=== PATIENT | male | born 1975 | race Caucasian/White ===

== ENCOUNTER 2019-04-08 10:47 | Inpatient (IN) ==
[2019-04-08] MEDS ORDERED: ICU PROTOCOL FOR HYPERGLYCEMIA PRN ×2 (12:37→16:20)
[2019-04-08] MEDS ORDERED: PROPOFOL IV EMULSION 10 MG/ML 100 ML VIAL IV ONE (12:42)
[2019-04-08] MEDS ORDERED: NiCARDipine HCL INJ 2.5 MG/ML 10 ML AMP ONE (13:05)
[2019-04-08] MEDS ORDERED: HEPARIN (PORCINE) 1000 UNIT/ML 10 ML (CATH LAB USE ONLY) ONE (13:05)
[2019-04-08] MEDS ORDERED: MIDAZOLAM HCL 1 MG/ML 2ML VIAL ONE ×2 (13:06→15:58)
[2019-04-08] MEDS ORDERED: fentaNYL citrate 100 MCG/2 ML VIAL ONE (13:06)
[2019-04-08] MEDS ORDERED: NITROGLYCERIN/D5W 100MCG/ML 20ML SYR ONE (13:10)
--- NOTE | 2019-04-08 13:14 | History & Physical Report ---
Date of Service April 08, 2019 Assessment & Plan (1) Sudden cardiac arrest: 43-year-old male with history of hypertension presenting from outside hospital status post out of hospital arrest with ROSC, patient transferred to [facility] for post cardiac arrest care therapeutic cooling. Neurointubated, sedated. Per ICU attending, patient was moving spontaneously when sedation was decreased. Continue fentanyl drip for pain Continue propofol for sedation Therapeutic hypothermia per protocol. Demerol and BuSpar as needed for shivering Cardiovascularpatient with out of hospital PEA arrest status post CPR, epi x3 with ROSC. Presently undergoing therapeutic hypothermia. Bedside echo with depressed EF, cardiomyopathy. Cardiac cath with nonobstructive CAD. Elevated troponin as expected. -Continue therapeutic hypothermia status post cardiac arrest Hold lisinopril -Continue pressor support with Levophed and vasopressin as needed to maintain map greater than or equal to 65 Pulmonarypatient intubated and sedated. Adequate oxygenation and ventilation on current settings. ABG 7.26/40 5/160 on. Chest x-ray on arrival with ET tube 4 cm above the jl and nasogastric tube in place -Continue mechanical ventilation Gastrointestinal-patient with mild elevation in AST = 185 and ALT = 120. Most likely secondary to poor perfusion during cardiac arrest Repeat LFTs, continue to trend OG tube in place, dietary consultation placed Patient n.p.o. for now Prevacid 30 mg every morning for GI prophylaxis while intubated/mechanically ventilated Genitourinaryelevated BUN and creatinine = 27 and 1.81. Baseline unsure. [place] in place Continue to monitor BUN/creatinine/urine output and electrolytes -IV fluids as below Infectious diseasepatient with elevated procalcitonin = 1.96, leukocytosis with WBC = 23.33 with neutrophil predominance and bands. No overt evidence of infection at that time Continue to monitor cultures Unasyn per MICU attending Hematologyno active issues Continue monitor CBC Endocrineno active issues Continue to monitor blood sugar, treatment of hyperglycemia per ICU protocol F/E/N-normal saline at 80 mL/h. Monitor electrolytes and replete as needed. N.p.o. for now ProphylaxisSCDs to bilateral lower extremities, heparin 5000 units subcu every 8. Prevacid for GI prophylaxis full intubated Codefull per discussion with patient's mother and family DispositionMICU (2) Hypertension: (3) CAD (coronary artery disease): (4) Cardiomyopathy: History of Present Illness Chief Complaint: s/p cardiac arrest Primary Care Provider: NO PCP Patient is a 43yo C male with history of HTN presenting from [facility] s/p out of hospital PEA arrest with ROSC. History obtained from family and co-workers as patient intubated/sedated. Girlfriend and boss report patient has been complaining of some chest pressure for the last two weeks, stating that his "Prilosec isn't working", also with episodes of dizziness and presyncope. His boss reports that patient was not himself this AM, agitated. 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 Found to be pulseless, PEA arrest, CPR initiated in the field. EMT responded quickly and administered epinephrine x 2 with ROSC. Estimated down time = 5 minutes. He was transferred to [facility] with pulse intact. He became pulseless again while at [facility], CPR was initiated and he was administered epi x 1 with ROSC. Patient not following commands. He was intubated at [facility], OGT placed. Left IJ placed and removed. Started on Levophed and Vasopressin. Propofol for sedation. Labs from [facility] significant for WBC=18.1. Cr=1.6 HCO3=19 XRS=163, IYK=975, AG=18.6. Per flight crew, VBG of 7. CXR at OSH confirmed placement of ETT and OGT EKG with accelerated junctional rhythm, LAD, poor R-wave progression Patient transferred to [facility] by air. MORGAN - Shanna Conway (mother) [phone] Allergies Allergy/AdvReac Type Severity Reaction Status Date / Time No Known Allergies Allergy Unverified 05/23/15 17:40 Home Medications Home Medications Medication Instructions Recorded Confirmed Type lisinopril [Prinivil] 20 mg PO DAILY 04/08/19 04/08/19 History Past Med/Surg History Medical History (Updated 04/08/19 @ 18:48 by Norbert Rm MD) Hypertension Sudden cardiac arrest Surgical History (Updated 04/08/19 @ 13:11 by Rosa Garcia DO) History of appendectomy Family History (Updated 04/08/19 @ 13:12 by Rosa Garcia DO) Other Cancer Coronary heart disease Diabetes Social History (Updated 04/08/19 @ 13:12 by Rosa Garcia DO) Preferred Language: Lithuanian 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: No Beliefs That Will Affect Care: None Current Living Situation: Family current occupational status: employed Smoking Status: Current every day smoker Tobacco Type: cigarettes ; Hx Alcohol Use: No Hx Substance Use: No Review of Systems Review of Systems: Unobtainable due to endotracheal tube Physical Exam Physical Exam: General: Patient intubated, sedated, not following commands at present Skin: warm, dry, intact, no rashes or lesions HEENT: NC/AT, PERRL, anicteric sclera, conjunctiva without injection, external ear normal to inspection and nontender, nares patent, moist mucus membranes, dentition intact, no oropharyngeal lesions, neck supple, trachea midline, no LAD, no thyromegaly, no JVD, ET tube in place Heart: +S1/S2, regular, no m/r/g Lungs: equal air entry bilaterally, no rales/rhonchi/wheezes Abd: +BS, soft, NT/ND, no masses/organomegaly/ascites Ext: warm, 2+ pulses in UE/LE bilaterally, no clubbing/cyanosis or edema Neuro: Intubated, sedated, not following commands at present Results & Data Vital Signs (Past 12 Hours) Vital Signs Blood Pressure Pulse Rate Respiratory Rate Pulse Oximetry 92/51 L 78 16 100 04/08/19 13:06 04/08/19 13:06 04/08/19 13:06 04/08/19 13:06 Laboratory Results Lab Results 04/08/19 04/08/19 04/08/19 Range/Units 12:50 13:14 13:14 WBC (4.8-10.8) K/uL RBC (4.7-6.1) M/uL Hgb (14.0-18.0) g/dL POC Hgb (14.0-18.0) g/dl Hct (42-52) % POC Hct (42-52) % MCV (80-100) fL MCH (25-34) pg MCHC (32-36) g/dL RDW Std Deviation (36.4-46.3) fL RDW Coeff of Paddy (11.5-14.5) % Plt Count (130-400) K/uL MPV (7.4-10.4) fL Immature Gran % (Auto) % Neut % (Auto) % Lymph % (Auto) % [place] % (Auto) % Eos % (Auto) % Baso % (Auto) % Immature Gran # (Auto) (0.00-0.02) K/uL Neut # (Auto) (1.4-6.5) K/uL Lymph # (Auto) (1.2-3.4) K/uL [place] # (Auto) (0.11-0.59) K/uL Eos # (Auto) (0-0.5) K/uL Baso # (Auto) (0-0.2) K/uL Toxic Vacuolation PT (9.0-12.0) Seconds INR (0.9-1.1) Sample Site POC pH (7.35-7.45) POC pCO2 (35-46) mmHg POC pO2 (80-95) mmHg POC HCO3 (19-24) karen/L POC Total CO2 (24-31) mmol/L POC Base Excess (-9-1.8) karen/L ABG pH Cancelled ABG pH (Temp Correct) (7.35-7.45) ABG pCO2 Cancelled ABG pCO2 (Temp Corrct (35-46) mmHg ABG pO2 Cancelled POC ABG pO2 at Pt Temp ABG HCO3 Cancelled ABG O2 Saturation Cancelled ABG Base Excess Cancelled Lars Test Cancelled VBG pH 7.11 L (7.36-7.41) VBG pCO2 66 H (38-50) mmHg VBG pO2 47 mmHg VBG HCO3 20 mmol/L VBG O2 Saturation 68.6 % VBG Base Excess -10.6 mEq/L Barometric Pressure Cancelled 741.3 Oxygen Given Cancelled O2 Delivery Device POC O2 Rate Minute Ventilation POC FiO2 % Tidal Volume PEEP POC Sodium (135-144) mmol/L Sodium (136-145) mmol/L POC Potassium (3.3-5.0) mmol/L Potassium (3.5-5.1) mmol/L Chloride (98-107) mmol/L Carbon Dioxide (21-32) mmol/L Anion Gap (3-11) BUN (7-18) mg/dl Creatinine (0.6-1.4) mg/dl Est Cr Clr Drug Dosing Est GFR ( Amer) Est GFR (Non-Af Amer) BUN/Creatinine Ratio (10-20) Glucose (70-99) mg/dl Lactate (0.4-2.0) mmol/L Calcium (8.5-10.1) mg/dl Phosphorus (2.5-4.9) mg/dl Magnesium (1.8-2.4) mg/dl Total Bilirubin (0.2-1) mg/dl Direct Bilirubin (0-0.2) mg/dl AST (15-37) U/L ALT (12-78) U/L Alkaline Phosphatase (45-117) U/L Troponin I (0-0.045) ng/ml Total Protein (6.4-8.2) gm/dl Albumin (3.4-5.0) gm/dl Procalcitonin (0-0.5) ng/ml Nasal Screen MRSA (PCR) Negative (Negative) 04/08/19 04/08/19 04/08/19 Range/Units 13:16 13:16 13:16 WBC 18.51 H (4.8-10.8) K/uL RBC 5.13 (4.7-6.1) M/uL Hgb 16.6 (14.0-18.0) g/dL POC Hgb (14.0-18.0) g/dl Hct 47.9 (42-52) % POC Hct (42-52) % MCV 93.4 (80-100) fL MCH 32.4 (25-34) pg MCHC 34.7 (32-36) g/dL RDW Std Deviation 43.3 (36.4-46.3) fL RDW Coeff of Paddy 12.6 (11.5-14.5) % Plt Count 220 (130-400) K/uL MPV 9.7 (7.4-10.4) fL Immature Gran % (Auto) 1.5 % Neut % (Auto) 85.3 % Lymph % (Auto) 9.6 % [place] % (Auto) 3.2 % Eos % (Auto) 0.3 % Baso % (Auto) 0.1 % Immature Gran # (Auto) 0.27 H (0.00-0.02) K/uL Neut # (Auto) 15.79 H (1.4-6.5) K/uL Lymph # (Auto) 1.78 (1.2-3.4) K/uL [place] # (Auto) 0.60 H (0.11-0.59) K/uL Eos # (Auto) 0.05 (0-0.5) K/uL Baso # (Auto) 0.02 (0-0.2) K/uL Toxic Vacuolation PT 10.4 (9.0-12.0) Seconds INR 1.0 (0.9-1.1) Sample Site POC pH (7.35-7.45) POC pCO2 (35-46) mmHg POC pO2 (80-95) mmHg POC HCO3 (19-24) karen/L POC Total CO2 (24-31) mmol/L POC Base Excess (-9-1.8) karen/L ABG pH ABG pH (Temp Correct) (7.35-7.45) ABG pCO2 ABG pCO2 (Temp Corrct (35-46) mmHg ABG pO2 POC ABG pO2 at Pt Temp ABG HCO3 ABG O2 Saturation ABG Base Excess Lars Test VBG pH (7.36-7.41) VBG pCO2 (38-50) mmHg VBG pO2 mmHg VBG HCO3 mmol/L VBG O2 Saturation % VBG Base Excess mEq/L Barometric Pressure Oxygen Given O2 Delivery Device POC O2 Rate Minute Ventilation POC FiO2 % Tidal Volume PEEP POC Sodium (135-144) mmol/L Sodium 136 (136-145) mmol/L POC Potassium (3.3-5.0) mmol/L Potassium 4.2 (3.5-5.1) mmol/L Chloride 105 (98-107) mmol/L Carbon Dioxide 19 L (21-32) mmol/L Anion Gap 11.0 (3-11) BUN 19 H (7-18) mg/dl Creatinine 1.79 H (0.6-1.4) mg/dl Est Cr Clr Drug Dosing Not Reportable Est GFR ( Amer) 52.2 Est GFR (Non-Af Amer) 45.1 BUN/Creatinine Ratio 10.8 (10-20) Glucose 189 H (70-99) mg/dl Lactate (0.4-2.0) mmol/L Calcium 8.3 L (8.5-10.1) mg/dl Phosphorus 4.4 (2.5-4.9) mg/dl Magnesium 2.1 (1.8-2.4) mg/dl Total Bilirubin 0.3 (0.2-1) mg/dl Direct Bilirubin < 0.1 (0-0.2) mg/dl AST 185 H (15-37) U/L ALT 120 H (12-78) U/L Alkaline Phosphatase 91 (45-117) U/L Troponin I 8.720 H* (0-0.045) ng/ml Total Protein 7.3 (6.4-8.2) gm/dl Albumin 3.3 L (3.4-5.0) gm/dl Procalcitonin (0-0.5) ng/ml Nasal Screen MRSA (PCR) (Negative) 04/08/19 04/08/19 04/08/19 Range/Units 15:45 15:49 21:29 WBC 23.33 H (4.8-10.8) K/uL RBC 4.90 (4.7-6.1) M/uL Hgb 15.8 (14.0-18.0) g/dL POC Hgb 16.3 (14.0-18.0) g/dl Hct 44.7 (42-52) % POC Hct 48 (42-52) % MCV 91.2 (80-100) fL MCH 32.2 (25-34) pg MCHC 35.3 (32-36) g/dL RDW Std Deviation 42.8 (36.4-46.3) fL RDW Coeff of Paddy 12.8 (11.5-14.5) % Plt Count 200 (130-400) K/uL MPV 9.8 (7.4-10.4) fL Immature Gran % (Auto) 0.6 % Neut % (Auto) 88.2 % Lymph % (Auto) 4.7 % [place] % (Auto) 6.5 % Eos % (Auto) 0.0 % Baso % (Auto) 0.0 % Immature Gran # (Auto) 0.14 H (0.00-0.02) K/uL Neut # (Auto) 20.56 H (1.4-6.5) K/uL Lymph # (Auto) 1.10 L (1.2-3.4) K/uL [place] # (Auto) 1.52 H (0.11-0.59) K/uL Eos # (Auto) 0.00 (0-0.5) K/uL Baso # (Auto) 0.01 (0-0.2) K/uL Toxic Vacuolation 1+ PT (9.0-12.0) Seconds INR (0.9-1.1) Sample Site Art Line POC pH 7.26 L (7.35-7.45) POC pCO2 45 (35-46) mmHg POC pO2 160 H (80-95) mmHg POC HCO3 20 (19-24) karen/L POC Total CO2 22 L (24-31) mmol/L POC Base Excess -7.0 (-9-1.8) karen/L ABG pH ABG pH (Temp Correct) 7.278 L (7.35-7.45) ABG pCO2 ABG pCO2 (Temp Corrct 43 (35-46) mmHg ABG pO2 POC ABG pO2 at Pt Temp 152 ABG HCO3 ABG O2 Saturation ABG Base Excess Lars Test NA VBG pH (7.36-7.41) VBG pCO2 (38-50) mmHg VBG pO2 mmHg VBG HCO3 mmol/L VBG O2 Saturation % VBG Base Excess mEq/L Barometric Pressure Oxygen Given O2 Delivery Device Ventilator POC O2 Rate 16 Minute Ventilation 23.8 POC FiO2 100 % Tidal Volume 500 PEEP 10 POC Sodium 137 (135-144) mmol/L Sodium (136-145) mmol/L POC Potassium 4.8 (3.3-5.0) mmol/L Potassium (3.5-5.1) mmol/L Chloride (98-107) mmol/L Carbon Dioxide (21-32) mmol/L Anion Gap (3-11) BUN (7-18) mg/dl Creatinine (0.6-1.4) mg/dl Est Cr Clr Drug Dosing Est GFR ( Amer) Est GFR (Non-Af Amer) BUN/Creatinine Ratio (10-20) Glucose (70-99) mg/dl Lactate 3.9 H* (0.4-2.0) mmol/L Calcium (8.5-10.1) mg/dl Phosphorus (2.5-4.9) mg/dl Magnesium (1.8-2.4) mg/dl Total Bilirubin (0.2-1) mg/dl Direct Bilirubin (0-0.2) mg/dl AST (15-37) U/L ALT (12-78) U/L Alkaline Phosphatase (45-117) U/L Troponin I (0-0.045) ng/ml Total Protein (6.4-8.2) gm/dl Albumin (3.4-5.0) gm/dl Procalcitonin (0-0.5) ng/ml Nasal Screen MRSA (PCR) (Negative) 04/08/19 04/08/19 04/08/19 Range/Units 21:29 21:29 21:29 WBC (4.8-10.8) K/uL RBC (4.7-6.1) M/uL Hgb (14.0-18.0) g/dL POC Hgb (14.0-18.0) g/dl Hct (42-52) % POC Hct (42-52) % MCV (80-100) fL MCH (25-34) pg MCHC (32-36) g/dL RDW Std Deviation (36.4-46.3) fL RDW Coeff of Paddy (11.5-14.5) % Plt Count (130-400) K/uL MPV (7.4-10.4) fL Immature Gran % (Auto) % Neut % (Auto) % Lymph % (Auto) % [place] % (Auto) % Eos % (Auto) % Baso % (Auto) % Immature Gran # (Auto) (0.00-0.02) K/uL Neut # (Auto) (1.4-6.5) K/uL Lymph # (Auto) (1.2-3.4) K/uL [place] # (Auto) (0.11-0.59) K/uL Eos # (Auto) (0-0.5) K/uL Baso # (Auto) (0-0.2) K/uL Toxic Vacuolation PT (9.0-12.0) Seconds INR (0.9-1.1) Sample Site POC pH (7.35-7.45) POC pCO2 (35-46) mmHg POC pO2 (80-95) mmHg POC HCO3 (19-24) karen/L POC Total CO2 (24-31) mmol/L POC Base Excess (-9-1.8) karen/L ABG pH 7.34 L ABG pH (Temp Correct) (7.35-7.45) ABG pCO2 43 ABG pCO2 (Temp Corrct (35-46) mmHg ABG pO2 109 H POC ABG pO2 at Pt Temp ABG HCO3 23 ABG O2 Saturation 97.8 H ABG Base Excess -2.9 Lars Test Pos VBG pH (7.36-7.41) VBG pCO2 (38-50) mmHg VBG pO2 mmHg VBG HCO3 mmol/L VBG O2 Saturation % VBG Base Excess mEq/L Barometric Pressure 743.1 Oxygen Given 40% FIO2 O2 Delivery Device POC O2 Rate Minute Ventilation POC FiO2 % Tidal Volume PEEP POC Sodium (135-144) mmol/L Sodium 136 (136-145) mmol/L POC Potassium (3.3-5.0) mmol/L Potassium 5.2 H D (3.5-5.1) mmol/L Chloride 107 (98-107) mmol/L Carbon Dioxide 24 (21-32) mmol/L Anion Gap 5.0 (3-11) BUN 27 H (7-18) mg/dl Creatinine 1.81 H (0.6-1.4) mg/dl Est Cr Clr Drug Dosing 67.1 Est GFR ( Amer) 51.5 Est GFR (Non-Af Amer) 44.5 BUN/Creatinine Ratio 14.9 (10-20) Glucose 111 H (70-99) mg/dl Lactate (0.4-2.0) mmol/L Calcium 8.3 L (8.5-10.1) mg/dl Phosphorus 3.4 D (2.5-4.9) mg/dl Magnesium 2.0 (1.8-2.4) mg/dl Total Bilirubin (0.2-1) mg/dl Direct Bilirubin (0-0.2) mg/dl AST (15-37) U/L ALT (12-78) U/L Alkaline Phosphatase (45-117) U/L Troponin I (0-0.045) ng/ml Total Protein (6.4-8.2) gm/dl Albumin (3.4-5.0) gm/dl Procalcitonin 1.96 H (0-0.5) ng/ml Nasal Screen MRSA (PCR) (Negative) Diagnostic Findings ULTRASOUND BILATERAL LOWER EXTREMITY VENOUS CLINICAL HISTORY: Lower extremity edema. COMPARISON STUDY: No priors. TECHNIQUE: Real-time, grayscale, and color Doppler sonography of the deep veins of the right and left lower extremity was performed from the inguinal crease to the calf. Compression and augmentation were utilized. FINDINGS: There is no sonographic evidence of deep venous thrombosis identified in the right or left lower extremity. The common femoral, superficial femoral, and popliteal veins are patent and normally compressible bilaterally. The greater saphenous vein and the profunda femoris vein at the junction with the common femoral vein are clear in both legs. The visualized calf veins are patent bilaterally. IMPRESSION: There is no sonographic evidence of deep venous thrombosis identified in the right or left lower extremity. ACT 112: Negative or not required by law. Electronically signed by: Alexander Ewing M.D. 04/08/2019 6:11 PM Dictated: 04/08/191809 Transcribed: 04/08/191809 XR chest 1V portable CLINICAL HISTORY: confirm ETT tube position COMPARISON STUDY: 04/08/2019 1:06 PM FINDINGS: Nasogastric tube within the distal stomach. Endotracheal tube 4 cm above the jl. Lungs are grossly clear. IMPRESSION: 1. Endotracheal tube 4 cm above the jl. 2. Nasogastric tube distal stomach. ACT 112: Negative or not required by law. The above report was generated using voice recognition software. It may contain grammatical, syntax or spelling errors. Electronically signed by: Joe Tillman M.D. 04/08/2019 1:19 PM Dictated: 04/08/19 1318 Code Status & VTE Plan Code Status Full code Critical Care Time Critical Care Time: Yes Total Critical Care Time: 45 PG Care Time/CCT Total # of Minutes Spent Total Time Spent with Patient: Total time spent is greater than 50% in coordination of care (as documented) at patient's floor/unit and/or counseling patient: Critical Care Time: Yes Total Critical Care Time: 45 Coding Level of Care Code None Diagnoses Sudden cardiac arrest I46.9 Hypertension I10 Hypertension type: essential hypertension CAD (coronary artery disease) I25.10 Cardiomyopathy I42.9 Additional Codes Critical Care Time - Critical Care Time: Yes ([id number]) (1) Hypertension Hypertension type: essential hypertension Qualified Code(s): I10 - Essential (primary) hypertension
--- NOTE | 2019-04-08 13:16 | Critical Care Consultation ---
Date of Consultation April 08, 2019 Assessment & Plan (1) Admitted to intensive care unit: Reason Critically Ill: 43 yo male with cardiac arrest flow to [facility] from [facility] for further management. Neuro: * Sedation with propofol and fentanyl drip while on vent * Hypothermic protocol for cerebral cooling in the setting of recent cardiac arrest Cardiac: * Cardiac Arrest - total estimated time down is 5 minutes; patient with ROSC after amp of epi x 2 CHROME TANNER. currently in sinus rhythm on cardiac monitoring. despite elevated trop and EKG changes (new left fasicular block with T wave inversion), etiology unlikely to be ischemia as cath showed only moderately obstructive coronary disease, not significant enough to be responsible for arrest or warrant PCI. consider arrhythmia vs. non-ischemic cardiomyopathy. ECHO ordered, read pending. cardiology consult placed. will order A1c and lipid profile with AM labs. * Elevated Troponin - 0.3 at [facility], increased to 8.7. continue to trend. Patient taken directly to laborer tin can, which revealed moderately obstructive coronary disease. No stents were deployed. Cooling catheter placed in laborer tin can. etiology likely demand > supply * HTN - patient recently initiated on Lisinopril for anti-hypertensive regimen. BP required pressor support while in life-flight. will place A-line for continuous BP monitoring. Respiratory: * Currently mechanically ventilated in light of recent cardiac arrest. Will order VBG GI: * NPO while on vent * Elevated LFTs: AST at 185, ALT 120. Likely banking representative of shock liver vs. primary hepatic etiology. continue to trend * GERD: continue home lansoprazole RENAL/LYTES: * Metabolic acidosis; lactate pending * Cr 1.6 at [facility], up to 1.79 on admission. Likely in the setting of reduced perfusion * electrolytes normal on admission; ICU Electrolyte replacement protocol held in while on hypothermia protocol : * Mayorga catheter placed - strict Is/Os ENDO: - no known history of underlying diabetes; A1c ordered - ICU protocol for hyperglycemia HEME: * Hgb 16.6. No issues identified. ID: * WBC normal at [facility]; elevated to 18 on admission - most likely banking representative of a stress response vs. infectious process. lactate ordered. continue to trend * nasal MRSA swab negative LINES/IV ACCESS: * L EJ * PIV x3 (2 AC, 1 hand) * left radial A-line * R femoral CVC CODE STATUS: Full DVT PROPHYLAXIS: bilateral SCDs Thank you for allowing us to participate in the care of this patient. Please refer to my attending physician's documentation for any further recommendations. Supervising Physician Co-Signing Physician Notes Patient seen and examined. Outside medical records reviewed. 43-year-old male with out of hospital witnessed cardiac arrest. Records are not entirely clear however it appears the patient had a acute event. Bystander CPR and AED shocks were administered. Total duration of downtime is unclear but may be anywhere between 5 and 35 minutes. He presented to [facility] where he was intubated. He was transferred here for cardiac evaluation consideration of hypothermia. I assessed the patient immediately upon arrival. We discontinued his propofol. He did become somewhat agitated with purposeful movements of reaching towards the endotracheal tube. We were able to wean off pressors. He was taken urgently to the [facility] to exclude a potential coronary event by Dr. Ni. He had small luminal irregularities but relatively preserved flow. An echocardiogram did demonstrate decreased ejection fraction. I am assuming the patient had either VT or VF given the report of AED shocks del ivered. Unclear if he has a stress-induced cardiomyopathy or other nonischemic cardiomyopathy. Apparently family members do have a history of alcohol induced cardiomyopathy. For now I think it is reasonable to complete a hypothermia protocol to try and minimize any risk of anoxic encephalopathy. Cardiology consultation will be obtained to assist with management and determine whether secondary prevention for an arrhythmia is in order down the road. Patient does have a mild infiltrate in the right upper lobe. Aspiration would be a possibility. Will place on Unasyn. Will check sputum culture as well as procalcitonin. Mother was updated at bedside. A total of 89 minutes critical care time exclusive of procedures managing this patient with critical illness and significant possibility of clinical deterioration History of Present Illness Attending Physician: Rosa Garcia DO History of Present Illness Mr. Conway is a 43 yo male who was transported to [facility] [address] via air from [facility] for management of a cardiac arrest due to a suspected myocardial infarction. Patient has no known cardiac history, however he was initiated on Lisinopril for high blood pressure two weeks ago by his family doctor. Other cardiac risk factors include obesity and tobacco use. He suffered an [id number] cardiac arrest while he was hanging dry wall at home. Within 5 minutes EMS arrived and began CPR. AED revealed pulseless atrial activity. He was administered 1 amp of epi and pulse returned. On arrival to [facility] he again was administered 1 amp of epi for pulselessness. Initial troponin was 0.3. Cr 1.6. AST 133. ALT 102. HCO3 19. AST 133. ALT 102. AG 18.6. Initial EKG showed left axis deviation with a junctional escape rhythm. Repeat EKG showed a left anterior fascicular block. Patient was intubated and a L central venous catheter was placed. Propofol was given as he was attempting to breath over the ventilator. OG tube was placed and cold packs were placed along the groin to initiate a hypothermic state. On the helicopter ride to [facility], air team administered vasopressin at 0.4 units/hr and NE 0.25mcg/kg/min for hypotension. On arrival to [facility] [address] patient was directly admitted to ICU for monitoring. EKG showed normal sinus rhythm with left axis deviation and non- specific T wave inversion but no ST segment changes. CXR confirmed proper positioning of endotracheal and OG tubes. Bedside echo was performed. Troponin was 8.7. Chemistry reveal metabolic acidosis. On-call bit bender was paged and patient was taken to laborer tin can. Allergies Allergy/AdvReac Type Severity Reaction Status Date / Time No Known Allergies Allergy Unverified 05/23/15 17:40 Home Medications Home Medications Medication Instructions Recorded Confirmed Type lisinopril [Prinivil] 20 mg PO DAILY 04/08/19 04/08/19 History Patient History Medical History (Updated 04/08/19 @ 14:39 by Patricia Wiggins MD) Hypertension Sudden cardiac arrest Surgical History (Updated 04/08/19 @ 13:11 by Rosa Garcia DO) History of appendectomy Family History (Updated 04/08/19 @ 13:12 by Rosa Garcia DO) Other Cancer Coronary heart disease Diabetes Social History (Updated 04/08/19 @ 13:12 by Rosa Garcia DO) Beliefs That Will Affect Care: None current occupational status: employed Smoking Status: Current every day smoker Hx Alcohol Use: No Hx Substance Use: No Review of Systems Review of Systems: Unobtainable due to endotracheal tube Physical Exam Constitutional: WD/WN, vitals as above + obese and + mechanically ventilated ENMT: external ear and nose normal, oropharynx normal Neck: normal visual inspection and trachea midline Respiratory: normal respiratory effort, lungs clear to auscultation Cardiovascular: RRR, no murmur, no edema Heart Sounds: normal S1 and normal S2 Extremities: no edema Gastrointestinal (Abdomen): Inspection/Auscultation: abdomen normal to inspection Skin: no rashes, warm and dry Genitourinary: Mayorga catheter in place draining pale yellow colored urine Results & Data Vital Signs (Past 12 Hours) Vital Signs Pulse Resp BP Pulse Ox 04/08/19 13:06 78 16 92/51 L 100 04/08/19 13:00 75 100 04/08/19 12:58 75 92/57 L 100 04/08/19 12:50 77 93/48 L Resident Activity Tracking Resident Involvement: Resident Care Provided Care Provided: Adult Hospital Medicine
--- NOTE | 2019-04-08 13:21 | XRay Report ---
XR chest 1V portable CLINICAL HISTORY: confirm ETT tube position COMPARISON STUDY: 04/08/2019 1:06 PM FINDINGS: Nasogastric tube within the distal stomach. Endotracheal tube 4 cm above the jl. Lungs are grossly clear. IMPRESSION: 1. Endotracheal tube 4 cm above the jl. 2. Nasogastric tube distal stomach. ACT 112: Negative or not required by law. The above report was generated using voice recognition software. It may contain grammatical, syntax or spelling errors. Electronically signed by: Joe Tillman M.D. 04/08/2019 1:19 PM
[2019-04-08 13:23] LABS: Basophils # (auto) 0.02 K/uL (0-0.2); Basophils % (auto) 0.1 %; Eosinophils # (auto) 0.05 K/uL (0-0.5); Eosinophils % (auto) 0.3 %; Hematocrit (blood only) 47.9 % (42-52); Hemoglobin 16.6 g/dL (14.0-18.0); Immature Granulocytes # (auto) 0.27 K/uL (0.00-0.02); Immature Granulocytes % (auto) 1.5 %; Lymphocytes # (auto) 1.78 K/uL (1.2-3.4); Lymphocytes % (auto) 9.6 %; Mean Corpuscular Hemoglobin 32.4 pg (25-34); Mean Corpuscular Volume 93.4 fL (80-100); Mean Platelet Volume 9.7 fL (7.4-10.4); Monocytes % (auto) 3.2 %; Neutrophils # (auto) 15.79 K/uL (1.4-6.5); Neutrophils % (auto) 85.3 %; Platelet Count 220 K/uL (130-400); RDW Coefficient of Variation 12.6 % (11.5-14.5); RDW Standard Deviation 43.3 fL (36.4-46.3); Red Blood Count 5.13 M/uL (4.7-6.1); White Blood Count 18.51 K/uL (4.8-10.8)
[2019-04-08 13:28] LABS: Base Excess VBG -10.6 mEq/L; Oxygen Saturation VBG 68.6 %; pH VBG 7.11 (7.36-7.41)
[2019-04-08 13:30] LABS: Mean Corpuscular Hgb Conc 34.7 g/dL (32-36)
[2019-04-08 13:33] LABS: Prothrombin Time 10.4 Seconds (9.0-12.0)
[2019-04-08 13:43] LABS: Alanine Aminotransferase 120 U/L (12-78); Albumin Level 3.3 gm/dl (3.4-5.0); Aspartate Aminotransferase 185 U/L (15-37); BUN Creatinine Ratio 10.8 (10-20); Bilirubin Direct < 0.1 mg/dl (0-0.2); Blood Urea Nitrogen 19 mg/dl (7-18); Calcium 8.3 mg/dl (8.5-10.1); Carbon Dioxide 19 mmol/L (21-32); Chloride 105 mmol/L (98-107); Est GFR (African American) 52.2; Est GFR (Non-African American) 45.1; Glucose 189 mg/dl (70-99); Magnesium 2.1 mg/dl (1.8-2.4); Potassium 4.2 mmol/L (3.5-5.1); Sodium 136 mmol/L (136-145)
[2019-04-08] MEDS ORDERED: PROPOFOL IV EMULSION 10 MG/ML 20 ML VIAL (CATH LAB USE ONLY) ONE (13:48)
[2019-04-08 14:02] LABS: Alkaline Phosphatase 91 U/L (45-117); Bilirubin,Total 0.3 mg/dl (0.2-1); Phosphorus 4.4 mg/dl (2.5-4.9); Total Protein 7.3 gm/dl (6.4-8.2)
--- NOTE | 2019-04-08 14:50 | Cardiac Catheterization ---
[facility] Data: Food Service Coordinator Cardiac Status Clinical evaluation leading to the procedure CAD Presenation: Non STEMI Anginal Classification: No Symptoms Heart Failure: No Cardiogenic Shock within 24 Hours: No Cardiac Arrest within 24 Hours: Yes Imaging Studies Past 6 Months: Yes Stress Studies Past 6 Months: No Diagnostic Physicians Name: Niko Ni MD Status: Urgent Closure Device Percutaneous Entry Location: Radial Closure Device: Radial Band Recommendations: Medical Therapy and/or Counseling Intraprocedure Events Significant Disection: No Perforation: No Cardiac Cath Procedure Full Procedure Date April 08, 2019 Pre-Procedure Diagnosis Pre-Procedure Diagnosis: Acute Coronary Syndrome and Cardiothoracic Symptom (Cardiac arrest) AUC Score AUC Score: 8 Post-Procedure Diagnosis Post-Procedure Diagnosis: Moderate CAD and Elevated Intracardiac Pressures Procedure(s) Performed Procedure(s) Performed: Coronary Angiography, Left Heart Cath, Ultrasound Guided Vascular Access and Procedure (Cooling catheter insertion) Independent Freight Agent Niko Ni MD Bottom Turning Lathe Turner(s) Max Estimated Blood Loss Estimated Blood Loss: 10 Medication(s) Medication(s): Heparin, Lidocaine 1%, Nicardipine and Nitroglycerin Medication(s): Propofol Summary of Findings Indication: 43-year-old man with out of hospital cardiac arrest. Downtime thought to be around 25 minutes. Reported questionable lateral ST elevations in route to [facility]. Additional PEA arrest in outside hospital ED. Hemodynamically stable since. Neurologically impaired postarrest and prepped for cooling. Access: 6 Fr slender right radial artery under ultrasound guidance Catheters: [place], diagnostic JR4 Findings: LM -medium caliber, luminal irregularities LAD -medium caliber, 20% proximal to mid diffuse disease, distal luminal irregularities, tapers to apex. Medium caliber second diagonal with 30 to 40% proximal stenosis Circumflex -small caliber vessel, 50-60% ostial stenosis, 50% mid segment stenosis after takeoff of first OM. OM1 with 40% proximal disease. Small OM 2 with 50% ostial stenosis RCA -large caliber vessel, dominant, 20% ostial stenosis, 60% proximal stenosis. Mid and distal luminal irregularities. LVEDP -27 Arterial Closure: TR band Cooling catheter placed to right common femoral vein under ultrasound guidance Summary: 1. Moderate nonobstructive coronary artery disease. LORY-3 flow throughout left and right coronary systems. -60% proximal RCA 50 to 60% ostial and mid circumflex. 40% proximal OM1 30 to 40% proximal second diagonal 2. Elevated intracardiac filling pressure Recommendations: No evidence of flow-limiting obstructive disease to explain cardiac arrest Targeted temperature management Continued hemodynamic support Guideline directed medical therapy for nonischemic cardiomyopathy ASCVD risk factor modification Hemodynamics Rest Ao:: 102/61/81 Final Ao: 111/71/80 LV: 106/27 Recommendations Recommendations: Medical Therapy and/or Counseling Specimens Specimens: None Radiation Exposure (mGy) 1751 Contrast (mls) 45 Fluids (cc crystalloids) Fluids (cc crystalloids): 100 Drains Drains: none Anesthesia moderate Procedural Complication(s) None Disposition ICU I attest to the content of the Intraoperative Record and any orders documented therein. Any exceptions are noted below. [facility] Card Cath Procedure Codes Cardiac Catheterization Procedure 1: Cardiovascular Cath Procedures: 76431 Coronaries and LHC (+/-LV) Therapeutic Services & Ancillary Proc Procedure 1: Cardiovascular Tx and Anc Procedures: 77998 Ultrasonic Guidance Vascular Access Procedure 2: Cardiovascular Tx and Anc Procedures: 66484 Insertion Central Venous Catheter PG Care Time/CCT Total # of Minutes Spent Total Time Spent with Patient: Total time spent is greater than 50% in coordination of care (as documented) at patient's floor/unit and/or counseling patient:
[2019-04-08] MEDS ORDERED: STAT IV Infusion **Titration per Protocol STA (14:58)
[2019-04-08] MEDS ORDERED: BusPIRone 15 MG TAB NG PRN (14:58)
[2019-04-08] MEDS ORDERED: ICU ELECTROLYTE REPLACEMENT PROTOCOL PRN (14:58)
[2019-04-08] MEDS ORDERED: ARTIFICIAL TEARS OP OINT 3.5 GM TUBE OP PRN (14:58)
[2019-04-08] MEDS ORDERED: HYDROmorphone INJ 1 MG/ML SYRINGE IV PRN (14:58)
[2019-04-08] MEDS ORDERED: TRAMADOL HCL 50 MG TABLET NG PRN (14:58)
[2019-04-08] MEDS ORDERED: ACETAMINOPHEN 650 MG SUPP PR PRN (14:58)
[2019-04-08] MEDS ORDERED: MIDAZOLAM HCL 125 MG/250 ML BAG IV SCH (15:00)
[2019-04-08] MEDS ORDERED: SODIUM CHLORIDE 0.9% 1000ML 1,000 ML IV ONE (15:00)
[2019-04-08] MEDS: NOREPINEPHRINE BIT INJ 8 MG in DEXTROSE 5% 500 ML IV SCH (15:25)
[2019-04-08] MEDS: fentaNYL DRIP 1,250 MCG/250 ML BAG IV SCH ×2 (15:25→20:37)
--- NOTE | 2019-04-08 15:40 | Procedure Note ---
Procedure Note Date of Service April 08, 2019 Note ARTERIAL LINE PROCEDURE NOTE: Procedure: Arterial Line Placement Attending: Dr. Rich Mitchell Provider: Patricia Wigigns MD PGY-1 Indication: Monitoring on Pressors Anesthesia: Lidocaine 1% Line placed emergently post cardiac arrest, patient unable to cognitively give consent. A time-out was performed. Patient's name, procedure, indication, site, and equipment were verified. Patient's left wrist was prepped and draped in the usual sterile fashion. Providers were sterile throughout procedure. Ultrasound guidance was used to aid needle placement. A 20g Arrow arterial line was introduced into the left radial artery. After a flash was observed, the catheter was threaded and the needle was removed with appropriate blood return. Good waveform was observed on monitor. The patient tolerated the procedure well. Blood Loss: Minimal Complications: None Procedural Ultrasound Guidance Procedure Date: 04/08/2019 Indication: Arterial line insertion Attending: Dr. Rich Mitchell Provider: Patricia Wiggins MD PGY-1 Artery Identified: Yes Line confirmed in Artery with ultrasound: Yes Complications: none Patient tolerated procedure: well Attending note I was present for, and scrubbed for the entire this procedure and assisted with auguste elements. Coding Resident Activity Tracking Resident Involvement: Resident Care Provided Care Provided: Adult [facility] Medicine
[2019-04-08] MEDS: MEPERIDINE HCL 25 MG/ML CARP IV PRN ×4 (15:45→22:12)
[2019-04-08] MEDS: propofoL 1,000 MG/100 ML VIAL IV SCH ×4 (15:46→23:05)
[2019-04-08] MEDS ORDERED: SODIUM BICARBONATE 8.4% INJ 50 MEQ/50 ML VIAL IV ONE (15:53)
--- NOTE | 2019-04-08 16:06 | XCELERA ---
[id number] [id number]
[2019-04-08 16:10] LABS: iSTAT Art Bld Gas pCO2 Correct 43 mmHg (35-46); iSTAT Art Bld Gas pH Corrected 7.278 (7.35-7.45); iSTAT Arterial Blood Gas HCO3 20 meg/L (19-24); iSTAT Arterial Blood Gas pCO2 45 mmHg (35-46); iSTAT Arterial Blood Gas pH 7.26 (7.35-7.45); iSTAT Arterial Blood Gas pO2 160 mmHg (80-95); iSTAT Arterial Blood Gas pO2 C 152; iSTAT Carbon Dioxide 22 mmol/L (24-31); iSTAT FiO2 100 %; iSTAT Hematocrit 48 % (42-52); iSTAT Hemoglobin 16.3 g/dl (14.0-18.0); iSTAT Potassium 4.8 mmol/L (3.3-5.0); iSTAT Site Art Line; iSTAT Sodium 137 mmol/L (135-144)
[2019-04-08] MEDS ORDERED: SODIUM BICARB 8.4% INJ 50 MEQ/50 ML SYR IV ONE (16:15)
--- NOTE | 2019-04-08 16:17 | Billing Data ---
Date of Service April 08, 2019 See FP resident note and my addendum. Coding Level of Care Code Critical Care ea addt'l 30 min Time Spent (min) 78
[2019-04-08] MEDS: NORMOSOL-R 1,000 ML IV SCH (16:27)
[2019-04-08] MEDS: AMPICILLIN/SULBACTAM SOD 3,000 MG in 0.9 % SODIUM CHLORIDE 100 ML IV SCH ×2 (16:27→22:01)
[2019-04-08] MEDS ORDERED: TICAGRELOR 90 MG TAB PO ONE (16:49)
--- NOTE | 2019-04-08 18:12 | Ultrasound Report ---
ULTRASOUND BILATERAL LOWER EXTREMITY VENOUS CLINICAL HISTORY: Lower extremity edema. COMPARISON STUDY: No priors. TECHNIQUE: Real-time, grayscale, and color Doppler sonography of the deep veins of the right and left lower extremity was performed from the inguinal crease to the calf. Compression and augmentation wer e utilized. FINDINGS: There is no sonographic evidence of deep venous thrombosis identified in the right or left lower extremity. The common femoral, superficial femoral, and popliteal veins are patent and normally compressible bilaterally. The greater saphenous vein and the profunda femoris vein at the junction w ith the common femoral vein are clear in both legs. The visualized calf veins are patent bilaterally. IMPRESSION: There is no sonographic evidence of deep venous thrombosis identified in the right or lef t lower extremity. ACT 112: Negative or not required by law. Electronically signed by: Alexander Ewing M.D. 04/08/2019 6:11 PM
--- NOTE | 2019-04-08 18:15 | Cardiology Consultation ---
Date of Consultation April 08, 2019 Assessment & Plan (1) Sudden cardiac arrest: (2) CAD (coronary artery disease): (3) Hypertension: (4) Cardiomyopathy: (5) Elevated troponin: ASSESSMENT/PLAN: 1. Cardiac arrest: Most accounts report PEA and total CPR difficult to quantitate. Chest compressions reportedly started immediately by coworkers. He is undergoing hypothermia protocol. Continue supportive care. Currently hemodynamically stable. Etiology uncertain. There is no severe CAD to suggest acute coronary syndrome as the cause. Cannot rule out a arrhythmia completely. Discussed other possibilities with critical care staff such as PE, neurologic event, other vascular catastrophe. No obvious cause based on exam and the fact that he has remained stable since. Dr. Mitchell will coordinate further evaluation as appropriate. If he is neurologically intact when he is Re warmed, we will discuss with electrophysiology possibility of ICD at some point if appropriate at that time. 2. Cardiomyopathy: Etiology uncertain. Could be due to acute illness in the setting of cardiac arrest. Cannot exclude cardiomyopathy being present on a more chronic basis but he is not dilated which may support more acute process. Will repeat echo in the future. When able, consider carvedilol or metoprolol succinate and ASTRID-inhibitor if no contraindications. He has required pressor support today so therefore these medications cannot be initiated today. 3. Elevated troponin: Likely secondary to today's event as he likely became ischemic from the event itself while requiring CPR. 4. Hypertension: Has a history of hypertension for which he takes lisinopril. 5. Disposition: Discussed plan with Gina and Octavio, letting them know that we cannot predict at this time his neurologic function. He is critically ill. Plan of care discussed with Dr. Mitchell of the critical care service. Cardiology will continue to follow. Thank you for allowing me to participate in the care of your patient. Please call for any other questions or concerns. Sincerely, Duglas Rm M.D. History of Present Illness Reason for Consultation: Cardiac arrest, elevated troponin. Requesting Physician: Dr. Wiggins Attending Physician: Rosa Garcia DO History of Present Illness Mr. Conway is a 43-year-old gentleman with a history significant for hypertension who presented to [facility] today via [facility] following [id number] cardiac arrest. History was obtained via his girlfriend, Gina, his son, Octavio, records, and critical care staff as the patient himself was sedated and intubated on mechanical ventilator. He has not followed with a primary care physician for many years until just recently. He establish care with Dr. David Venegas in the [place] area ([phone]). He was diagnosed with hypertension and placed on lisinopril 10 mg which was recently increased to 20 mg. Gina states that he also has been complaining of chest discomfort described as a pressure sensation substernally over the past 2 or 3 weeks. Symptoms would occur at rest without obvious trigger. She states that he did not complain of any significant discomfort with exertion. He took medications aimed to treat acid reflux and was recently started on omeprazole. The chest discomfort typically occurred at rest and with spontaneously resolve. Today while at work, he had a witnessed cardiac arrest. Details of the arrest are not exactly clear at this time. According to available records in the chart from [facility], CPR was initiated at his work place and pulse was regained only to once again become pulseless requiring CPR at the emergency department. Most reports have been that there was no shockable rhythm however there have been some reports that he may have received a ED shock. There was some concern for dynamic ST changes and he was transferred to this facility to undergo hypothermia protocol an urgent cardiac catheterization. He underwent cardiac catheterization with Dr. Ni earlier this afternoon with nonobstructive CAD. He is currently being cooled in the ICU. Review of systems: As above and otherwise unobtainable as patient is sedated and on mechanical ventilator. Family history: Father with atrial fibrillation and cardiomyopathy thought to be tachycardia versus alcohol induced. Social history: smokes cigarettes, 1.5 packs per day. Occasional alcohol. No drugs. Lives at home with his girlfriend, Gina and his son, Octavio. He has 1 brother, Caleb. 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 Gina and Octavio were present at the bedside. Allergies Allergy/AdvReac Type Severity Reaction Status Date / Time No Known Allergies Allergy Unverified 05/23/15 17:40 Home Medications Home Medications Medication Instructions Recorded Confirmed Type lisinopril [Prinivil] 20 mg PO DAILY 04/08/19 04/08/19 History Patient History Medical History (Updated 04/08/19 @ 18:48 by Norbert Rm MD) Hypertension Sudden cardiac arrest Surgical History (Updated 04/08/19 @ 13:11 by Rosa Garcia DO) History of appendectomy Family History (Updated 04/08/19 @ 13:12 by Rosa Garcia DO) Other Cancer Coronary heart disease Diabetes Social History (Updated 04/08/19 @ 13:12 by Rosa Garcia DO) 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 She bring. HEENT: Anicteric sclera. Pupils were equal and round. Neck: Thick neck. No bruits. Normal carotid upstrokes bilaterally. Cardiac: PMI was nonpalpable . No ventricular heave. Regular. Normal S1-S2. No murmurs, rubs, or gallops. Pulmonary: Clear to auscultation bilaterally without wheezes, rales, or rhonchi. Abdomen: Soft, nondistended, with hypoactive bowel sounds. No bruits noted. Extremities: 2+ radial pulses bilaterally. Could not palpate distal lower extremity pulses due to shivering. No edema or cyanosis. Results & Data ([facility]) Vital Signs (Past 12 Hours) Vital Signs Temp Pulse Resp BP BP Pulse Ox 04/08/19 18:00 34.6 C L 68 16 99/50 L 100 04/08/19 17:00 34.8 C L 66 16 107/67 100 04/08/19 16:30 35.7 C L 77 16 110/80 100 04/08/19 16:00 35.5 C L 69 16 104/54 L 100 04/08/19 14:36 82 20 100 04/08/19 13:06 78 16 92/51 L 100 04/08/19 13:00 75 100 04/08/19 12:58 75 92/57 L 100 04/08/19 12:50 77 93/48 L 04/08/19 12:30 78 16 100 Laboratory Results Laboratory Results - last 24 hr 04/08/19 04/08/19 04/08/19 12:50 13:14 13:14 WBC RBC Hgb POC Hgb Hct POC Hct MCV MCH MCHC RDW Std Deviation RDW Coeff of Paddy Plt Count MPV Immature Gran % (Auto) Neut % (Auto) Lymph % (Auto) [place] % (Auto) Eos % (Auto) Baso % (Auto) Immature Gran # (Auto) Neut # (Auto) Lymph # (Auto) [place]ockley # (Auto) Eos # (Auto) Baso # (Auto) PT INR Sample Site POC pH POC pCO2 POC pO2 POC HCO3 POC Total CO2 POC Base Excess ABG pH Cancelled ABG pH (Temp Correct) ABG pCO2 Cancelled ABG pCO2 (Temp Corrct ABG pO2 Cancelled POC ABG pO2 at Pt Temp ABG HCO3 Cancelled ABG O2 Saturation Cancelled ABG Base Excess Cancelled Lars Test Cancelled VBG pH 7.11 L VBG pCO2 66 H VBG pO2 47 VBG HCO3 20 VBG O2 Saturation 68.6 VBG Base Excess -10.6 Barometric Pressure Cancelled 741.3 Oxygen Given Cancelled O2 Delivery Device POC O2 Rate Minute Ventilation POC FiO2 Tidal Volume PEEP POC Sodium Sodium POC Potassium Potassium Chloride Carbon Dioxide Anion Gap BUN Creatinine Est Cr Clr Drug Dosing Est GFR ( Amer) Est GFR (Non-Af Amer) BUN/Creatinine Ratio Glucose Lactate Calcium Phosphorus Magnesium Total Bilirubin Direct Bilirubin AST ALT Alkaline Phosphatase Troponin I Total Protein Albumin Nasal Screen MRSA (PCR) Negative 04/08/19 04/08/19 04/08/19 13:16 13:16 13:16 WBC 18.51 H RBC 5.13 Hgb 16.6 POC Hgb Hct 47.9 POC Hct MCV 93.4 MCH 32.4 MCHC 34.7 RDW Std Deviation 43.3 RDW Coeff of Paddy 12.6 Plt Count 220 MPV 9.7 Immature Gran % (Auto) 1.5 Neut % (Auto) 85.3 Lymph % (Auto) 9.6 Hockley % (Auto) 3.2 Eos % (Auto) 0.3 Baso % (Auto) 0.1 Immature Gran # (Auto) 0.27 H Neut # (Auto) 15.79 H Lymph # (Auto) 1.78 Hockley # (Auto) 0.60 H Eos # (Auto) 0.05 Baso # (Auto) 0.02 PT 10.4 INR 1.0 Sample Site POC pH POC pCO2 POC pO2 POC HCO3 POC Total CO2 POC Base Excess ABG pH ABG pH (Temp Correct) ABG pCO2 ABG pCO2 (Temp Corrct ABG pO2 POC ABG pO2 at Pt Temp ABG HCO3 ABG O2 Saturation ABG Base Excess Lars Test VBG pH VBG pCO2 VBG pO2 VBG HCO3 VBG O2 Saturation VBG Base Excess Barometric Pressure Oxygen Given O2 Delivery Device POC O2 Rate Minute Ventilation POC FiO2 Tidal Volume PEEP POC Sodium Sodium 136 POC Potassium Potassium 4.2 Chloride 105 Carbon Dioxide 19 L Anion Gap 11.0 BUN 19 H Creatinine 1.79 H Est Cr Clr Drug Dosing Not Reportable Est GFR ( Amer) 52.2 Est GFR (Non-Af Amer) 45.1 BUN/Creatinine Ratio 10.8 Glucose 189 H Lactate Calcium 8.3 L Phosphorus 4.4 Magnesium 2.1 Total Bilirubin 0.3 Direct Bilirubin < 0.1 AST 185 H ALT 120 H Alkaline Phosphatase 91 Troponin I 8.720 H* Total Protein 7.3 Albumin 3.3 L Nasal Screen MRSA (PCR) 04/08/19 04/08/19 15:45 15:49 WBC RBC Hgb POC Hgb 16.3 Hct POC Hct 48 MCV MCH MCHC RDW Std Deviation RDW Coeff of Paddy Plt Count MPV Immature Gran % (Auto) Neut % (Auto) Lymph % (Auto) Hockley % (Auto) Eos % (Auto) Baso % (Auto) Immature Gran # (Auto) Neut # (Auto) Lymph # (Auto) [place]ockley # (Auto) Eos # (Auto) Baso # (Auto) PT INR Sample Site Art Line POC pH 7.26 L POC pCO2 45 POC pO2 160 H POC HCO3 20 POC Total CO2 22 L POC Base Excess -7.0 ABG pH ABG pH (Temp Correct) 7.278 L ABG pCO2 ABG pCO2 (Temp Corrct 43 ABG pO2 POC ABG pO2 at Pt Temp 152 ABG HCO3 ABG O2 Saturation ABG Base Excess Lars Test NA VBG pH VBG pCO2 VBG pO2 VBG HCO3 VBG O2 Saturation VBG Base Excess Barometric Pressure Oxygen Given O2 Delivery Device Ventilator POC O2 Rate 16 Minute Ventilation 23.8 POC FiO2 100 Tidal Volume 500 PEEP 10 POC Sodium 137 Sodium POC Potassium 4.8 Potassium Chloride Carbon Dioxide Anion Gap BUN Creatinine Est Cr Clr Drug Dosing Est GFR ( Amer) Est GFR (Non-Af Amer) BUN/Creatinine Ratio Glucose Lactate 3.9 H* Calcium Phosphorus Magnesium Total Bilirubin Direct Bilirubin AST ALT Alkaline Phosphatase Troponin I Total Protein Albumin Nasal Screen MRSA (PCR) Diagnostic Findings Telemetry personally reviewed: No arrhythmia. Echo 04/08/2019: Images personally reviewed. ECG 04/08/2019 personally reviewed:NSR 77 bpm. Nonspecific T-wave abnormality. Normal LV size with moderately to severely reduced systolic function. EF 30- 35%. Global hypo to akinesis of the mid to distal segments with sparing of the basal segments. Moderate LVH. RV systolic function appears mildly reduced but RV not well visualized. No significant valvular abnormalities. Normal RVSP. Cardiac catheterization images personally reviewed from 04/08/2019: Nonobstructive CAD. Per report, proximal to mid LAD 20%. D2 proximal 30-40%. Ostial circumflex 50-60%. Mid circumflex 50%. Proximal OM1 40%. Small OM2 ostial 50%. Dominant RCA with ostial 20% and proximal 60% stenosis. LORY 3 flow throughout. Bilateral lower extremity Doppler 04/08/2019: No DVT bilaterally. Chest x-ray 04/08/2019: Lungs clear per Radiology. Image not available for review. Medications Administered Current Inpatient Medications Buspirone HCl (Buspar) 60 mg NG ONCE PRN PRN Reason: For Shivering x 1 dose Stop: 05/08/19 14:57 Last Admin: 04/08/19 15:45 Dose: 60 mg Documented by: Heparin Sodium (Porcine) (Heparin Sodium (Porcine)) 5,000 units SQ Q8 ROB Stop: 05/08/19 21:59 Hydromorphone HCl (Dilaudid) 1 mg IV Q20M PRN PRN Reason: Shivering with rewarming Stop: 04/22/19 14:57 Fentanyl Citrate (Fentanyl Drip) 1,250 mcg in 250 mls @ 5 mls/hr IV .Q24H ROB; Protocol Stop: 04/22/19 14:59 Last Admin: 04/08/19 15:25 Dose: Not Given Documented by: Norepinephrine Bitartrate 8 mg (/ Dextrose) 508 mls @ 23.813 mls/hr IV .[id number] [facility]; Protocol Stop: 05/08/19 14:59 Last Admin: 04/08/19 15:25 Dose: Not Given Documented by: Ampicillin Sodium/Sulbactam Sodium 3,000 mg/ Sodium Chloride 108 mls @ 216 mls/hr IV Q6H ROB Stop: 04/10/19 15:59 Last Infusion: 04/08/19 17:13 Dose: Infused Documented by: Propofol (Diprivan) 1,000 mg in 100 mls @ 30 mls/hr IV .Q3H20M ROB; Protocol Stop: 04/11/19 15:44 Last Titration: 04/08/19 18:52 Dose: 40 mcg/kg/min, 30 mls/hr Documented by: Parenteral Electrolytes (Normosol-R) 1,000 mls @ 80 mls/hr IV .[id number] ROB Stop: 05/08/19 16:29 Last Infusion: 04/08/19 17:13 Dose: 80 mls/hr Documented by: Lansoprazole (Prevacid) 30 mg NG QAM ROB Stop: 05/09/19 08:59 Meperidine HCl (Demerol) 25 mg IV Q2H PRN PRN Reason: Shivering Stop: 04/22/19 14:57 Last Admin: 04/08/19 17:38 Dose: 25 mg Documented by: Miscellaneous (Icu Protocol For Hyperglycemia) 1 ea N/A PRN PRN; Protocol PRN Reason: Hyperglycemia Protocol Stop: 04/10/19 12:36 Miscellaneous (Icu Electrolyte Replacement Protocol) 1 ea N/A UD PRN PRN Reason: for e-lyte repletion Stop: 04/15/19 14:57 Miscellaneous (Icu Protocol For Hyperglycemia) 1 ea N/A PRN PRN; Protocol PRN Reason: Hyperglycemia Protocol Stop: 04/10/19 16:19 Multi-Ingredient Cream (Lacri-Lube) 1 appln OP Q2H PRN PRN Reason: eye protection Stop: 05/08/19 14:57 Tramadol HCl (Ultram) 50 mg NG Q6H PRN PRN Reason: Shivering Stop: 05/08/19 14:57 PG Care Time/CCT Total # of Minutes Spent Total Time Spent with Patient: Total time spent is greater than 50% in coordination of care (as documented) at patient's floor/unit and/or counseling patient: Critical Care Time: Yes Total Critical Care Time: 40 Coding Level of Care Code None Diagnoses Sudden cardiac arrest I46.9 CAD (coronary artery disease) I25.10 Hypertension I10 Hypertension type: essential hypertension Cardiomyopathy I42.9 Elevated troponin R79.89 Additional Codes Critical Care Time - Critical Care Time: Yes ([id number]) (1) Hypertension Hypertension type: essential hypertension Qualified Code(s): I10 - Essential (primary) hypertension
[2019-04-08] MEDS ORDERED: Nursing to Pharmacy Communication STA (18:22)
[2019-04-08] MEDS ORDERED: fentaNYL citrate 100 MCG/2 ML VIAL IV ONE (21:08)
[2019-04-08] MEDS: ACETAMINOPHEN 1,000 MG/100 ML VIAL IV PRN (21:35)
[2019-04-08] MEDS: HEPARIN SOD 5,000 UNIT/0.5 ML VIAL SQ SCH (21:36)
[2019-04-08] MEDS: FENTANYL BOLUS FROM BAG IV PRN ×2 (21:40→23:30)
[2019-04-08 21:42] LABS: Hematocrit (blood only) 44.7 % (42-52); Hemoglobin 15.8 g/dL (14.0-18.0); Mean Corpuscular Hemoglobin 32.2 pg (25-34); Mean Corpuscular Hgb Conc 35.3 g/dL (32-36); Mean Corpuscular Volume 91.2 fL (80-100); Mean Platelet Volume 9.8 fL (7.4-10.4); Platelet Count 200 K/uL (130-400); RDW Coefficient of Variation 12.8 % (11.5-14.5); RDW Standard Deviation 42.8 fL (36.4-46.3); White Blood Count 23.33 K/uL (4.8-10.8)
[2019-04-08 21:46] LABS: Allen Test Pos (Pos); Base Excess ABG -2.9 mEq/L (-9-1.8); HCO3 ABG 23 mmol/L (19-24); Oxygen Saturation ABG 97.8 % (90-95); PCO2 ABG 43 mmHg (35-46); PO2 ABG 109 mmHg (80-95); pH ABG 7.34 (7.35-7.45)
[2019-04-08 22:04] LABS: BUN Creatinine Ratio 14.9 (10-20); Calcium 8.3 mg/dl (8.5-10.1); Creatinine Clr Calc Pharmacy 67.1 ml/min; Est GFR (African American) 51.5; Est GFR (Non-African American) 44.5; Phosphorus 3.4 mg/dl (2.5-4.9); Potassium 5.2 mmol/L (3.5-5.1)
[2019-04-08 22:10] LABS: Basophils # (auto) 0.01 K/uL (0-0.2); Immature Granulocytes # (auto) 0.14 K/uL (0.00-0.02); Immature Granulocytes % (auto) 0.6 %; Lymphocytes % (auto) 4.7 %; Monocytes # (auto) 1.52 K/uL (0.11-0.59); Monocytes % (auto) 6.5 %; Neutrophils # (auto) 20.56 K/uL (1.4-6.5); Neutrophils % (auto) 88.2 %; Toxic Vacuolation 1+
[2019-04-09] MEDS: propofoL 1,000 MG/100 ML VIAL IV SCH ×8 (02:24→21:57)
[2019-04-09 03:17] LABS: Eosinophils # (auto) 0.02 K/uL (0-0.5); Eosinophils % (auto) 0.1 %; Hematocrit (blood only) 42.8 % (42-52); Hemoglobin 15.1 g/dL (14.0-18.0); Immature Granulocytes # (auto) 0.08 K/uL (0.00-0.02); Immature Granulocytes % (auto) 0.5 %; Lymphocytes # (auto) 2.02 K/uL (1.2-3.4); Lymphocytes % (auto) 11.6 %; Mean Corpuscular Hemoglobin 32.2 pg (25-34); Mean Corpuscular Hgb Conc 35.3 g/dL (32-36); Mean Corpuscular Volume 91.3 fL (80-100); Mean Platelet Volume 9.7 fL (7.4-10.4); Monocytes # (auto) 1.11 K/uL (0.11-0.59); Monocytes % (auto) 6.4 %; Neutrophils # (auto) 14.22 K/uL (1.4-6.5); Neutrophils % (auto) 81.4 %; Platelet Count 203 K/uL (130-400); RDW Standard Deviation 43.1 fL (36.4-46.3); Red Blood Count 4.69 M/uL (4.7-6.1); White Blood Count 17.45 K/uL (4.8-10.8)
[2019-04-09 03:18] LABS: Base Excess ABG -2.4 mEq/L (-9-1.8); HCO3 ABG 24 mmol/L (19-24); Oxygen Saturation ABG 93.4 % (90-95); PCO2 ABG 46 mmHg (35-46); PO2 ABG 67 mmHg (80-95); pH ABG 7.33 (7.35-7.45)
[2019-04-09 03:20] LABS: Allen Test Pos (Pos)
[2019-04-09 03:41] LABS: BUN Creatinine Ratio 15.7 (10-20); Bilirubin,Total 0.5 mg/dl (0.2-1); Calcium 8.1 mg/dl (8.5-10.1); Creatinine Clr Calc Pharmacy 64.2 ml/min; Est GFR (African American) 48.9; Est GFR (Non-African American) 42.2; Magnesium 2.1 mg/dl (1.8-2.4); Potassium 4.3 mmol/L (3.5-5.1); Total Protein 6.7 gm/dl (6.4-8.2)
[2019-04-09 03:42] LABS: Bilirubin Direct 0.2 mg/dl (0-0.2)
[2019-04-09] MEDS: AMPICILLIN/SULBACTAM SOD 3,000 MG in 0.9 % SODIUM CHLORIDE 100 ML IV SCH ×4 (03:59→21:09)
[2019-04-09] MEDS: NORMOSOL-R 1,000 ML IV SCH ×2 (04:00→15:24)
[2019-04-09] MEDS: HEPARIN SOD 5,000 UNIT/0.5 ML VIAL SQ SCH ×3 (05:02→21:09)
[2019-04-09] MEDS: MEPERIDINE HCL 25 MG/ML CARP IV PRN (05:19)
--- NOTE | 2019-04-09 06:04 | Electrocardiogram Report ---
Test Reason : Blood Pressure : / mmHG Vent. Rate : 077 BPM Atrial Rate : 077 BPM P-R Int : 174 ms QRS Dur : 106 ms QT Int : 392 ms P-R-T Axes : 060 -33 063 degrees QTc Int : 443 ms Normal sinus rhythm Left axis deviation Nonspecific T wave abnormality Abnormal ECG No previous ECGs available Confirmed by Norbert Rm ([id number]) on 04/09/2019 6:04:00 AM Referred By: REFERRED SELF Confirmed By:Norbert Rm
[2019-04-09 06:34] LABS: Estimated Average Glucose 114 mg/dl; Hemoglobin A1C 5.6 % (4.5-5.6)
--- NOTE | 2019-04-09 07:03 | Critical Care Progress Note ---
Date of Service April 09, 2019 Assessment & Plan (1) Admitted to intensive care unit: Reason Critically Ill: 43 yo male with witnessed cardiac arrest flown to [facility] from [facility] for cardiac cath and hypothermia protocol 24 hr events: Cardiac cath showed moderately obstructive coronary disease, not requiring PCI. He was been weaned off pressors, maintaining MAPs >65. Reached core temperature at 01:00 04/09. Intermittent posturing observed overnight. continues to be in sinus rhythm. Neuro: CAM ICU: Negative * Sedation with propofol and fentanyl drip while on vent * Hypothermic protocol for cerebral cooling in the setting of recent cardiac arrest * Observed posturing overnight - EEG ordered Cardiac: * Cardiac Arrest - total estimated time down is 5-25 minutes; patient with ROSC after amp of epi x 2 [employer]. cause of arrest at this point is unknown. Differential includes ischemia, arrhythmia, non-ischemic cardiomyopathy. -unlikely to be ischemia as cath showed only moderately obstructive coronary disease, not significant enough to be responsible for arrest or warrant PCI. although it is possible patient had an occlusive embolus that spontaneously lysed. arrhythmia is possible, although patient has been in sinus since placed on bag patcher upon admission and review of EKGs captured at [facility] demonstrated no evidence of arrhythmia. non-ischemic cardiomyopathy remains on the differential. ECHO showing EF 30-35%, with LV global hypokinesis in mid to distal segments. RV not well visualized but appears to also be hypokinetic. It is unknown as to whether this diminished EF is chronic vs. acute (myocardial stunning related to arrest and resuscitation). cardiology following. - 10 year ASCVD risk borderline ~ 6.8%. - venous duplex showing no evidence of DVTs * Elevated Troponin - 0.3 at [facility], 8.7 on admission, 16.5 today. etiology likely demand > supply in the setting of cardiac arrest and CPR * HTN - patient recently initiated on Lisinopril for anti-hypertensive regimen. A-line for continuous BP monitoring. pressors were initially required while in flight to [facility], but have since been weaned. Patient maintaining MAPS > 65. Respiratory: * Currently mechanically ventilated in light of recent cardiac arrest. * CXR on admission demonstrated right upper lobe consolidation. risk for potential aspiration appears to be minimal. WBC count normal. Lactate elevated to 3.9, procal at 1.96. continue Unasyn for prophylaxis. GI: * NPO while on vent * Elevated LFTs: beginning to trend down. Likely financial sales representative of shock liver vs. primary hepatic etiology. continue to trend * GERD: continue home lansoprazole RENAL/LYTES: * Metabolic acidosis; lactate elevated. appropriate respiratory compensation. * Cr 1.6 at [facility], 1.79 on admission, up to 1.89 today. Likely in the setting of reduced perfusion. continue to trend. * calcium corrects to 8.9; ionized Ca low at 1.02; ICU Electrolyte replacement protocol held in while on hypothermia protocol : * Mayorga catheter placed - strict Is/Os ENDO: - no known history of underlying diabetes; A1c borderline at 5.6 - ICU protocol for hyperglycemia HEME: * Hgb stable. No issues identified. ID: * WBC normal at [facility]; elevated to 18 on admission, beginning to trend down - most likely financial sales representative of a stress response vs. infectious process. R upper lobe infiltrate visualized on CXR. lactate elevated, procal 1.96. although aspiration PNA seems unlikely we will continue Unasyn for ppx as patient unable to give sputum culture while sedated. * nasal MRSA swab negative LINES/IV ACCESS: * L EJ * PIV x3 (2 AC, 1 hand) * left radial A-line * R femoral CVC CODE STATUS: Full DVT PROPHYLAXIS: heparin 5,000 units SQ, q8hr; bilateral SCDs Thank you for allowing us to participate in the care of this patient. Please refer to my attending physician's documentation for any further recommendations. Admission and Anticipated Discharge Date Admission Date: April 08, 2019 Supervising Physician Co-Signing Physician Notes Patient seen and examined. Discussed with bedside nurse and family as well as on multidisciplinary rounds. EMR extensively reviewed and images were independently reviewed. Patient has been relatively hemodynamically stable overnight. He reached goal target temperature around 0 100 this a.m. Anticipate cooling for 24 hours then gradual rewarming. We will then lighten sedation and reassess neurological status. Continue deep sedation until warm. Pressors as needed. Continue to monitor urine output and electrolytes. We will continue Unasyn for potential pneumonia. Sputum culture was ordered but not yet sent. It has been sent this morning. His procalcitonin was elevated. May need to keep the: Catheter in place for 24hours post warming to ensure no temperature overshoot. Long-term management will depend on neurological recovery. He may require consideration for a LifeVest, EP study, or potential AICD depending on his clinical course. Mother was updated at bedside. Questions were answered to the best my ability. 39 minutes critical care time evaluating managing critically ill patient with multiorgan system dysfunction and significant clinical possibility of decline Subjective In ICU - girlfriend present at bedside. Mechanically ventilated and sedated Review of Systems Review of Systems: Unobtainable due to endotracheal tube Physical Exam Constitutional: WD/WN, vitals as above + obese and + mechanically ventilated Eyes: closed while sedated ENMT: external ear and nose normal, oropharynx normal Neck: normal visual inspection and trachea midline Respiratory: normal respiratory effort, lungs clear to auscultation Cardiovascular: RRR, no murmur, no edema Heart Sounds: normal S1 and normal S2 Extremities: no edema wearing bilateral SCDs Gastrointestinal (Abdomen): Inspection/Auscultation: abdomen normal to inspection Skin: no rashes, warm and dry Genitourinary: Mayorga catheter in place draining pale yellow colored urine Results & Data ([facility]) Vital Signs (Past 12 Hours) Vital Signs Temp Temp Temp Pulse Resp BP BP 04/09/19 06:00 33.7 C L 33.7 C L 44 L 24 95/50 L 04/09/19 05:00 34.3 C L 34.1 C L 50 L 18 04/09/19 04:52 54 L 16 04/09/19 04:00 34.3 C L 34.1 C L 50 L 16 101/60 04/09/19 03:20 34.3 C L 34.1 C L 54 L 16 04/09/19 02:00 34.4 C L 34.1 C L 53 L 16 118/67 04/09/19 01:36 55 L 17 04/09/19 01:00 34.3 C L 34.1 C L 55 L 16 04/09/19 00:00 34.1 C L 34.2 C L 62 16 104/59 L 104/59 L 04/08/19 23:00 34.7 C L 34.3 C L 58 L 16 104/59 L 04/08/19 22:00 35.1 C L 35.1 C L 66 16 93/59 L 93/59 L 04/08/19 21:00 35.5 C L 83 19 141/83 H 141/83 H 04/08/19 20:00 35.2 C L 77 20 BP Pulse Ox 04/09/19 06:00 94/54 L 100 04/09/19 05:00 134/62 99 04/09/19 04:52 97 04/09/19 04:00 119/57 L 96 04/09/19 03:20 110/54 L 99 04/09/19 02:00 105/59 L 100 04/09/19 01:36 92 04/09/19 01:00 96/55 L 94 04/09/19 00:00 97/59 L 94 04/08/19 23:00 97/59 L 100 04/08/19 22:00 94/53 L 100 04/08/19 21:00 128/70 99 04/08/19 20:00 129/68 100 Critical Care Time Critical Care Time: Yes Total Critical Care Time: 39 Resident Activity Tracking Resident Involvement: Resident Care Provided Care Provided: Adult Hospital Medicine
--- NOTE | 2019-04-09 07:18 | XRay Report ---
XR chest 1V portable CLINICAL HISTORY: f/u RESPIRATORY FAILURE COMPARISON STUDY: 04/08/2019 FINDINGS: The endotracheal tube 38 mm above the jl. There is a nasogastric tube which passes into the stomach. The heart remains mildly enlarged. There are low lung volumes. There is diffuse vascula r/interstitial prominence which may part be secondary to the hypoventilatory nature the study[ IMPRESSION: Mild diffuse vascular/interstitial prominence, a finding which may in part be secondary t o the hypoventilatory nature of the study. No evidence of lobar consolidation. Satisfactory tube posi tion. ACT 112: Negative or not required by law. Electronically signed by: Brian Coon M.D. 04/09/2019 7:17 AM
[2019-04-09] MEDS: NOREPINEPHRINE BIT INJ 8 MG in DEXTROSE 5% 500 ML IV SCH ×2 (07:40→19:58)
[2019-04-09] MEDS ORDERED: STAT IV Infusion **Titration per Protocol STA (08:18)
[2019-04-09] MEDS ORDERED: MIDAZOLAM HCL 1 MG/ML 2ML VIAL IV PRN (08:18)
[2019-04-09] MEDS: fentaNYL DRIP 1,250 MCG/250 ML BAG IV SCH ×2 (08:29→17:51)
[2019-04-09] MEDS ORDERED: MIDAZOLAM HCL 125 MG/250 ML BAG IV SCH (08:30)
[2019-04-09] MEDS: LANSOPRAZOLE 30 MG SOLTAB NG SCH (08:44)
[2019-04-09] MEDS: MIDAZOLAM HCL 125 MG/250 ML BAG IV SCH (08:44)
[2019-04-09] MEDS: MIDAZOLAM HCL 1 MG/ML 2ML VIAL IV PRN ×2 (08:44→15:28)
[2019-04-09] MEDS ORDERED: PANTOprazole 40 MG TAB PO SCH (09:00)
[2019-04-09 09:07] LABS: Basophils # (auto) 0.01 K/uL (0-0.2); Basophils % (auto) 0.1 %; Eosinophils # (auto) 0.09 K/uL (0-0.5); Eosinophils % (auto) 0.5 %; Hematocrit (blood only) 42.7 % (42-52); Hemoglobin 15.1 g/dL (14.0-18.0); Immature Granulocytes # (auto) 0.06 K/uL (0.00-0.02); Immature Granulocytes % (auto) 0.3 %; Lymphocytes # (auto) 1.75 K/uL (1.2-3.4); Lymphocytes % (auto) 9.4 %; Mean Corpuscular Hemoglobin 32.6 pg (25-34); Mean Corpuscular Hgb Conc 35.4 g/dL (32-36); Mean Corpuscular Volume 92.2 fL (80-100); Mean Platelet Volume 9.8 fL (7.4-10.4); Monocytes % (auto) 7.5 %; Neutrophils # (auto) 15.36 K/uL (1.4-6.5); Neutrophils % (auto) 82.2 %; Platelet Count 211 K/uL (130-400); RDW Coefficient of Variation 13.1 % (11.5-14.5); Red Blood Count 4.63 M/uL (4.7-6.1); White Blood Count 18.67 K/uL (4.8-10.8)
[2019-04-09 09:09] LABS: Base Excess ABG -2.9 mEq/L (-9-1.8); HCO3 ABG 24 mmol/L (19-24); Oxygen Saturation ABG 92.6 % (90-95); PCO2 ABG 47 mmHg (35-46); PO2 ABG 67 mmHg (80-95); pH ABG 7.32 (7.35-7.45)
[2019-04-09 09:10] LABS: Allen Test Pos (Pos)
[2019-04-09 09:40] LABS: Calcium 8.3 mg/dl (8.5-10.1); Creatinine Clr Calc Pharmacy 55.9 ml/min; Est GFR (African American) 42.8; Magnesium 2.2 mg/dl (1.8-2.4)
[2019-04-09 09:41] LABS: Phosphorus 4.8 mg/dl (2.5-4.9)
--- NOTE | 2019-04-09 11:42 | Billing Data ---
Date of Service April 09, 2019 Coding Level of Care Code Critical Care 1st 30-74 mins Time Spent (min) 39
--- NOTE | 2019-04-09 14:45 | Electroencephalogram ---
EEG Procedure Note Date of Service April 09, 2019 Start / End Times Start Time: 6:46am End Time: 7:06am Referring Physician Rich Mitchell History 43 yo man with witnessed cardiac arrest, ROSC, noted to have posturing overnight Home Medication List Home Medications Medication Instructions Recorded Confirmed Type lisinopril [Prinivil] 20 mg PO DAILY 04/08/19 04/08/19 History Inpatient Medication List Fentanyl Citrate (Fentanyl Bolus From Bag) 25 mcg IV Q1H PRN PRN Reason: pain,shivering,goal BIS 40-60 Stop: 04/22/19 21:15 Last Admin: 04/08/19 23:30 Dose: 25 mcg Documented by: [id number] Admin: 04/08/19 21:40 Dose: 25 mcg Documented by: [id number] Heparin Sodium (Porcine) (Heparin Sodium (Porcine)) 5,000 units SQ Q8 [facility] Stop: 05/08/19 21:59 Last Admin: 04/09/19 14:00 Dose: 5,000 units Documented by: [id number] Cosigned by: [id number] Admin: 04/09/19 05:02 Dose: 5,000 units Documented by: [id number] Cosigned by: [id number] Admin: 04/08/19 21:36 Dose: 5,000 units Documented by: [id number] Cosigned by: [id number] Fentanyl Citrate (Fentanyl Drip) 1,250 mcg in 250 mls @ 30 mls/hr IV .Q8H20M ROB; Protocol Stop: 04/22/19 14:59 Last Admin: 04/09/19 08:29 Dose: 150 mcg/hr, 30 mls/hr Documented by: [id number] Cosigned by: [id number] Titration: 04/09/19 08:29 Dose: 125 mcg/hr, 25 mls/hr Documented by: [id number] Cosigned by: [id number] Titration: 04/09/19 06:57 Dose: 125 mcg/hr, 25 mls/hr Documented by: [id number] Cosigned by: [id number] Titration: 04/09/19 05:30 Dose: 125 mcg/hr, 25 mls/hr Documented by: [id number] Titration: 04/09/19 04:27 Dose: 100 mcg/hr, 20 mls/hr Documented by: [id number] Titration: 04/09/19 02:33 Dose: 125 mcg/hr, 25 mls/hr Documented by: [id number] Titration: 04/08/19 22:40 Dose: 100 mcg/hr, 20 mls/hr Documented by: [id number] Titration: 04/08/19 21:40 Dose: 75 mcg/hr, 15 mls/hr Documented by: [id number] Admin: 04/08/19 20:37 Dose: 50 mcg/hr, 10 mls/hr Documented by: [id number] Cosigned by: [id number] Admin: 04/08/19 15:25 Dose: Not Given Documented by: [id number] Norepinephrine Bitartrate 8 mg (/ Dextrose) 508 mls @ 33.338 mls/hr IV .[id number] ROB; Protocol Stop: 05/08/19 14:59 Last Titration: 04/09/19 12:21 Dose: 0.07 mcg/kg/min, 33.3 mls/hr Documented by: [id number] Admin: 04/09/19 07:40 Dose: 0.05 mcg/kg/min, 23.8 mls/hr Documented by: [id number] Cosigned by: [id number] Admin: 04/08/19 15:25 Dose: Not Given Documented by: [id number] Ampicillin Sodium/Sulbactam Sodium 3,000 mg/ Sodium Chloride 108 mls @ 216 mls/hr IV Q6H ROB Stop: 04/10/19 15:59 Last Infusion: 04/09/19 11:52 Dose: 0 mls/hr Documented by: [id number] Admin: 04/09/19 11:22 Dose: 216 mls/hr Documented by: [id number] Infusion: 04/09/19 04:42 Dose: 0 mls/hr Documented by: [id number] Admin: 04/09/19 03:59 Dose: 216 mls/hr Documented by: [id number] Infusion: 04/08/19 23:00 Dose: 0 mls/hr Documented by: [id number] Admin: 04/08/19 22:01 Dose: 216 mls/hr Documented by: [id number] Infusion: 04/08/19 17:13 Dose: 0 mls/hr Documented by: [id number] Admin: 04/08/19 16:27 Dose: 216 mls/hr Documented by: [id number] Propofol (Diprivan) 1,000 mg in 100 mls @ 37.5 mls/hr IV .Q2H40M ROB; Protocol Stop: 04/11/19 15:44 Last Admin: 04/09/19 14:00 Dose: 50 mcg/kg/min, 37.5 mls/hr Documented by: [id number] Cosigned by: [id number] Titration: 04/09/19 14:00 Dose: 50 mcg/kg/min, 37.5 mls/hr Documented by: [id number] Cosigned by: [id number] Admin: 04/09/19 11:22 Dose: 50 mcg/kg/min, 37.5 mls/hr Documented by: [id number] Cosigned by: [id number] Titration: 04/09/19 11:10 Dose: 50 mcg/kg/min, 37.5 mls/hr Documented by: [id number] Cosigned by: [id number] Admin: 04/09/19 08:29 Dose: 50 mcg/kg/min, 37.5 mls/hr Documented by: [id number] Cosigned by: [id number] Titration: 04/09/19 08:23 Dose: 50 mcg/kg/min, 37.5 mls/hr Documented by: [id number] Cosigned by: [id number] Titration: 04/09/19 08:06 Dose: 50 mcg/kg/min, 37.5 mls/hr Documented by: [id number] Titration: 04/09/19 07:35 Dose: 45 mcg/kg/min, 33.8 mls/hr Documented by: [id number] Titration: 04/09/19 07:30 Dose: 40 mcg/kg/min, 30 mls/hr Documented by: [id number] Titration: 04/09/19 06:57 Dose: 35 mcg/kg/min, 26.3 mls/hr Documented by: [id number] Cosigned by: [id number] Titration: 04/09/19 06:23 Dose: 35 mcg/kg/min, 26.3 mls/hr Documented by: [id number] Titration: 04/09/19 05:02 Dose: 40 mcg/kg/min, 30 mls/hr Documented by: [id number] Cosigned by: [id number] Admin: 04/09/19 05:02 Dose: 40 mcg/kg/min, 30 mls/hr Documented by: [id number] Cosigned by: [id number] Titration: 04/09/19 04:26 Dose: 40 mcg/kg/min, 30 mls/hr Documented by: [id number] Admin: 04/09/19 02:24 Dose: 45 mcg/kg/min, 33.8 mls/hr Documented by: [id number] Cosigned by: [id number] Titration: 04/09/19 02:24 Dose: 40 mcg/kg/min, 30 mls/hr Documented by: [id number] Cosigned by: [id number] Admin: 04/08/19 23:05 Dose: 40 mcg/kg/min, 30 mls/hr Documented by: [id number] Cosigned by: [id number] Titration: 04/08/19 22:59 Dose: 40 mcg/kg/min, 30 mls/hr Documented by: [id number] Cosigned by: [id number] Admin: 04/08/19 19:39 Dose: 40 mcg/kg/min, 30 mls/hr Documented by: [id number] Cosigned by: [id number] Titration: 04/08/19 19:39 Dose: 40 mcg/kg/min, 30 mls/hr Documented by: [id number] Cosigned by: [id number] Titration: 04/08/19 18:52 Dose: 40 mcg/kg/min, 30 mls/hr Documented by: [id number] Cosigned by: [id number] Titration: 04/08/19 18:00 Dose: 40 mcg/kg/min, 30 mls/hr Documented by: [id number] Titration: 04/08/19 17:13 Dose: 30 mcg/kg/min, 22.5 mls/hr Documented by: [id number] Admin: 04/08/19 17:01 Dose: 30 mcg/kg/min, 22.5 mls/hr Documented by: [id number] Cosigned by: [id number] Titration: 04/08/19 17:01 Dose: 30 mcg/kg/min, 22.5 mls/hr Documented by: [id number] Cosigned by: [id number] Admin: 04/08/19 15:46 Dose: 30 mcg/kg/min, 22.5 mls/hr Documented by: [id number] Cosigned by: [id number] Parenteral Electrolytes (Normosol-R) 1,000 mls @ 80 mls/hr IV .[id number] ROB Stop: 05/08/19 16:29 Last Admin: 04/09/19 04:00 Dose: 80 mls/hr Documented by: [id number] Infusion: 04/09/19 04:00 Dose: 80 mls/hr Documented by: [id number] Infusion: 04/08/19 17:13 Dose: 80 mls/hr Documented by: [id number] Admin: 04/08/19 16:27 Dose: 80 mls/hr Documented by: [id number] Acetaminophen ([facility]) 1,000 mg in 100 mls @ 400 mls/hr IV Q8H PRN PRN Reason: Fever Stop: 04/11/19 19:18 Last Infusion: 04/08/19 22:01 Dose: 0 mls/hr Documented by: [id number] Admin: 04/08/19 21:35 Dose: 400 mls/hr Documented by: [id number] Midazolam HCl (Versed) 125 mg in 250 mls @ 7 mls/hr IV .Q24H ROB; Protocol Stop: 05/09/19 08:29 Last Titration: 04/09/19 13:50 Dose: 3.5 mg/hr, 7 mls/hr Documented by: [id number] Titration: 04/09/19 12:52 Dose: 3 mg/hr, 6 mls/hr Documented by: [id number] Titration: 04/09/19 11:51 Dose: 2.5 mg/hr, 5 mls/hr Documented by: [id number] Titration: 04/09/19 10:45 Dose: 2 mg/hr, 4 mls/hr Documented by: [id number] Titration: 04/09/19 09:45 Dose: 1.5 mg/hr, 3 mls/hr Documented by: [id number] Admin: 04/09/19 08:44 Dose: 1 mg/hr, 2 mls/hr Documented by: [id number] Cosigned by: [id number] Lansoprazole (Prevacid) 30 mg NG QAM ROB Stop: 05/09/19 08:59 Last Admin: 04/09/19 08:44 Dose: 30 mg Documented by: [id number] Midazolam HCl (Versed) 2 mg IV Q2H PRN PRN Reason: shivering + goal BIS 40-60 Stop: 05/09/19 08:25 Last Admin: 04/09/19 08:44 Dose: 2 mg Documented by: [id number] Discontinued Medications Buspirone HCl (Buspar) 60 mg NG ONCE PRN PRN Reason: For Shivering x 1 dose Stop: 05/08/19 14:57 Last Admin: 04/08/19 15:45 Dose: 60 mg Documented by: [id number] Fentanyl Citrate (Fentanyl Citrate) Confirm Administered Dose 100 mcg .ROUTE .STK-MED ONE Stop: 04/08/19 13:07 Last Admin: 04/08/19 14:26 Dose: Not Given Documented by: [id number] Fentanyl Citrate (Fentanyl Citrate) 25 mcg IV NOW ONE Stop: 04/08/19 21:09 Last Admin: 04/09/19 09:50 Dose: Not Given Documented by: [id number] Heparin Sodium (Porcine) (Heparin Iv Bolus (Manager [employer] Use Only)) Confirm Administered Dose 10,000 units .ROUTE .STK-MED ONE Stop: 04/08/19 13:06 Last Admin: 04/08/19 14:26 Dose: 5,000 units Documented by: [id number] Heparin Sodium/Sodium Chloride (Heparin/Nss 1000 Unit/500ml Flush Bag) Confirm Administered Dose 3,000 units IV .STK-MED ONE Stop: 04/08/19 13:07 Last Admin: 04/08/19 14:06 Dose: 3,000 units Documented by: [id number] Sodium Chloride (Nss 1000ml) 1,000 mls @ 999 mls/hr IV .Q1H1M ONE Stop: 04/08/19 16:00 Last Admin: 04/08/19 15:26 Dose: Not Given Documented by: [id number] Midazolam HCl (Versed) 125 mg in 250 mls @ 2 mls/hr IV .Q24H ROB; Protocol Stop: 05/08/19 14:59 Last Admin: 04/08/19 15:26 Dose: Not Given Documented by: [id number] Meperidine HCl (Demerol) 25 mg IV Q2H PRN PRN Reason: Shivering Stop: 04/22/19 14:57 Last Admin: 04/09/19 05:19 Dose: 25 mg Documented by: [id number] Admin: 04/08/19 22:12 Dose: 25 mg Documented by: [id number] Admin: 04/08/19 19:38 Dose: 25 mg Documented by: [id number] Admin: 04/08/19 17:38 Dose: 25 mg Documented by: [id number] Admin: 04/08/19 15:45 Dose: 25 mg Documented by: [id number] Midazolam HCl (Versed) Confirm Administered Dose 2 mg .ROUTE .STK-MED ONE Stop: 04/08/19 13:07 Last Admin: 04/08/19 14:27 Dose: Not Given Documented by: [id number] Midazolam HCl (Versed) Confirm Administered Dose 2 mg .ROUTE .STK-MED ONE Stop: 04/08/19 15:59 Last Admin: 04/08/19 16:27 Dose: Not Given Documented by: [id number] Nicardipine HCl (Cardene) Confirm Administered Dose 25 mg .ROUTE .STK-MED ONE Stop: 04/08/19 13:06 Last Admin: 04/08/19 14:05 Dose: 25 mg Documented by: [id number] Nitroglycerin/Dextrose (Nitroglycerin/D5w 100 Mcg/Ml 20ml Syringe) Confirm Administered Dose 2,000 mcg .ROUTE .STK-MED ONE Stop: 04/08/19 13:11 Last Admin: 04/08/19 14:06 Dose: 2,000 mcg Documented by: [id number] Propofol (Diprivan) Confirm Administered Dose 1,000 mg IV .STK-MED ONE Stop: 04/08/19 12:43 Last Admin: 04/08/19 15:25 Dose: Not Given Documented by: [id number] Propofol (Diprivan (Manager [employer] Use Only)) Confirm Administered Dose 200 mg .ROUTE .STK-MED ONE Stop: 04/08/19 13:49 Last Admin: 04/08/19 14:27 Dose: Not Given Documented by: [id number] Sodium Bicarbonate (Sodium Bicarbonate 8.4%) 50 meq IV ONCE ONE Stop: 04/08/19 15:54 Last Admin: 04/08/19 18:06 Dose: Not Given Documented by: [id number] Sodium Bicarbonate (Sodium Bicarbonate 8.4%) 50 meq IV ONCE ONE Stop: 04/08/19 16:16 Last Admin: 04/08/19 16:27 Dose: 50 meq Documented by: [id number] Ticagrelor (Brilinta) Confirm Administered Dose 180 mg PO .STK-MED ONE Stop: 04/08/19 16:50 Last Admin: 04/08/19 18:17 Dose: Not Given Documented by: [id number] Description This is a 21 electrode EEG with a single channel dedicated to limited EKG. The electrodes were placed in accordance with the International 10-20 system. History: 43 yo man with witnessed cardiac arrest, ROSC, noted to have posturing overnight Rx: versed, propofol, fentanyl Start/Stop: 6:46am/7:06am Attending reading: Rochelle Davis EEG Description: EEG background: Background was predominantly muscle artifact from shivering with no clear brain wave activity. No well formed posterior dominant rhythm was observed. Cannot comment on continuous, variability or reactivity given extent of muscle artifact. Activation and reactivity: Photic stimulation performed without any abnormalities noted. No photic driving observed. Hyperventilation was not performed. Sleep: No discernible sleep was noted. Epileptiform discharges: No epileptiform discharges were observed. Rhythmic and periodic patterns: None Seizures: None Impression: This was an abnormal EEG due to no clear brain wave activity. No seizures or epileptiform discharges were seen. Recommend obtaining CT head without contrast and/or MRI brain without contrast to help with neurological prognostication. Would also recommend repeating EEG with paralytic to remove muscle artifact in case there are low voltage waveforms underneath the muscle artifact and while patient has sedation held to better determine underlying EEG pattern.
[2019-04-09 15:08] LABS: Basophils # (auto) 0.01 K/uL (0-0.2); Basophils % (auto) 0.1 %; Eosinophils # (auto) 0.17 K/uL (0-0.5); Hematocrit (blood only) 41.1 % (42-52); Hemoglobin 14.3 g/dL (14.0-18.0); Immature Granulocytes # (auto) 0.07 K/uL (0.00-0.02); Immature Granulocytes % (auto) 0.4 %; Lymphocytes # (auto) 1.59 K/uL (1.2-3.4); Lymphocytes % (auto) 9.6 %; Mean Corpuscular Hgb Conc 34.8 g/dL (32-36); Mean Corpuscular Volume 91.9 fL (80-100); Monocytes % (auto) 7.9 %; Neutrophils # (auto) 13.39 K/uL (1.4-6.5); Platelet Count 196 K/uL (130-400); RDW Coefficient of Variation 13.2 % (11.5-14.5); RDW Standard Deviation 44.4 fL (36.4-46.3); Red Blood Count 4.47 M/uL (4.7-6.1); White Blood Count 16.53 K/uL (4.8-10.8)
[2019-04-09 15:24] LABS: Base Excess ABG -2.6 mEq/L (-9-1.8); HCO3 ABG 24 mmol/L (19-24); Oxygen Saturation ABG 92.9 % (90-95); PCO2 ABG 46 mmHg (35-46); PO2 ABG 66 mmHg (80-95); pH ABG 7.33 (7.35-7.45)
[2019-04-09 15:25] LABS: Allen Test ALINE (Pos)
[2019-04-09 15:28] LABS: Potassium 3.8 mmol/L (3.5-5.1)
[2019-04-09 15:29] LABS: BUN Creatinine Ratio 14.8 (10-20); Calcium 8.2 mg/dl (8.5-10.1); Creatinine Clr Calc Pharmacy 59.3 ml/min; Est GFR (Non-African American) 39.7; Magnesium 2.4 mg/dl (1.8-2.4)
[2019-04-09 15:30] LABS: Phosphorus 3.4 mg/dl (2.5-4.9)
--- NOTE | 2019-04-09 16:05 | Hospitalist Progress Note ---
Date of Service April 09, 2019 Assessment & Plan (1) Sudden cardiac arrest: 43-year-old male with history of hypertension presenting from outside hospital status post out of hospital arrest with ROSC, patient transferred to [facility] for post cardiac arrest care therapeutic cooling. unclear etiology as there was no significant coronary disease, continue to monitor for arrhythmia remains on hypothermic protocol until 1am on 04/10 (2) Hypertension: (3) CAD (coronary artery disease): moderate, non-occlusive on cath no evidence of acute MO (4) Cardiomyopathy: unclear if this is just stunned myocardium after the code or if this was prior (5) Shock liver: in setting of cardiac arrest LFT trending back down no RUQ pain (6) TIAN (acute kidney injury): due to cardiac arrest Cr up very slightly at 1.89 but making adequate urine (7) Cardiogenic shock: due to cardiac arrest with evidence of TIAN, shock liver, elevated troponin continue vasopressor support, wean as tolerated Admission and Anticipated Discharge Date Admission Date: April 08, 2019 Subjective discussed with ICU team, remains on hypothermic protocol until 1am updated his family at the bedside reviewed chart echo shows EF is 35% cath showed non-obstructive CAD, no evidence of acute MO no arrhythmia on the monitor reviewed labs, CR trending up slightly while LFT coming down slightly Review of Systems Review of Systems: Unobtainable due to endotracheal tube Physical Exam Constitutional: well developed, well nourished, + ill appearing and + mechanically ventilated Eyes: PERRL, conjunctivae normal, anicteric sclerae ENMT: external ear and nose normal, oropharynx normal Neck: trachea midline, no thyromegaly Respiratory: normal respiratory effort, lungs clear to auscultation Cardiovascular: RRR, no murmur, no edema Gastrointestinal (Abdomen): normal bowel sounds, soft, nontender, no hepatosplenomegaly Musculoskeletal: no cyanosis or clubbing, extremities motor strength 5/5 Skin: normal turgor (cool skin); no purpura Neurologic: no focal motor deficits and + not awake (sedated) Psychiatric: Orientation: + not alert (sedated) Lymphatic: no cervical or axillary lymphadenopathy Results & Data ([facility]) Vital Signs (Past 12 Hours) Vital Signs Temp Temp Pulse Resp BP BP Pulse Ox 04/09/19 15:01 33.4 C L 33.1 C L 45 L 16 99/50 L 105/50 L 94 04/09/19 14:00 33.2 C L 33.1 C L 45 L 16 100/48 L 106/51 L 94 04/09/19 13:56 45 L 16 94 04/09/19 13:00 33.3 C L 33.1 C L 46 L 16 90/46 L 97/48 L 94 04/09/19 12:59 46 L 04/09/19 12:01 49 L 04/09/19 12:00 33.3 C L 33.2 C L 49 L 16 93/49 L 93/47 L 96 04/09/19 11:26 49 L 17 93 04/09/19 11:00 33.3 C L 33.2 C L 49 L 16 93/49 L 93/47 L 96 04/09/19 10:55 51 L 04/09/19 10:00 33.3 C L 33.1 C L 49 L 16 94/53 L 103/53 L 92 04/09/19 09:04 49 L 04/09/19 09:00 33.1 C L 33.2 C L 48 L 16 95/57 L 102/51 L 95 04/09/19 08:51 51 L 16 95 04/09/19 08:12 51 L 04/09/19 08:00 32.7 C L 32.7 C L 48 L 16 94/62 L 114/60 96 04/09/19 07:00 32.9 C L 32.9 C L 43 L 16 87/56 L 95/53 L 100 04/09/19 06:42 44 L 04/09/19 06:00 33.7 C L 33.7 C L 44 L 24 95/50 L 94/54 L 100 04/09/19 05:00 34.3 C L 34.1 C L 50 L 18 134/62 99 04/09/19 04:52 54 L 16 97 Laboratory Results Laboratory Results - last 24 hr 04/08/19 04/08/19 04/08/19 15:45 15:49 21:29 WBC 23.33 H RBC 4.90 Hgb 15.8 POC Hgb 16.3 Hct 44.7 POC Hct 48 MCV 91.2 MCH 32.2 MCHC 35.3 RDW Std Deviation 42.8 RDW Coeff of Paddy 12.8 Plt Count 200 MPV 9.8 Immature Gran % (Auto) 0.6 Neut % (Auto) 88.2 Lymph % (Auto) 4.7 [place] % (Auto) 6.5 Eos % (Auto) 0.0 Baso % (Auto) 0.0 Immature Gran # (Auto) 0.14 H Neut # (Auto) 20.56 H Lymph # (Auto) 1.10 L [place] # (Auto) 1.52 H Eos # (Auto) 0.00 Baso # (Auto) 0.01 Toxic Vacuolation 1+ Sample Site Art Line POC pH 7.26 L POC pCO2 45 POC pO2 160 H POC HCO3 20 POC Total CO2 22 L POC Base Excess -7.0 ABG pH ABG pH (Temp Correct) 7.278 L ABG pCO2 ABG pCO2 (Temp Corrct 43 ABG pO2 POC ABG pO2 at Pt Temp 152 ABG HCO3 ABG O2 Saturation ABG Base Excess Lars Test NA Barometric Pressure Oxygen Given O2 Delivery Device Ventilator POC O2 Rate 16 Minute Ventilation 23.8 POC FiO2 100 Tidal Volume 500 PEEP 10 POC Sodium 137 Sodium POC Potassium 4.8 Potassium Chloride Carbon Dioxide Anion Gap BUN Creatinine Est Cr Clr Drug Dosing Est GFR ( Amer) Est GFR (Non-Af Amer) BUN/Creatinine Ratio Glucose POC Glucose POC Glucose (other) Estimat Average Glucose Hemoglobin A1c Lactate 3.9 H* Calcium Ionized Calcium Phosphorus Magnesium Total Bilirubin Direct Bilirubin AST ALT Alkaline Phosphatase Troponin I Total Protein Albumin Triglycerides Cholesterol LDL Cholesterol, Calc VLDL Cholesterol, Calc HDL Cholesterol Cholesterol/HDL Ratio Procalcitonin Specimen Hemolysis 04/08/19 04/08/19 04/08/19 21:29 21:29 21:29 WBC RBC Hgb POC Hgb Hct POC Hct MCV MCH MCHC RDW Std Deviation RDW Coeff of Paddy Plt Count MPV Immature Gran % (Auto) Neut % (Auto) Lymph % (Auto) [place] % (Auto) Eos % (Auto) Baso % (Auto) Immature Gran # (Auto) Neut # (Auto) Lymph # (Auto) [place] # (Auto) Eos # (Auto) Baso # (Auto) Toxic Vacuolation Sample Site POC pH POC pCO2 POC pO2 POC HCO3 POC Total CO2 POC Base Excess ABG pH 7.34 L ABG pH (Temp Correct) ABG pCO2 43 ABG pCO2 (Temp Corrct ABG pO2 109 H POC ABG pO2 at Pt Temp ABG HCO3 23 ABG O2 Saturation 97.8 H ABG Base Excess -2.9 Lars Test Pos Barometric Pressure 743.1 Oxygen Given 40% FIO2 O2 Delivery Device POC O2 Rate Minute Ventilation POC FiO2 Tidal Volume PEEP POC Sodium Sodium 136 POC Potassium Potassium 5.2 H D Chloride 107 Carbon Dioxide 24 Anion Gap 5.0 BUN 27 H Creatinine 1.81 H Est Cr Clr Drug Dosing 67.1 Est GFR ( Amer) 51.5 Est GFR (Non-Af Amer) 44.5 BUN/Creatinine Ratio 14.9 Glucose 111 H POC Glucose POC Glucose (other) Estimat Average Glucose Hemoglobin A1c Lactate Calcium 8.3 L Ionized Calcium Phosphorus 3.4 D Magnesium 2.0 Total Bilirubin Direct Bilirubin AST ALT Alkaline Phosphatase Troponin I Total Protein Albumin Triglycerides Cholesterol LDL Cholesterol, Calc VLDL Cholesterol, Calc HDL Cholesterol Cholesterol/HDL Ratio Procalcitonin 1.96 H Specimen Hemolysis 04/09/19 04/09/19 04/09/19 01:06 03:04 03:04 WBC 17.45 H RBC 4.69 L Hgb 15.1 POC Hgb Hct 42.8 POC Hct MCV 91.3 MCH 32.2 MCHC 35.3 RDW Std Deviation 43.1 RDW Coeff of Paddy 13.0 Plt Count 203 MPV 9.7 Immature Gran % (Auto) 0.5 Neut % (Auto) 81.4 Lymph % (Auto) 11.6 [place] % (Auto) 6.4 Eos % (Auto) 0.1 Baso % (Auto) 0.0 Immature Gran # (Auto) 0.08 H Neut # (Auto) 14.22 H Lymph # (Auto) 2.02 [place] # (Auto) 1.11 H Eos # (Auto) 0.02 Baso # (Auto) 0.00 Toxic Vacuolation Sample Site POC pH POC pCO2 POC pO2 POC HCO3 POC Total CO2 POC Base Excess ABG pH ABG pH (Temp Correct) ABG pCO2 ABG pCO2 (Temp Corrct ABG pO2 POC ABG pO2 at Pt Temp ABG HCO3 ABG O2 Saturation ABG Base Excess Lars Test Barometric Pressure Oxygen Given O2 Delivery Device POC O2 Rate Minute Ventilation POC FiO2 Tidal Volume PEEP POC Sodium Sodium POC Potassium Potassium Chloride Carbon Dioxide Anion Gap BUN Creatinine Est Cr Clr Drug Dosing Est GFR ( Amer) Est GFR (Non-Af Amer) BUN/Creatinine Ratio Glucose POC Glucose 108 H POC Glucose (other) Estimat Average Glucose 114 Hemoglobin A1c 5.6 Lactate Calcium Ionized Calcium Phosphorus Magnesium Total Bilirubin Direct Bilirubin AST ALT Alkaline Phosphatase Troponin I Total Protein Albumin Triglycerides Cholesterol LDL Cholesterol, Calc VLDL Cholesterol, Calc HDL Cholesterol Cholesterol/HDL Ratio Procalcitonin Specimen Hemolysis 04/09/19 04/09/19 04/09/19 03:04 03:04 03:04 WBC RBC Hgb POC Hgb Hct POC Hct MCV MCH MCHC RDW Std Deviation RDW Coeff of Paddy Plt Count MPV Immature Gran % (Auto) Neut % (Auto) Lymph % (Auto) [place] % (Auto) Eos % (Auto) Baso % (Auto) Immature Gran # (Auto) Neut # (Auto) Lymph # (Auto) [place] # (Auto) Eos # (Auto) Baso # (Auto) Toxic Vacuolation Sample Site POC pH POC pCO2 POC pO2 POC HCO3 POC Total CO2 POC Base Excess ABG pH 7.33 L ABG pH (Temp Correct) ABG pCO2 46 ABG pCO2 (Temp Corrct ABG pO2 67 L POC ABG pO2 at Pt Temp ABG HCO3 24 ABG O2 Saturation 93.4 ABG Base Excess -2.4 Lars Test Pos Barometric Pressure Oxygen Given 50% O2 Delivery Device POC O2 Rate Minute Ventilation POC FiO2 Tidal Volume PEEP POC Sodium Sodium 137 POC Potassium Potassium 4.3 D Chloride 106 Carbon Dioxide 25 Anion Gap 6.0 BUN 30 H Creatinine 1.89 H Est Cr Clr Drug Dosing 64.2 Est GFR ( Amer) 48.9 Est GFR (Non-Af Amer) 42.2 BUN/Creatinine Ratio 15.7 Glucose 106 H POC Glucose POC Glucose (other) Estimat Average Glucose Hemoglobin A1c Lactate Calcium 8.1 L Ionized Calcium 1.02 L Phosphorus 5.0 H D Magnesium 2.1 Total Bilirubin 0.5 Direct Bilirubin 0.2 D AST 160 H ALT 93 H Alkaline Phosphatase 66 Troponin I Total Protein 6.7 Albumin 3.0 L Triglycerides 213 H Cholesterol 154 LDL Cholesterol, Calc 78 VLDL Cholesterol, Calc 43 HDL Cholesterol 33 Cholesterol/HDL Ratio 5 Procalcitonin Specimen Hemolysis 04/09/19 04/09/19 04/09/19 03:04 06:09 08:59 WBC 18.67 H RBC 4.63 L Hgb 15.1 POC Hgb Hct 42.7 POC Hct MCV 92.2 MCH 32.6 MCHC 35.4 RDW Std Deviation 44.0 RDW Coeff of Paddy 13.1 Plt Count 211 MPV 9.8 Immature Gran % (Auto) 0.3 Neut % (Auto) 82.2 Lymph % (Auto) 9.4 [place] % (Auto) 7.5 Eos % (Auto) 0.5 Baso % (Auto) 0.1 Immature Gran # (Auto) 0.06 H Neut # (Auto) 15.36 H Lymph # (Auto) 1.75 [place] # (Auto) 1.40 H Eos # (Auto) 0.09 Baso # (Auto) 0.01 Toxic Vacuolation Sample Site POC pH POC pCO2 POC pO2 POC HCO3 POC Total CO2 POC Base Excess ABG pH ABG pH (Temp Correct) ABG pCO2 ABG pCO2 (Temp Corrct ABG pO2 POC ABG pO2 at Pt Temp ABG HCO3 ABG O2 Saturation ABG Base Excess Lars Test Barometric Pressure Oxygen Given O2 Delivery Device POC O2 Rate Minute Ventilation POC FiO2 Tidal Volume PEEP POC Sodium Sodium POC Potassium Potassium Chloride Carbon Dioxide Anion Gap BUN Creatinine Est Cr Clr Drug Dosing Est GFR ( Amer) Est GFR (Non-Af Amer) BUN/Creatinine Ratio Glucose POC Glucose POC Glucose (other) 105 H Estimat Average Glucose Hemoglobin A1c Lactate Calcium Ionized Calcium Phosphorus Magnesium Total Bilirubin Direct Bilirubin AST ALT Alkaline Phosphatase Troponin I 16.500 H* Total Protein Albumin Triglycerides Cholesterol LDL Cholesterol, Calc VLDL Cholesterol, Calc HDL Cholesterol Cholesterol/HDL Ratio Procalcitonin Specimen Hemolysis 04/09/19 04/09/19 04/09/19 08:59 08:59 14:54 WBC 16.53 H RBC 4.47 L Hgb 14.3 POC Hgb Hct 41.1 L POC Hct MCV 91.9 MCH 32.0 MCHC 34.8 RDW Std Deviation 44.4 RDW Coeff of Paddy 13.2 Plt Count 196 MPV 10.0 Immature Gran % (Auto) 0.4 Neut % (Auto) 81.0 Lymph % (Auto) 9.6 [place] % (Auto) 7.9 Eos % (Auto) 1.0 Baso % (Auto) 0.1 Immature Gran # (Auto) 0.07 H Neut # (Auto) 13.39 H Lymph # (Auto) 1.59 [place] # (Auto) 1.30 H Eos # (Auto) 0.17 Baso # (Auto) 0.01 Toxic Vacuolation Sample Site POC pH POC pCO2 POC pO2 POC HCO3 POC Total CO2 POC Base Excess ABG pH 7.32 L ABG pH (Temp Correct) ABG pCO2 47 H ABG pCO2 (Temp Corrct ABG pO2 67 L POC ABG pO2 at Pt Temp ABG HCO3 24 ABG O2 Saturation 92.6 ABG Base Excess -2.9 Lars Test Pos Barometric Pressure 744.6 Oxygen Given 28% FiO2 O2 Delivery Device POC O2 Rate Minute Ventilation POC FiO2 Tidal Volume PEEP POC Sodium Sodium 137 POC Potassium Potassium 4.0 Chloride 105 Carbon Dioxide 23 Anion Gap 9.0 BUN 32 H Creatinine 2.11 H Est Cr Clr Drug Dosing 55.9 Est GFR ( Amer) 42.8 Est GFR (Non-Af Amer) 37.0 BUN/Creatinine Ratio 15.0 Glucose 120 H POC Glucose POC Glucose (other) Estimat Average Glucose Hemoglobin A1c Lactate Calcium 8.3 L Ionized Calcium Phosphorus 4.8 Magnesium 2.2 Total Bilirubin Direct Bilirubin AST ALT Alkaline Phosphatase Troponin I Total Protein Albumin Triglycerides Cholesterol LDL Cholesterol, Calc VLDL Cholesterol, Calc HDL Cholesterol Cholesterol/HDL Ratio Procalcitonin Specimen Hemolysis 04/09/19 04/09/19 14:54 14:54 WBC RBC Hgb POC Hgb Hct POC Hct MCV MCH MCHC RDW Std Deviation RDW Coeff of Paddy Plt Count MPV Immature Gran % (Auto) Neut % (Auto) Lymph % (Auto) [place] % (Auto) Eos % (Auto) Baso % (Auto) Immature Gran # (Auto) Neut # (Auto) Lymph # (Auto) [place] # (Auto) Eos # (Auto) Baso # (Auto) Toxic Vacuolation Sample Site POC pH POC pCO2 POC pO2 POC HCO3 POC Total CO2 POC Base Excess ABG pH 7.33 L ABG pH (Temp Correct) ABG pCO2 46 ABG pCO2 (Temp Corrct ABG pO2 66 L POC ABG pO2 at Pt Temp ABG HCO3 24 ABG O2 Saturation 92.9 ABG Base Excess -2.6 Lars Test GABRIEL Barometric Pressure 741.7 Oxygen Given 30% O2 Delivery Device POC O2 Rate Minute Ventilation POC FiO2 Tidal Volume PEEP POC Sodium Sodium 137 POC Potassium Potassium 3.8 Chloride 107 Carbon Dioxide 25 Anion Gap 5.0 BUN 29 H Creatinine 1.99 H Est Cr Clr Drug Dosing 59.3 Est GFR ( Amer) 46.0 Est GFR (Non-Af Amer) 39.7 BUN/Creatinine Ratio 14.8 Glucose 136 H POC Glucose POC Glucose (other) Estimat Average Glucose Hemoglobin A1c Lactate Calcium 8.2 L Ionized Calcium Phosphorus 3.4 D Magnesium 2.4 Total Bilirubin Direct Bilirubin AST ALT Alkaline Phosphatase Troponin I Total Protein Albumin Triglycerides Cholesterol LDL Cholesterol, Calc VLDL Cholesterol, Calc HDL Cholesterol Cholesterol/HDL Ratio Procalcitonin Specimen Hemolysis Medications Administered Current Inpatient Medications Fentanyl Citrate (Fentanyl Bolus From Bag) 25 mcg IV Q1H PRN PRN Reason: pain,shivering,goal BIS 40-60 Stop: 04/22/19 21:15 Last Admin: 04/08/19 23:30 Dose: 25 mcg Documented by: Heparin Sodium (Beef Lung) (Heparin Sod 10 Unit/Ml Flush) 5 ml FLUSH PRN PRN PRN Reason: Flush Stop: 05/08/19 23:27 Heparin Sodium (Porcine) (Heparin Sodium (Porcine)) 5,000 units SQ Q8 ROB Stop: 05/08/19 21:59 Last Admin: 04/09/19 14:00 Dose: 5,000 units Documented by: Hydromorphone HCl (Dilaudid) 1 mg IV Q20M PRN PRN Reason: Shivering with rewarming Stop: 04/22/19 14:57 Fentanyl Citrate (Fentanyl Drip) 1,250 mcg in 250 mls @ 30 mls/hr IV .Q8H20M [facility]; Protocol Stop: 04/22/19 14:59 Last Admin: 04/09/19 08:29 Dose: 150 mcg/hr, 30 mls/hr Documented by: Norepinephrine Bitartrate 8 mg (/ Dextrose) 508 mls @ 52.388 mls/hr IV .Q9H42M [facility]; Protocol Stop: 05/08/19 14:59 Last Titration: 04/09/19 15:41 Dose: 0.11 mcg/kg/min, 52.4 mls/hr Documented by: Ampicillin Sodium/Sulbactam Sodium 3,000 mg/ Sodium Chloride 108 mls @ 216 mls/hr IV Q6H [facility] Stop: 04/10/19 15:59 Last Admin: 04/09/19 15:25 Dose: 216 mls/hr Documented by: Propofol (Diprivan) 1,000 mg in 100 mls @ 37.5 mls/hr IV .Q2H40M [facility]; Protocol Stop: 04/11/19 15:44 Last Admin: 04/09/19 14:00 Dose: 50 mcg/kg/min, 37.5 mls/hr Documented by: Parenteral Electrolytes (Normosol-R) 1,000 mls @ 80 mls/hr IV .M08H05K ROB Stop: 05/08/19 16:29 Last Admin: 04/09/19 15:24 Dose: 80 mls/hr Documented by: Acetaminophen (Ofirmev) 1,000 mg in 100 mls @ 400 mls/hr IV Q8H PRN PRN Reason: Fever Stop: 04/11/19 19:18 Last Infusion: 04/08/19 22:01 Dose: Infused Documented by: Midazolam HCl (Versed) 125 mg in 250 mls @ 7 mls/hr IV .Q24H [facility]; Protocol Stop: 05/09/19 08:29 Last Titration: 04/09/19 13:50 Dose: 3.5 mg/hr, 7 mls/hr Documented by: Lansoprazole (Prevacid) 30 mg NG QAM [facility] Stop: 05/09/19 08:59 Last Admin: 04/09/19 08:44 Dose: 30 mg Documented by: Midazolam HCl (Versed) 2 mg IV Q2H PRN PRN Reason: shivering + goal BIS 40-60 Stop: 05/09/19 08:25 Last Admin: 04/09/19 15:28 Dose: 2 mg Documented by: Miscellaneous ([facility] Electrolyte Replacement Protocol) 1 ea N/A UD PRN PRN Reason: for e-lyte repletion Stop: 04/15/19 14:57 Miscellaneous ([facility] Protocol For Hyperglycemia) 1 ea N/A PRN PRN; Protocol PRN Reason: Hyperglycemia Protocol Stop: 04/10/19 16:19 Multi-Ingredient Cream (Lacri-Lube) 1 appln OP Q2H PRN PRN Reason: eye protection Stop: 05/08/19 14:57 Tramadol HCl (Ultram) 50 mg NG Q6H PRN PRN Reason: Shivering Stop: 05/08/19 14:57 PG Care Time/CCT Total # of Minutes Spent Total Time Spent with Patient: Total time spent is greater than 50% in coordination of care (as documented) at patient's floor/unit and/or counseling patient: Coding Level of Care Code 79054 Subseq Hosp Care Lvl 3 Diagnoses Sudden cardiac arrest I46.9 Hypertension I10 Hypertension type: essential hypertension CAD (coronary artery disease) I25.10 Cardiomyopathy I42.9 Shock liver K72.00 TIAN (acute kidney injury) N17.9 Cardiogenic shock R57.0 (1) Hypertension Hypertension type: essential hypertension Qualified Code(s): I10 - Essential (primary) hypertension
--- NOTE | 2019-04-09 21:15 | Electrocardiogram Report ---
Test Reason : Blood Pressure : / mmHG Vent. Rate : 078 BPM Atrial Rate : 078 BPM P-R Int : 180 ms QRS Dur : 100 ms QT Int : 428 ms P-R-T Axes : 015 -42 122 degrees QTc Int : 488 ms Normal sinus rhythm Left axis deviation T wave abnormality, consider lateral ischemia Prolonged QT Abnormal ECG When compared with ECG of 08-APR-2019 12:53, Inverted T waves have replaced nonspecific T wave abnormality in Lateral leads Confirmed by Norbert Rm ([id number]) on 04/09/2019 9:15:16 PM Referred By: REFERRED SELF Confirmed By:Norbert Rm
[2019-04-09 21:18] LABS: Basophils # (auto) 0.01 K/uL (0-0.2); Basophils % (auto) 0.1 %; Eosinophils % (auto) 1.3 %; Hematocrit (blood only) 41.8 % (42-52); Hemoglobin 14.6 g/dL (14.0-18.0); Immature Granulocytes # (auto) 0.06 K/uL (0.00-0.02); Immature Granulocytes % (auto) 0.4 %; Lymphocytes # (auto) 1.53 K/uL (1.2-3.4); Lymphocytes % (auto) 10.2 %; Mean Corpuscular Hemoglobin 32.3 pg (25-34); Mean Corpuscular Hgb Conc 34.9 g/dL (32-36); Mean Corpuscular Volume 92.5 fL (80-100); Mean Platelet Volume 9.6 fL (7.4-10.4); Monocytes # (auto) 1.21 K/uL (0.11-0.59); Monocytes % (auto) 8.1 %; Neutrophils % (auto) 79.9 %; Platelet Count 193 K/uL (130-400); RDW Coefficient of Variation 13.3 % (11.5-14.5); RDW Standard Deviation 44.7 fL (36.4-46.3); Red Blood Count 4.52 M/uL (4.7-6.1); White Blood Count 15.01 K/uL (4.8-10.8)
[2019-04-09 21:20] LABS: Base Excess ABG -1.7 mEq/L (-9-1.8); HCO3 ABG 25 mmol/L (19-24); Oxygen Saturation ABG 93.9 % (90-95); PCO2 ABG 49 mmHg (35-46); PO2 ABG 70 mmHg (80-95); pH ABG 7.33 (7.35-7.45)
[2019-04-09 21:21] LABS: Allen Test POS (Pos)
--- NOTE | 2019-04-09 21:22 | Electrocardiogram Report ---
Test Reason : Blood Pressure : / mmHG Vent. Rate : 057 BPM Atrial Rate : 057 BPM P-R Int : 202 ms QRS Dur : 102 ms QT Int : 532 ms P-R-T Axes : 010 -26 154 degrees QTc Int : 517 ms Sinus bradycardia T wave abnormality, consider anterior ischemia T wave abnormality, consider lateral ischemia Prolonged QT Abnormal ECG When compared with ECG of 08-APR-2019 19:56, T wave inversion now evident in Anterior leads Confirmed by Norbert Rm ([id number]) on 04/09/2019 9:22:19 PM Referred By: REFERRED SELF Confirmed By:Norbert Rm
--- NOTE | 2019-04-09 21:24 | Electrocardiogram Report ---
Test Reason : Blood Pressure : / mmHG Vent. Rate : 054 BPM Atrial Rate : 054 BPM P-R Int : 186 ms QRS Dur : 100 ms QT Int : 552 ms P-R-T Axes : 010 -23 176 degrees QTc Int : 523 ms Poor data quality, interpretation may be adversely affected Sinus bradycardia T wave abnormality, consider anterior ischemia T wave abnormality, consider lateral ischemia Prolonged QT Abnormal ECG When compared with ECG of 09-APR-2019 00:07, No significant change was found Confirmed by Norbert Rm ([id number]) on 04/09/2019 9:24:15 PM Referred By: REFERRED SELF Confirmed By:Norbert Rm
--- NOTE | 2019-04-09 21:35 | Cardiology Progress Note ---
Date of Service April 09, 2019 Assessment & Plan (1) Sudden cardiac arrest: (2) CAD (coronary artery disease): (3) Hypertension: (4) Cardiomyopathy: (5) Elevated troponin: ASSESSMENT/PLAN: 1. Cardiac arrest: Most accounts report PEA and total CPR difficult to quantitate. Chest compressions reportedly started immediately by coworkers. He is undergoing hypothermia protocol. Continue supportive care. He remains hemodynamically stable without arrhythmia while hospitalized. Etiology of his cardiac arrest not yet identified. There is no severe CAD to suggest acute coronary syndrome as the cause. Cannot rule out arrhythmia completely. If he is neurologically intact when he is rewarmed, will consider the possibility of ICD/life vest if appropriate at that time. 2. Cardiomyopathy: Etiology uncertain. Could be due to acute illness in the setting of cardiac arrest. Cannot exclude cardiomyopathy being present on a more chronic basis but he is not dilated which may support more acute process. Will repeat echo in the future while hospitalized if neurologically intact. When able, consider carvedilol or metoprolol succinate and ASTRID-inhibitor if no contraindications. 3. Elevated troponin: Likely secondary to cardiac arrest as he likely became ischemic from the event itself while requiring CPR. repeat troponin until peaked. Troponin ordered to be done in the morning. 4. Hypertension: Has a history of hypertension for which he takes lisinopril. Resume lisinopril when able, off of pressor support. 5. CAD: Nonobstructive. Recommend aspirin 81 mg daily when able. Recommend beta-eugenio when able. High-intensity statin therapy when able. Transaminase levels are trending downward and were likely elevated due to shock /hypoperfusion. 6. Disposition: He remains critically ill, under hypothermia protocol and on pressor support with mechanical ventilation. Plan of care discussed with Dr. Mitchell of the critical care service. I will be away from the hospital for the next 2 days. Patient care discussed with on-call crester, Dr. Jaime. Please call Dr. Jaime for any questions or concerns. Admission and Anticipated Discharge Date Admission Date: April 08, 2019 Subjective Patient was seen earlier this morning. His mother and girlfriend, Gina, were present at the bedside. He remains sedated on mechanical ventilation. Levophed was being used at a low-dose at that time. No reported arrhythmias and none seen on telemetry. Gina and his mother did have some questions, specifically regarding the rewarming phase. Review of systems: As above. Physical Exam Physical Exam: Gen.: Sedated on mechanical ventilator. . HEENT: Anicteric sclera. Pupils were equal and round. Neck: Thick neck. Cardiac: No ventricular heave. Regular. Normal S1-S2. No murmurs, rubs, or gallops. Pulmonary: Clear to auscultation bilaterally without wheezes, rales, or rhonchi. Abdomen: Soft, nondistended, with hypoactive bowel sounds. No bruits noted. Extremities: 2+ radial pulses bilaterally. No edema or cyanosis. Results & Data ([facility]) Vital Signs (Past 12 Hours) Vital Signs Temp Temp Pulse Resp BP BP Pulse Ox 04/09/19 21:00 32.3 C L 32.8 C L 46 L 16 110/54 L 125/56 L 95 04/09/19 20:00 33.4 C L 33.1 C L 47 L 16 110/55 L 115/53 L 95 04/09/19 19:34 47 L 16 95 04/09/19 19:00 33.4 C L 33.0 C L 47 L 16 113/57 L 119/53 L 94 04/09/19 18:00 33.3 C L 33 C L 47 L 16 123/60 124/57 L 95 04/09/19 17:23 46 L 16 95 04/09/19 17:01 46 L 04/09/19 17:00 33.3 C L 33 C L 46 L 16 104/53 L 108/50 L 94 04/09/19 16:00 33.4 C L 33.1 C L 46 L 16 109/54 L 110/51 L 94 04/09/19 15:01 33.4 C L 33.1 C L 45 L 16 99/50 L 105/50 L 94 04/09/19 14:00 33.2 C L 33.1 C L 45 L 16 100/48 L 106/51 L 94 04/09/19 13:56 45 L 16 94 04/09/19 13:00 33.3 C L 33.1 C L 46 L 16 90/46 L 97/48 L 94 04/09/19 12:59 46 L 04/09/19 12:01 49 L 04/09/19 12:00 33.3 C L 33.2 C L 49 L 16 93/49 L 93/47 L 96 04/09/19 11:26 49 L 17 93 04/09/19 11:00 33.3 C L 33.2 C L 49 L 16 93/49 L 93/47 L 96 04/09/19 10:55 51 L 04/09/19 10:00 33.3 C L 33.1 C L 49 L 16 94/53 L 103/53 L 92 Laboratory Results Laboratory Results - last 24 hr 04/09/19 04/09/19 04/09/19 01:06 03:04 03:04 WBC 17.45 H RBC 4.69 L Hgb 15.1 Hct 42.8 MCV 91.3 MCH 32.2 MCHC 35.3 RDW Std Deviation 43.1 RDW Coeff of Apddy 13.0 Plt Count 203 MPV 9.7 Immature Gran % (Auto) 0.5 Neut % (Auto) 81.4 Lymph % (Auto) 11.6 Taney % (Auto) 6.4 Eos % (Auto) 0.1 Baso % (Auto) 0.0 Immature Gran # (Auto) 0.08 H Neut # (Auto) 14.22 H Lymph # (Auto) 2.02 Taney # (Auto) 1.11 H Eos # (Auto) 0.02 Baso # (Auto) 0.00 ABG pH ABG pCO2 ABG pO2 ABG HCO3 ABG O2 Saturation ABG Base Excess Lars Test Barometric Pressure Oxygen Given Sodium Potassium Chloride Carbon Dioxide Anion Gap BUN Creatinine Est Cr Clr Drug Dosing Est GFR ( Amer) Est GFR (Non-Af Amer) BUN/Creatinine Ratio Glucose POC Glucose 108 H POC Glucose (other) Estimat Average Glucose 114 Hemoglobin A1c 5.6 Calcium Ionized Calcium Phosphorus Magnesium Total Bilirubin Direct Bilirubin AST ALT Alkaline Phosphatase Troponin I Total Protein Albumin Triglycerides Cholesterol LDL Cholesterol, Calc VLDL Cholesterol, Calc HDL Cholesterol Cholesterol/HDL Ratio Specimen Hemolysis 04/09/19 04/09/19 04/09/19 03:04 03:04 03:04 WBC RBC Hgb Hct MCV MCH MCHC RDW Std Deviation RDW Coeff of Paddy Plt Count MPV Immature Gran % (Auto) Neut % (Auto) Lymph % (Auto) Taney % (Auto) Eos % (Auto) Baso % (Auto) Immature Gran # (Auto) Neut # (Auto) Lymph # (Auto) Taney # (Auto) Eos # (Auto) Baso # (Auto) ABG pH 7.33 L ABG pCO2 46 ABG pO2 67 L ABG HCO3 24 ABG O2 Saturation 93.4 ABG Base Excess -2.4 Lars Test Pos Barometric Pressure Oxygen Given 50% Sodium 137 Potassium 4.3 D Chloride 106 Carbon Dioxide 25 Anion Gap 6.0 BUN 30 H Creatinine 1.89 H Est Cr Clr Drug Dosing 64.2 Est GFR ( Amer) 48.9 Est GFR (Non-Af Amer) 42.2 BUN/Creatinine Ratio 15.7 Glucose 106 H POC Glucose POC Glucose (other) Estimat Average Glucose Hemoglobin A1c Calcium 8.1 L Ionized Calcium 1.02 L Phosphorus 5.0 H D Magnesium 2.1 Total Bilirubin 0.5 Direct Bilirubin 0.2 D AST 160 H ALT 93 H Alkaline Phosphatase 66 Troponin I Total Protein 6.7 Albumin 3.0 L Triglycerides 213 H Cholesterol 154 LDL Cholesterol, Calc 78 VLDL Cholesterol, Calc 43 HDL Cholesterol 33 Cholesterol/HDL Ratio 5 Specimen Hemolysis 04/09/19 04/09/19 04/09/19 03:04 06:09 08:59 WBC 18.67 H RBC 4.63 L Hgb 15.1 Hct 42.7 MCV 92.2 MCH 32.6 MCHC 35.4 RDW Std Deviation 44.0 RDW Coeff of Paddy 13.1 Plt Count 211 MPV 9.8 Immature Gran % (Auto) 0.3 Neut % (Auto) 82.2 Lymph % (Auto) 9.4 Taney % (Auto) 7.5 Eos % (Auto) 0.5 Baso % (Auto) 0.1 Immature Gran # (Auto) 0.06 H Neut # (Auto) 15.36 H Lymph # (Auto) 1.75 Taney # (Auto) 1.40 H Eos # (Auto) 0.09 Baso # (Auto) 0.01 ABG pH ABG pCO2 ABG pO2 ABG HCO3 ABG O2 Saturation ABG Base Excess Lars Test Barometric Pressure Oxygen Given Sodium Potassium Chloride Carbon Dioxide Anion Gap BUN Creatinine Est Cr Clr Drug Dosing Est GFR ( Amer) Est GFR (Non-Af Amer) BUN/Creatinine Ratio Glucose POC Glucose POC Glucose (other) 105 H Estimat Average Glucose Hemoglobin A1c Calcium Ionized Calcium Phosphorus Magnesium Total Bilirubin Direct Bilirubin AST ALT Alkaline Phosphatase Troponin I 16.500 H* Total Protein Albumin Triglycerides Cholesterol LDL Cholesterol, Calc VLDL Cholesterol, Calc HDL Cholesterol Cholesterol/HDL Ratio Specimen Hemolysis 04/09/19 04/09/19 04/09/19 08:59 08:59 14:54 WBC 16.53 H RBC 4.47 L Hgb 14.3 Hct 41.1 L MCV 91.9 MCH 32.0 MCHC 34.8 RDW Std Deviation 44.4 RDW Coeff of Paddy 13.2 Plt Count 196 MPV 10.0 Immature Gran % (Auto) 0.4 Neut % (Auto) 81.0 Lymph % (Auto) 9.6 Taney % (Auto) 7.9 Eos % (Auto) 1.0 Baso % (Auto) 0.1 Immature Gran # (Auto) 0.07 H Neut # (Auto) 13.39 H Lymph # (Auto) 1.59 Taney # (Auto) 1.30 H Eos # (Auto) 0.17 Baso # (Auto) 0.01 ABG pH 7.32 L ABG pCO2 47 H ABG pO2 67 L ABG HCO3 24 ABG O2 Saturation 92.6 ABG Base Excess -2.9 Lars Test Pos Barometric Pressure 744.6 Oxygen Given 28% FiO2 Sodium 137 Potassium 4.0 Chloride 105 Carbon Dioxide 23 Anion Gap 9.0 BUN 32 H Creatinine 2.11 H Est Cr Clr Drug Dosing 55.9 Est GFR ( Amer) 42.8 Est GFR (Non-Af Amer) 37.0 BUN/Creatinine Ratio 15.0 Glucose 120 H POC Glucose POC Glucose (other) Estimat Average Glucose Hemoglobin A1c Calcium 8.3 L Ionized Calcium Phosphorus 4.8 Magnesium 2.2 Total Bilirubin Direct Bilirubin AST ALT Alkaline Phosphatase Troponin I Total Protein Albumin Triglycerides Cholesterol LDL Cholesterol, Calc VLDL Cholesterol, Calc HDL Cholesterol Cholesterol/HDL Ratio Specimen Hemolysis 04/09/19 04/09/19 04/09/19 14:54 14:54 21:06 WBC 15.01 H RBC 4.52 L Hgb 14.6 Hct 41.8 L MCV 92.5 MCH 32.3 MCHC 34.9 RDW Std Deviation 44.7 RDW Coeff of Paddy 13.3 Plt Count 193 MPV 9.6 Immature Gran % (Auto) 0.4 Neut % (Auto) 79.9 Lymph % (Auto) 10.2 Taney % (Auto) 8.1 Eos % (Auto) 1.3 Baso % (Auto) 0.1 Immature Gran # (Auto) 0.06 H Neut # (Auto) 12.00 H Lymph # (Auto) 1.53 Taney # (Auto) 1.21 H Eos # (Auto) 0.20 Baso # (Auto) 0.01 ABG pH 7.33 L ABG pCO2 46 ABG pO2 66 L ABG HCO3 24 ABG O2 Saturation 92.9 ABG Base Excess -2.6 Lars Test GABRIEL Barometric Pressure 741.7 Oxygen Given 30% Sodium 137 Potassium 3.8 Chloride 107 Carbon Dioxide 25 Anion Gap 5.0 BUN 29 H Creatinine 1.99 H Est Cr Clr Drug Dosing 59.3 Est GFR ( Amer) 46.0 Est GFR (Non-Af Amer) 39.7 BUN/Creatinine Ratio 14.8 Glucose 136 H POC Glucose POC Glucose (other) Estimat Average Glucose Hemoglobin A1c Calcium 8.2 L Ionized Calcium Phosphorus 3.4 D Magnesium 2.4 Total Bilirubin Direct Bilirubin AST ALT Alkaline Phosphatase Troponin I Total Protein Albumin Triglycerides Cholesterol LDL Cholesterol, Calc VLDL Cholesterol, Calc HDL Cholesterol Cholesterol/HDL Ratio Specimen Hemolysis 04/09/19 04/09/19 21:06 21:06 WBC RBC Hgb Hct MCV MCH MCHC RDW Std Deviation RDW Coeff of Paddy Plt Count MPV Immature Gran % (Auto) Neut % (Auto) Lymph % (Auto) Taney % (Auto) Eos % (Auto) Baso % (Auto) Immature Gran # (Auto) Neut # (Auto) Lymph # (Auto) Taney # (Auto) Eos # (Auto) Baso # (Auto) ABG pH 7.33 L ABG pCO2 49 H ABG pO2 70 L ABG HCO3 25 H ABG O2 Saturation 93.9 ABG Base Excess -1.7 Lars Test POS Barometric Pressure 740.8 Oxygen Given 30% O2 Sodium 138 Potassium 3.6 Chloride 108 H Carbon Dioxide 24 Anion Gap 7.0 BUN 28 H Creatinine 1.78 H Est Cr Clr Drug Dosing 66.3 Est GFR ( Amer) 52.6 Est GFR (Non-Af Amer) 45.4 BUN/Creatinine Ratio 16.0 Glucose 147 H POC Glucose POC Glucose (other) Estimat Average Glucose Hemoglobin A1c Calcium 8.2 L Ionized Calcium Phosphorus 2.8 Magnesium 2.4 Total Bilirubin Direct Bilirubin AST ALT Alkaline Phosphatase Troponin I Total Protein Albumin Triglycerides Cholesterol LDL Cholesterol, Calc VLDL Cholesterol, Calc HDL Cholesterol Cholesterol/HDL Ratio Specimen Hemolysis Diagnostic Findings Telemetry personally reviewed: No arrhythmia. Multiple ECGs personally reviewed: ECG 04/09/2019 at 4:12 a.m.: Sinus bradycardia. Anterior and lateral T-wave inversion. Prolonged QT. ECG 04/09/2019 7:59 a.m.: Sinus bradycardia 50 bpm. Anterior and lateral T- wave inversion. Prolonged QT. ECG 04/09/2019 at 11:41 a.m.: Sinus bradycardia 50 bpm. Anterior and lateral T-wave inversion. Prolonged QT. ECG : Sinus bradycardia 46 bpm. Lateral and anterior T-wave inversion. Prolonged QT. EEG 04/09/2019: No clear brain wave activity. This was performed while on Versed, propofol, and fentanyl. Chest x-ray 04/09/2019: Mild diffuse vascular/interstitial prominence, possibly due to hypoventilatory nature of the study per Radiology. Medications Administered Current Inpatient Medications Fentanyl Citrate (Fentanyl Bolus From Bag) 25 mcg IV Q1H PRN PRN Reason: pain,shivering,goal BIS 40-60 Stop: 04/22/19 21:15 Last Admin: 04/08/19 23:30 Dose: 25 mcg Documented by: Heparin Sodium (Beef Lung) (Heparin Sod 10 Unit/Ml Flush) 5 ml FLUSH PRN PRN PRN Reason: Flush Stop: 05/08/19 23:27 Heparin Sodium (Porcine) (Heparin Sodium (Porcine)) 5,000 units SQ Q8 ROB Stop: 05/08/19 21:59 Last Admin: 04/09/19 21:09 Dose: 5,000 units Documented by: Hydromorphone HCl (Dilaudid) 1 mg IV Q20M PRN PRN Reason: Shivering with rewarming Stop: 04/22/19 14:57 Fentanyl Citrate (Fentanyl Drip) 1,250 mcg in 250 mls @ 30 mls/hr IV .Q8H20M ROB; Protocol Stop: 04/22/19 14:59 Last Titration: 04/09/19 19:12 Dose: 150 mcg/hr, 30 mls/hr Documented by: Norepinephrine Bitartrate 8 mg (/ Dextrose) 508 mls @ 52.388 mls/hr IV .Q9H42M ROB; Protocol Stop: 05/08/19 14:59 Last Admin: 04/09/19 19:58 Dose: 0.11 mcg/kg/min, 52.4 mls/hr Documented by: Ampicillin Sodium/Sulbactam Sodium 3,000 mg/ Sodium Chloride 108 mls @ 216 mls/hr IV Q6H [facility] Stop: 04/10/19 15:59 Last Infusion: 04/09/19 21:57 Dose: Infused Documented by: Propofol (Diprivan) 1,000 mg in 100 mls @ 37.5 mls/hr IV .Q2H40M [facility]; Protocol Stop: 04/11/19 15:44 Last Admin: 04/09/19 21:57 Dose: 50 mcg/kg/min, 37.5 mls/hr Documented by: Parenteral Electrolytes (Normosol-R) 1,000 mls @ 80 mls/hr IV .[id number] [facility] Stop: 05/08/19 16:29 Last Admin: 04/09/19 15:24 Dose: 80 mls/hr Documented by: Acetaminophen (Ofirmev) 1,000 mg in 100 mls @ 400 mls/hr IV Q8H PRN PRN Reason: Fever Stop: 04/11/19 19:18 Last Infusion: 04/08/19 22:01 Dose: Infused Documented by: Midazolam HCl (Versed) 125 mg in 250 mls @ 7 mls/hr IV .Q24H [facility]; Protocol Stop: 05/09/19 08:29 Last Titration: 04/09/19 19:12 Dose: 3.5 mg/hr, 7 mls/hr Documented by: Lansoprazole (Prevacid) 30 mg NG QAM [facility] Stop: 05/09/19 08:59 Last Admin: 04/09/19 08:44 Dose: 30 mg Documented by: Midazolam HCl (Versed) 2 mg IV Q2H PRN PRN Reason: shivering + goal BIS 40-60 Stop: 05/09/19 08:25 Last Admin: 04/09/19 15:28 Dose: 2 mg Documented by: Miscellaneous (Icu Electrolyte Replacement Protocol) 1 ea N/A UD PRN PRN Reason: for e-lyte repletion Stop: 04/15/19 14:57 Miscellaneous (I[facility] Protocol For Hyperglycemia) 1 ea N/A PRN PRN; Protocol PRN Reason: Hyperglycemia Protocol Stop: 04/10/19 16:19 Multi-Ingredient Cream (Lacri-Lube) 1 appln OP Q2H PRN PRN Reason: eye protection Stop: 05/08/19 14:57 Tramadol HCl (Ultram) 50 mg NG Q6H PRN PRN Reason: Shivering Stop: 05/08/19 14:57 PG Care Time/CCT Total # of Minutes Spent Total Time Spent with Patient: Total time spent is greater than 50% in coordination of care (as documented) at patient's floor/unit and/or counseling patient: Critical Care Time: Yes Total Critical Care Time: 30 Coding Level of Care Code None Diagnoses Sudden cardiac arrest I46.9 CAD (coronary artery disease) I25.10 Hypertension I10 Hypertension type: essential hypertension Cardiomyopathy I42.9 Elevated troponin R79.89 Additional Codes Critical Care Time - Critical Care Time: Yes ([id number]) (1) Hypertension Hypertension type: essential hypertension Qualified Code(s): I10 - Essential (primary) hypertension
[2019-04-09 21:37] LABS: Calcium 8.2 mg/dl (8.5-10.1); Creatinine Clr Calc Pharmacy 66.3 ml/min; Est GFR (African American) 52.6; Est GFR (Non-African American) 45.4; Magnesium 2.4 mg/dl (1.8-2.4); Potassium 3.6 mmol/L (3.5-5.1)
[2019-04-09 21:38] LABS: Phosphorus 2.8 mg/dl (2.5-4.9)
--- NOTE | 2019-04-09 21:57 | Electrocardiogram Report ---
Test Reason : Blood Pressure : / mmHG Vent. Rate : 050 BPM Atrial Rate : 050 BPM P-R Int : 184 ms QRS Dur : 098 ms QT Int : 574 ms P-R-T Axes : 014 -19 123 degrees QTc Int : 523 ms Sinus bradycardia T wave abnormality, consider anterior ischemia T wave abnormality, consider lateral ischemia Prolonged QT Abnormal ECG When compared with ECG of 09-APR-2019 04:12, No significant change Confirmed by Norbert Rm ([id number]) on 04/09/2019 9:57:32 PM Referred By: REFERRED SELF Confirmed By:Norbert Rm
--- NOTE | 2019-04-09 22:11 | Electrocardiogram Report ---
Test Reason : Blood Pressure : / mmHG Vent. Rate : 050 BPM Atrial Rate : 050 BPM P-R Int : 206 ms QRS Dur : 100 ms QT Int : 606 ms P-R-T Axes : 008 -18 146 degrees QTc Int : 552 ms Sinus bradycardia Incomplete right bundle branch block T wave abnormality, consider anterior ischemia T wave abnormality, consider lateral ischemia Prolonged QT Abnormal ECG When compared with ECG of 09-APR-2019 07:59, No significant change Confirmed by Norbert Rm ([id number]) on 04/09/2019 10:10:50 PM Referred By: REFERRED SELF Confirmed By:Norbert Rm
--- NOTE | 2019-04-09 22:32 | Electrocardiogram Report ---
Test Reason : Blood Pressure : / mmHG Vent. Rate : 046 BPM Atrial Rate : 046 BPM P-R Int : 214 ms QRS Dur : 106 ms QT Int : 624 ms P-R-T Axes : 016 -22 140 degrees QTc Int : 546 ms Sinus bradycardia with 1st degree A-V block T wave abnormality, consider anterior ischemia T wave abnormality, consider lateral ischemia Prolonged QT Abnormal ECG When compared with ECG of 09-APR-2019 11:41, No significant change was found Confirmed by Norbert Rm ([id number]) on 04/09/2019 10:32:27 PM Referred By: REFERRED SELF Confirmed By:Norbert Rm
[2019-04-10] MEDS: propofoL 1,000 MG/100 ML VIAL IV SCH ×6 (00:29→23:20)
[2019-04-10] MEDS: fentaNYL DRIP 1,250 MCG/250 ML BAG IV SCH ×4 (01:14→09:11)
[2019-04-10] MEDS: NORMOSOL-R 1,000 ML IV SCH ×2 (02:56→15:05)
[2019-04-10 03:03] LABS: Basophils # (auto) 0.02 K/uL (0-0.2); Basophils % (auto) 0.1 %; Eosinophils # (auto) 0.18 K/uL (0-0.5); Eosinophils % (auto) 1.3 %; Hematocrit (blood only) 40.6 % (42-52); Hemoglobin 14.2 g/dL (14.0-18.0); Immature Granulocytes # (auto) 0.04 K/uL (0.00-0.02); Immature Granulocytes % (auto) 0.3 %; Lymphocytes # (auto) 1.02 K/uL (1.2-3.4); Lymphocytes % (auto) 7.2 %; Mean Corpuscular Hemoglobin 32.4 pg (25-34); Mean Corpuscular Volume 92.7 fL (80-100); Mean Platelet Volume 9.8 fL (7.4-10.4); Monocytes # (auto) 0.96 K/uL (0.11-0.59); Monocytes % (auto) 6.7 %; Neutrophils # (auto) 12.01 K/uL (1.4-6.5); Neutrophils % (auto) 84.4 %; Platelet Count 180 K/uL (130-400); RDW Coefficient of Variation 13.3 % (11.5-14.5); RDW Standard Deviation 45.3 fL (36.4-46.3); Red Blood Count 4.38 M/uL (4.7-6.1); White Blood Count 14.23 K/uL (4.8-10.8)
[2019-04-10 03:07] LABS: HCO3 ABG 25 mmol/L (19-24); Oxygen Saturation ABG 93.8 % (90-95); PCO2 ABG 44 mmHg (35-46); PO2 ABG 69 mmHg (80-95); pH ABG 7.37 (7.35-7.45)
[2019-04-10 03:11] LABS: Allen Test Pos (Pos)
[2019-04-10 03:27] LABS: Albumin Level 2.6 gm/dl (3.4-5.0); BUN Creatinine Ratio 14.8 (10-20); Bilirubin Direct 0.3 mg/dl (0-0.2); Calcium 8.1 mg/dl (8.5-10.1); Creatinine Clr Calc Pharmacy 68.6 ml/min; Est GFR (African American) 54.8; Est GFR (Non-African American) 47.3; Magnesium 2.4 mg/dl (1.8-2.4); Potassium 3.9 mmol/L (3.5-5.1)
[2019-04-10] MEDS: AMPICILLIN/SULBACTAM SOD 3,000 MG in 0.9 % SODIUM CHLORIDE 100 ML IV SCH ×4 (04:01→21:36)
[2019-04-10 04:06] LABS: Bilirubin,Total 0.5 mg/dl (0.2-1); Phosphorus 2.6 mg/dl (2.5-4.9); Total Protein 6.3 gm/dl (6.4-8.2); Troponin I 2.96 ng/ml (0-0.045)
[2019-04-10] MEDS: HEPARIN SOD 5,000 UNIT/0.5 ML VIAL SQ SCH ×3 (05:42→21:37)
[2019-04-10] MEDS: NOREPINEPHRINE BIT INJ 8 MG in DEXTROSE 5% 500 ML IV SCH (05:42)
--- NOTE | 2019-04-10 07:00 | Critical Care Progress Note ---
Date of Service April 10, 2019 Assessment & Plan (1) Admitted to intensive care unit: Reason Critically Ill: 43 yo male with witnessed cardiac arrest flown to [facility] for cardiac cath and hypothermia protocol 24 hr events: Rewarming initiated at 1:00 am 04/10. Levophed started to maintain MAPs >70 per hypothermia protocol. no arrhythmias observed on monitor Neuro: CAM ICU: Negative * Sedation with propofol 50mcg/kg/min and fentanyl drip 175 mcg/hr while on vent * Hypothermic protocol for cerebral cooling in the setting of recent cardiac arrest; currently being rewarmed * EEG obtained 04/09 showed no epileptiform activity Cardiac: * Cardiac Arrest - 04/08. total estimated time down is 5-25 minutes; patient with ROSC after amp of epi x 2 [employer]. cause of arrest is unknown. Differential includes ischemia, arrhythmia secondary to non-ischemic cardiomyopathy. - unlikely to be ischemia as cath showed only moderately obstructive coronary disease, not significant enough to be responsible for arrest or warrant PCI. although it is possible patient had an occlusive embolus that spontaneously lysed. arrhythmia is under consideration given EHCO findings of diminished EF 30-35%, LV global hypokinesis in mid to distal segments, however it is unknown as to whether this diminished EF is chronic vs. acute (myocardial stunning related to arrest and subsequent resuscitation). cardiology following. - 10 year ASCVD risk borderline ~ 6.8%. - unable to obtained advanced imaging of chest, as patient was initiated on hypothermic protocol immediately after cath; venous duplex showing no evidence of DVTs; PE highly unlikely as etiology * Elevated Troponin - peaked at 16.5, trended down. etiology likely demand > supply in the setting of cardiac arrest and CPR * HTN - patient recently initiated on Lisinopril for anti-hypertensive regimen. A-line for continuous BP monitoring. currently requiring Levophed to maintain MPS >70 Respiratory: * Currently mechanically ventilated in light of recent cardiac arrest. anticipate extubation today after he has rewarmed * CXR on admission demonstrated right upper lobe consolidation. potential risk for aspiration in setting of cardiac arrest. WBC count normal. Lactate initially elevated to 3.9, has since normalized. procal at 1.96. Sputum culture pending, gram stain showing growth of gram + cocci. Currently on Day 3 Unasyn. Today's film showing appropriate positioning of tubes without concern for pneumothorax, stable. GI: * NPO while on vent * Elevated LFTs: trending down Likely construction representative of shock liver vs. primary hepatic etiology. continue to trend * GERD: continue home lansoprazole RENAL/LYTES: * mild respiratory acidosis * TIAN. Creatinine peaked at 2.11, trending down. likely secondary to hypoperfusion * calcium corrects to 9.2 * ICU Electrolyte replacement protocol held in while on hypothermia protocol : * Mayorga catheter placed - strict Is/Os ENDO: - no known history of underlying diabetes; A1c borderline at 5.6 - ICU protocol for hyperglycemia HEME: * Hgb stable. No issues identified. ID: * WBC normal at [facility]; elevated to 18 on admission, trending down - most likely construction representative of a stress response > infectious process. R upper lobe infiltrate visualized on CXR. lactate initially elevated, trended down. procal 1.96. aspiration PNA possible in the setting of cardiac arrest. Sputum culture pending, gram stain showing growth of gram + cocci. Currently on Day 3 Unasyn. * nasal MRSA swab negative LINES/IV ACCESS: * L EJ * PIV x3 (2 AC, 1 hand) * left radial A-line * R femoral CVC CODE STATUS: Full DVT PROPHYLAXIS: heparin 5,000 units SQ, q8hr; bilateral SCDs Thank you for allowing us to participate in the care of this patient. Please refer to my attending physician's documentation for any further recommendations. Admission and Anticipated Discharge Date Admission Date: April 08, 2019 Supervising Physician Co-Signing Physician Notes Patient seen and examined. EMR reviewed. Images independently reviewed. Discussed with FP resident on rounds and with ICU nurse at bedside overnight the patient has been rewarmed and is almost at target temperature. He remains deeply intubated and sedated. He has been started on low-dose pressors to maintain an adequate perfusion pressure. This is likely the result of sedation. Urine output remains adequate. White blood cell count continues to trend down. Creatinine continues to decrease as well. Blood gas is appropriate. Troponins have peaked and are decreasing. We will plan on weaning sedation once the patient reached target temp. Will provide Precedex and as needed Geodon to facilitate sedation break. SBT once the patient meets criteria. He is at risk for sleep disordered breathing and may require CPAP or BiPAP postextubation. His sputum culture shows GPC's. Would continue Unasyn for now. We will keep cooling catheter in place to avoid temperature overshoot. Significant other updated at bedside. Subjective Patient in ICU, sedated while on mechanical ventilator. Girlfriend present at bedside. Review of Systems Review of Systems: Unobtainable due to endotracheal tube Physical Exam Constitutional: WD/WN, vitals as above + obese and + mechanically ventilated ENMT: external ear and nose normal, oropharynx normal Neck: normal visual inspection and trachea midline Respiratory: normal respiratory effort Auscultation: + rhonchi; no crackles, no rales and no pleural rub Cardiovascular: RRR, no murmur, no edema Heart Sounds: normal S1 and normal S2 Extremities: no edema Gastrointestinal (Abdomen): Inspection/Auscultation: abdomen normal to inspection Skin: no rashes, warm and dry Genitourinary: Mayorga catheter in place draining yellow colored urine Results & Data ([facility]) Vital Signs (Past 12 Hours) Vital Signs Temp Temp Pulse Resp BP BP Pulse Ox 04/10/19 06:00 35.8 C L 35.5 C L 62 16 104/56 L 124/55 L 94 04/10/19 05:00 35.3 C L 35 C L 62 16 123/61 130/57 L 94 04/10/19 04:50 61 17 94 04/10/19 04:00 34.7 C L 34.5 C L 54 L 16 102/51 L 106/62 95 04/10/19 03:00 34.3 C L 34.0 C L 50 L 16 108/52 L 120/53 L 95 04/10/19 02:02 53 L 16 95 04/10/19 02:00 34 C L 33.6 C L 51 L 16 103/52 L 123/56 L 94 04/10/19 01:00 33.4 C L 33.1 C L 51 L 16 106/53 L 114/53 L 94 04/10/19 00:17 33.5 C L 33.1 C L 52 L 18 122/62 137/60 93 04/09/19 23:20 33.4 C L 33.1 C L 48 L 16 110/54 L 118/52 L 94 04/09/19 23:00 49 L 16 94 04/09/19 22:19 33.1 C L 32.6 C L 50 L 16 113/56 L 137/59 L 95 04/09/19 21:00 32.3 C L 32.8 C L 46 L 16 110/54 L 125/56 L 95 04/09/19 20:00 33.4 C L 33.1 C L 47 L 16 110/55 L 115/53 L 95 04/09/19 19:34 47 L 16 95 04/09/19 19:00 33.4 C L 33.0 C L 47 L 16 113/57 L 119/53 L 94 Resident Activity Tracking Resident Involvement: Resident Care Provided Care Provided: Adult Hospital Medicine
[2019-04-10] MEDS ORDERED: STAT IV Infusion **Titration per Protocol STA (07:54)
[2019-04-10] MEDS ORDERED: ZIPRASIDONE 20 MG/ML SDV IM PRN (07:54)
--- NOTE | 2019-04-10 08:08 | XRay Report ---
XR chest 1V portable HISTORY: Shortness of breath. COMPARISON: Chest 04/09/2019. FINDINGS: Endotracheal tube terminates 4.8 cm from the jl. Nasogastric tube terminates below the diaphragm. There are low lung volumes. No pneumothorax. Bibasilar densities persist. The heart remain s mildly enlarged. There is mild central pulmonary vascular congestion without overt edema. Suspect t race bilateral pleural effusions. IMPRESSION: 1. The endotracheal tube terminates 4.8 cm from the jl. This could be advanced by approximately 1 to 2 cm. 2. Low lung volumes with bibasilar densities suggesting atelectasis. 3. Cardiomegaly and mild congestive change. ACT 112: Negative or not required by law. Electronically signed by: Alonso Sarkar M.D. 04/10/2019 8:06 AM
[2019-04-10] MEDS: DEXMEDETOMIDINE HCL 200 MCG in SODIUM CHLORIDE 0.9% 48 ML IV SCH ×7 (08:32→21:36)
[2019-04-10] MEDS: LANSOPRAZOLE 30 MG SOLTAB NG SCH (08:32)
--- NOTE | 2019-04-10 08:40 | Billing Data ---
Date of Service April 10, 2019 Coding Level of Care Code 90531 Subseq Hosp Care Lvl 3
[2019-04-10 09:00] LABS: Basophils # (auto) 0.01 K/uL (0-0.2); Basophils % (auto) 0.1 %; Eosinophils # (auto) 0.24 K/uL (0-0.5); Eosinophils % (auto) 2.4 %; Hematocrit (blood only) 41.1 % (42-52); Hemoglobin 14.3 g/dL (14.0-18.0); Immature Granulocytes # (auto) 0.02 K/uL (0.00-0.02); Immature Granulocytes % (auto) 0.2 %; Lymphocytes # (auto) 0.95 K/uL (1.2-3.4); Lymphocytes % (auto) 9.5 %; Mean Corpuscular Hemoglobin 32.5 pg (25-34); Mean Corpuscular Hgb Conc 34.8 g/dL (32-36); Mean Corpuscular Volume 93.4 fL (80-100); Mean Platelet Volume 9.8 fL (7.4-10.4); Monocytes # (auto) 0.54 K/uL (0.11-0.59); Monocytes % (auto) 5.4 %; Neutrophils # (auto) 8.28 K/uL (1.4-6.5); Neutrophils % (auto) 82.4 %; Platelet Count 146 K/uL (130-400); RDW Coefficient of Variation 13.4 % (11.5-14.5); White Blood Count 10.04 K/uL (4.8-10.8)
[2019-04-10 09:02] LABS: Base Excess ABG -0.7 mEq/L (-9-1.8); HCO3 ABG 26 mmol/L (19-24); Oxygen Saturation ABG 89.7 % (90-95); PCO2 ABG 48 mmHg (35-46); PO2 ABG 59 mmHg (80-95); pH ABG 7.34 (7.35-7.45)
[2019-04-10 09:04] LABS: Allen Test Pos (Pos)
[2019-04-10 09:23] LABS: BUN Creatinine Ratio 13.1 (10-20); Calcium 8.5 mg/dl (8.5-10.1); Est GFR (African American) 54.1; Est GFR (Non-African American) 46.7; Magnesium 2.4 mg/dl (1.8-2.4); Phosphorus 2.7 mg/dl (2.5-4.9)
[2019-04-10] MEDS: ACETAMINOPHEN 1,000 MG/100 ML VIAL IV PRN (10:08)
[2019-04-10] MEDS: MIDAZOLAM HCL 125 MG/250 ML BAG IV SCH (10:30)
--- NOTE | 2019-04-10 13:21 | Hospitalist Progress Note ---
Date of Service April 10, 2019 Assessment & Plan (1) Sudden cardiac arrest: 43-year-old male with history of hypertension presenting from outside hospital status post out of hospital arrest with ROSC, patient transferred to [facility] for post cardiac arrest care therapeutic cooling. unclear etiology as there was no significant coronary disease, continue to monitor for arrhythmia (none yet) treated with hypothermic protocol until 1am on 04/10, rewarmed this morning appreciate cardiology consult, certainly could consider life vest / ICD on discharge if neurologically intact (2) Hypertension: (3) CAD (coronary artery disease): moderate, non-occlusive on cath no evidence of acute MT (4) Cardiomyopathy: unclear if this is just stunned myocardium after the code or if this was prior may consider repeat echo prior to discharge (5) Shock liver: in setting of cardiac arrest AST minimally elevated, ALT normal (6) TIAN (acute kidney injury): due to cardiac arrest Cr trending down to 1.7, making adequate urine (7) Cardiogenic shock: due to cardiac arrest with evidence of TIAN, shock liver, elevated troponin continue vasopressor support as needed Admission and Anticipated Discharge Date Admission Date: April 08, 2019 Subjective patient being titrated off of Propofol and started on Precedex this morning tolerating CPAP trial currently reviewed labs, Cr is 1.7, AST minimally elevated troponin trending down at 2.96 rewarmed this morning updated his girlfriend at the bedside Review of Systems Review of Systems: Unobtainable due to endotracheal tube Physical Exam Constitutional: well developed, well nourished, + ill appearing and + mechanically ventilated Eyes: PERRL, conjunctivae normal, anicteric sclerae ENMT: external ear and nose normal, oropharynx normal Neck: trachea midline, no thyromegaly Respiratory: normal respiratory effort, lungs clear to auscultation Cardiovascular: RRR, no murmur, no edema Gastrointestinal (Abdomen): normal bowel sounds, soft, nontender, no hepatosp lenomegaly Musculoskeletal: no cyanosis or clubbing, extremities motor strength 5/5 Skin: normal turgor (cool skin); no purpura Neurologic: no focal motor deficits and + not awake (sedated) Psychiatric: Orientation: + not alert (sedated) Lymphatic: no cervical or axillary lymphadenopathy Results & Data ([facility]) Vital Signs (Past 12 Hours) Vital Signs Temp Temp Pulse Resp BP BP BP 04/10/19 11:00 84 04/10/19 10:53 89 121/62 04/10/19 10:49 87 10 L 04/10/19 10:04 90 04/10/19 10:03 88 140/72 04/10/19 10:00 92 H 04/10/19 09:52 87 131/66 04/10/19 09:30 85 04/10/19 09:00 37.1 C 37.0 C 84 16 119/62 157/60 H 04/10/19 08:00 36.7 C 36.6 C 70 16 116/56 L 154/55 H 04/10/19 07:42 74 16 04/10/19 07:00 36.3 C L 36.1 C L 66 16 110/56 L 120/60 04/10/19 06:00 35.8 C L 35.5 C L 62 16 104/56 L 124/55 L 04/10/19 05:00 35.3 C L 35 C L 62 16 123/61 130/57 L 04/10/19 04:50 61 17 04/10/19 04:00 34.7 C L 34.5 C L 54 L 16 102/51 L 106/62 04/10/19 03:00 34.3 C L 34.0 C L 50 L 16 108/52 L 120/53 L 04/10/19 02:02 53 L 16 04/10/19 02:00 34 C L 33.6 C L 51 L 16 103/52 L 123/56 L Pulse Ox 04/10/19 11:00 94 04/10/19 10:53 94 04/10/19 10:49 94 04/10/19 10:04 96 04/10/19 10:03 97 04/10/19 10:00 90 04/10/19 09:52 91 04/10/19 09:30 90 04/10/19 09:00 90 04/10/19 08:00 91 04/10/19 07:42 90 04/10/19 07:00 93 04/10/19 06:00 94 04/10/19 05:00 94 04/10/19 04:50 94 04/10/19 04:00 95 04/10/19 03:00 95 04/10/19 02:02 95 04/10/19 02:00 94 Laboratory Results Laboratory Results - last 24 hr 04/09/19 04/09/19 04/09/19 14:54 14:54 14:54 WBC 16.53 H RBC 4.47 L Hgb 14.3 Hct 41.1 L MCV 91.9 MCH 32.0 MCHC 34.8 RDW Std Deviation 44.4 RDW Coeff of Paddy 13.2 Plt Count 196 MPV 10.0 Immature Gran % (Auto) 0.4 Neut % (Auto) 81.0 Lymph % (Auto) 9.6 Mitchell % (Auto) 7.9 Eos % (Auto) 1.0 Baso % (Auto) 0.1 Immature Gran # (Auto) 0.07 H Neut # (Auto) 13.39 H Lymph # (Auto) 1.59 Mitchell # (Auto) 1.30 H Eos # (Auto) 0.17 Baso # (Auto) 0.01 ABG pH 7.33 L ABG pCO2 46 ABG pO2 66 L ABG HCO3 24 ABG O2 Saturation 92.9 ABG Base Excess -2.6 Lars Test GABRIEL Barometric Pressure 741.7 Oxygen Given 30% Sodium 137 Potassium 3.8 Chloride 107 Carbon Dioxide 25 Anion Gap 5.0 BUN 29 H Creatinine 1.99 H Est Cr Clr Drug Dosing 59.3 Est GFR ( Amer) 46.0 Est GFR (Non-Af Amer) 39.7 BUN/Creatinine Ratio 14.8 Glucose 136 H Calcium 8.2 L Phosphorus 3.4 D Magnesium 2.4 Total Bilirubin Direct Bilirubin AST ALT Alkaline Phosphatase Troponin I Total Protein Albumin Specimen Hemolysis 04/09/19 04/09/19 04/09/19 21:06 21:06 21:06 WBC 15.01 H RBC 4.52 L Hgb 14.6 Hct 41.8 L MCV 92.5 MCH 32.3 MCHC 34.9 RDW Std Deviation 44.7 RDW Coeff of Paddy 13.3 Plt Count 193 MPV 9.6 Immature Gran % (Auto) 0.4 Neut % (Auto) 79.9 Lymph % (Auto) 10.2 Mitchell % (Auto) 8.1 Eos % (Auto) 1.3 Baso % (Auto) 0.1 Immature Gran # (Auto) 0.06 H Neut # (Auto) 12.00 H Lymph # (Auto) 1.53 Mitchell # (Auto) 1.21 H Eos # (Auto) 0.20 Baso # (Auto) 0.01 ABG pH 7.33 L ABG pCO2 49 H ABG pO2 70 L ABG HCO3 25 H ABG O2 Saturation 93.9 ABG Base Excess -1.7 Lars Test POS Barometric Pressure 740.8 Oxygen Given 30% O2 Sodium 138 Potassium 3.6 Chloride 108 H Carbon Dioxide 24 Anion Gap 7.0 BUN 28 H Creatinine 1.78 H Est Cr Clr Drug Dosing 66.3 Est GFR ( Amer) 52.6 Est GFR (Non-Af Amer) 45.4 BUN/Creatinine Ratio 16.0 Glucose 147 H Calcium 8.2 L Phosphorus 2.8 Magnesium 2.4 Total Bilirubin Direct Bilirubin AST ALT Alkaline Phosphatase Troponin I Total Protein Albumin Specimen Hemolysis 04/10/19 04/10/19 04/10/19 02:55 02:55 02:55 WBC 14.23 H RBC 4.38 L Hgb 14.2 Hct 40.6 L MCV 92.7 MCH 32.4 MCHC 35.0 RDW Std Deviation 45.3 RDW Coeff of Paddy 13.3 Plt Count 180 MPV 9.8 Immature Gran % (Auto) 0.3 Neut % (Auto) 84.4 Lymph % (Auto) 7.2 Mitchell % (Auto) 6.7 Eos % (Auto) 1.3 Baso % (Auto) 0.1 Immature Gran # (Auto) 0.04 H Neut # (Auto) 12.01 H Lymph # (Auto) 1.02 L Mitchell # (Auto) 0.96 H Eos # (Auto) 0.18 Baso # (Auto) 0.02 ABG pH 7.37 ABG pCO2 44 ABG pO2 69 L ABG HCO3 25 H ABG O2 Saturation 93.8 ABG Base Excess -1.0 Lars Test Pos Barometric Pressure 738.9 Oxygen Given 30% Sodium 139 Potassium 3.9 Chloride 109 H Carbon Dioxide 25 Anion Gap 5.0 BUN 26 H Creatinine 1.72 H Est Cr Clr Drug Dosing 68.6 Est GFR ( Amer) 54.8 Est GFR (Non-Af Amer) 47.3 BUN/Creatinine Ratio 14.8 Glucose 138 H Calcium 8.1 L Phosphorus 2.6 Magnesium 2.4 Total Bilirubin 0.5 Direct Bilirubin 0.3 H AST 112 H ALT 69 Alkaline Phosphatase 58 Troponin I 2.960 H* Total Protein 6.3 L Albumin 2.6 L Specimen Hemolysis 04/10/19 04/10/19 04/10/19 08:50 08:50 08:50 WBC 10.04 RBC 4.40 L Hgb 14.3 Hct 41.1 L MCV 93.4 MCH 32.5 MCHC 34.8 RDW Std Deviation 46.0 RDW Coeff of Paddy 13.4 Plt Count 146 MPV 9.8 Immature Gran % (Auto) 0.2 Neut % (Auto) 82.4 Lymph % (Auto) 9.5 Mitchell % (Auto) 5.4 Eos % (Auto) 2.4 Baso % (Auto) 0.1 Immature Gran # (Auto) 0.02 Neut # (Auto) 8.28 H Lymph # (Auto) 0.95 L Mitchell # (Auto) 0.54 Eos # (Auto) 0.24 Baso # (Auto) 0.01 ABG pH 7.34 L ABG pCO2 48 H ABG pO2 59 L ABG HCO3 26 H ABG O2 Saturation 89.7 L ABG Base Excess -0.7 Lars Test Pos Barometric Pressure 739.4 Oxygen Given 40% Sodium 139 Potassium 4.0 Chloride 110 H Carbon Dioxide 26 Anion Gap 4.0 BUN 23 H Creatinine 1.74 H Est Cr Clr Drug Dosing 68.0 Est GFR ( Amer) 54.1 Est GFR (Non-Af Amer) 46.7 BUN/Creatinine Ratio 13.1 Glucose 90 Calcium 8.5 Phosphorus 2.7 Magnesium 2.4 Total Bilirubin Direct Bilirubin AST ALT Alkaline Phosphatase Troponin I Total Protein Albumin Specimen Hemolysis Medications Administered Current Inpatient Medications Fentanyl Citrate (Fentanyl Bolus From Bag) 25 mcg IV Q1H PRN PRN Reason: pain,shivering,goal BIS 40-60 Stop: 04/22/19 21:15 Last Admin: 04/08/19 23:30 Dose: 25 mcg Documented by: Heparin Sodium (Beef Lung) (Heparin Sod 10 Unit/Ml Flush) 5 ml FLUSH PRN PRN PRN Reason: Flush Stop: 05/08/19 23:27 Heparin Sodium (Porcine) (Heparin Sodium (Porcine)) 5,000 units SQ Q8 ROB Stop: 05/08/19 21:59 Last Admin: 04/10/19 05:42 Dose: 5,000 units Documented by: Hydromorphone HCl (Dilaudid) 1 mg IV Q20M PRN PRN Reason: Shivering with rewarming Stop: 04/22/19 14:57 Fentanyl Citrate (Fentanyl Drip) 1,250 mcg in 250 mls @ 10 mls/hr IV .Q24H [facility]; Protocol Stop: 04/22/19 14:59 Last Titration: 04/10/19 10:14 Dose: Infused Documented by: Norepinephrine Bitartrate 8 mg (/ Dextrose) 508 mls @ 0 mls/hr IV .Q0M [facility]; Protocol Stop: 05/08/19 14:59 Last Titration: 04/10/19 08:33 Dose: 0 mcg/kg/min, 0 mls/hr Documented by: Ampicillin Sodium/Sulbactam Sodium 3,000 mg/ Sodium Chloride 108 mls @ 216 mls/hr IV Q6H ROB Stop: 04/10/19 15:59 Last Infusion: 04/10/19 09:10 Dose: Infused Documented by: Propofol (Diprivan) 1,000 mg in 100 mls @ 11.25 mls/hr IV .Q8H54M [facility]; Protocol Stop: 04/11/19 15:44 Last Titration: 04/10/19 11:47 Dose: 15 mcg/kg/min, 11.3 mls/hr Documented by: Parenteral Electrolytes (Normosol-R) 1,000 mls @ 80 mls/hr IV .[id number] [facility] Stop: 05/08/19 16:29 Last Infusion: 04/10/19 07:07 Dose: 80 mls/hr Documented by: Acetaminophen (Ofirmev) 1,000 mg in 100 mls @ 400 mls/hr IV Q8H PRN PRN Reason: Fever Stop: 04/11/19 19:18 Last Infusion: 04/10/19 10:30 Dose: Infused Documented by: Midazolam HCl (Versed) 125 mg in 250 mls @ 0 mls/hr IV .Q0M [facility]; Protocol Stop: 05/09/19 08:29 Last Admin: 04/10/19 10:30 Dose: Not Given Documented by: Dexmedetomidine HCl 200 mcg/ (Sodium Chloride) 50 mls @ 14.925 mls/hr IV .Q3H21M [facility]; Protocol Stop: 04/14/19 07:59 Last Admin: 04/10/19 12:33 Dose: 0.5 mcg/kg/hr, 14.9 mls/hr Documented by: Ampicillin Sodium/Sulbactam Sodium 3,000 mg/ Sodium Chloride 108 mls @ 200 mls/hr IV Q6H [facility]; Protocol Stop: 04/17/19 15:59 Lansoprazole (Prevacid) 30 mg NG QAM ROB Stop: 05/09/19 08:59 Last Admin: 04/10/19 08:32 Dose: 30 mg Documented by: Midazolam HCl (Versed) 2 mg IV Q2H PRN PRN Reason: shivering + goal BIS 40-60 Stop: 05/09/19 08:25 Last Admin: 04/09/19 15:28 Dose: 2 mg Documented by: Miscellaneous (Icu Electrolyte Replacement Protocol) 1 ea N/A UD PRN PRN Reason: for e-lyte repletion Stop: 04/15/19 14:57 Miscellaneous (I[facility] Protocol For Hyperglycemia) 1 ea N/A PRN PRN; Protocol PRN Reason: Hyperglycemia Protocol Stop: 04/10/19 16:19 Multi-Ingredient Cream (Lacri-Lube) 1 appln OP Q2H PRN PRN Reason: eye protection Stop: 05/08/19 14:57 Last Admin: 04/10/19 08:33 Dose: 1 appln Documented by: Tramadol HCl (Ultram) 50 mg NG Q6H PRN PRN Reason: Shivering Stop: 05/08/19 14:57 Ziprasidone (Geodon) 10 mg IM BID PRN PRN Reason: Agitation Stop: 05/10/19 07:53 PG Care Time/CCT Total # of Minutes Spent Total Time Spent with Patient: Total time spent is greater than 50% in coordination of care (as documented) at patient's floor/unit and/or counseling patient: Coding Level of Care Code 78613 Subseq Hosp Care Lvl 2 Diagnoses Sudden cardiac arrest I46.9 Hypertension I10 Hypertension type: essential hypertension CAD (coronary artery disease) I25.10 Cardiomyopathy I42.9 Shock liver K72.00 TIAN (acute kidney injury) N17.9 Cardiogenic shock R57.0 (1) Hypertension Hypertension type: essential hypertension Qualified Code(s): I10 - Essential (primary) hypertension
[2019-04-10 15:10] LABS: Basophils # (auto) 0.01 K/uL (0-0.2); Basophils % (auto) 0.1 %; Eosinophils % (auto) 1.5 %; Hematocrit (blood only) 41.1 % (42-52); Hemoglobin 14.4 g/dL (14.0-18.0); Immature Granulocytes # (auto) 0.05 K/uL (0.00-0.02); Immature Granulocytes % (auto) 0.4 %; Lymphocytes # (auto) 0.71 K/uL (1.2-3.4); Lymphocytes % (auto) 5.3 %; Mean Corpuscular Hemoglobin 32.7 pg (25-34); Mean Corpuscular Volume 93.2 fL (80-100); Mean Platelet Volume 10.1 fL (7.4-10.4); Monocytes % (auto) 8.2 %; Neutrophils # (auto) 11.38 K/uL (1.4-6.5); Neutrophils % (auto) 84.5 %; Platelet Count 138 K/uL (130-400); RDW Coefficient of Variation 13.4 % (11.5-14.5); RDW Standard Deviation 45.7 fL (36.4-46.3); Red Blood Count 4.41 M/uL (4.7-6.1); White Blood Count 13.45 K/uL (4.8-10.8)
[2019-04-10 15:15] LABS: Base Excess ABG 0.5 mEq/L (-9-1.8); HCO3 ABG 26 mmol/L (19-24); Oxygen Saturation ABG 94.1 % (90-95); PCO2 ABG 43 mmHg (35-46); pH ABG 7.39 (7.35-7.45)
[2019-04-10 15:26] LABS: Allen Test Pos (Pos)
[2019-04-10 15:27] LABS: PO2 ABG 67 mmHg (80-95)
[2019-04-10 15:58] LABS: Calcium 8.7 mg/dl (8.5-10.1); Creatinine Clr Calc Pharmacy 64.3 ml/min; Est GFR (African American) 50.5; Est GFR (Non-African American) 43.6; Magnesium 2.2 mg/dl (1.8-2.4); Phosphorus 3.1 mg/dl (2.5-4.9); Potassium 4.8 mmol/L (3.5-5.1)
--- NOTE | 2019-04-10 18:11 | Electrocardiogram Report ---
Test Reason : Blood Pressure : / mmHG Vent. Rate : 065 BPM Atrial Rate : 065 BPM P-R Int : 190 ms QRS Dur : 100 ms QT Int : 490 ms P-R-T Axes : 008 -35 029 degrees QTc Int : 509 ms Normal sinus rhythm Left axis deviation Inferior infarct , age undetermined T wave abnormality, consider anterolateral ischemia Prolonged QT Abnormal ECG When compared with ECG of 09-APR-2019 15:35, Inferior infarct is now Present QT interval is shorter Confirmed by Niko Jaime ([id number]) on 04/10/2019 6:11:43 PM Referred By: REFERRED SELF Confirmed By:Ze Jaime
[2019-04-10] MEDS: ALBUT/IPRATROP 3MG/0.5MG NEB 3 ML VIAL NEB PRN ×2 (20:15→23:36)
[2019-04-10 21:08] LABS: Basophils # (auto) 0.01 K/uL (0-0.2); Basophils % (auto) 0.1 %; Eosinophils # (auto) 0.08 K/uL (0-0.5); Eosinophils % (auto) 0.7 %; Hemoglobin 13.2 g/dL (14.0-18.0); Immature Granulocytes # (auto) 0.02 K/uL (0.00-0.02); Immature Granulocytes % (auto) 0.2 %; Lymphocytes # (auto) 0.88 K/uL (1.2-3.4); Lymphocytes % (auto) 7.6 %; Mean Corpuscular Hemoglobin 31.7 pg (25-34); Mean Corpuscular Hgb Conc 33.8 g/dL (32-36); Mean Corpuscular Volume 93.8 fL (80-100); Mean Platelet Volume 9.9 fL (7.4-10.4); Monocytes # (auto) 0.79 K/uL (0.11-0.59); Monocytes % (auto) 6.8 %; Neutrophils # (auto) 9.79 K/uL (1.4-6.5); Neutrophils % (auto) 84.6 %; Platelet Count 130 K/uL (130-400); RDW Coefficient of Variation 13.5 % (11.5-14.5); RDW Standard Deviation 45.5 fL (36.4-46.3); Red Blood Count 4.16 M/uL (4.7-6.1); White Blood Count 11.57 K/uL (4.8-10.8)
[2019-04-10 21:25] LABS: Calcium 8.2 mg/dl (8.5-10.1); Creatinine Clr Calc Pharmacy 65.8 ml/min; Est GFR (African American) 51.9; Est GFR (Non-African American) 44.8; Magnesium 2.1 mg/dl (1.8-2.4); Phosphorus 3.3 mg/dl (2.5-4.9); Potassium 4.3 mmol/L (3.5-5.1)
[2019-04-10] MEDS ORDERED: SODIUM CHLORIDE 0.9% IV SCH (23:00)
[2019-04-10] MEDS ORDERED: DEXMEDETOMIDINE HCL IV SCH (23:00)
[2019-04-10] MEDS: DEXMEDETOMIDINE HCL 400 MCG in 0.9 % SODIUM CHLORIDE 96 ML IV SCH (23:05)
[2019-04-11] MEDS: DEXMEDETOMIDINE HCL 400 MCG in 0.9 % SODIUM CHLORIDE 96 ML IV SCH ×3 (01:26→07:31)
[2019-04-11] MEDS: NORMOSOL-R 1,000 ML IV SCH (02:28)
[2019-04-11] MEDS: AMPICILLIN/SULBACTAM SOD 3,000 MG in 0.9 % SODIUM CHLORIDE 100 ML IV SCH ×4 (03:44→21:34)
[2019-04-11 04:08] LABS: Basophils # (auto) 0.02 K/uL (0-0.2); Basophils % (auto) 0.2 %; Eosinophils # (auto) 0.09 K/uL (0-0.5); Eosinophils % (auto) 0.9 %; Immature Granulocytes # (auto) 0.02 K/uL (0.00-0.02); Immature Granulocytes % (auto) 0.2 %; Lymphocytes # (auto) 0.97 K/uL (1.2-3.4); Lymphocytes % (auto) 9.2 %; Mean Corpuscular Hemoglobin 31.9 pg (25-34); Mean Corpuscular Hgb Conc 34.2 g/dL (32-36); Mean Corpuscular Volume 93.4 fL (80-100); Mean Platelet Volume 10.2 fL (7.4-10.4); Monocytes # (auto) 0.89 K/uL (0.11-0.59); Monocytes % (auto) 8.5 %; Neutrophils # (auto) 8.54 K/uL (1.4-6.5); Platelet Count 136 K/uL (130-400); RDW Coefficient of Variation 13.5 % (11.5-14.5); RDW Standard Deviation 45.9 fL (36.4-46.3); Red Blood Count 4.07 M/uL (4.7-6.1); White Blood Count 10.53 K/uL (4.8-10.8)
[2019-04-11 04:28] LABS: Albumin Level 2.4 gm/dl (3.4-5.0); Bilirubin Direct 0.2 mg/dl (0-0.2); Calcium 8.3 mg/dl (8.5-10.1); Est GFR (African American) 50.2; Est GFR (Non-African American) 43.3; Magnesium 2.3 mg/dl (1.8-2.4); Phosphorus 3.8 mg/dl (2.5-4.9); Potassium 4.4 mmol/L (3.5-5.1)
[2019-04-11 04:30] LABS: Bilirubin,Total 0.5 mg/dl (0.2-1); Total Protein 6.3 gm/dl (6.4-8.2)
[2019-04-11] MEDS ORDERED: RAPID SEQUENCE INDUCTION BAG ONE (05:24)
[2019-04-11] MEDS: ALBUT/IPRATROP 3MG/0.5MG NEB 3 ML VIAL NEB PRN (05:35)
[2019-04-11] MEDS: HEPARIN SOD 5,000 UNIT/0.5 ML VIAL SQ SCH ×3 (06:16→21:34)
[2019-04-11 06:45] LABS: iSTAT Art Bld Gas pCO2 Correct 43 mmHg (35-46); iSTAT Art Bld Gas pH Corrected 7.403 (7.35-7.45); iSTAT Arterial Blood Gas HCO3 27 meg/L (19-24); iSTAT Arterial Blood Gas pCO2 42 mmHg (35-46); iSTAT Arterial Blood Gas pH 7.41 (7.35-7.45); iSTAT Arterial Blood Gas pO2 69 mmHg (80-95); iSTAT Arterial Blood Gas pO2 C 70; iSTAT Carbon Dioxide 28 mmol/L (24-31); iSTAT Hematocrit 37 % (42-52); iSTAT Hemoglobin 12.6 g/dl (14.0-18.0); iSTAT Potassium 4.7 mmol/L (3.3-5.0); iSTAT Site Art Line; iSTAT Sodium 141 mmol/L (135-144)
[2019-04-11] MEDS ORDERED: ALBUT/IPRATROP 3MG/0.5MG NEB 3 ML VIAL NEB STA (06:48)
[2019-04-11] MEDS ORDERED: RACEPINEPHRINE 2.25% NEBU SOLN 0.5 ML VIAL NEB STA (07:04)
[2019-04-11] MEDS: ACETAMINOPHEN 1,000 MG/100 ML VIAL IV PRN ×2 (07:13→15:20)
--- NOTE | 2019-04-11 07:17 | Critical Care Progress Note ---
Date of Service April 11, 2019 Assessment & Plan (1) Admitted to intensive care unit: Reason Critically Ill: 43 yo male with witnessed cardiac arrest flown to [facility] for cardiac cath and hypothermia protocol 24 hr events: Completed rewarming. Weaned off pressors. Sedation lightened and transition to Precedex. Self extubated early this morning. Initially had some respiratory stridor thought to be vocal cord edema. Was placed on BiPAP with improvement in respiratory status. Cooling catheter remains in place and continues to max cool. Neuro: Now extubated and following commands. May have some mild degree of anoxic encephalopathy but exam is nonfocal. Continue to follow closely his medications clear. No indication for imaging currently. Will need PT and OT assessments once physically able Cardiac: * Cardiac Arrest - 04/08. total estimated time down is 5-25 minutes; patient with ROSC after amp of epi x 2 [employer]. cause of arrest is unknown. Differential includes ischemia, arrhythmia secondary to non-ischemic cardiomyopathy. - unlikely to be ischemia as cath showed only moderately obstructive coronary disease, not significant enough to be responsible for arrest or warrant PCI. although it is possible patient had an occlusive embolus that spontaneously lysed. unknown as to whether this diminished EF is chronic vs. acute (myocardial stunning related to arrest and subsequent resuscitation). cardiology following. - 10 year ASCVD risk borderline ~ 6.8%. - unable to obtained advanced imaging of chest, as patient was initiated on h ypothermic protocol immediately after cath; venous duplex showing no evidence of DVTs; PE highly unlikely as etiology * Elevated Troponin - peaked at 16.5, trended down. etiology likely demand > supply in the setting of cardiac arrest and CPR * HTN -as needed IV labetalol and hydralazine blood pressures greater than 150. * Arrhythmia: Will need close cardiology and EP follow-up to determine whether or not secondary prevention with LifeVest or AICD is required. Will likely need follow-up echocardiogram before leaving hospital. Continue telemetry. No antiarrhythmics currently. * Hold IV fluids and initiate diuretics. Respiratory: * Self extubated: Continue BiPAP. Chest x-ray yesterday showed some mild pulmonary venous congestion so will initiate diuretics. Follow-up blood gas and chest x-ray today. Wean oxygen as tolerated. * High probability for sleep disordered breathing. May need empiric CPAP at night. Outpatient sleep study recommended given reduced ejection fraction. * Smoking cessation recommended. As needed duo nebs GI: * Elevated LFTs: trending down Likely call center support representative of shock liver vs. primary hepatic etiology. continue to trend * GERD: continue home lansoprazole * Once the patient is able to be weaned off noninvasive positive pressure ventilation will consider speech therapy evaluation for swallow. RENAL/LYTES: * mild respiratory acidosis * TIAN. Creatinine peaked at 2.11, trending down. likely secondary to hypoperfusion/ATN: Continue to monitor Calcium corrects to 9.2 * ICU Electrolyte replacement protocol held in while on hypothermia protocol, but electrolytes appear stable : * Discontinue Mayorga catheter once mental status allows for trending I's and O's noninvasively ENDO: - no known history of underlying diabetes; A1c borderline at 5.6 - ICU protocol for hyperglycemia HEME: * Hgb stable. No issues identified. ID: * WBC normal at [facility]; elevated to 18 on admission, trending down - most likely call center support representative of a stress response > infectious process. R upper lobe infiltrate visualized on CXR. lactate initially elevated, trended down. proc al 1.96. aspiration PNA possible in the setting of cardiac arrest. Sputum culture pending, gram stain showing growth of gram + cocci, cultures showing normal kelly however these were obtained on antibiotics. Recommending completing course of antibiotics. White blood cell count decreasing. Currentl y on Day 4/7 Unasyn. Patient continues to be febrile. Cooling catheter remains in place and is at max cooling. Given possibility of anoxic injury would favor continued aggressive temperature management so we will leave catheter in place for now LINES/IV ACCESS: * L EJ * PIV x3 (2 AC, 1 hand) * left radial A-line * R femoral CVC cooling catheter CODE STATUS: Full DVT PROPHYLAXIS: heparin 5,000 units SQ, q8hr; bilateral SCDs Family will be updated at bedside once they are available Subjective Patient self extubated this morning. He is currently on BiPAP. He is able to follow commands. He does not appear in any acute respiratory distress Review of Systems Review of Systems: Unobtainable due to reduced consciousness Physical Exam Constitutional: WD/WN, vitals as above + obese Eyes: PERRL Neck: trachea midline, no thyromegaly Coarse rhonchi auscultated over the neck. No significant stridor. Respiratory: normal respiratory effort Currently on full face BiPAP 16/10. Coarse rhonchi bilaterally without wheezing. Cardiovascular: RRR, no murmur, no edema Gastrointestinal (Abdomen): normal bowel sounds, soft, nontender, no hepatosplenomegaly Neurologic: Patient somnolent but able to follow commands such as squeezing hands bilaterally and wiggling toes. He opens his eyes to voice and tracks. Results & Data ([facility]) Vital Signs (Past 12 Hours) Vital Signs Pulse Pulse Resp BP Pulse Ox 04/11/19 07:01 21 04/11/19 06:57 89 89 21 96 04/11/19 06:00 91 H 125/94 99 04/11/19 05:45 22 98 04/11/19 05:30 86 21 95 04/11/19 05:10 86 21 94 04/11/19 02:05 72 20 94 04/11/19 02:00 69 95 04/11/19 01:00 72 92 04/11/19 00:00 80 113/54 L 98 04/10/19 23:15 75 17 96 04/10/19 23:00 77 96/57 L 95 04/10/19 22:00 90 101/60 97 04/10/19 21:00 85 90 04/10/19 20:24 83 15 96 04/10/19 20:00 91 H 121/64 95 Laboratory Results 04/11/19 03:45 04/11/19 03:45 Diagnostic Findings Chest x-ray not yet performed Coding Level of Care Code 82750 Subseq Hosp Care Lvl 3 Diagnoses Admitted to intensive care unit Z78.9 Time Spent (min) 40
[2019-04-11] MEDS ORDERED: CALCIUM GLUCONATE 10% 10 ML VIAL IV STA (07:26)
[2019-04-11] MEDS ORDERED: FUROSEMIDE 40 MG in SYRINGE 0 ML IV ONE (07:30)
[2019-04-11] MEDS: LANSOPRAZOLE 30 MG SOLTAB NG SCH (07:30)
[2019-04-11] MEDS: fentaNYL DRIP 1,250 MCG/250 ML BAG IV SCH (07:31)
[2019-04-11] MEDS: methylPREDNISolone 60 MG in SYRINGE 0 ML IV SCH ×2 (07:32→13:19)
--- NOTE | 2019-04-11 07:35 | XRay Report ---
XR chest 1V portable CLINICAL HISTORY: hypoxemia dyspnea COMPARISON STUDY: 04/10/2019 FINDINGS: Interval extubation. Mild bibasilar atelectasis. Mid and upper lungs are clear. IMPRESSION: 1. Interval extubation. 2. Mild bibasilar atelectasis. 3. Mild persistent prominence of pulmonary vasculature. ACT 112: Negative or not required by law. The above report was generated using voice recognition software. It may contain grammatical, syntax or spelling errors. Electronically signed by: Joe Tillman M.D. 04/11/2019 7:34 AM
[2019-04-11] MEDS: DEXMEDETOMIDINE HCL 200 MCG in SODIUM CHLORIDE 0.9% 48 ML IV SCH ×2 (07:51→07:52)
[2019-04-11] MEDS ORDERED: CALCIUM GLUCONATE 10% 1,000 MG in SODIUM CHLORIDE 0.9% 50 ML IV SCH (08:00)
[2019-04-11] MEDS: HydrALAZINE HCL 20 MG/ML VIAL IV PRN ×2 (09:32→13:19)
--- NOTE | 2019-04-11 09:59 | Cardiology Progress Note ---
Date of Service April 11, 2019 Assessment & Plan (1) Sudden cardiac arrest: (2) CAD (coronary artery disease): (3) Hypertension: (4) Cardiomyopathy: (5) Elevated troponin: ASSESSMENT/PLAN: 1. Cardiac arrest: The etiology of his arrest is unclear. There is some debate as to whether the initial problem was PDA or an arrhythmia. His did speak with a co-worker today who was quite confident that the patient did received therapy from an AED. He is not appear to have obstructive coronary disease or to have suffered an acute coronary syndrome as the etiology of his arrest. I think it is very likely he will require an ICD unless we have more solid evidence that his arrest was related to non arrhythmic causes. This is all predicated upon improvement of his cognitive status. 2. Cardiomyopathy: Unclear if this is acute or chronic. Certainly a reassessment of his LV function would be worthwhile once his mental status improves. Restarting his lisinopril and initiating therapy with beta-blockers would be recommended when he is able to take medications. 3. Elevated troponin: Likely secondary to cardiac arrest as he likely became ischemic from the event itself while requiring CPR. Trending downward. No need for re-evaluation. 4. Hypertension: He seems or agitated and it is likely a cause of higher blood pressures currently. He has been receiving p.r.n. labetalol. He has been receiving p.r.n. hydralazine. When he is able to take oral medications meto prolol and lisinopril would be our 1st choice is given his known cardiomyopathy and arrest. 5. CAD: Nonobstructive. Recommend aspirin 81 mg daily when able. Recommend beta-eugenio when able. High-intensity statin therapy when able. Transaminase levels are trending downward and were likely elevated due to shock /hypoperfusion. Admission and Anticipated Discharge Date Admission Date: April 08, 2019 Subjective Patient had been extubated and did follow commands, but he was not answering questions. Some of the history was supplied by the nursing staff and the patient's . It seems he has been somewhat agitated but does follow verbal commands at times. Review of Systems Review of Systems: Unobtainable due to cognitive status Physical Exam Physical Exam: The patient is alert but agitated. He did follow verbal commands. HEENT: Constricted pupils. Neuro: Unable to assess cranial nerves Lungs: Unable to fully performing exam. Occasional crackle and upper respiratory congestion. Cardiac: Heart demonstrates a regular rate and rhythm. Normal S1 and S2. No murmurs on examination. Pulses: The patient has palpable radial pulses bilaterally that are equal in intensity Extremities: There was no evidence of hypoperfusion. There is no cyanosis or clubbing. There is no edema. Skin: I did not appreciate any rashes on examination today. Results & Data ([facility]) Vital Signs (Past 12 Hours) Vital Signs Pulse Pulse Resp BP Pulse Ox 04/11/19 08:19 89 21 152/101 H 100 04/11/19 08:00 87 21 98 04/11/19 07:19 90 153/74 H 99 04/11/19 07:01 21 04/11/19 07:00 90 98 04/11/19 06:57 89 89 21 96 04/11/19 06:00 91 H 125/94 99 04/11/19 05:45 22 98 04/11/19 05:30 86 21 95 04/11/19 05:10 86 21 94 04/11/19 02:05 72 20 94 04/11/19 02:00 69 95 04/11/19 01:00 72 92 04/11/19 00:00 80 113/54 L 98 04/10/19 23:15 75 17 96 04/10/19 23:00 77 96/57 L 95 04/10/19 22:00 90 101/60 97 Laboratory Results Abnormal Lab Results 04/10/19 04/10/19 04/10/19 15:03 15:03 15:04 WBC 13.45 H RBC 4.41 L Hgb 14.4 POC Hgb Hct 41.1 L POC Hct MCV 93.2 MCH 32.7 MCHC 35.0 RDW Std Deviation 45.7 RDW Coeff of Paddy 13.4 Plt Count 138 MPV 10.1 Immature Gran % (Auto) 0.4 Neut % (Auto) 84.5 Lymph % (Auto) 5.3 Barton % (Auto) 8.2 Eos % (Auto) 1.5 Baso % (Auto) 0.1 Immature Gran # (Auto) 0.05 H Neut # (Auto) 11.38 H Lymph # (Auto) 0.71 L Barton # (Auto) 1.10 H Eos # (Auto) 0.20 Baso # (Auto) 0.01 Sample Site POC pH POC pCO2 POC pO2 POC HCO3 POC Total CO2 POC Base Excess ABG pH 7.39 ABG pH (Temp Correct) ABG pCO2 43 ABG pCO2 (Temp Corrct ABG pO2 67 L POC ABG pO2 at Pt Temp ABG HCO3 26 H ABG O2 Saturation 94.1 ABG Base Excess 0.5 Lars Test Pos Barometric Pressure 736.3 Oxygen Given 38% POC Sodium Sodium 139 POC Potassium Potassium 4.8 D Chloride 110 H Carbon Dioxide 24 Anion Gap 6.0 BUN 22 H Creatinine 1.84 H Est Cr Clr Drug Dosing 64.3 Est GFR ( Amer) 50.5 Est GFR (Non-Af Amer) 43.6 BUN/Creatinine Ratio 12.0 Glucose 89 Calcium 8.7 Phosphorus 3.1 Magnesium 2.2 Total Bilirubin Direct Bilirubin AST ALT Alkaline Phosphatase Total Protein Albumin 04/10/19 04/10/19 04/11/19 21:00 21:00 03:45 WBC 11.57 H RBC 4.16 L Hgb 13.2 L POC Hgb Hct 39.0 L POC Hct MCV 93.8 MCH 31.7 MCHC 33.8 RDW Std Deviation 45.5 RDW Coeff of Paddy 13.5 Plt Count 130 MPV 9.9 Immature Gran % (Auto) 0.2 Neut % (Auto) 84.6 Lymph % (Auto) 7.6 Barton % (Auto) 6.8 Eos % (Auto) 0.7 Baso % (Auto) 0.1 Immature Gran # (Auto) 0.02 Neut # (Auto) 9.79 H Lymph # (Auto) 0.88 L Barton # (Auto) 0.79 H Eos # (Auto) 0.08 Baso # (Auto) 0.01 Sample Site POC pH POC pCO2 POC pO2 POC HCO3 POC Total CO2 POC Base Excess ABG pH ABG pH (Temp Correct) ABG pCO2 ABG pCO2 (Temp Corrct ABG pO2 POC ABG pO2 at Pt Temp ABG HCO3 ABG O2 Saturation ABG Base Excess Lars Test Barometric Pressure Oxygen Given POC Sodium Sodium 141 140 POC Potassium Potassium 4.3 4.4 Chloride 110 H 109 H Carbon Dioxide 25 27 Anion Gap 6.0 4.0 BUN 23 H 24 H Creatinine 1.80 H 1.85 H Est Cr Clr Drug Dosing 65.8 64.0 Est GFR ( Amer) 51.9 50.2 Est GFR (Non-Af Amer) 44.8 43.3 BUN/Creatinine Ratio 13.0 13.0 Glucose 100 H 115 H Calcium 8.2 L 8.3 L Phosphorus 3.3 3.8 Magnesium 2.1 2.3 Total Bilirubin 0.5 Direct Bilirubin 0.2 AST 154 H ALT 54 Alkaline Phosphatase 58 Total Protein 6.3 L Albumin 2.4 L 04/11/19 04/11/19 03:45 06:31 WBC 10.53 RBC 4.07 L Hgb 13.0 L POC Hgb 12.6 L Hct 38.0 L POC Hct 37 L MCV 93.4 MCH 31.9 MCHC 34.2 RDW Std Deviation 45.9 RDW Coeff of Paddy 13.5 Plt Count 136 MPV 10.2 Immature Gran % (Auto) 0.2 Neut % (Auto) 81.0 Lymph % (Auto) 9.2 Barton % (Auto) 8.5 Eos % (Auto) 0.9 Baso % (Auto) 0.2 Immature Gran # (Auto) 0.02 Neut # (Auto) 8.54 H Lymph # (Auto) 0.97 L Barton # (Auto) 0.89 H Eos # (Auto) 0.09 Baso # (Auto) 0.02 Sample Site Art Line POC pH 7.41 POC pCO2 42 POC pO2 69 L POC HCO3 27 H POC Total CO2 28 POC Base Excess 2.0 H ABG pH ABG pH (Temp Correct) 7.403 ABG pCO2 ABG pCO2 (Temp Corrct 43 ABG pO2 POC ABG pO2 at Pt Temp 70 ABG HCO3 ABG O2 Saturation ABG Base Excess Lars Test NA Barometric Pressure Oxygen Given POC Sodium 141 Sodium POC Potassium 4.7 Potassium Chloride Carbon Dioxide Anion Gap BUN Creatinine Est Cr Clr Drug Dosing Est GFR ( Amer) Est GFR (Non-Af Amer) BUN/Creatinine Ratio Glucose Calcium Phosphorus Magnesium Total Bilirubin Direct Bilirubin AST ALT Alkaline Phosphatase Total Protein Albumin ECG Additional Comments: EKG yesterday demonstrated normal sinus rhythm with diffuse T-wave inversions. QT interval improved. Telemetry did not reveal any arrhythmias. PG Care Time/CCT Total # of Minutes Spent Total Time Spent with Patient: Total time spent is greater than 50% in coordination of care (as documented) at patient's floor/unit and/or counseling patient: Coding Level of Care Code 71542 Subseq Hosp Care Lvl 3 Diagnoses Sudden cardiac arrest I46.9 CAD (coronary artery disease) I25.10 Hypertension I10 Hypertension type: essential hypertension Cardiomyopathy I42.9 Elevated troponin R79.89 (1) Hypertension Hypertension type: essential hypertension Qualified Code(s): I10 - Essential (primary) hypertension
[2019-04-11] MEDS ORDERED: KETOROLAC TROMETHAMINE 15 MG/ML VIAL IV ONE (14:13)
[2019-04-11] MEDS ORDERED: KETOROLAC TROMETHAMINE 15 MG/ML VIAL ONE (14:15)
[2019-04-11] MEDS: LABETALOL HCL IV 5 MG/ML 20ML IV PRN (15:20)
--- NOTE | 2019-04-11 16:34 | Hospitalist Progress Note ---
Date of Service April 11, 2019 Assessment & Plan (1) Sudden cardiac arrest: 43-year-old male with history of hypertension presenting from outside hospital status post out of hospital arrest with ROSC, patient transferred to [facility] for post cardiac arrest care therapeutic cooling per witness, the patient collapsed suddenly, he was laying on the ground, making a gurgling sound and he had urinary incontinence EMS was called immediately, they were 5 minutes away no CPR was done for approximately 5 minutes because he was still breathing, was in complete arrest when EMS arrived CPR was initiated by EMS and he received 2 shocks from AED and a dose of epinephrine before ROSC was achieved unclear etiology as there was no significant coronary disease, continue to monitor for arrhythmia (none yet) treated with hypothermic protocol until 1am on 04/10, successfully rewarmed self extubated on 04/11 in the morning, although there were plans to extubated today appreciate cardiology consult, certainly could consider life vest / ICD on discharge if neurologically intact the history of requiring AED cardioversion twice in the field supports that this was an arrhythmia neurologically, the patient is alert, agitated, responding to simple commands, is not speaking at this time discussed with girlfriend and mother that we will give the patient a few days to recover discussed realistic expectations that he could make a full recovery or he could remain in his current state, or something in between (2) CAD (coronary artery disease): moderate, non-occlusive on cath shortly after arrival no evidence of acute SC (3) Cardiomyopathy: unclear if this is just stunned myocardium after the code or if this was prior may consider repeat echo prior to discharge per cardiology, the LV was not dilated which argues against this being a chronic condition (4) Shock liver: in setting of cardiac arrest AST minimally elevated at 154, ALT normal (5) TIAN (acute kidney injury): due to cardiac arrest Cr up at 1.8 but stable, making adequate urine repeat BMP in the morning (6) Cardiogenic shock: due to cardiac arrest with evidence of TIAN, shock liver, elevated troponin now off of vasopressors extubated may repeat echo prior to discharge initial echo with reduced EF (7) Hypertension: prior to admission he was prescribed Lisinopril for hypertension Admission and Anticipated Discharge Date Admission Date: April 08, 2019 Subjective patient self extubated early this morning, doing fine, titrated down to room air, no distress off of all sedation he is following simple commands such as squeeze fingers and wiggle toes, but he will not speak he is staring straight ahead his girlfriend and mother are at the bedside, they feel like he does not recognize them, shows no response discussed with them that it will take days for us to know the extent of damage to his brain, give him time to recover his co-worker who witnessed the event gave more details of what happened today when he visited the patient collapsed suddenly, he was laying on the ground, making a gurgling sound and he had urinary incontinence EMS was called immediately, they were 5 minutes away no CPR was done for approximately 5 minutes because he was still breathing, was in complete arrest when EMS arrived CPR was initiated by EMS and he received 2 shocks from AED and a dose of epinephrine before ROSC was achieved labs reviewed, Cr stable at 1.8, AST 154 and ALT 54 CBC stable, electrolytes stable Review of Systems Review of Systems: Unobtainable due to cognitive status (no verbal responses) Physical Exam Constitutional: well developed and well nourished Eyes: PERRL, conjunctivae normal, anicteric sclerae ENMT: external ear and nose normal, oropharynx normal Neck: trachea midline, no thyromegaly Respiratory: normal respiratory effort, lungs clear to auscultation Cardiovascular: RRR, no murmur, no edema Gastrointestinal (Abdomen): normal bowel sounds, soft, nontender, no hep atosplenomegaly Musculoskeletal: no cyanosis or clubbing, extremities motor strength 5/5 Skin: normal turgor (cool skin); no purpura Neurologic: CN's II-XI intact bilaterally and awake; no focal motor deficits Speech / Cognition: + abnormal speech (no verbal response) Psychiatric: Orientation: alert; + not oriented x 3 Lymphatic: no cervical or axillary lymphadenopathy Results & Data ([facility]) Vital Signs (Past 12 Hours) Vital Signs Pulse Pulse Resp BP Pulse Ox 04/11/19 15:55 119 H 04/11/19 15:30 96 H 21 96 04/11/19 14:31 119 H 24 97 04/11/19 14:29 119 H 18 145/80 H 96 04/11/19 14:19 120 H 24 184/139 H 100 04/11/19 14:01 118 H 18 176/78 H 100 04/11/19 14:00 118 H 23 95 04/11/19 13:19 20 173/79 H 96 04/11/19 12:19 110 H 23 165/79 H 94 04/11/19 12:00 112 H 20 96 04/11/19 11:19 110 H 21 142/94 H 98 04/11/19 10:19 103 H 22 150/75 H 92 04/11/19 10:00 102 H 18 98 04/11/19 09:47 100 H 16 161/77 H 97 04/11/19 08:19 89 21 152/101 H 100 04/11/19 08:00 87 21 98 04/11/19 07:19 90 153/74 H 99 04/11/19 07:01 21 04/11/19 07:00 90 98 04/11/19 06:57 89 89 21 96 04/11/19 06:00 91 H 125/94 99 04/11/19 05:45 22 98 04/11/19 05:30 86 21 95 04/11/19 05:10 86 21 94 Laboratory Results Laboratory Results - last 24 hr 04/11/19 04/11/19 04/11/19 03:45 03:45 06:31 WBC 10.53 RBC 4.07 L Hgb 13.0 L POC Hgb 12.6 L Hct 38.0 L POC Hct 37 L MCV 93.4 MCH 31.9 MCHC 34.2 RDW Std Deviation 45.9 RDW Coeff of Paddy 13.5 Plt Count 136 MPV 10.2 Immature Gran % (Auto) 0.2 Neut % (Auto) 81.0 Lymph % (Auto) 9.2 Beckham % (Auto) 8.5 Eos % (Auto) 0.9 Baso % (Auto) 0.2 Immature Gran # (Auto) 0.02 Neut # (Auto) 8.54 H Lymph # (Auto) 0.97 L Beckham # (Auto) 0.89 H Eos # (Auto) 0.09 Baso # (Auto) 0.02 Sample Site Art Line POC pH 7.41 POC pCO2 42 POC pO2 69 L POC HCO3 27 H POC Total CO2 28 POC Base Excess 2.0 H ABG pH (Temp Correct) 7.403 ABG pCO2 (Temp Corrct 43 POC ABG pO2 at Pt Temp 70 Lars Test NA POC Sodium 141 Sodium 140 POC Potassium 4.7 Potassium 4.4 Chloride 109 H Carbon Dioxide 27 Anion Gap 4.0 BUN 24 H Creatinine 1.85 H Est Cr Clr Drug Dosing 64.0 Est GFR ( Amer) 50.2 Est GFR (Non-Af Amer) 43.3 BUN/Creatinine Ratio 13.0 Glucose 115 H Calcium 8.3 L Phosphorus 3.8 Magnesium 2.3 Total Bilirubin 0.5 Direct Bilirubin 0.2 AST 154 H ALT 54 Alkaline Phosphatase 58 Total Protein 6.3 L Albumin 2.4 L Microbiology 04/09/19 09:00 Sputum,Vent Suction Gram Stain - Final 04/09/19 09:00 Sputum,Vent Suction Sputum Culture - Preliminary Moderate normal kelly present, final report to follow. Medications Administered Current Inpatient Medications Albuterol (Duoneb) 3 ml NEB Q4R PRN PRN Reason: Wheezing Stop: 05/10/19 22:59 Last Admin: 04/11/19 05:35 Dose: 3 ml Documented by: Heparin Sodium (Beef Lung) (Heparin Sod 10 Unit/Ml Flush) 5 ml FLUSH PRN PRN PRN Reason: Flush Stop: 05/08/19 23:27 Last Admin: 04/11/19 07:15 Dose: 5 ml Documented by: Heparin Sodium (Porcine) (Heparin Sodium (Porcine)) 5,000 units SQ Q8 ROB Stop: 05/08/19 21:59 Last Admin: 04/11/19 21:34 Dose: 5,000 units Documented by: Hydralazine HCl (Hydralazine Hcl) 10 mg IV Q4 PRN PRN Reason: Hypertension Stop: 05/11/19 07:16 Last Admin: 04/11/19 13:19 Dose: 10 mg Documented by: Ampicillin Sodium/Sulbactam Sodium 3,000 mg/ Sodium Chloride 108 mls @ 200 mls/hr IV Q6H ROB; Protocol Stop: 04/17/19 15:59 Last Admin: 04/11/19 21:34 Dose: 216 mls/hr Documented by: Labetalol HCl (Normodyne) 10 mg IV Q4 PRN PRN Reason: Hypertension Stop: 05/11/19 07:16 Last Admin: 04/11/19 15:20 Dose: 10 mg Documented by: Lansoprazole (Prevacid) 30 mg NG QAM ROB Stop: 05/09/19 08:59 Last Admin: 04/11/19 07:30 Dose: Not Given Documented by: Miscellaneous (Icu Electrolyte Replacement Protocol) 1 ea N/A UD PRN PRN Reason: for e-lyte repletion Stop: 04/15/19 14:57 Multi-Ingredient Cream (Lacri-Lube) 1 appln OP Q2H PRN PRN Reason: eye protection Stop: 05/08/19 14:57 Last Admin: 04/10/19 08:33 Dose: 1 appln Documented by: PG Care Time/CCT Total # of Minutes Spent Total Time Spent with Patient: Total time spent is greater than 50% in coordination of care (as documented) at patient's floor/unit and/or counseling patient: Coding Level of Care Code 48397 Subseq Hosp Care Lvl 3 Diagnoses Sudden cardiac arrest I46.9 CAD (coronary artery disease) I25.10 Cardiomyopathy I42.9 Shock liver K72.00 TIAN (acute kidney injury) N17.9 Cardiogenic shock R57.0 Hypertension I10 Hypertension type: essential hypertension (1) Hypertension Hypertension type: essential hypertension Qualified Code(s): I10 - Essential (primary) hypertension
[2019-04-12] MEDS ORDERED: ACETAMINOPHEN 1,000 MG/100 ML VIAL IV PRN (03:48)
[2019-04-12] MEDS: AMPICILLIN/SULBACTAM SOD 3,000 MG in 0.9 % SODIUM CHLORIDE 100 ML IV SCH ×2 (04:00→08:30)
[2019-04-12 04:33] LABS: Basophils # (auto) 0.01 K/uL (0-0.2); Basophils % (auto) 0.1 %; Hematocrit (blood only) 38.7 % (42-52); Hemoglobin 13.1 g/dL (14.0-18.0); Immature Granulocytes # (auto) 0.09 K/uL (0.00-0.02); Immature Granulocytes % (auto) 0.6 %; Lymphocytes # (auto) 0.74 K/uL (1.2-3.4); Lymphocytes % (auto) 4.8 %; Mean Corpuscular Hemoglobin 31.6 pg (25-34); Mean Corpuscular Hgb Conc 33.9 g/dL (32-36); Mean Corpuscular Volume 93.5 fL (80-100); Monocytes # (auto) 0.44 K/uL (0.11-0.59); Monocytes % (auto) 2.9 %; Neutrophils # (auto) 13.99 K/uL (1.4-6.5); Neutrophils % (auto) 91.6 %; Platelet Count 176 K/uL (130-400); RDW Coefficient of Variation 13.5 % (11.5-14.5); RDW Standard Deviation 46.2 fL (36.4-46.3); Red Blood Count 4.14 M/uL (4.7-6.1); White Blood Count 15.27 K/uL (4.8-10.8)
[2019-04-12 04:50] LABS: Albumin Level 2.7 gm/dl (3.4-5.0); BUN Creatinine Ratio 18.9 (10-20); Calcium 8.8 mg/dl (8.5-10.1); Creatinine Clr Calc Pharmacy 70.3 ml/min; Est GFR (African American) 55.6; Magnesium 2.6 mg/dl (1.8-2.4); Potassium 4.2 mmol/L (3.5-5.1)
[2019-04-12 04:54] LABS: Albumin Globulin Ratio 0.6 (0.9-2); Bilirubin,Total 0.5 mg/dl (0.2-1); Globulin 4.4 gm/dl (2.5-4.0); Phosphorus 2.9 mg/dl (2.5-4.9); Total Protein 7.1 gm/dl (6.4-8.2)
[2019-04-12] MEDS: HEPARIN SOD 5,000 UNIT/0.5 ML VIAL SQ SCH ×3 (05:50→21:03)
--- NOTE | 2019-04-12 06:48 | Critical Care Progress Note ---
Date of Service April 12, 2019 Assessment & Plan (1) Admitted to intensive care unit: Reason Critically Ill: 43 yo male with witnessed cardiac arrest flown to [facility] from [place] for cardiac cath and hypothermia protocol 24 hr events: Patient self-extubated morning of 04/11, currently saturating well on room air. He has been totally weaned off sedation. A-line has been removed. He completed his re-warming protocol and cooling catheter has been removed. received dose of IV diuretics 04/11 for pulmonary congestion visualized on CXR. Patient currently requiring 1:1 supervision in the setting of his confusion. Stable for medical downgrade to PCU with tele. Neuro: CAM ICU: Positive * Encephalopathy - anoxic brain injury from cardiac arrest vs. ICU delirium vs. multifactorial. RAAS score 0. Alex score 15. continue to monitor - will provide magnesium oxide at night in an effort to both correct electrolyte derangement and restore circadian rhythm. consider brain MRI. Cardiac: * Cardiac Arrest - 04/08. total estimated time down is 5-25 minutes; patient with ROSC after amp of epi x 2 [employer]. - field care advocate will attempt to track down rhythm strips from EMS. - cause of arrest is unknown. differential includes ischemia, arrhythmia secondary to non-ischemic cardiomyopathy. - unlikely to be ischemia as cath showed only moderately obstructive coronary disease, not significant enough to be responsible for arrest or warrant PCI. - arrhythmia is under consideration given EHCO findings of diminished EF 30- 35%, LV global hypokinesis in mid to distal segments, however it is unknown as to whether this diminished EF is chronic vs. acute (myocardial stunning related to arrest and subsequent resuscitation). Patient has been on tip length checker since admission - no arrhythmia detected to date. TSH ordered. history reveals + family history of alcoholic cardiomyopathy, although patient has no metabolic signs of chronic etoh use. - patient would benefit from EP workup to assess for channelopathy with consideration of ICD placement vs. life vest before leaving the hospital. cardiology following. - 10 year ASCVD risk borderline ~ 6.8%. Will start patient on aspirin 81mg, po daily and high-intensity statin per cardiology recommendations - unable to obtain advanced imaging of chest, as patient was initiated on hypothermic protocol immediately after cath; venous duplex showing no evidence of DVTs; PE highly unlikely as etiology * Elevated Troponin - peaked at 16.5, trended down. etiology likely demand > supply in the setting of cardiac arrest and CPR * HTN - patient recently initiated on Lisinopril for anti-hypertensive regimen. BP currently at goal at 115/75. plan to restart lisinopril 04/13 with anticipated improvement in creatinine. Will initiate Metoprolol Tartrate 12.5mg BID for BP control in the setting of a cardiomyopathy. Respiratory: * satting well on room air * CXR on admission demonstrated right upper lobe consolidation. potential risk for aspiration in setting of cardiac arrest. WBC count elevated today to 15. Lactate initially elevated to 3.9, has since normalized. procal at 1.96, although in the setting of TIAN. Patient afebrile. we will d/c Unasyn at this time as patient is saturating well on room air. Can restart Augmentin if suspicion for PNA resurfaces. 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 primary hepatic etiology. continue to trend * GERD: continue home lansoprazole RENAL/LYTES: * TIAN. Creatinine peaked at 2.11, trending down. likely secondary to hypoperfusion. BUN/Cr ratio 32. hold lisinopril until 04/13, or further improvement in creatinine. * calcium corrects to 8.8 * ICU Electrolyte replacement protocol : * Nieves catheter removed 04/11. Patient now with inability to spontaneously void, requiring straight cath x 2. although UA would be indicated, we will hold off at this time given recent nieves placement and straight cath's; we will try a dose of Pyridium to reduce spasm-related discomfort. continue to follow ENDO: - no known history of underlying diabetes; A1c borderline at 5.6 - ICU protocol for hyperglycemia - will order TSH HEME: * Hgb stable. No issues identified. ID: * WBC was elevated on admission, trended down, but increased to 15 today. 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 R upper lobe infiltrate visualized on admission CXR. lactate initially elevated, trended down. procal 1.96. aspiration PNA possible in the setting of cardiac arrest. Sputum culture grew strep pneumo. Patient received 4 days of Unasyn. Restart if suspicion for PNA resurfaces. * nasal MRSA swab negative LINES/IV ACCESS: 2 PIVs in left arm CODE STATUS: Full DVT PROPHYLAXIS: heparin 5,000 units SQ, q8hr; bilateral SCDs Thank you for allowing us to participate in the care of this patient. Please refer to my attending physician's documentation for any further recommendations. Admission and Anticipated Discharge Date Admission Date: April 08, 2019 Supervising Physician Co-Signing Physician Notes Dr. Wiggins was resident physician during care of patient. I separately evaluated patient for auguste portions of the history and the exam. I was present during the critical portion of medical decision making, and I discussed the case with the resident. I generally agree with the findings and plan. Patient still mildly confused I suspect this may be secondary to anoxic injury. Continue current treatment plan and minimize disruptions. Patient would not tolerate MRI at this time, stable for downgrade out of ICU. I am attempting to have case management secure the EMS report, was reported to me that the patient was shocked twice by EMS, there should be record of the rhythm. Subjective Patient in ICU. Denies any discomfort. Review of Systems Review of Systems: Unobtainable due to cognitive status Physical Exam Constitutional: WD/WN, vitals as above + obese Eyes: PERRL, conjunctivae normal, anicteric sclerae ENMT: external ear and nose normal, oropharynx normal Neck: normal visual inspection and trachea midline Respiratory: normal respiratory effort, lungs clear to auscultation normal respiratory effort Auscultation: + rhonchi; no crackles, no rales and no pleural rub Cardiovascular: RRR, no murmur, no edema Heart Sounds: normal S1 and normal S2 Extremities: no edema Gastrointestinal (Abdomen): Inspection/Auscultation: abdomen normal to inspection and normal bowel sounds Skin: no rashes, warm and dry Neurologic: CN's II-XI intact bilaterally, moves all extremities and + confused; no focal motor deficits Hull score of 15 Follows one-step commands Psychiatric: Orientation: alert; + not oriented x 3 (oriented x zero ) Speech: normal rate/rhythm/volume of speech Results & Data ([facility]) Vital Signs (Past 12 Hours) Vital Signs Temp Pulse Resp BP Pulse Ox 04/12/19 06:33 85 21 141/80 H 92 04/12/19 05:44 90 17 152/75 H 94 04/12/19 04:53 90 20 130/83 96 04/12/19 03:43 86 16 150/78 H 95 04/12/19 02:43 96 H 21 161/86 H 96 04/12/19 01:43 96 H 14 145/91 H 95 04/12/19 00:43 37.2 C 92 H 16 145/82 H 97 04/11/19 23:43 96 H 15 153/78 H 93 04/11/19 22:30 98 H 24 146/74 H 95 04/11/19 22:00 100 H 24 96 04/11/19 21:00 97 H 11 L 137/87 95 04/11/19 20:00 36.9 C 100 H 19 166/87 H 79 L 04/11/19 19:00 36.9 C 99 H 20 122/89 96 Resident Activity Tracking Resident Involvement: Resident Care Provided Care Provided: Adult Hospital Medicine
[2019-04-12] MEDS: LANSOPRAZOLE 30 MG SOLTAB NG SCH ×2 (07:44→10:53)
[2019-04-12] MEDS: LABETALOL HCL IV 5 MG/ML 20ML IV PRN (08:29)
--- NOTE | 2019-04-12 09:33 | Cardiology Progress Note ---
Date of Service April 12, 2019 Assessment & Plan (1) Sudden cardiac arrest: (2) CAD (coronary artery disease): (3) Hypertension: (4) Cardiomyopathy: (5) Elevated troponin: ASSESSMENT/PLAN: 1. Cardiac arrest: Most accounts report PEA and total CPR difficult to quantitate. Chest compressions reportedly started immediately by coworkers. He has completed hypothermia protocol. There is possibility that he underwent a ED shock. He has been seen by Dr. Jaime electrophysiology who is considering ICD prior to discharge if he continues to improve neurologically. 2. Cardiomyopathy: Etiology uncertain. Could be due to acute illness in the setting of cardiac arrest. Cannot exclude cardiomyopathy being present on a more chronic basis but he is not dilated which may support more acute process. Nursing staff has reported that he is a bit agitated this morning. If he calms, consider repeating limited echo tomorrow to re-evaluate LV systolic function. He is currently NPO but when able to swallow pills, recommend carvedilol or metoprolol succinate and also, ASTRID-inhibitor if no contraindications. 3. Elevated troponin: Likely secondary to cardiac arrest as he likely became ischemic from the event itself while requiring CPR. repeat troponin until peaked. 4. Hypertension: On lisinopril at home. When able to swallow pills, recommend resuming lisinopril and initiating beta-eugenio as above. Blood pressure currently reasonable. 5. CAD: Nonobstructive. Recommend aspirin 81 mg daily when able to swallow. Recommend beta-eugenio when able. High-intensity statin therapy when able. 6. Disposition: Patient discussed with Dr. Cedeño of the critical care team. I will be away from the hospital tomorrow. Please call Dr. Jaime for any questions or concerns. Admission and Anticipated Discharge Date Admission Date: April 08, 2019 Subjective Over the weekend, he self extubated. He is currently sitting in a chair at the bedside. He is able to answer questions but memory is not back to baseline as he does not recall the names of his children. He denies chest pain or shortness of breath. He has no complaints or concerns at this time. There are no friends or family at the bedside this morning. Review of systems: As above. Physical Exam Physical Exam: Gen.: Alert. HEENT: Anicteric sclera. Neck: Thick neck. Cardiac: No ventricular heave. Regular. Normal S1-S2. No murmurs, rubs, or gallops. Pulmonary: Clear on anterior auscultation. Abdomen: Soft, nondistended, with hypoactive bowel sounds. No bruits noted. Extremities: 2+ radial pulses bilaterally. 2+ dorsalis pedis pulses bilaterally. No edema or cyanosis. Results & Data ([facility]) Vital Signs (Past 12 Hours) Vital Signs Temp Pulse Resp BP Pulse Ox 04/12/19 08:24 87 18 160/81 H 93 04/12/19 07:53 36.7 C 81 13 156/59 H 94 04/12/19 07:00 81 13 90 04/12/19 06:33 85 21 141/80 H 92 04/12/19 05:44 90 17 152/75 H 94 04/12/19 04:53 90 20 130/83 96 04/12/19 03:43 86 16 150/78 H 95 04/12/19 02:43 96 H 21 161/86 H 96 04/12/19 01:43 96 H 14 145/91 H 95 04/12/19 00:43 37.2 C 92 H 16 145/82 H 97 04/11/19 23:43 96 H 15 153/78 H 93 04/11/19 22:30 98 H 24 146/74 H 95 04/11/19 22:00 100 H 24 96 Laboratory Results Laboratory Results - last 24 hr 04/12/19 04/12/19 04:08 04:08 WBC 15.27 H RBC 4.14 L Hgb 13.1 L Hct 38.7 L MCV 93.5 MCH 31.6 MCHC 33.9 RDW Std Deviation 46.2 RDW Coeff of Paddy 13.5 Plt Count 176 MPV 10.0 Immature Gran % (Auto) 0.6 Neut % (Auto) 91.6 Lymph % (Auto) 4.8 [place] % (Auto) 2.9 Eos % (Auto) 0.0 Baso % (Auto) 0.1 Immature Gran # (Auto) 0.09 H Neut # (Auto) 13.99 H Lymph # (Auto) 0.74 L [place] # (Auto) 0.44 Eos # (Auto) 0.00 Baso # (Auto) 0.01 Sodium 143 Potassium 4.2 Chloride 109 H Carbon Dioxide 26 Anion Gap 8.0 BUN 32 H Creatinine 1.70 H Est Cr Clr Drug Dosing 70.3 Est GFR ( Amer) 55.6 Est GFR (Non-Af Amer) 48.0 BUN/Creatinine Ratio 18.9 Glucose 122 H Calcium 8.8 Phosphorus 2.9 Magnesium 2.6 H Total Bilirubin 0.5 AST 228 H ALT 53 Alkaline Phosphatase 61 Total Protein 7.1 Albumin 2.7 L Globulin 4.4 H Albumin/Globulin Ratio 0.6 L Diagnostic Findings Telemetry personally reviewed: No arrhythmia. Sinus rhythm. Medications Administered Current Inpatient Medications Albuterol (Duoneb) 3 ml NEB Q4R PRN PRN Reason: Wheezing Stop: 05/10/19 22:59 Last Admin: 04/11/19 05:35 Dose: 3 ml Documented by: Heparin Sodium (Beef Lung) (Heparin Sod 10 Unit/Ml Flush) 5 ml FLUSH PRN PRN PRN Reason: Flush Stop: 05/08/19 23:27 Last Admin: 04/11/19 07:15 Dose: 5 ml Documented by: Heparin Sodium (Porcine) (Heparin Sodium (Porcine)) 5,000 units SQ Q8 ROB Stop: 05/08/19 21:59 Last Admin: 04/12/19 05:50 Dose: 5,000 units Documented by: Hydralazine HCl (Hydralazine Hcl) 10 mg IV Q4 PRN PRN Reason: Hypertension Stop: 05/11/19 07:16 Last Admin: 04/11/19 13:19 Dose: 10 mg Documented by: Ampicillin Sodium/Sulbactam Sodium 3,000 mg/ Sodium Chloride 108 mls @ 200 mls/hr IV Q6H [facility]; Protocol Stop: 04/17/19 15:59 Last Infusion: 04/12/19 09:13 Dose: Infused Documented by: Acetaminophen (Ofirmev) 1,000 mg in 100 mls @ 400 mls/hr IV Q8H PRN PRN Reason: Pain Stop: 04/15/19 03:47 Last Infusion: 04/12/19 05:09 Dose: Infused Documented by: Labetalol HCl (Normodyne) 10 mg IV Q4 PRN PRN Reason: Hypertension Stop: 05/11/19 07:16 Last Admin: 04/12/19 08:29 Dose: 10 mg Documented by: [facility]opraz[facility] (Prevacid) [address] [address] Stop: 05/09/19 08:59 Last Admin: 04/12/19 07:44 Dose: Not Given Documented by: Miscellaneous (Icu Electrolyte Replacement Protocol) 1 ea N/A UD PRN PRN Reason: for e-lyte repletion Stop: 04/15/19 14:57 Multi-Ingredient Cream (Lacri-Lube) 1 appln OP Q2H PRN PRN Reason: eye protection Stop: 05/08/19 14:57 Last Admin: 04/10/19 08:33 Dose: 1 appln Documented by: PG Care Time/CCT Total # of Minutes Spent Total Time Spent with Patient: Total time spent is greater than 50% in coordination of care (as documented) at patient's floor/unit and/or counseling patient: Coding Level of Care Code 17675 Subseq Hosp Care Lvl 3 Diagnoses Sudden cardiac arrest I46.9 CAD (coronary artery disease) I25.10 Hypertension I10 Hypertension type: essential hypertension Cardiomyopathy I42.9 Elevated troponin R79.89 (1) Hypertension Hypertension type: essential hypertension Qualified Code(s): I10 - Essential (primary) hypertension
[2019-04-12] MEDS ORDERED: PHENAZOPYRIDINE HCL 200 MG TAB PO STA (09:34)
[2019-04-12 10:25] LABS: Thyroid Stimulating Hormone 0.253 uIu/ml (0.300-4.500)
[2019-04-12 10:38] LABS: T4 Free Thyroxine 0.98 ng/dl (0.8-1.6)
[2019-04-12] MEDS: ASPIRIN 81 MG ECTAB PO SCH (10:53)
[2019-04-12] MEDS: ATORVASTATIN 40 MG TAB PO SCH (10:53)
[2019-04-12] MEDS ORDERED: ACETAMINOPHEN 500 MG TAB PO PRN (12:00)
--- NOTE | 2019-04-12 14:31 | Hospitalist Progress Note ---
Date of Service April 12, 2019 Assessment & Plan (1) Sudden cardiac arrest: This patient is a 43-year-old male with history of hypertension presenting from outside hospital status post out of hospital arrest with ROSC, patient transferred to [facility] for post cardiac arrest care therapeutic cooling per witness, the patient collapsed suddenly, he was laying on the ground, making a gurgling sound and he had urinary incontinence EMS was called immediately, they were 5 minutes away no CPR was done for approximately 5 minutes because he was still breathing, but was in complete arrest when EMS arrived CPR was initiated by EMS and he received 2 shocks from AED and a dose of epinephrine before ROSC was achieved We are trying to track down the EMS reports today to get more details on his rhythm-Case management is involved -unclear etiology as there was no significant coronary disease, continue to monitor for arrhythmia (none yet) given the low EF -treated with hypothermic protocol until 1am on 04/10, successfully rewarmed -self extubated on 04/11 in the morning and oxygenating well on room air -appreciate cardiology consult, certainly could consider life vest / ICD on discharge if neurologically intact -the history of requiring AED cardioversion twice in the field supports that this was an arrhythmia neurologically, the patient is alert, agitated at times and confused, responding to simple commands, remains minimally verbal discussed with girlfriend and mother that we will give the patient a few days to recover discussed realistic expectations that he could make a full recovery or he could remain in his current state, or something in between -Consider brain MRI if able to cooperate -Continue one-on-one sitter as needed (2) CAD (coronary artery disease): moderate, non-occlusive on cath shortly after arrival no evidence of acute DC -Start aspirin, statin, beta-eugenio today (3) Cardiomyopathy: Echocardiogram with LVEF 30-35% with global hypokinesis throughout sparing the basal segments, with moderate LVH, possible mildly reduced RV function as well Unclear if this is just stunned myocardium after the code or if this was prior to the cardiac arrest -may consider repeat echo prior to discharge -per cardiology, the LV was not dilated which argues against this being a chronic condition -Defer to cardiology to determine if needs ICD versus life vest prior to discharge -Starting Toprol-XL 25 mg at bedtime -Restart home ASTRID inhibitor once renal function improves -Pulmonary recommending outpatient sleep study after discharge (4) Shock liver: in setting of cardiac arrest-shock liver versus primary hepatic etiology AST increased today to 228, LFTs otherwise normal -Follow LFTs especially now that starting on statin (5) TIAN (acute kidney injury): due to cardiac arrest Cr peaked at 1.85 but now improved 1.70, making adequate urine repeat BMP in the morning -Avoid nephrotoxins-DC NSAIDs -Holding home lisinopril (6) Cardiogenic shock: due to cardiac arrest with evidence of TIAN, shock liver, elevated troponin now off of vasopressors extubated may repeat echo prior to discharge initial echo with reduced EF as above (7) Hypertension: prior to admission he was prescribed Lisinopril for hypertension -Holding lisinopril due to acute kidney injury as above (8) Aspiration into airway: With infiltrate noted in the right upper lobe by pulmonary although radiology here is not commenting on this Was on Unasyn x4 days which is now discontinued by painter decorator -Procalcitonin was elevated but in the setting of acute kidney injury Sputum culture growing moderate normal kelly -We will observe off antibiotics (9) Elevated troponin: Troponin peaked at 16 secondary to cardiac arrest and then trended downward to 2 Cardiac catheterization with moderate nonobstructive CAD -Starting aspirin, statin, beta-eugenio as above (10) Urinary retention: Requiring straight catheterization x2 since Mayorga catheter removed -Continue to follow bladder scan -Consider starting Flomax if continues (11) GERD (gastroesophageal reflux disease): Continue PPI (12) DVT prophylaxis: Heparin SQ, SCDs Disposition-remain hospitalized but can transfer from ICU to PCU Will need PT/OT evaluations Admission and Anticipated Discharge Date Admission Date: April 08, 2019 Subjective Patient remains confused. Does answer some yes and no questions but not conversive. He is sitting in a chair when I saw him with his girlfriend next to him. He was able to say that he was in the hospital, but otherwise did not know where he was. He is not seem to understand what has happened to him, but he is easily redirectable as per nursing staff when he starts to get restless. Denies chest pain or shortness of breath, denies abdominal pain or nausea. He denies headache or lightheadedness. Review of Systems Review of Systems: All systems reviewed & are unremarkable except as noted in HPI & below Physical Exam Constitutional: WD/WN, vitals as above + obese Eyes: + anicteric sclerae and EOM intact bilaterally Neck: trachea midline, no thyromegaly Respiratory: normal respiratory effort, lungs clear to auscultation Cardiovascular: RRR, no murmur, no edema Chest (Breasts): Chest: normal inspection of chest Gastrointestinal (Abdomen): normal bowel sounds, soft, nontender, no hepatosplenomegaly Musculoskeletal: Extremities: extremities normal to inspection; no cyanosis and no clubbing Skin: no rashes, warm and dry Neurologic: moves all extremities, awake and + confused Speech / Cognition: + abnormal cognition; normal speech Motor/Sensory: no tremor Psychiatric: Orientation: alert, oriented to person and cooperative; + not o riented to place and + not oriented to time Lymphatic: no lymphedema Results & Data ([facility]) Vital Signs (Past 12 Hours) Vital Signs Temp Pulse Resp BP Pulse Ox 04/12/19 12:44 36.6 C 86 24 139/70 94 04/12/19 11:45 87 16 156/72 H 96 04/12/19 10:44 88 16 115/75 94 04/12/19 10:00 85 19 96 04/12/19 09:43 72 22 139/72 95 04/12/19 08:44 75 16 137/76 95 04/12/19 08:24 87 18 160/81 H 93 04/12/19 07:53 36.7 C 81 13 156/59 H 94 04/12/19 07:00 81 13 90 04/12/19 06:33 85 21 141/80 H 92 04/12/19 05:44 90 17 152/75 H 94 04/12/19 04:53 90 20 130/83 96 04/12/19 03:43 86 16 150/78 H 95 04/12/19 02:43 96 H 21 161/86 H 96 Laboratory Results 04/12/19 04/12/19 04/12/19 Range/Units 04:08 04:08 04:08 WBC 15.27 H (4.8-10.8) K/uL RBC 4.14 L (4.7-6.1) M/uL Hgb 13.1 L (14.0-18.0) g/dL Hct 38.7 L (42-52) % MCV 93.5 (80-100) fL MCH 31.6 (25-34) pg MCHC 33.9 (32-36) g/dL RDW Std Deviation 46.2 (36.4-46.3) fL RDW Coeff of Paddy 13.5 (11.5-14.5) % Plt Count 176 (130-400) K/uL MPV 10.0 (7.4-10.4) fL Immature Gran % (Auto) 0.6 % Neut % (Auto) 91.6 % Lymph % (Auto) 4.8 % [place] % (Auto) 2.9 % Eos % (Auto) 0.0 % Baso % (Auto) 0.1 % Immature Gran # (Auto) 0.09 H (0.00-0.02) K/uL Neut # (Auto) 13.99 H (1.4-6.5) K/uL Lymph # (Auto) 0.74 L (1.2-3.4) K/uL [place] # (Auto) 0.44 (0.11-0.59) K/uL Eos # (Auto) 0.00 (0-0.5) K/uL Baso # (Auto) 0.01 (0-0.2) K/uL Sodium 143 (136-145) mmol/L Potassium 4.2 (3.5-5.1) mmol/L Chloride 109 H (98-107) mmol/L Carbon Dioxide 26 (21-32) mmol/L Anion Gap 8.0 (3-11) BUN 32 H (7-18) mg/dl Creatinine 1.70 H (0.6-1.4) mg/dl Est Cr Clr Drug Dosing 70.3 ml/min Est GFR ( Amer) 55.6 Est GFR (Non-Af Amer) 48.0 BUN/Creatinine Ratio 18.9 (10-20) Glucose 122 H (70-99) mg/dl Calcium 8.8 (8.5-10.1) mg/dl Phosphorus 2.9 (2.5-4.9) mg/dl Magnesium 2.6 H (1.8-2.4) mg/dl Total Bilirubin 0.5 (0.2-1) mg/dl AST 228 H (15-37) U/L ALT 53 (12-78) U/L Alkaline Phosphatase 61 (45-117) U/L Total Protein 7.1 (6.4-8.2) gm/dl Albumin 2.7 L (3.4-5.0) gm/dl Globulin 4.4 H (2.5-4.0) gm/dl Albumin/Globulin Ratio 0.6 L (0.9-2) TSH 0.253 L (0.300-4.500) uIu/ml Free T4 0.98 (0.8-1.6) ng/dl PG Care Time/CCT Total # of Minutes Spent Total Time Spent with Patient: Total time spent is greater than 50% in coordination of care (as documented) at patient's floor/unit and/or counseling patient: Coding Level of Care Code 81939 Subseq Hosp Care Lvl 3 Diagnoses Sudden cardiac arrest I46.9 CAD (coronary artery disease) I25.10 Cardiomyopathy I42.9 Shock liver K72.00 TIAN (acute kidney injury) N17.9 Cardiogenic shock R57.0 Hypertension I10 Hypertension type: essential hypertension Aspiration into airway T17.908A Elevated troponin R79.89 Urinary retention R33.9 GERD (gastroesophageal reflux disease) K21.9 DVT prophylaxis Z29.9 (1) Hypertension Hypertension type: essential hypertension Qualified Code(s): I10 - Essential (primary) hypertension
[2019-04-12] MEDS ORDERED: IBUPROFEN 600 MG TAB PO PRN (16:00)
--- NOTE | 2019-04-12 18:32 | Billing Data ---
Date of Service April 12, 2019 Coding Level of Care Code 50083 Subseq Hosp Care Lvl 3
[2019-04-12] MEDS ORDERED: METOPROLOL TARTRATE 25 MG TAB PO SCH (21:00)
[2019-04-12] MEDS ORDERED: METOPROLOL SUCC 25MG EXT REL TAB PO SCH (21:00)
[2019-04-12] MEDS: MAGNESIUM OXIDE 400 MG TAB PO SCH (21:03)
[2019-04-13] MEDS: HEPARIN SOD 5,000 UNIT/0.5 ML VIAL SQ SCH ×3 (05:29→21:31)
[2019-04-13 06:25] LABS: Basophils # (auto) 0.01 K/uL (0-0.2); Basophils % (auto) 0.1 %; Eosinophils # (auto) 0.01 K/uL (0-0.5); Eosinophils % (auto) 0.1 %; Hematocrit (blood only) 37.8 % (42-52); Hemoglobin 12.9 g/dL (14.0-18.0); Immature Granulocytes % (auto) 0.7 %; Lymphocytes # (auto) 1.77 K/uL (1.2-3.4); Lymphocytes % (auto) 12.1 %; Mean Corpuscular Hemoglobin 31.7 pg (25-34); Mean Corpuscular Hgb Conc 34.1 g/dL (32-36); Mean Corpuscular Volume 92.9 fL (80-100); Mean Platelet Volume 9.5 fL (7.4-10.4); Monocytes # (auto) 1.25 K/uL (0.11-0.59); Monocytes % (auto) 8.5 %; Neutrophils # (auto) 11.52 K/uL (1.4-6.5); Neutrophils % (auto) 78.5 %; Platelet Count 158 K/uL (130-400); RDW Coefficient of Variation 13.2 % (11.5-14.5); RDW Standard Deviation 45.1 fL (36.4-46.3); Red Blood Count 4.07 M/uL (4.7-6.1); White Blood Count 14.66 K/uL (4.8-10.8)
[2019-04-13 06:54] LABS: Calcium 9.3 mg/dl (8.5-10.1); Creatinine Clr Calc Pharmacy 71.3 ml/min; Est GFR (African American) 62.2; Est GFR (Non-African American) 53.6; Magnesium 2.7 mg/dl (1.8-2.4); Potassium 4.1 mmol/L (3.5-5.1)
[2019-04-13] MEDS ORDERED: HydrALAZINE HCL 20 MG/ML VIAL IV PRN (07:30)
[2019-04-13] MEDS: PANTOprazole 40 MG TAB PO SCH (08:41)
[2019-04-13] MEDS: ATORVASTATIN 40 MG TAB PO SCH (08:41)
[2019-04-13] MEDS: ASPIRIN 81 MG ECTAB PO SCH (08:41)
[2019-04-13] MEDS: METOPROLOL SUCC 25MG EXT REL TAB PO SCH ×2 (08:42→21:30)
[2019-04-13 10:27] LABS: Alanine Aminotransferase 43 U/L (12-78); Aspartate Aminotransferase 121 U/L (15-37)
[2019-04-13] MEDS: AMOXICILLIN/CLAVULANATE 875 MG TAB PO SCH ×2 (11:21→17:40)
[2019-04-13] MEDS ORDERED: ONDANSETRON INJ 2 MG/ML 2 ML VIAL IV PRN (14:33)
--- NOTE | 2019-04-13 17:02 | Hospitalist Progress Note ---
Date of Service April 13, 2019 Assessment & Plan (1) Sudden cardiac arrest: This patient is a 43-year-old male with history of hypertension presenting from outside hospital status post out of hospital arrest with ROSC, patient transferred to [facility] for post cardiac arrest care therapeutic cooling per witness, the patient collapsed suddenly, he was laying on the ground, making a gurgling sound and he had urinary incontinence EMS was called immediately, they were 5 minutes away no CPR was done for approximately 5 minutes because he was still breathing, but was in complete arrest when EMS arrived CPR was initiated by EMS and he received 2 shocks from AED and a dose of epinephrine before ROSC was achieved We are trying to track down the EMS reports to get more details on his rhythm- Case management is involved with this -unclear etiology as there was no significant coronary disease, continue to monitor for arrhythmia (none yet) given the low EF -treated with hypothermic protocol until 1am on 04/10, successfully rewarmed -self extubated on 04/11 in the morning and oxygenating well on room air -appreciate cardiology consult, certainly could consider life vest / ICD on discharge if neurologically intact-awaiting further information from EMS to decide as per my discussion with cardiology today -the history of requiring AED cardioversion twice in the field supports that this was an arrhythmia neurologically, the patient is alert, agitated at times and confused, responding to simple commands, remains minimally verbal but slightly improved from yesterday -Consider brain MRI if able to cooperate for not yet -Continue one-on-one sitter as needed -Add on Voltaren gel for musculoskeletal pain related to CPR, continue Tylenol (2) CAD (coronary artery disease): moderate, non-occlusive on cath shortly after arrival no evidence of acute AL -Started aspirin, statin, beta-eugenio (3) Cardiomyopathy: Echocardiogram with LVEF 30-35% with global hypokinesis throughout sparing the basal segments, with moderate LVH, possible mildly reduced RV function as well Unclear if this is just stunned myocardium after the code or if this was prior to the cardiac arrest -may consider repeat echo prior to discharge -per cardiology, the LV was not dilated which argues against this being a chronic condition -Defer to cardiology to determine if needs ICD versus life vest prior to discharge -Started Toprol-XL and will increase today to 25 mg p.o. twice daily for hypertension -Restart home ASTRID inhibitor once renal function improves -Pulmonary recommending outpatient sleep study after discharge (4) Shock liver: in setting of cardiac arrest-shock liver versus primary hepatic etiology AST increased to 228 and now back down to 121, LFTs otherwise normal -Follow LFTs, INR especially now that starting on statin (5) TIAN (acute kidney injury): due to cardiac arrest Cr peaked at 1.85 but now improved 1.55, making adequate urine repeat BMP in the morning -Avoid nephrotoxins-avoid NSAIDs -Continue holding home lisinopril (6) Cardiogenic shock: due to cardiac arrest with evidence of TIAN, shock liver, elevated troponin now off of vasopressors extubated Blood pressures are quite elevated No evidence of volume overload may repeat echo prior to discharge initial echo with reduced EF as above (7) Hypertension: prior to admission he was prescribed Lisinopril for hypertension -Holding lisinopril due to acute kidney injury as above Blood pressures are significantly elevated here -Increased Toprol-XL to 25 twice daily -Give hydralazine 10 mg IV every 6 hours PRN -Hopeful to add lisinopril back if renal function continues to improve (8) Aspiration into airway: With infiltrate noted in the right upper lobe by pulmonary although radiology here is not commenting on this Was on Unasyn x4 days which was then discontinued by tufter x1 day -Procalcitonin was elevated initially but in the setting of acute kidney injury Sputum culture growing Streptococcus pneumoniae -Given cough, positive sputum culture now--> will restart Augmentin 875 mg p.o. twice daily to finish out a 7-day course on (9) Elevated troponin: Troponin peaked at 16 secondary to cardiac arrest and then trended downward to 2 Cardiac catheterization with moderate nonobstructive CAD -Started aspirin, statin, beta-eugenio as above (10) Urinary retention: Requiring straight catheterization x2 since Mayorga catheter removed, now seems to be voiding better -Continue to follow bladder scan -Consider starting Flomax if continues (11) GERD (gastroesophageal reflux disease): Continue PPI (12) Open wound, hand: Appears to be a blister-patient unclear on history of this but says it has something to do with his work Mild erythema and mild open area with scant serous drainage -Consult wound care nurse (13) DVT prophylaxis: Heparin SQ, SCDs Disposition-remain hospitalized on PCU PT/OT evaluations recommending acute rehab Case management is involved Not ready for discharge Admission and Anticipated Discharge Date Admission Date: April 08, 2019 Anticipated date of discharge: 04/16/19 Subjective Patient is a little bit more interactive today, answers some questions. Mostly complains of significant pain in the bilateral ribs and sternum that is much worse with coughing. He is eating regular food today. He still is not able to answer questions with more than yes or no answers. The one-on-one sitter with him also reports that he is coughing quite a bit. When asked if he knows where he is, he says "I had a heart attack." Telemetry with normal sinus rhythm with rates in the 60s to 70s Review of Systems Review of Systems: All systems reviewed & are unremarkable except as noted in HPI & below Physical Exam Constitutional: WD/WN, vitals as above + obese Eyes: + anicteric sclerae and EOM intact bilaterally ENMT: Ears: no hearing impairment Neck: trachea midline, no thyromegaly Respiratory: normal respiratory effort, lungs clear to auscultation Cardiovascular: RRR, no murmur, no edema Chest (Breasts): Chest: normal inspection of chest (Positive tenderness to palpation over sternum and ribs anteriorly) Gastrointestinal (Abdomen): normal bowel sounds, soft, nontender, no hepat osplenomegaly Musculoskeletal: Extremities: extremities normal to inspection; no cyanosis and no clubbing Skin: + wound (Left palm with blister and open wound with scant serous drainage and mild erythema) Neurologic: moves all extremities, awake and + confused Speech / Cognition: + abnormal cognition; normal speech Motor/Sensory: no tremor Psychiatric: Orientation: alert, oriented to person, oriented to place ("Hospital") and cooperative; + not oriented to time Lymphatic: no lymphedema Results & Data ([facility]) Vital Signs (Past 12 Hours) Vital Signs Temp Pulse Pulse Pulse Resp BP Pulse Ox 04/13/19 15:27 72 04/13/19 15:13 37.2 C 71 20 174/91 H 95 04/13/19 11:23 95 04/13/19 11:09 36.9 C 69 18 147/83 H 95 04/13/19 08:00 76 04/13/19 07:50 67 20 148/79 H 96 04/13/19 07:05 37.1 C 62 22 199/78 H 96 Laboratory Results 04/13/19 04/13/19 Range/Units 06:05 06:05 Sodium 138 (136-145) mmol/L Potassium 4.1 (3.5-5.1) mmol/L Chloride 107 (98-107) mmol/L Carbon Dioxide 25 (21-32) mmol/L Anion Gap 7.0 (3-11) BUN 37 H (7-18) mg/dl Creatinine 1.55 H (0.6-1.4) mg/dl Est Cr Clr Drug Dosing 71.3 ml/min Est GFR ( Amer) 62.2 Est GFR (Non-Af Amer) 53.6 BUN/Creatinine Ratio 24.0 H (10-20) Glucose 95 (70-99) mg/dl Calcium 9.3 (8.5-10.1) mg/dl Magnesium 2.7 H (1.8-2.4) mg/dl AST 121 H (15-37) U/L ALT 43 (12-78) U/L PG Care Time/CCT Total # of Minutes Spent Total Time Spent with Patient: Total time spent is greater than 50% in coordination of care (as documented) at patient's floor/unit and/or counseling patient: Coding Level of Care Code 66704 Subseq Hosp Care Lvl 3 Diagnoses Sudden cardiac arrest I46.9 CAD (coronary artery disease) I25.10 Cardiomyopathy I42.9 Shock liver K72.00 TIAN (acute kidney injury) N17.9 Cardiogenic shock R57.0 Hypertension I10 Hypertension type: essential hypertension Aspiration into airway T17.908A Elevated troponin R79.89 Urinary retention R33.9 GERD (gastroesophageal reflux disease) K21.9 Open wound, hand S61.409A DVT prophylaxis Z29.9 (1) Hypertension Hypertension type: essential hypertension Qualified Code(s): I10 - Essential (primary) hypertension
[2019-04-13] MEDS: DICLOFENAC SOD 1% GEL 100 GM TUBE EXT PRN ×2 (18:29→21:29)
[2019-04-13] MEDS: NICOTINE 14 MG/24 HR PATCH TD SCH (18:35)
[2019-04-13] MEDS: MAGNESIUM OXIDE 400 MG TAB PO SCH (21:30)
[2019-04-14] MEDS: HEPARIN SOD 5,000 UNIT/0.5 ML VIAL SQ SCH ×3 (05:10→21:20)
[2019-04-14 07:04] LABS: Basophils # (auto) 0.02 K/uL (0-0.2); Basophils % (auto) 0.2 %; Eosinophils # (auto) 0.17 K/uL (0-0.5); Eosinophils % (auto) 1.5 %; Hematocrit (blood only) 39.8 % (42-52); Hemoglobin 13.9 g/dL (14.0-18.0); Immature Granulocytes % (auto) 1.8 %; Lymphocytes # (auto) 1.72 K/uL (1.2-3.4); Lymphocytes % (auto) 15.2 %; Mean Corpuscular Hemoglobin 31.7 pg (25-34); Mean Corpuscular Hgb Conc 34.9 g/dL (32-36); Mean Corpuscular Volume 90.9 fL (80-100); Mean Platelet Volume 9.9 fL (7.4-10.4); Monocytes # (auto) 1.24 K/uL (0.11-0.59); Neutrophils # (auto) 7.93 K/uL (1.4-6.5); Neutrophils % (auto) 70.3 %; Platelet Count 144 K/uL (130-400); RDW Coefficient of Variation 12.7 % (11.5-14.5); RDW Standard Deviation 42.1 fL (36.4-46.3); Red Blood Count 4.38 M/uL (4.7-6.1); White Blood Count 11.28 K/uL (4.8-10.8)
[2019-04-14 07:33] LABS: Albumin Level 2.7 gm/dl (3.4-5.0); BUN Creatinine Ratio 20.8 (10-20); Bilirubin Direct 0.2 mg/dl (0-0.2); Creatinine Clr Calc Pharmacy 76.8 ml/min; Est GFR (Non-African American) 58.6; Magnesium 2.5 mg/dl (1.8-2.4)
[2019-04-14 07:34] LABS: Prothrombin Time 10.1 Seconds (9.0-12.0)
[2019-04-14 07:36] LABS: Bilirubin,Total 0.5 mg/dl (0.2-1); Total Protein 7.2 gm/dl (6.4-8.2)
[2019-04-14] MEDS: METOPROLOL SUCC 25MG EXT REL TAB PO SCH (08:23)
[2019-04-14] MEDS: PANTOprazole 40 MG TAB PO SCH (08:23)
[2019-04-14] MEDS: ATORVASTATIN 40 MG TAB PO SCH (08:23)
[2019-04-14] MEDS: ASPIRIN 81 MG ECTAB PO SCH (08:24)
[2019-04-14] MEDS: AMOXICILLIN/CLAVULANATE 875 MG TAB PO SCH ×2 (08:24→17:14)
[2019-04-14] MEDS: NICOTINE 14 MG/24 HR PATCH TD SCH (08:24)
[2019-04-14] MEDS: DICLOFENAC SOD 1% GEL 100 GM TUBE EXT PRN ×2 (08:33→15:10)
--- NOTE | 2019-04-14 08:53 | Cardiology Progress Note ---
Date of Service April 14, 2019 Assessment & Plan (1) Sudden cardiac arrest: (2) CAD (coronary artery disease): (3) Hypertension: (4) Cardiomyopathy: (5) Elevated troponin: ASSESSMENT/PLAN: 1. Cardiac arrest: There was possibility of AED shock pre-hospital based on reports following the incident. Chest compressions reportedly started immediately by coworkers. He has completed hypothermia protocol. He has been seen by Dr. Jaime electrophysiology who is considering ICD prior to discharge if he continues to improve neurologically. He has shown improvement over the past couple of days as he is answering questions much more quickly today. 2. Cardiomyopathy: Etiology uncertain. Could be due to acute illness in the setting of cardiac arrest. Cannot exclude cardiomyopathy being present on a more chronic basis but he is not dilated which may support more acute process. Repeat limited echo today. Will change metoprolol succinate to carvedilol for better blood pressure control. Renal function has improved. Please consider restarting outpatient lisinopril. 3. Elevated troponin: Likely secondary to cardiac arrest as he likely became ischemic from the event itself while requiring CPR. 4. Hypertension: Blood pressure elevated. Changing metoprolol succinate to carvedilol for better blood pressure control. Consider restarting lisinopril as renal function has improved. 5. CAD: Nonobstructive. No angina. Chest pain likely due to CPR. Continue beta-eugenio, aspirin, and high-intensity statin therapy. 6. Disposition: Will discuss patient care with Dr. Drummond of the primary hospitalist service. Admission and Anticipated Discharge Date Admission Date: April 08, 2019 Anticipated date of discharge: 04/16/19 Subjective He answers questions much more quickly today. He has chest pain, especially while coughing following CPR. He denies shortness of breath, syncope, near- syncope, palpitations, edema. Medical Staff is seated at the bedside. No family or friends present at the time of our visit this morning. He thought he was at [facility]. He recalls having 3 children and remembered their names today. Review of systems: As above. Physical Exam Physical Exam: Gen.: Alert. HEENT: Anicteric sclera. Neck: Thick neck. No appreciable JVD. Cardiac: No ventricular heave. Regular. Normal S1-S2. 1/6 systolic murmur. No rubs, or gallops. Pulmonary: Clear on anterior auscultation. Abdomen: Soft, nondistended, with hypoactive bowel sounds. No bruits noted. Extremities: 2+ radial pulses bilaterally. 2+ dorsalis pedis pulses bilaterally. No edema or cyanosis. Results & Data ([facility]) Vital Signs (Past 12 Hours) Vital Signs Temp Pulse Pulse Resp BP Pulse Ox 04/14/19 07:04 37.1 C 74 18 172/91 H 94 04/14/19 02:34 36.7 C 72 20 156/88 H 94 04/13/19 23:00 73 04/13/19 22:50 37.1 C 74 18 179/93 H 96 Laboratory Results Laboratory Results - last 24 hr 04/13/19 04/14/19 04/14/19 06:05 06:49 06:49 WBC 11.28 H RBC 4.38 L Hgb 13.9 L Hct 39.8 L MCV 90.9 MCH 31.7 MCHC 34.9 RDW Std Deviation 42.1 RDW Coeff of Paddy 12.7 Plt Count 144 MPV 9.9 Immature Gran % (Auto) 1.8 Neut % (Auto) 70.3 Lymph % (Auto) 15.2 [place] % (Auto) 11.0 Eos % (Auto) 1.5 Baso % (Auto) 0.2 Immature Gran # (Auto) 0.20 H Neut # (Auto) 7.93 H Lymph # (Auto) 1.72 [place] # (Auto) 1.24 H Eos # (Auto) 0.17 Baso # (Auto) 0.02 PT INR Sodium 140 Potassium 4.0 Chloride 109 H Carbon Dioxide 25 Anion Gap 6.0 BUN 30 H Creatinine 1.44 H Est Cr Clr Drug Dosing 76.8 Est GFR ( Amer) 68.0 Est GFR (Non-Af Amer) 58.6 BUN/Creatinine Ratio 20.8 H Glucose 92 Calcium 9.0 Magnesium 2.5 H Total Bilirubin 0.5 Direct Bilirubin 0.2 AST 121 H 64 H ALT 43 34 Alkaline Phosphatase 60 Total Protein 7.2 Albumin 2.7 L 04/14/19 06:49 WBC RBC Hgb Hct MCV MCH MCHC RDW Std Deviation RDW Coeff of Paddy Plt Count MPV Immature Gran % (Auto) Neut % (Auto) Lymph % (Auto) [place] % (Auto) Eos % (Auto) Baso % (Auto) Immature Gran # (Auto) Neut # (Auto) Lymph # (Auto) [place] # (Auto) Eos # (Auto) Baso # (Auto) PT 10.1 INR 1.0 Sodium Potassium Chloride Carbon Dioxide Anion Gap BUN Creatinine Est Cr Clr Drug Dosing Est GFR ( Amer) Est GFR (Non-Af Amer) BUN/Creatinine Ratio Glucose Calcium Magnesium Total Bilirubin Direct Bilirubin AST ALT Alkaline Phosphatase Total Protein Albumin Diagnostic Findings Telemetry personally reviewed: Sinus rhythm. No arrhythmia. Medications Administered Current Inpatient Medications Acetaminophen (Tylenol) 1,000 mg PO Q8H PRN PRN Reason: Pain Stop: 05/12/19 11:59 Last Admin: 04/13/19 17:40 Dose: 1,000 mg Documented by: Albuterol (Duoneb) 3 ml NEB Q4R PRN PRN Reason: Wheezing Stop: 05/10/19 22:59 Last Admin: 04/11/19 05:35 Dose: 3 ml Documented by: Amoxicillin/Clavulanate Potassium (Augmentin 875mg) 1 tab PO BIDM [facility] Stop: 04/20/19 10:29 Last Admin: 04/14/19 08:24 Dose: 1 tab Documented by: Aspirin (Ecotrin Ectab) 81 mg PO QAM [facility] Stop: 05/12/19 09:44 Last Admin: 04/14/19 08:24 Dose: 81 mg Documented by: Atorvastatin Calcium (Lipitor) 40 mg PO DAILY [facility] Stop: 05/12/19 09:59 Last Admin: 04/14/19 08:23 Dose: 40 mg Documented by: Diclofenac Sodium (Voltaren 1% Top) 4 gm EXT QID PRN PRN Reason: pain Stop: 05/13/19 20:59 Last Admin: 04/14/19 08:33 Dose: 4 gm Documented by: Heparin Sodium (Porcine) (Heparin Sodium (Porcine)) 5,000 units SQ Q8 ROB Stop: 05/08/19 21:59 Last Admin: 04/14/19 05:10 Dose: Not Given Documented by: Hydralazine HCl (Hydralazine Hcl) 10 mg IV Q6H PRN PRN Reason: SBP>180 or DBP>110 Stop: 05/13/19 07:29 Magnesium Oxide (Mag-Ox) 400 mg PO HS [facility] Stop: 05/12/19 20:59 Last Admin: 04/13/19 21:30 Dose: 400 mg Documented by: Metoprolol Succinate (Toprol Xl) 25 mg PO BID [facility] Stop: 05/13/19 08:59 Last Admin: 04/14/19 08:23 Dose: 25 mg Documented by: Miscellaneous (Remove Nicoderm Patch) 1 ea N/A DAILY@0859 [facility] Stop: 05/14/19 08:58 Last Admin: 04/14/19 08:24 Dose: 1 ea Documented by: Nicotine (Nicoderm Cq) 14 mg TD [facility] Stop: 05/13/19 17:59 Last Admin: 04/14/19 08:24 Dose: 14 mg Documented by: Ondansetron HCl (Zofran) 4 mg IV Q6H PRN PRN Reason: Nausea Stop: 05/13/19 14:32 Pantoprazole Sodium (Protonix) 40 mg PO [facility] Stop: 05/13/19 08:59 Last Admin: 04/14/19 08:23 Dose: 40 mg Documented by: PG Care Time/CCT Total # of Minutes Spent Total Time Spent with Patient: Total time spent is greater than 50% in coordination of care (as documented) at patient's floor/unit and/or counseling patient: Coding Level of Care Code 11103 Subseq Hosp Care Lvl 3 Diagnoses Sudden cardiac arrest I46.9 CAD (coronary artery disease) I25.10 Hypertension I10 Hypertension type: essential hypertension Cardiomyopathy I42.9 Elevated troponin R79.89 (1) Hypertension Hypertension type: essential hypertension Qualified Code(s): I10 - Essential (primary) hypertension
[2019-04-14] MEDS: lisinopriL 5 MG TAB PO SCH (10:59)
[2019-04-14] MEDS: carvediloL 6.25 MG TAB PO SCH ×2 (10:59→21:20)
--- NOTE | 2019-04-14 13:25 | XCELERA ---
[id number] [id number]
--- NOTE | 2019-04-14 14:07 | Internal Medicine Consult Note ---
Date of Consultation April 14, 2019 Assessment & Plan (1) Encounter for rehabilitation evaluation: I expect he will improve most rapidly in the next month. Once cardiology has completed treatment decisions toward mitigating chances of recurrent event, he would benefit from intensive PT/OT and Speech therapy which is best provided in the rehab hospital environment. History of Present Illness Reason for Consultation: Rehab Hospital Evaluation Attending Physician: Monica Drummond MD History of Present Illness Case reviewed and patient evaluated today. Cardiac arrest with anoxic brain injury. Cardiology evaluation and treatment plans continue. Anticipated organ dysfunction as result of the arrest improving. He requires a 1:1 sitter at this time. Allergies Allergy/AdvReac Type Severity Reaction Status Date / Time No Known Allergies Allergy Unverified 05/23/15 17:40 Home Medications Home Medications Medication Instructions Recorded Confirmed Type lisinopril [Prinivil] 20 mg PO DAILY 04/08/19 04/08/19 History Patient History Medical History (Updated 04/14/19 @ 14:05 by Xavier Montgomery MD) Hypertension Sudden cardiac arrest Surgical History (Updated 04/08/19 @ 13:11 by Rosa Garcia DO) History of appendectomy Family History (Updated 04/08/19 @ 13:12 by Rosa Garcia DO) Other Cancer Coronary heart disease Diabetes Social History (Updated 04/08/19 @ 13:12 by Rosa Garcia DO) Preferred Language: Japanese Communication Ability: Unable Last Puller Required: No Beliefs That Will Affect Care: None Current Living Situation: Family current occupational status: employed Smoking Status: Current every day smoker Tobacco Type: cigarettes ; Hx Alcohol Use: No Hx Substance Use: No Review of Systems Review of Systems: negative Physical Exam Physical Exam: Vitals reviewed Awake and alert...struggling to remember events. Conversant. Impulsive. HEENT--no acute issues Cardio--volume status is ok Pulmonary--comfortable GI-functional Neuro--no focal deficit Psych--consistent with anoxic injury Results & Data Vital Signs (Past 12 Hours) Vital Signs Temp Pulse Pulse Resp BP Pulse Ox 04/14/19 11:31 36.7 C 64 20 172/92 H 95 04/14/19 07:04 37.1 C 74 18 172/91 H 94 04/14/19 07:00 75 04/14/19 02:34 36.7 C 72 20 156/88 H 94
[2019-04-14] MEDS: MAGNESIUM OXIDE 400 MG TAB PO SCH (21:20)
[2019-04-15] MEDS: HEPARIN SOD 5,000 UNIT/0.5 ML VIAL SQ SCH ×3 (06:19→21:51)
--- NOTE | 2019-04-15 06:35 | Hospitalist Progress Note ---
Date of Service April 14, 2019 Assessment & Plan (1) Sudden cardiac arrest: This patient is a 43-year-old male with history of hypertension presenting from outside hospital status post out of hospital arrest with ROSC, patient transferred to [facility] for post cardiac arrest care therapeutic cooling As per witness, the patient collapsed suddenly, he was laying on the ground, making a gurgling sound and he had urinary incontinence EMS was called immediately, they were 5 minutes away no CPR was done for approximately 5 minutes because he was still breathing, but was in complete arrest when EMS arrived CPR was initiated by EMS and he received 2 shocks from AED and a dose of epinephrine before ROSC was achieved-verbal report from EMS to case management was that he had a V. fib arrest and then was in atrial fibrillation after ROSC achieved -Awaiting faxed official EMS reports to get more details on his rhythm-Case management is involved with this -unclear etiology as there was no significant coronary disease, continue to monitor for arrhythmia (none yet) given the low EF, however his EF is now returned to normal -treated with hypothermic protocol until 1am on 04/10, successfully rewarmed -self extubated on 04/11 in the morning and 10 used to be oxygenating well on room air -appreciate cardiology consult, certainly considering ICD prior to discharge if neurologically intact-his mental status is much improved today -Consider brain MRI if able to cooperate and does not improve-but seems to be improving today, no focal neurological deficits other than decreased cognition -Continue one-on-one sitter as needed -Continue Voltaren gel for musculoskeletal pain related to CPR, continue Tylenol, check rib series in the morning (2) CAD (coronary artery disease): moderate, non-occlusive on cath shortly after arrival no evidence of acute NC -Started aspirin, statin, beta-eugenio (3) Cardiomyopathy: Echocardiogram with LVEF 30-35% with global hypokinesis throughout sparing the basal segments, with moderate LVH, possible mildly reduced RV function as well Repeat limited echocardiogram on 04/14 now with severe LVH and preserved LVEF-his function has returned Likely just had stunned myocardium after the code accounting for the previously low EF -Defer to cardiology to determine if needs ICD versus life vest prior to discharge -Started Toprol-XL but now switched to carvedilol as per cardiology for improved blood pressure control-started carvedilol 6.25 mg p.o. twice daily -Restart home lisinopril at a lower dose of 5 mg daily as creatinine still trending downward from acute kidney injury can titrate up if renal function okay -Pulmonary recommending outpatient sleep study after discharge (4) Shock liver: in setting of cardiac arrest-shock liver versus primary hepatic etiology AST increased to 228 and now continues to be trending back down, LFTs otherwise normal -Follow LFTs especially now that starting on statin (5) TIAN (acute kidney injury): due to cardiac arrest Cr peaked at 1.85 but now improved 1.44, making adequate urine -Follow repeat BMP in the morning -Avoid nephrotoxins-avoid NSAIDs -Okay to restart lisinopril as above (6) Cardiogenic shock: due to cardiac arrest with evidence of TIAN, shock liver, elevated troponin now off of vasopressors extubated Blood pressures are quite elevated and improving now with starting antihypertensives as above No evidence of volume overload initial echo with reduced EF as above now improved (7) Hypertension: prior to admission he was prescribed Lisinopril for hypertension -Initially held lisinopril due to acute kidney injury as above now restarted Started Toprol but now switched to carvedilol today -Follow blood pressures -Give hydralazine 10 mg IV every 6 hours PRN (8) Aspiration into airway: With infiltrate noted in the right upper lobe by pulmonary although radiology here is not commenting on this Was on Unasyn x4 days which was then discontinued by regional project manager x1 day -Procalcitonin was elevated initially but in the setting of acute kidney injury Sputum culture growing Streptococcus pneumoniae -Given cough, positive sputum culture --> restarted Augmentin 875 mg p.o. twice daily to finish out a 7-day course on (9) Elevated troponin: Troponin peaked at 16 secondary to cardiac arrest and then trended downward to 2 Cardiac catheterization with moderate nonobstructive CAD Secondary to ischemia from CPR/cardiac arrest -Started aspirin, statin, beta-eugenio as above (10) Urinary retention: Requiring straight catheterization x2 since [place] catheter removed, now seems to be voiding better -Continue to follow bladder scan -Consider starting Flomax if continues (11) GERD (gastroesophageal reflux disease): Continue PPI (12) Open wound, hand: Appears to be a blister-patient unclear on history of this but says it has something to do with his work Mild erythema and mild open area with scant serous drainage -Consult wound care nurse appreciated-patient continues to remove the dressing that has been placed 3 or 4 times today as per nursing (13) DVT prophylaxis: Heparin SQ, SCDs Disposition-remain hospitalized on PCU PT/OT evaluations recommending acute rehab Case management is involved Not ready for discharge yet-awaiting decision on ICD as per cardiology Admission and Anticipated Discharge Date Admission Date: April 08, 2019 Anticipated date of discharge: 04/16/19 Subjective Patient is more conversive today. He states "my coworker told me that I was hanging drywall and I just dropped." He is still having pain in the ribs with deep breath and with coughing but it is improved with Voltaren gel and Tylenol. Is eating well, no nausea or vomiting. No headache. No shortness of breath. I discussed the case with cardiology today. Case management was able to discuss his case with the EMT that took care of him that night and gave a verbal report over the phone that he did have a ventricular fibrillation arrest and after he achieved ROSC, was then in atrial fibrillation. The EMS is going to be faxing over the strips from his arrest. He is ambulating today with someone close by for assistance as per his girlfriend. Review of Systems Review of Systems: All systems reviewed & are unremarkable except as noted in HPI & below Physical Exam Constitutional: WD/WN, vitals as above + obese Eyes: + anicteric sclerae and EOM intact bilaterally ENMT: Ears: no hearing impairment Neck: trachea midline, no thyromegaly Respiratory: normal respiratory effort (But splinting due to pain with deep inspiration) Auscultation: + diminished lung sounds (At the bases); no crackles, no rhonchi and no wheezes Cardiovascular: RRR, no murmur, no edema Chest (Breasts): Chest: normal inspection of chest (Positive tenderness to palpation over sternum and ribs anteriorly) Gastrointestinal (Abdomen): normal bowel sounds, soft, nontender, no hepatosplenomegaly Musculoskeletal: Extremities: extremities normal to inspection; no cyanosis and no clubbing Skin: no rashes, warm and dry + wound (Left palm with blister and open wound with scant serous drainage and mild erythema) Neurologic: moves all extremities and awake; no focal motor deficits Speech / Cognition: + abnormal cognition (Oriented to person place and time, can name the months of year backwards except misses 3 months and needs a reminder once); normal speech Motor/Sensory: no tremor Psychiatric: Orientation: cooperative Affect: + flat affect Lymphatic: no lymphedema Results & Data ([facility]) Vital Signs (Past 12 Hours) Vital Signs Temp Pulse Pulse Resp BP BP Pulse Ox 04/15/19 05:24 36.7 C 71 20 124/74 92 04/14/19 22:59 37.0 C 85 19 153/85 H 93 04/14/19 21:11 37.2 C 72 20 168/99 H 96 04/14/19 18:55 36.8 C 73 20 148/90 H 95 Laboratory Results Labs reviewed PG Care Time/CCT Total # of Minutes Spent Total Time Spent with Patient: Total time spent is greater than 50% in coordination of care (as documented) at patient's floor/unit and/or counseling patient: Coding Level of Care Code 58848 Subseq Hosp Care Lvl 3 Diagnoses Sudden cardiac arrest I46.9 CAD (coronary artery disease) I25.10 Cardiomyopathy I42.9 Shock liver K72.00 TIAN (acute kidney injury) N17.9 Cardiogenic shock R57.0 Hypertension I10 Hypertension type: essential hypertension Aspiration into airway T17.908A Elevated troponin R79.89 Urinary retention R33.9 GERD (gastroesophageal reflux disease) K21.9 Open wound, hand S61.409A DVT prophylaxis Z29.9 (1) Hypertension Hypertension type: essential hypertension Qualified Code(s): I10 - Essential (primary) hypertension
[2019-04-15 07:16] LABS: Basophils # (auto) 0.03 K/uL (0-0.2); Basophils % (auto) 0.2 %; Eosinophils # (auto) 0.46 K/uL (0-0.5); Eosinophils % (auto) 3.1 %; Hematocrit (blood only) 41.5 % (42-52); Hemoglobin 14.8 g/dL (14.0-18.0); Immature Granulocytes # (auto) 0.48 K/uL (0.00-0.02); Immature Granulocytes % (auto) 3.3 %; Lymphocytes # (auto) 2.23 K/uL (1.2-3.4); Lymphocytes % (auto) 15.2 %; Mean Corpuscular Hemoglobin 32.2 pg (25-34); Mean Corpuscular Hgb Conc 35.7 g/dL (32-36); Mean Corpuscular Volume 90.4 fL (80-100); Mean Platelet Volume 10.3 fL (7.4-10.4); Monocytes # (auto) 1.23 K/uL (0.11-0.59); Monocytes % (auto) 8.4 %; Neutrophils # (auto) 10.27 K/uL (1.4-6.5); Neutrophils % (auto) 69.8 %; Platelet Count 195 K/uL (130-400); RDW Coefficient of Variation 12.6 % (11.5-14.5); RDW Standard Deviation 41.6 fL (36.4-46.3); Red Blood Count 4.59 M/uL (4.7-6.1)
[2019-04-15 07:45] LABS: Albumin Level 2.8 gm/dl (3.4-5.0); BUN Creatinine Ratio 18.9 (10-20); Creatinine Clr Calc Pharmacy 74.7 ml/min; Est GFR (African American) 65.8; Est GFR (Non-African American) 56.7; Potassium 3.8 mmol/L (3.5-5.1)
[2019-04-15 07:47] LABS: Albumin Globulin Ratio 0.6 (0.9-2); Bilirubin,Total 0.6 mg/dl (0.2-1); Globulin 4.6 gm/dl (2.5-4.0); Total Protein 7.4 gm/dl (6.4-8.2)
--- NOTE | 2019-04-15 09:06 | Cardiology Progress Note ---
Date of Service April 15, 2019 Assessment & Plan (1) Sudden cardiac arrest: (2) CAD (coronary artery disease): (3) Hypertension: (4) Cardiomyopathy: (5) Elevated troponin: ASSESSMENT/PLAN: 1. Cardiac arrest: EMS report reports AD ED shock x3. He is status post hypothermia protocol. Neuro status appears to be improving daily although today he was somnolent and therefore could not completely assess as he did not sleep throughout the night per report. Consideration for ICD with EP. 2. Cardiomyopathy: Likely due to his cardiac arrest as LV systolic function is now normal. Can continue carvedilol and lisinopril. 3. Elevated troponin: Likely secondary to cardiac arrest as he likely became ischemic from the event itself while requiring CPR. 4. Hypertension: Blood pressure was elevated but normal this morning. Continue current regimen. 5. CAD: Nonobstructive. No angina. Has had chest pain throughout the hospital stay, likely due to CPR. Continue beta-eugenio, aspirin, and high- intensity statin therapy. 6. Disposition: Possible ICD as per EPDr. Jaime. Admission and Anticipated Discharge Date Admission Date: April 08, 2019 Anticipated date of discharge: 04/16/19 Subjective He apparently did not sleep overnight. He then fell asleep earlier this morning and has been sleeping since then. A 1-1 was present at the bedside. She reported that his mental status continues to improve. He was awakened by verbal stimuli and denies chest pain or shortness of breath this morning. He then went back to sleep. No family present at the bedside. Review of systems: As above. Physical Exam Physical Exam: Gen.: Somnolent but arousable on verbal stimuli. HEENT: Anicteric sclera. Neck: Thick neck. No appreciable JVD. Cardiac: No ventricular heave. Regular. Normal S1-S2. 1/6 systolic murmur. No rubs, or gallops. Pulmonary: Clear on anterior auscultation. Abdomen: Soft, nondistended, with normo-active bowel sounds. No bruits noted. Extremities: 2+ radial pulses bilaterally. 2+ dorsalis pedis pulses bilaterally. No edema or cyanosis. Results & Data ([facility]) Vital Signs (Past 12 Hours) Vital Signs Temp Pulse Pulse Resp BP BP Pulse Ox 04/15/19 07:49 36.9 C 67 20 110/72 93 04/15/19 07:37 72 04/15/19 05:24 36.7 C 71 20 124/74 92 04/14/19 22:59 37.0 C 85 19 153/85 H 93 04/14/19 21:11 37.2 C 72 20 168/99 H 96 Intake & Output 04/13/19 04/14/19 04/15/19 04/16/19 06:59 06:59 06:59 06:59 Intake Total 3568 / 3568 2525 / 2525 2260 / 2260 Output Total 1752 / 1752 2731 / 2731 501 / 501 Balance 1816 / 1816 -206 / -206 1759 / 1759 Weight 104.7 kg 104.7 kg Laboratory Results Laboratory Results - last 24 hr 04/15/19 04/15/19 04/15/19 06:47 06:47 07:47 WBC 14.70 H RBC 4.59 L Hgb 14.8 Hct 41.5 L MCV 90.4 MCH 32.2 MCHC 35.7 RDW Std Deviation 41.6 RDW Coeff of Paddy 12.6 Plt Count 195 MPV 10.3 Immature Gran % (Auto) 3.3 Neut % (Auto) 69.8 Lymph % (Auto) 15.2 [place] % (Auto) 8.4 Eos % (Auto) 3.1 Baso % (Auto) 0.2 Immature Gran # (Auto) 0.48 H Neut # (Auto) 10.27 H Lymph # (Auto) 2.23 [place] # (Auto) 1.23 H Eos # (Auto) 0.46 Baso # (Auto) 0.03 Sodium 136 Potassium 3.8 Chloride 104 Carbon Dioxide 25 Anion Gap 7.0 BUN 28 H Creatinine 1.48 H Est Cr Clr Drug Dosing 74.7 Est GFR ( Amer) 65.8 Est GFR (Non-Af Amer) 56.7 BUN/Creatinine Ratio 18.9 Glucose 122 H POC Glucose 123 H Calcium 9.0 Total Bilirubin 0.6 AST 47 H ALT 33 Alkaline Phosphatase 64 Total Protein 7.4 Albumin 2.8 L Globulin 4.6 H Albumin/Globulin Ratio 0.6 L Diagnostic Findings Telemetry personally reviewed: Sinus rhythm. No arrhythmia. Echo 04/14/2019: Normal LV size, wall motion, systolic function. EF 65-70%. Severe concentric LVH. Medications Administered Current Inpatient Medications Acetaminophen (Tylenol) 1,000 mg PO Q8H PRN PRN Reason: Pain Stop: 05/12/19 11:59 Last Admin: 04/13/19 17:40 Dose: 1,000 mg Documented by: Albuterol (Duoneb) 3 ml NEB Q4R PRN PRN Reason: Wheezing Stop: 05/10/19 22:59 Last Admin: 04/11/19 05:35 Dose: 3 ml Documented by: Amoxicillin/Clavulanate Potassium (Augmentin 875mg) 1 tab PO BIDM [facility] Stop: 04/20/19 10:29 Last Admin: 04/14/19 17:14 Dose: 1 tab Documented by: Aspirin (Ecotrin Ectab) 81 mg PO QAM [facility] Stop: 05/12/19 09:44 Last Admin: 04/14/19 08:24 Dose: 81 mg Documented by: Atorvastatin Calcium (Lipitor) 40 mg PO DAILY [facility] Stop: 05/12/19 09:59 Last Admin: 04/14/19 08:23 Dose: 40 mg Documented by: Carvedilol (Coreg) 6.25 mg PO BID [facility] Stop: 05/14/19 08:59 Last Admin: 04/14/19 21:20 Dose: 6.25 mg Documented by: Diclofenac Sodium (Voltaren 1% Top) 4 gm EXT QID PRN PRN Reason: pain Stop: 05/13/19 20:59 Last Admin: 04/14/19 15:10 Dose: 4 gm Documented by: Heparin Sodium (Porcine) (Heparin Sodium (Porcine)) 5,000 units SQ Q8 [facility] Stop: 05/08/19 21:59 Last Admin: 04/15/19 06:19 Dose: Not Given Documented by: Hydralazine HCl (Hydralazine Hcl) 10 mg IV Q6H PRN PRN Reason: SBP>180 or DBP>110 Stop: 05/13/19 07:29 Lisinopril (Zestril) 5 mg PO QAM [facility] Stop: 05/14/19 10:29 Last Admin: 04/14/19 10:59 Dose: 5 mg Documented by: Magnesium Oxide (Mag-Ox) 400 mg PO HS [facility] Stop: 05/12/19 20:59 Last Admin: 04/14/19 21:20 Dose: 400 mg Documented by: Miscellaneous (Remove Nicoderm Patch) 1 ea N/A DAILY@0859 [facility] Stop: 05/14/19 08:58 Last Admin: 04/14/19 08:24 Dose: 1 ea Documented by: Nicotine (Nicoderm Cq) 14 mg TD [facility] Stop: 05/13/19 17:59 Last Admin: 04/14/19 08:24 Dose: 14 mg Documented by: Ondansetron HCl (Zofran) 4 mg IV Q6H PRN PRN Reason: Nausea Stop: 05/13/19 14:32 Pantoprazole Sodium (Protonix) 40 mg PO [facility] Stop: 05/13/19 08:59 Last Admin: 04/14/19 08:23 Dose: 40 mg Documented by: PG Care Time/CCT Total # of Minutes Spent Total Time Spent with Patient: Total time spent is greater than 50% in coordination of care (as documented) at patient's floor/unit and/or counseling patient: Coding Level of Care Code 00028 Subseq Hosp Care Lvl 3 Diagnoses Sudden cardiac arrest I46.9 CAD (coronary artery disease) I25.10 Hypertension I10 Hypertension type: essential hypertension Cardiomyopathy I42.9 Elevated troponin R79.89 (1) Hypertension Hypertension type: essential hypertension Qualified Code(s): I10 - Essential (primary) hypertension
[2019-04-15] MEDS: NICOTINE 14 MG/24 HR PATCH TD SCH (09:38)
--- NOTE | 2019-04-15 09:41 | XRay Report ---
XR ribs BI min 4V w CXR1V CLINICAL HISTORY: s/p CPR, bilateral rib pain COMPARISON STUDY: Chest 04/11/2019. FINDINGS: No pneumothorax. No pleural effusions. The heart remains mildly enlarged. A few bibasilar l inear densities consistent with subsegmental atelectasis. Mild diffuse interstitial thickening, uncha nged. This is likely chronic. No new focal lung consolidations to suggest pneumonia. No evidence for pulmonary edema. Subtle deformity within the anterior bilateral fifth and sixth ribs. This may repres ent nondisplaced fractures. IMPRESSION: Possible nondisplaced fractures within the bilateral anterior fifth and sixth ribs. No p neumothorax. ACT 112: Negative or not required by law. Electronically signed by: Alonso Sarkar M.D. 04/15/2019 9:40 AM
[2019-04-15] MEDS: lisinopriL 5 MG TAB PO SCH (09:42)
[2019-04-15] MEDS: ATORVASTATIN 40 MG TAB PO SCH (09:42)
[2019-04-15] MEDS: ASPIRIN 81 MG ECTAB PO SCH (09:42)
[2019-04-15] MEDS: carvediloL 6.25 MG TAB PO SCH ×2 (09:42→21:51)
[2019-04-15] MEDS: AMOXICILLIN/CLAVULANATE 875 MG TAB PO SCH ×2 (09:42→16:54)
[2019-04-15] MEDS: PANTOprazole 40 MG TAB PO SCH (09:43)
--- NOTE | 2019-04-15 14:07 | Hospitalist Progress Note ---
Date of Service April 15, 2019 Assessment & Plan (1) Sudden cardiac arrest: This patient is a 43-year-old male with history of hypertension presenting from outside hospital status post out of hospital arrest with ROSC, patient transferred to [facility] for post cardiac arrest care therapeutic cooling As per witness, the patient collapsed suddenly, he was laying on the ground, making a gurgling sound and he had urinary incontinence EMS was called immediately, they were 5 minutes away no CPR was done for approximately 5 minutes because he was still breathing, but was in complete arrest when EMS arrived-EMS reports he had agonal respirations and copious secretions CPR was initiated by EMS and he received 4 shocks from AED for VFib and a dose of epinephrine before ROSC was achieved at which point he was in Afib as per EMS faxed report -unclear etiology as there was no significant coronary disease, continue to monitor for arrhythmia (none yet) given the low EF, however his EF is now returned to normal -treated with hypothermic protocol until 1am on 04/10, successfully rewarmed -QT not prolonged on outside ECG, but then prolonged here while being cooled -repeat ECG today -self extubated on 04/11 in the morning and 10 used to be oxygenating well on room air -appreciate cardiology consult, certainly considering ICD prior to discharge if neurologically intact-his mental status is much improved today--> will discuss with Cardiology -will check brain MRI today for cognitive deficits -Continue one-on-one sitter as needed -Continue Voltaren gel for musculoskeletal pain related to CPR, continue Tylenol and switch to scheduled dosing for rib fractures (2) CAD (coronary artery disease): moderate, non-occlusive on cath shortly after arrival no evidence of acute NV -Started aspirin, statin, beta-eugenio (3) Cardiomyopathy: Echocardiogram with LVEF 30-35% with global hypokinesis throughout sparing the basal segments, with moderate LVH, possible mildly reduced RV function as well Repeat limited echocardiogram on 04/14 now with severe LVH and preserved LVEF-his function has returned Likely just had stunned myocardium after the code accounting for the previously low EF -Defer to cardiology to determine if needs ICD versus life vest prior to discharge -Started Toprol-XL but then switched to carvedilol as per cardiology for improved blood pressure control-started carvedilol 6.25 mg p.o. twice daily -Restarted home lisinopril at a lower dose of 5 mg daily as creatinine still trending downward from acute kidney injury can titrate up if renal function okay -Pulmonary recommending outpatient sleep study after discharge (4) Shock liver: in setting of cardiac arrest-shock liver versus primary hepatic etiology AST increased to 228 and now continues to be trending back down, LFTs otherwise normal -Follow LFTs especially now that starting on statin (5) TIAN (acute kidney injury): due to cardiac arrest Cr peaked at 1.85 but now improved 1.4, making adequate urine -Follow repeat BMP in the morning -Avoid nephrotoxins-avoid NSAIDs -have since restarted lisinopril as above (6) Cardiogenic shock: due to cardiac arrest with evidence of TIAN, shock liver, elevated troponin now off of vasopressors extubated Blood pressures were then quite elevated and now much improved with starting antihypertensives as above No evidence of volume overload initial echo with reduced EF as above now improved (7) Hypertension: prior to admission he was prescribed Lisinopril for hypertension -Initially held lisinopril due to acute kidney injury as above now restarted -continue carvedilol 6.25mg po bid -Follow blood pressures -Give hydralazine 10 mg IV every 6 hours PRN (8) Aspiration into airway: With infiltrate noted in the right upper lobe by pulmonary although radiology here is not commenting on this Was on Unasyn x4 days which was then discontinued by fishing instructor x1 day -Procalcitonin was elevated initially but in the setting of acute kidney injury Sputum culture growing Streptococcus pneumoniae -Given cough, positive sputum culture --> restarted Augmentin 875 mg p.o. twice daily to finish out a 7-day course on Leukocytosis still persists but remains afebrile, cough improving CXR 04/15 still with hazy opacity RUL (9) Elevated troponin: Troponin peaked at 16 secondary to cardiac arrest and then trended downward to 2 Cardiac catheterization with moderate nonobstructive CAD Secondary to ischemia from CPR/cardiac arrest -Started aspirin, statin, beta-eugenio as above (10) Urinary retention: Requiring straight catheterization x2 since [place] catheter removed, now seems to be voiding better -Continue to follow bladder scan (11) GERD (gastroesophageal reflux disease): Continue PPI (12) Open wound, hand: Appears to be a blister-patient unclear on history of this but says it has something to do with his work Mild erythema and mild open area with scant serous drainage -Consult wound care nurse appreciated-patient continues to remove the dressing but with improved mentation today, he agrees to keep it in place (13) Rib fractures: bilat anterior 5-6th anterior rib fractures Pain control with scheduled tylenol, voltaren gel (14) DVT prophylaxis: Heparin SQ, SCDs Disposition-remain hospitalized on PCU PT/OT evaluations recommending acute rehab Case management is involved Not ready for discharge yet-awaiting decision on ICD as per cardiology Admission and Anticipated Discharge Date Admission Date: April 08, 2019 Anticipated date of discharge: 04/16/19 Subjective Pt having some pain in ribs, still coughing up some sputum but not as much. Pain is better. No SOB. Is moving bowels today x 1, loose. Making urine. Denies headache. Girlfriend at bedside reports he did have an episode of dizziness and lightheadedness 2 weeks prior to his arrest where he felt like he was going to pass out. He also had intermittent chest pressure at times that was short-lived. He reports his father has Afib and his GF had heart disease. No sudden cardiac in his family. Review of Systems Review of Systems: All systems reviewed & are unremarkable except as noted in HPI & below Physical Exam Constitutional: WD/WN, vitals as above + obese Eyes: PERRL, conjunctivae normal, anicteric sclerae EOM intact bilaterally (except left eye wandering a bit with medial deviation) ENMT: Ears: no hearing impairment Neck: trachea midline, no thyromegaly Respiratory: normal respiratory effort (But splinting due to pain with deep inspiration) Auscultation: + diminished lung sounds (At the bases); no crackles, no rhonchi and no wheezes Cardiovascular: RRR, no murmur, no edema Gastrointestinal (Abdomen): normal bowel sounds, soft, nontender, no hepatosplenomegaly Musculoskeletal: Extremities: extremities normal to inspection; no cyanosis and no clubbing Skin: no rashes, warm and dry + wound (Left palm with open wound with scant serous drainage and mild erythema) Neurologic: CN's II-XI intact bilaterally, moves all extremities, awake and + confused (at times but improved) Speech / Cognition: + abnormal cognition (Oriented to person place and time, can name the months of year backwards except misses 3 months and needs a reminder once); normal speech Motor/Sensory: no tremor Psychiatric: Orientation: cooperative Affect: + flat affect Lymphatic: no lymphedema Results & Data ([facility]) Vital Signs (Past 12 Hours) Vital Signs Temp Pulse Pulse Resp BP Pulse Ox 04/15/19 11:42 36.8 C 67 18 118/75 95 04/15/19 07:49 36.9 C 67 20 110/72 93 04/15/19 07:37 72 04/15/19 05:24 36.7 C 71 20 124/74 92 Laboratory Results 04/15/19 04/15/19 04/15/19 Range/Units 11:40 07:47 06:47 WBC (4.8-10.8) K/uL RBC (4.7-6.1) M/uL Hgb (14.0-18.0) g/dL Hct (42-52) % MCV (80-100) fL MCH (25-34) pg MCHC (32-36) g/dL RDW Std Deviation (36.4-46.3) fL RDW Coeff of Paddy (11.5-14.5) % Plt Count (130-400) K/uL MPV (7.4-10.4) fL Immature Gran % (Auto) % Neut % (Auto) % Lymph % (Auto) % [place] % (Auto) % Eos % (Auto) % Baso % (Auto) % Immature Gran # (Auto) (0.00-0.02) K/uL Neut # (Auto) (1.4-6.5) K/uL Lymph # (Auto) (1.2-3.4) K/uL [place] # (Auto) (0.11-0.59) K/uL Eos # (Auto) (0-0.5) K/uL Baso # (Auto) (0-0.2) K/uL Sodium 136 (136-145) mmol/L Potassium 3.8 (3.5-5.1) mmol/L Chloride 104 (98-107) mmol/L Carbon Dioxide 25 (21-32) mmol/L Anion Gap 7.0 (3-11) BUN 28 H (7-18) mg/dl Creatinine 1.48 H (0.6-1.4) mg/dl Est Cr Clr Drug Dosing 74.7 ml/min Est GFR ( Amer) 65.8 Est GFR (Non-Af Amer) 56.7 BUN/Creatinine Ratio 18.9 (10-20) Glucose 122 H (70-99) mg/dl POC Glucose 94 123 H (70-99) mg/dl Calcium 9.0 (8.5-10.1) mg/dl Total Bilirubin 0.6 (0.2-1) mg/dl AST 47 H (15-37) U/L ALT 33 (12-78) U/L Alkaline Phosphatase 64 (45-117) U/L Total Protein 7.4 (6.4-8.2) gm/dl Albumin 2.8 L (3.4-5.0) gm/dl Globulin 4.6 H (2.5-4.0) gm/dl Albumin/Globulin Ratio 0.6 L (0.9-2) 04/15/19 Range/Units 06:47 WBC 14.70 H (4.8-10.8) K/uL RBC 4.59 L (4.7-6.1) M/uL Hgb 14.8 (14.0-18.0) g/dL Hct 41.5 L (42-52) % MCV 90.4 (80-100) fL MCH 32.2 (25-34) pg MCHC 35.7 (32-36) g/dL RDW Std Deviation 41.6 (36.4-46.3) fL RDW Coeff of Paddy 12.6 (11.5-14.5) % Plt Count 195 (130-400) K/uL MPV 10.3 (7.4-10.4) fL Immature Gran % (Auto) 3.3 % Neut % (Auto) 69.8 % Lymph % (Auto) 15.2 % [place] % (Auto) 8.4 % Eos % (Auto) 3.1 % Baso % (Auto) 0.2 % Immature Gran # (Auto) 0.48 H (0.00-0.02) K/uL Neut # (Auto) 10.27 H (1.4-6.5) K/uL Lymph # (Auto) 2.23 (1.2-3.4) K/uL Will # (Auto) 1.23 H (0.11-0.59) K/uL Eos # (Auto) 0.46 (0-0.5) K/uL Baso # (Auto) 0.03 (0-0.2) K/uL Sodium (136-145) mmol/L Potassium (3.5-5.1) mmol/L Chloride (98-107) mmol/L Carbon Dioxide (21-32) mmol/L Anion Gap (3-11) BUN (7-18) mg/dl Creatinine (0.6-1.4) mg/dl Est Cr Clr Drug Dosing ml/min Est GFR ( Amer) Est GFR (Non-Af Amer) BUN/Creatinine Ratio (10-20) Glucose (70-99) mg/dl POC Glucose (70-99) mg/dl Calcium (8.5-10.1) mg/dl Total Bilirubin (0.2-1) mg/dl AST (15-37) U/L ALT (12-78) U/L Alkaline Phosphatase (45-117) U/L Total Protein (6.4-8.2) gm/dl Albumin (3.4-5.0) gm/dl Globulin (2.5-4.0) gm/dl Albumin/Globulin Ratio (0.9-2) Diagnostic Findings Rib series xrays reviewed by me and agree with the following report: XR ribs BI min 4V w CXR1V CLINICAL HISTORY: s/p CPR, bilateral rib pain COMPARISON STUDY: Chest 04/11/2019. FINDINGS: No pneumothorax. No pleural effusions. The heart remains mildly enlarged. A few bibasilar linear densities consistent with subsegmental atelectasis. Mild diffuse interstitial thickening, unchanged. This is likely chronic. No new focal lung consolidations to suggest pneumonia. No evidence for pulmonary edema. Subtle deformity within the anterior bilateral fifth and sixth ribs. This may represent nondisplaced fractures. IMPRESSION: Possible nondisplaced fractures within the bilateral anterior fifth and sixth ribs. No pneumothorax. PG Care Time/CCT Total # of Minutes Spent Total Time Spent with Patient: Total time spent is greater than 50% in coordination of care (as documented) at patient's floor/unit and/or counseling patient: Coding Level of Care Code 45200 Subseq Hosp Care Lvl 3 Diagnoses Sudden cardiac arrest I46.9 CAD (coronary artery disease) I25.10 Cardiomyopathy I42.9 Shock liver K72.00 TIAN (acute kidney injury) N17.9 Cardiogenic shock R57.0 Hypertension I10 Hypertension type: essential hypertension Aspiration into airway T17.908A Elevated troponin R79.89 Urinary retention R33.9 GERD (gastroesophageal reflux disease) K21.9 Open wound, hand S61.409A Rib fractures S22.39XA DVT prophylaxis Z29.9 (1) Hypertension Hypertension type: essential hypertension Qualified Code(s): I10 - Essential (primary) hypertension
[2019-04-15] MEDS: ACETAMINOPHEN 500 MG TAB PO SCH ×2 (15:15→21:51)
--- NOTE | 2019-04-15 19:21 | Electrocardiogram Report ---
Test Reason : Blood Pressure : / mmHG Vent. Rate : 064 BPM Atrial Rate : 064 BPM P-R Int : 180 ms QRS Dur : 088 ms QT Int : 402 ms P-R-T Axes : 011 -32 038 degrees QTc Int : 414 ms Normal sinus rhythm Left axis deviation Abnormal ECG When compared with ECG of 10-APR-2019 07:14, Criteria for Inferior infarct are no longer Present Nonspecific T wave abnormality no longer evident in Inferior leads T wave inversion no longer evident in Anterolateral leads QT has shortened Confirmed by Niko Jaime ([id number]) on 04/15/2019 7:21:13 PM Referred By: REFERRED SELF Confirmed By:Ze Jaime
[2019-04-15] MEDS: MAGNESIUM OXIDE 400 MG TAB PO SCH (21:51)
[2019-04-16] MEDS: HEPARIN SOD 5,000 UNIT/0.5 ML VIAL SQ SCH ×3 (06:14→20:05)
[2019-04-16] MEDS: ACETAMINOPHEN 500 MG TAB PO SCH ×3 (06:15→21:49)
--- NOTE | 2019-04-16 06:33 | Magnetic Resonance Report ---
MR brain wo con HISTORY: Mental status change. Cardiac arrest. s/p cardiac arrest, cognitive impairment TECHNIQUE: Multiplanar multisequence MRI of the brain was performed without the use of contrast. COMPARISON STUDY: None. FINDINGS: There are no areas of restricted diffusion to suggest acute infarction. The midline structu res are intact. The paranasal sinuses are clear. The mastoid air cells are clear. The ventricles and sulci are within normal limits for age. There is no mass, hematoma, midline shift. The major vascular flow-voids at the skull base are well maintained. IMPRESSION: No acute intracranial abnormality. ACT 112: Negative or not required by law. The above report was generated using voice recognition software. It may contain grammatical, syntax or spelling errors. Electronically signed by: Joe Tillman M.D. 04/16/2019 6:31 AM
[2019-04-16 06:53] LABS: Albumin Level 2.5 gm/dl (3.4-5.0); BUN Creatinine Ratio 20.7 (10-20); Creatinine Clr Calc Pharmacy 81.3 ml/min; Est GFR (African American) 72.8; Est GFR (Non-African American) 62.8; Magnesium 2.2 mg/dl (1.8-2.4); Potassium 3.9 mmol/L (3.5-5.1)
[2019-04-16 06:56] LABS: Albumin Globulin Ratio 0.5 (0.9-2); Bilirubin,Total 0.5 mg/dl (0.2-1); Globulin 4.6 gm/dl (2.5-4.0); Total Protein 7.1 gm/dl (6.4-8.2)
[2019-04-16] MEDS ORDERED: MIDAZOLAM HCL 5 MG/ML 1 ML VIAL ONE (09:47)
[2019-04-16] MEDS ORDERED: CEFAZOLIN 250 MG/ML 1 GM VIAL ONE (09:47)
[2019-04-16] MEDS ORDERED: fentaNYL citrate 100 MCG/2 ML VIAL ONE (09:47)
[2019-04-16] MEDS ORDERED: BACITRACIN INJ 50,000 UNIT VIAL ONE (09:53)
[2019-04-16] MEDS ORDERED: BUPIVACAINE 0.25% 30 ML VIAL ONE (09:53)
[2019-04-16] MEDS ORDERED: LIDOCAINE HCL 1% 20 ML VIAL ONE (09:53)
--- NOTE | 2019-04-16 10:22 | Pre Anesthesia Assessment ---
Date of Service April 16, 2019 Pre Sedation Assessment Vital Signs Temp Pulse Pulse Pulse Resp BP Pulse Ox 04/16/19 07:24 36.6 C 70 18 143/79 H 95 04/15/19 22:55 36.8 C 79 19 127/63 94 04/15/19 19:04 36.6 C 69 20 123/74 95 04/15/19 15:00 69 04/15/19 14:49 36.6 C 66 18 128/70 96 04/15/19 11:42 36.8 C 67 18 118/75 95 Cardiovascular + regular rate Respiratory + respiratory effort normal Pre-Sedation Airway Assessment Smoking Status: Current every day smoker Hx Sleep Apnea: No Hx Difficult Intubation: No Short, Thick Neck: No Thyromental Distance: > or= 3.5 Finger Breadths Oral Cavity: + WNL Mallampati Class: IV ASA: ASA3 NPO Status Date of Last Intake of Fluids: 04/15/19 Time of Last Intake of Fluids: 21:00 Date of Last Intake of Solid Food: 04/15/19 Time of Last Intake of Solid Foods: 18:00 Procedure Planning Contraindications for Sedation: none Current Medications Reviewed: Yes Notes The planned sedation has been discussed with the patient. Informed Consent was obtained. I have identified the patient, determined the appropriateness of sedation and have assessed the patient immediately prior to the procedure. All medicine(s) and interventions are by my order.
[2019-04-16] MEDS ORDERED: OXYCODONE HCL IR 5 MG TAB (IMMEDIATE RELEASE) PO PRN (10:59)
[2019-04-16] MEDS ORDERED: ACETAMINOPHEN 325 MG TAB PO PRN (10:59)
--- NOTE | 2019-04-16 11:06 | Electrophysiology Report ---
Date of Service April 16, 2019 Electrophysiology Procedure Electrophysiology Procedure Report Procedure performed: Implantation of single-chamber ICD Staff power crane operator: Niko Jaime MD Indication: The patient is a 43-year-old gentleman who suffered an out of hospital cardiac arrest. Rhythm at the time of evaluation was documented to be ventricular fibrillation. An ICD was recommended as secondary prevention against sudden cardiac . Procedure in detail: The patient was informed of the risks benefits and alternatives to the intended procedure and she wished to proceed. He was taken to the electrophysiology suite in a fasting state. A preoperative antibiotic had been administered. The patient was monitored electrocardiographically throughout today's procedure and conscious sedation was administered per protocol. The left upper pectoral area is prepped and draped in usual sterile fashion. This area was anesthetized using subcutaneous administration of a xylocaine solution. An incision was made at this site and carried down to the prepectoralis fascia using sharp dissection. Electrocautery was also employed for dissection as well as for hemostasis. A device pocket was fashioned tissues above the pectoralis muscle. Limited left axillary venography was performed in order to identify a suitable target. Subsequent to this maneuver the left axillary vein was accessed using modified Seldinger technique. Sheath was placed over guidewire at this site and used facilitate passage of the ICD lead to the right ventricular apex under fluoroscopic guidance. Adequate sensing and threshold parameters were obtained prior to active fixation of the lead to the endocardial surface. The proximal portion of the lead was then sutured to the prepectoralis fascia using nonabsorbable suture. The device pocket was irrigated with antibiotic solution. The lead was then attached to the device. The device and lead were then placed in the pocket and pocket was closed in 3 layers of absorbable suture. Steri- Strips and sterile dressing were applied. The device was tested noninvasively prior to conclusion the procedure. The patient tolerated procedure well there no immediate complications. Equipment used: New pulse generator: [employer]. Model number: DV FB 1 D4 serial number [id number] Right ventricular lead: Water [employer]ic [employer]. Model number: 6935M serial number [id number] Measured data: Right ventricular lead: R waves measured 14.0 mV. Pacing threshold is 1 V at 0.4 ms with a paced impedance of 456 ohms Impression: Successful implantation of single-chamber ICD [facility] Electrophysiology codes ICD Procedure 1: ICD: 36108 Insert single or dual ICD system PG Moderate Sedation Codes Moderate Sedation Codes Procedure 1: Sedation/Anesthesia: 22000 Mod Sedation by the same physician;Init15 Min Child Age 5 & Up Procedure 2: Sedation/Anesthesia: 05676 Mod Sedation by the same physician; Ea [id number] Minutes
--- NOTE | 2019-04-16 11:06 | Post Anesthesia Assessment ---
Date of Service April 16, 2019 Post Sedation Assessment Vital Signs Temp Pulse Pulse Pulse Resp BP Pulse Ox 04/16/19 07:24 36.6 C 70 18 143/79 H 95 04/15/19 22:55 36.8 C 79 19 127/63 94 04/15/19 19:04 36.6 C 69 20 123/74 95 04/15/19 15:00 69 04/15/19 14:49 36.6 C 66 18 128/70 96 04/15/19 11:42 36.8 C 67 18 118/75 95 Recovery Score Activity: Moves 4 extremities Respiration: Deep Breath/Cough Circulation: +/-20% PreAnes Value Consciousness: Fully Awake Oxygen Saturation: > 92% On Room Air Discharge Sedation Level of Care: Fast Track Phase II Post Sedation Plan On clinical assessment, the patient appears to have tolerated the sedation without complications. Patient is recovering as anticipated. Patient will continue to be monitored by nursing and may be discharged when sedation discharge criteria are met per below protocol. Upon Completions of procedure up to 15 minutes continue every 5 minute vital signs and the P.A.R. score; then discharge to a Phase I or Fast Track to Phase II per the following guidelines: * Discharge Patient to appropriate Phase II area if PAR is 8 or greater or return to pre- procedure baseline. The post - procedure orders will be as directed. * If PAR score is less than 8 or not return to pre-procedure baseline then patient will follow Phase I monitoring till PAR is reached for Phase II. The Phase I may be done in procedure room or may call to secure a Phase I area. * If naloxone or flumazenil are used for reversal, hold in Phase I for continued monitoring from when last reversal dose was given for a minimum of 60 minutes or longer pending the nurse and/or physician discretion of patient condition before discharge to Phase II. Please call the Sedation Physician to re-evaluate and complete post-note for discharge to Phase II area. Do NOT discharge from procedure sedation or Phase 1 until post- sedation evaluation note is complete by procedure /sedation MD Sedation Discharge Instructions to be given to the patient at discharge to home.
[2019-04-16] MEDS: lisinopriL 5 MG TAB PO SCH (11:33)
[2019-04-16] MEDS: AMOXICILLIN/CLAVULANATE 875 MG TAB PO SCH ×2 (11:33→17:20)
[2019-04-16] MEDS: ATORVASTATIN 40 MG TAB PO SCH (11:33)
[2019-04-16] MEDS: PANTOprazole 40 MG TAB PO SCH (11:34)
[2019-04-16] MEDS: NICOTINE 14 MG/24 HR PATCH TD SCH ×2 (11:34→22:05)
[2019-04-16] MEDS: ASPIRIN 81 MG ECTAB PO SCH (11:34)
[2019-04-16] MEDS: DICLOFENAC SOD 1% GEL 100 GM TUBE EXT PRN (11:38)
--- NOTE | 2019-04-16 19:39 | Hospitalist Progress Note ---
Date of Service April 16, 2019 Assessment & Plan (1) Sudden cardiac arrest: This patient is a 43-year-old male with history of hypertension presenting from outside hospital status post out of hospital arrest with ROSC, patient transferred to [facility] for post cardiac arrest care therapeutic cooling As per witness, the patient collapsed suddenly, he was laying on the ground, making a gurgling sound and he had urinary incontinence EMS was called immediately, they were 5 minutes away no CPR was done for approximately 5 minutes because he was still breathing, but was in complete arrest when EMS arrived-EMS reports he had agonal respirations and copious secretions CPR was initiated by EMS and he received 4 shocks from AED for VFib and a dose of epinephrine before ROSC was achieved at which point he was in Afib as per EMS faxed report -unclear etiology as there was no significant coronary disease, continue to monitor for arrhythmia (none yet) given the low EF, however his EF is now returned to normal -treated with hypothermic protocol until 1am on 04/10, successfully rewarmed -QT not prolonged on outside ECG, but then prolonged here while being cooled -repeat ECG now with normal QT -self extubated on 04/11 in the morning and 10 used to be oxygenating well on room air -appreciate cardiology consult, s/p ICD placement on 04/16 -brain MRI performed for cognitive deficits, MRI negative -no longer needing 1:1 sitter -Continue Voltaren gel for musculoskeletal pain related to CPR, continue Tylenol scheduled dosing for rib fractures (2) CAD (coronary artery disease): moderate, non-occlusive on cath shortly after arrival no evidence of acute MN -Started aspirin, statin, beta-eugenio -increase Coreg to 12.5mg bid (3) Cardiomyopathy: Echocardiogram with LVEF 30-35% with global hypokinesis throughout sparing the basal segments, with moderate LVH, possible mildly reduced RV function as well Repeat limited echocardiogram on 04/14 now with severe LVH and preserved LVEF-his function has returned Likely just had stunned myocardium after the code accounting for the previously low EF -now s/p ICD placement as above -continue carvedilol and increase to 12.5 mg p.o. twice daily -Restarted home lisinopril at a lower dose of 5 mg daily as creatinine still trending downward from acute kidney injury can titrate up if renal function okay -Pulmonary recommending outpatient sleep study after discharge (4) Shock liver: in setting of cardiac arrest-shock liver versus primary hepatic etiology AST increased to 228 and now continues to be trending back down, LFTs otherwise normal -Follow LFTs and also started on statin (5) TIAN (acute kidney injury): due to cardiac arrest Cr peaked at 1.85 but now improved 1.36, making adequate urine -Follow repeat BMP in the morning -Avoid nephrotoxins-avoid NSAIDs -have since restarted lisinopril as above (6) Cardiogenic shock: due to cardiac arrest with evidence of TIAN, shock liver, elevated troponin on vasopressors in ICU Was intubated and had Arctic cooling protocol Blood pressures were then quite elevated and now much improved with starting antihypertensives as above No evidence of volume overload initial echo with reduced EF as above now improved (7) Hypertension: prior to admission he was prescribed Lisinopril for hypertension -Initially held lisinopril due to acute kidney injury as above now restarted at 5mg daily -continue carvedilol and increase as above to 12.5mg po bid -Follow blood pressures (8) Aspiration into airway: With infiltrate noted in the right upper lobe by pulmonary although radiology here is not commenting on this Was on Unasyn x4 days and now on Augmentin to finish out a 7 day course last dose evening of -Procalcitonin was elevated initially but in the setting of acute kidney injury Sputum culture growing Streptococcus pneumoniae -Leukocytosis still persists but remains afebrile, cough improving CXR 04/15 still with hazy opacity RUL (9) Elevated troponin: Troponin peaked at 16 secondary to cardiac arrest and then trended downward to 2 Cardiac catheterization with moderate nonobstructive CAD Secondary to ischemia from CPR/cardiac arrest -Started aspirin, statin, beta-eugenio as above (10) Urinary retention: Requiring straight catheterization x2 since Mayorga catheter removed, now seems to be voiding better -Continue to follow bladder scan (11) GERD (gastroesophageal reflux disease): Continue PPI (12) Open wound, hand: Appears to be a blister-patient unclear on history of this but says it has something to do with his work Mild erythema and mild open area with scant serous drainage -Consult wound care nurse appreciated-patient continues to remove the dressing but with improved mentation today, he agrees to keep it in place (13) Rib fractures: bilat anterior 5-6th anterior rib fractures Pain control with scheduled tylenol, voltaren gel (14) DVT prophylaxis: Heparin SQ, SCDs Disposition-remain hospitalized on PCU overnight now s/p ICD placement and can likely dc to rehab on Friday PT/OT evaluations recommending acute rehab Case management is involved Admission and Anticipated Discharge Date Admission Date: April 08, 2019 Anticipated date of discharge: 04/17/19 Subjective Pt still having pain "all over" but maybe a little better than yesterday. No SOB, no headache, no nausea but appetite still low. Had ICD implanted today, feeling a little sore at surgical site. I discussed his case with Dr. Jaime of Cardiology. Seems even more conversive today and less confused Tele with sinus arrhythmia, rates 60-70s Review of Systems Review of Systems: All systems reviewed & are unremarkable except as noted in HPI & below Physical Exam Constitutional: WD/WN, vitals as above + obese ENMT: Ears: no hearing impairment Neck: trachea midline, no thyromegaly Respiratory: normal respiratory effort, lungs clear to auscultation normal respiratory effort (But splinting due to pain with deep inspiration) Auscultation: + diminished lung sounds (At the bases); no crackles, no rhonchi and no wheezes Cardiovascular: RRR, no murmur, no edema Chest (Breasts): Chest: + pacemaker (left anterior chest wall with ICD in place, dressing c/d/i) Gastrointestinal (Abdomen): normal bowel sounds, soft, nontender, no hepatosplenomegaly Musculoskeletal: Extremities: extremities normal to inspection; no cyanosis and no clubbing Skin: no rashes, warm and dry Neurologic: moves all extremities and awake Speech / Cognition: normal speech Motor/Sensory: no tremor Psychiatric: Orientation: cooperative Lymphatic: no lymphedema Results & Data ([facility]) Vital Signs (Past 12 Hours) Vital Signs Temp Pulse Pulse Pulse Resp BP Pulse Ox 04/16/19 15:20 36.7 C 69 20 126/79 95 04/16/19 13:45 74 16 134/79 94 04/16/19 13:15 69 141/80 H 94 04/16/19 12:45 72 16 144/84 H 95 04/16/19 12:15 771 H 16 138/77 94 04/16/19 11:45 66 16 143/82 H 95 04/16/19 11:30 36.7 C 66 16 130/90 94 04/16/19 11:05 68 16 143/80 H 92 Laboratory Results 04/16/19 Range/Units 06:10 Sodium 136 (136-145) mmol/L Potassium 3.9 (3.5-5.1) mmol/L Chloride 105 (98-107) mmol/L Carbon Dioxide 24 (21-32) mmol/L Anion Gap 7.0 (3-11) BUN 28 H (7-18) mg/dl Creatinine 1.36 (0.6-1.4) mg/dl Est Cr Clr Drug Dosing 81.3 ml/min Est GFR ( Amer) 72.8 Est GFR (Non-Af Amer) 62.8 BUN/Creatinine Ratio 20.7 H (10-20) Glucose 98 (70-99) mg/dl Calcium 9.0 (8.5-10.1) mg/dl Magnesium 2.2 (1.8-2.4) mg/dl Total Bilirubin 0.5 (0.2-1) mg/dl AST 35 (15-37) U/L ALT 27 (12-78) U/L Alkaline Phosphatase 67 (45-117) U/L Total Protein 7.1 (6.4-8.2) gm/dl Albumin 2.5 L (3.4-5.0) gm/dl Globulin 4.6 H (2.5-4.0) gm/dl Albumin/Globulin Ratio 0.5 L (0.9-2) PG Care Time/CCT Total # of Minutes Spent Total Time Spent with Patient: Total time spent is greater than 50% in coordination of care (as documented) at patient's floor/unit and/or counseling patient: Coding Level of Care Code 78288 Subseq Hosp Care Lvl 3 Diagnoses Sudden cardiac arrest I46.9 CAD (coronary artery disease) I25.10 Cardiomyopathy I42.9 Shock liver K72.00 TIAN (acute kidney injury) N17.9 Cardiogenic shock R57.0 Hypertension I10 Hypertension type: essential hypertension Aspiration into airway T17.908A Elevated troponin R79.89 Urinary retention R33.9 GERD (gastroesophageal reflux disease) K21.9 Open wound, hand S61.409A Rib fractures S22.39XA DVT prophylaxis Z29.9 (1) Hypertension Hypertension type: essential hypertension Qualified Code(s): I10 - Essential (primary) hypertension
[2019-04-16] MEDS: MAGNESIUM OXIDE 400 MG TAB PO SCH (20:03)
[2019-04-16] MEDS: carvediloL 12.5 MG TAB PO SCH (20:04)
[2019-04-16] MEDS: carvediloL 6.25 MG TAB PO SCH (20:28)
[2019-04-17] MEDS: ACETAMINOPHEN 500 MG TAB PO SCH ×2 (06:16→14:13)
[2019-04-17] MEDS: HEPARIN SOD 5,000 UNIT/0.5 ML VIAL SQ SCH ×2 (06:17→14:12)
[2019-04-17 06:32] LABS: Basophils # (auto) 0.02 K/uL (0-0.2); Basophils % (auto) 0.1 %; Eosinophils % (auto) 3.6 %; Hematocrit (blood only) 39.3 % (42-52); Hemoglobin 13.8 g/dL (14.0-18.0); Immature Granulocytes # (auto) 0.25 K/uL (0.00-0.02); Immature Granulocytes % (auto) 1.8 %; Lymphocytes # (auto) 1.82 K/uL (1.2-3.4); Lymphocytes % (auto) 13.1 %; Mean Corpuscular Hemoglobin 32.2 pg (25-34); Mean Corpuscular Hgb Conc 35.1 g/dL (32-36); Mean Corpuscular Volume 91.6 fL (80-100); Mean Platelet Volume 10.5 fL (7.4-10.4); Monocytes # (auto) 0.85 K/uL (0.11-0.59); Monocytes % (auto) 6.1 %; Neutrophils # (auto) 10.43 K/uL (1.4-6.5); Neutrophils % (auto) 75.3 %; Platelet Count 188 K/uL (130-400); RDW Coefficient of Variation 12.7 % (11.5-14.5); RDW Standard Deviation 42.2 fL (36.4-46.3); Red Blood Count 4.29 M/uL (4.7-6.1); White Blood Count 13.87 K/uL (4.8-10.8)
[2019-04-17 07:06] LABS: BUN Creatinine Ratio 18.5 (10-20); Creatinine Clr Calc Pharmacy 88.6 ml/min; Est GFR (African American) 78.4; Est GFR (Non-African American) 67.6; Magnesium 2.1 mg/dl (1.8-2.4); Potassium 4.3 mmol/L (3.5-5.1)
[2019-04-17] MEDS: AMOXICILLIN/CLAVULANATE 875 MG TAB PO SCH (08:21)
[2019-04-17] MEDS: carvediloL 12.5 MG TAB PO SCH (08:23)
[2019-04-17] MEDS: ASPIRIN 81 MG ECTAB PO SCH (08:24)
[2019-04-17] MEDS: lisinopriL 5 MG TAB PO SCH (08:24)
[2019-04-17] MEDS: PANTOprazole 40 MG TAB PO SCH (08:24)
[2019-04-17] MEDS: ATORVASTATIN 40 MG TAB PO SCH (08:24)
[2019-04-17] MEDS: NICOTINE 14 MG/24 HR PATCH TD SCH (08:36)
--- NOTE | 2019-04-17 08:58 | XRay Report ---
TWO VIEW CHEST CLINICAL HISTORY: Pacemaker implantation. FINDINGS: PA and lateral chest radiographs are compared to study dated 04/15/2019. A single lead cardi ac AICD has been placed. This partially obscures the left mid chest. The lead projects over the right ventricle. The heart is mildly enlarged. There is prominence of the pulmonary vasculature. Atelectas is is seen at the lung bases. No pleural effusion is identified. There is no pneumothorax. The bony t horax appears intact. IMPRESSION: 1. A single lead cardiac AICD has been placed as above. No pneumothorax is identified post procedure. 2. Mild cardiac enlargement with prominence of the pulmonary vasculature. Correlate clinically for ev idence of mild congestion ACT 112: Negative or not required by law. Electronically signed by: Alexander Ewing M.D. 04/17/2019 8:57 AM
--- NOTE | 2019-04-17 11:40 | Cardiology Progress Note ---
Date of Service April 17, 2019 Assessment & Plan (1) Sudden cardiac arrest: (2) CAD (coronary artery disease): (3) Hypertension: (4) Cardiomyopathy: (5) Elevated troponin: ASSESSMENT/PLAN: 1. Cardiac arrest: Appears to have involved VFIB. ICD implanted yesterday. Continue BB. OK for discharge from cardiac standpoint. He must keep the wound dry and steri strip intact until f/u next week. NO lifting left arm above shoulder or behind neck for 6 weeks. 2. Cardiomyopathy: Likely due to his cardiac arrest as LV systolic function is now normal. Can continue carvedilol and lisinopril. 3. Elevated troponin: Likely secondary to cardiac arrest as he likely became ischemic from the event itself while requiring CPR. 4. Hypertension: Blood pressure was elevated but normal this morning. Continue current regimen. 5. CAD: Nonobstructive. No angina. Has had chest pain throughout the hospital stay, likely due to CPR. Continue beta-eugenio, aspirin, and high- intensity statin therapy. Subjective Pt complains of some implant site pain. Improving. Still forgetful. Review of Systems Review of Systems: per HPI Physical Exam Physical Exam: The ICD implant site has mild ecchymosis. No significant erythema. No hematoma or drainage. Results & Data Vital Signs (Past 12 Hours) Vital Signs Temp Pulse Pulse Resp BP Pulse Ox 04/17/19 07:40 36.6 C 71 18 116/68 94 04/17/19 04:15 36.7 C 76 18 120/68 94 04/16/19 23:47 72 Laboratory Results Abnormal Lab Results 04/17/19 04/17/19 05:57 05:57 WBC 13.87 H RBC 4.29 L Hgb 13.8 L Hct 39.3 L MCV 91.6 MCH 32.2 MCHC 35.1 RDW Std Deviation 42.2 RDW Coeff of Paddy 12.7 Plt Count 188 MPV 10.5 H Immature Gran % (Auto) 1.8 Neut % (Auto) 75.3 Lymph % (Auto) 13.1 Wirt % (Auto) 6.1 Eos % (Auto) 3.6 Baso % (Auto) 0.1 Immature Gran # (Auto) 0.25 H Neut # (Auto) 10.43 H Lymph # (Auto) 1.82 Wirt # (Auto) 0.85 H Eos # (Auto) 0.50 Baso # (Auto) 0.02 Sodium 135 L Potassium 4.3 Chloride 104 Carbon Dioxide 25 Anion Gap 6.0 BUN 24 H Creatinine 1.28 Est Cr Clr Drug Dosing 88.6 Est GFR ( Amer) 78.4 Est GFR (Non-Af Amer) 67.6 BUN/Creatinine Ratio 18.5 Glucose 93 Calcium 9.0 Magnesium 2.1 Diagnostic Findings Chest xray demonstrates good lead position without PTX Device interrogation reveals good sensing and threshold on the RV lead. (1) Hypertension Hypertension type: essential hypertension Qualified Code(s): I10 - Essential (primary) hypertension
--- NOTE | 2019-04-17 14:30 | Discharge Summary ---
Date of Service April 17, 2019 Admission HPI Per Admitting Provider Patient is a 43yo C male with history of HTN presenting from [facility] s/p out of hospital PEA arrest with ROSC. History obtained from family and co-workers as patient intubated/sedated. Girlfriend and boss report patient has been complaining of some chest pressure for the last two weeks, stating that his "Prilosec isn't working", also with episodes of dizziness and presyncope. His boss reports that patient was not himself this AM, agitated. 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 Found to be pulseless, PEA arrest, CPR initiated in the field. EMT responded quickly and administered epinephrine x 2 with ROSC. Estimated down time = 5 minutes. He was transferred to [facility] with pulse intact. He became pulseless again while at [facility], CPR was initiated and he was administered epi x 1 with ROSC. Patient not following commands. He was intubated at [facility], OGT placed. Left IJ placed and removed. Started on Levophed and Vasopressin. Propofol for sedation. Labs from [facility] significant for WBC=18.1. Cr=1.6 HCO3=19 JRI=454, HND=094, AG=18.6. Per flight crew, VBG of 7.16//18 CXR at OSH confirmed placement of ETT and OGT EKG with accelerated junctional rhythm, LAD, poor R-wave progression Patient transferred to [facility] by air. MORGAN - Shanna Conway (mother) [phone] Discharge Exam Constitutional WD/WN, vitals as above + obese Eyes PERRL, conjunctivae normal, anicteric sclerae EOM intact bilaterally (except left eye wandering a bit with medial deviation) ENMT Ears: no hearing impairment Neck trachea midline, no thyromegaly Respiratory normal respiratory effort, lungs clear to auscultation normal respiratory effort (But splinting due to pain with deep inspiration) Auscultation: + diminished lung sounds (At the bases); no crackles, no rhonchi and no wheezes Cardiovascular RRR, no murmur, no edema Chest (Breasts) Chest: + pacemaker (left anterior chest wall with ICD in place, dressing c/d/i) Gastrointestinal (Abdomen) normal bowel sounds, soft, nontender, no hepatosplenomegaly Musculoskeletal Extremities: extremities normal to inspection; no cyanosis and no clubbing Skin no rashes, warm and dry + wound (Left palm with open wound with scant serous drainage and mild erythema) Neurologic moves all extremities and awake Speech / Cognition: normal speech Motor/Sensory: no tremor Psychiatric Orientation: cooperative Affect: + flat affect Lymphatic no lymphedema Discharge Data Allergies Allergy/AdvReac Type Severity Reaction Status Date / Time No Known Allergies Allergy Unverified 05/23/15 17:40 Consultations 04/08/19 12:37 Consult Case Management - Discharge Planning Routine Consult Underwriting Intern Routine 04/08/19 14:47 Consult Cardiology Routine 04/08/19 16:21 Consult Case Management - Discharge Planning Routine Procedures Performed Operation Date: 04/08/19 14:00 Actual Procedures p Cath, Left with Cors and Vent - Jones Ni MD s Cineradiography w/Routine Exam - Jones Ni MD s Central Venous Placement - Jones Ni MD s Ultrasound Vascular Access - Jones Ni MD Operation Date: 04/16/19 10:00 Actual Procedures p ICD Insertion Single or Dual - Jones Jaime MD Ordered Studies 04/08/19 13:05 CL Cath Imgs for PACS use only Routine 04/08/19 17:02 US venous doppler LE BI Urgent 04/15/19 14:54 MR brain wo con Routine 04/16/19 07:41 CL Cath Imgs for PACS use only Stat Hospital Course (1) Sudden cardiac arrest: This patient is a 43-year-old male with history of hypertension presenting from outside hospital status post out of hospital arrest with ROSC, patient transferred to [facility] for post cardiac arrest care therapeutic cooling As per witness, the patient collapsed suddenly, he was laying on the ground, making a gurgling sound and he had urinary incontinence EMS was called immediately, they were 5 minutes away no CPR was done for approximately 5 minutes because he was still breathing, but was in complete arrest when EMS arrived-EMS reports he had agonal respirations and copious secretions CPR was initiated by EMS and he received 4 shocks from AED for VFib and a dose of epinephrine before ROSC was achieved at which point he was in Afib as per EMS faxed report -unclear etiology as there was no significant coronary disease, continue to monitor for arrhythmia (none yet) given the low EF, however his EF is now returned to normal -treated with hypothermic protocol until 1am on 04/10, successfully rewarmed -QT not prolonged on outside ECG, but then prolonged here while being cooled -repeat ECG now with normal QT -self extubated on 04/11 in the morning and 10 used to be oxygenating well on room air -appreciate cardiology consult, s/p ICD placement on 04/16 -brain MRI performed for cognitive deficits, MRI negative -no longer needing 1:1 sitter -Continue Voltaren gel for musculoskeletal pain related to CPR, continue Tylenol scheduled dosing for rib fractures (2) CAD (coronary artery disease): moderate, non-occlusive on cath shortly after arrival no evidence of acute MD -Started aspirin, statin, beta-eugenio -increase Coreg to 12.5mg bid (3) Cardiomyopathy: Echocardiogram with LVEF 30-35% with global hypokinesis throughout sparing the basal segments, with moderate LVH, possible mildly reduced RV function as well Repeat limited echocardiogram on 04/14 now with severe LVH and preserved LVEF-his function has returned Likely just had stunned myocardium after the code accounting for the previously low EF -now s/p ICD placement as above -continue carvedilol and increase to 12.5 mg p.o. twice daily -Restarted home lisinopril at a lower dose of 5 mg daily as creatinine still trending downward from acute kidney injury can titrate up if renal function okay -Pulmonary recommending outpatient sleep study after discharge (4) Shock liver: in setting of cardiac arrest-shock liver versus primary hepatic etiology AST increased to 228 and now continues to be trending back down, LFTs otherwise normal -Follow LFTs and also started on statin (5) TIAN (acute kidney injury): due to cardiac arrest Cr peaked at 1.85 but now improved 1.36, making adequate urine -Follow repeat BMP in the morning -Avoid nephrotoxins-avoid NSAIDs -have since restarted lisinopril as above (6) Cardiogenic shock: due to cardiac arrest with evidence of TIAN, shock liver, elevated troponin on vasopressors in ICU Was intubated and had Arctic cooling protocol Blood pressures were then quite elevated and now much improved with starting an tihypertensives as above No evidence of volume overload initial echo with reduced EF as above now improved (7) Hypertension: prior to admission he was prescribed Lisinopril for hypertension -Initially held lisinopril due to acute kidney injury as above now restarted at 5mg daily -continue carvedilol and increase as above to 12.5mg po bid -Follow blood pressures (8) Aspiration into airway: With infiltrate noted in the right upper lobe by pulmonary although radiology here is not commenting on this Was on Unasyn x4 days and now on Augmentin to finish out a 7 day course last dose evening of -Procalcitonin was elevated initially but in the setting of acute kidney injury Sputum culture growing Streptococcus pneumoniae -Leukocytosis still persists but remains afebrile, cough improving CXR 04/15 still with hazy opacity RUL (9) Elevated troponin: Troponin peaked at 16 secondary to cardiac arrest and then trended downward to 2 Cardiac catheterization with moderate nonobstructive CAD Secondary to ischemia from CPR/cardiac arrest -Started aspirin, statin, beta-eugenio as above (10) Urinary retention: Requiring straight catheterization x2 since Mayorga catheter removed, now seems to be voiding better -Continue to follow bladder scan (11) GERD (gastroesophageal reflux disease): Continue PPI (12) Open wound, hand: Appears to be a blister-patient unclear on history of this but says it has something to do with his work Mild erythema and mild open area with scant serous drainage -Consult wound care nurse appreciated-patient continues to remove the dressing but with improved mentation today, he agrees to keep it in place (13) Rib fractures: bilat anterior 5-6th anterior rib fractures Pain control with scheduled tylenol, voltaren gel (14) DVT prophylaxis: Heparin SQ, SCDs Disposition-remain hospitalized on PCU overnight now s/p ICD placement and can likely dc to rehab on Friday PT/OT evaluations recommending acute rehab Case management is involved Discharge Plan Discharge Items Patient Disposition: Transfer Inpatient Rehab Fac Reason For Visit: STATUS POST CARDIAC ARREST Discharge Diagnosis: Status post cardiac arrest, Ventricular fibrillation, Moderate non-obstructive CAD Condition on Discharge: Fair Activity: As commented below Lifting: None Lifting Comment: with left arm Bathing: Keep incision dry Driving/Machine Use: No driving Non-emergency contact: Primary Care Provider and Unemployment Claims Adjudicator Call non-emergency contact if: you have any medication questions, your symptoms worsen, your pain is not controlled, your pain is worsening, your pain is unusu al for you, your pain is concerning for you, you have a fever, your temperature is above 101, your wound has increased redness, your wound has increased drainage and your wound pain has increased Follow-up/Referrals: Norbert Rm MD [Physician] - (Follow-up within 1 week) David Venegas PA-C [Primary Care Provider] - Diet: Heart Healthy Addtl Attending Provider Instructions: You were admitted after sustaining cardiac arrest secondary to ventricular fibrillation. It is unclear why this happened. You were resuscitated and hospice home care coordinator led to protect your brain function. You had some temporary damage to your kidneys and liver which improved. Your brain function did improve and you had an MRI of the brain which was normal. You had an implanted cardiac defibrillator placed by the assisted living associate to prevent sudden in the future. Please follow-up with assisted living associate within 1 week after discharge. Instructions for ICD placement: Do not lift your left arm above your head or reach behind your back or do any lifting more than 5 pounds for the next 6 weeks. The dressing can be removed tomorrow and he can shower but do not soak the wound at the ICD site. He was started on carvedilol, his home lisinopril dose was reduced to 5 mg. He was also started on atorvastatin, aspirin, and has 1 more day left of Augmentin for his Streptococcus pneumoniae pneumonia. He can take Tylenol as needed for pain as well as diclofenac gel applied to the site of his broken ribs. Pending Studies at Discharge: No Stand-Alone Forms: My [facility] Skilled Items Patient informed of condition?: Yes DNR: No Discharge Level of Care: Acute rehab Communicable Disease: No Discharge Prognosis: Improving Lines: None Urinary Catheter: No Medications and DC Order Prescriptions: New atorvastatin 40 mg Tablet 40 mg PO DAILY Qty: 30 RF: 0 carvedilol 12.5 mg Tablet 12.5 mg PO BID Qty: 60 RF: 0 aspirin 81 mg Tablet,Delayed Release (Dr/Ec) 81 mg PO QAM Qty: 30 RF: 0 acetaminophen 500 mg Tablet 1,000 mg PO Q8H Qty: 180 RF: 0 lisinopril [Zestril] 5 mg Tablet 5 mg PO QAM Qty: 30 RF: 0 amoxicillin-pot clavulanate [Augmentin] 875-125 mg Tablet 1 tab PO BIDM Qty: 2 RF: 0 diclofenac sodium [Voltaren] 1 % Gel 4 g EXT QID PRN (Reason: Rib pain) Qty: 100 RF: 0 magnesium oxide 400 mg (241.3 mg magnesium) Tablet 400 mg PO HS Qty: 30 RF: 0 pantoprazole 40 mg Tablet,Delayed Release (Dr/Ec) 40 mg PO QAM Qty: 30 RF: 0 nicotine 14 mg/24 hr patch 24 hour 1 patch TD DAILY Qty: 14 RF: 0 Discontinued lisinopril [Prinivil] 20 mg tablet 20 mg PO DAILY RF: 0 Discharge Orders: Discharge Order (Routine); Ordered 04/17/19 Ordered By: Monica Drummond Admission Data Admit Date/Time: 04/08/19 12:37 Attending Provider: Monica Drummond Admit Provider: Rosa Garcia Primary Care Provider: David Venegas Other Providers: Rich Mitchell ; Norbert Rm ; [facility] ; [facility] Coding Diagnoses Sudden cardiac arrest I46.9 CAD (coronary artery disease) I25.10 Cardiomyopathy I42.9 Shock liver K72.00 TIAN (acute kidney injury) N17.9 Cardiogenic shock R57.0 Hypertension I10 Hypertension type: essential hypertension Aspiration into airway T17.908A Elevated troponin R79.89 Urinary retention R33.9 GERD (gastroesophageal reflux disease) K21.9 Open wound, hand S61.409A Rib fractures S22.39XA DVT prophylaxis Z29.9
== END 2019-04-17 16:10 | DRG 286 ==
LOC: 1E 12:37 → SUATTDRO 12:37 → 2S 04-12 14:33
PROC: EPB.ICD (2019-04-16 10:00)

== ENCOUNTER 2019-09-18 13:13 | Inpatient (IN) ==
[2019-09-18] MEDS ORDERED: ASPIRIN 81 MG CHEW PO STA (13:38)
--- NOTE | 2019-09-18 13:43 | Emergency Department Note ---
History of Present Illness General Chief complaint: Chest Pain Stated complaint: DEFIBULATOR WENT OFF AT 1PM Time Seen by Provider: 09/18/19 13:30 History of Present Illness This is a 43-year-old male that presents to the emergency department via private vehicle with complaints of "defibrillator went off at 1 PM". The patient states that earlier today just prior to arrival he was helping his father put a mower deck on a tractor. He states that he was minimally exerting himself and as he was bent down doing this he started feeling a pressure in his chest, diaphoresis and then took an antacid without relief. Then became dizzy, lightheaded and when he sat down he notes that the defibrillator provided a shockx1. He then came here for evaluation. He did have a baby aspirin earlier today around noon and does note a recent increase in his carvedilol dosing. On arrival he does note some minimal discomfort overlying the left ICD otherwise no chest pain at this time. Home Medications Home Medications Medication Instructions Recorded Confirmed Type aspirin 81 mg PO QAM #30 tab 04/17/19 09/18/19 Rx diclofenac sodium [Voltaren] 4 g EXT QID PRN #100 gm 04/17/19 09/18/19 Rx pantoprazole 40 mg PO QAM #30 tab 04/17/19 09/18/19 Rx lisinopril 5 mg tablet 10 mg PO QAM tab 07/23/19 09/18/19 History bupropion HCl 150 mg 24 hr tablet, 150 mg PO BID tab 09/15/19 09/18/19 History extended release carvedilol 25 mg tablet 25 mg PO BID #180 tab 09/15/19 09/18/19 Rx cephalexin 500 mg capsule 500 mg PO TID #30 cap 09/15/19 09/18/19 Rx atorvastatin 40 mg PO PM 09/18/19 09/18/19 History Allergies Allergy/AdvReac Type Severity Reaction Status Date / Time No Known Drug Allergies Allergy Verified 09/18/19 14:32 Past Med/Surg History Medical History CAD (coronary artery disease) GERD (gastroesophageal reflux disease) Hypertension ICD (implantable cardioverter-defibrillator), single, in situ Left ventricular dysfunction Paroxysmal ventricular tachycardia Sudden cardiac arrest Surgical History History of appendectomy Hx of cardiac cath 09/18/2019 at [facility]. By Dr Ni. OVIDIO to RCA Status post implantation of automatic cardioverter/defibrillator (AICD) Family History Other Cancer Coronary heart disease Diabetes Social History Smoking Status: Current every day smoker Tobacco Cessation Education Requested by Patient: No Hx Alcohol Use: Yes Hx Substance Use: No Preferred Language: [place] Communication Ability: Unable Non Categorical Preschool Teacher Required: No Beliefs That Will Affect Care: None Current Living Situation: Spouse current occupational status: employed Other Information That Helps Us Care for You: No Feels Safe at Home: Yes Safety Concerns: Feels Safe At This Time Review of Systems A total of 10 systems reviewed and were otherwise negative Physical Exam Vital Signs Vital Signs - 24 hr 09/18/19 13:16 09/18/19 13:29 09/18/19 13:30 Temperature 36.7 C Temperature Source Oral Pulse Rate 60 59 L 56 L Pulse Rate from SpO2 Sensor Respiratory Rate 22 20 13 Blood Pressure 158/95 H Blood Pressure Mean 116 Pulse Oximetry 97 Oxygen Delivery Method Room Air Sepsis Recent Fever Within 48 Hours No Sepsis New/Unexplained Change in Mental Status No Sepsis Action Taken by Nursing No Action Required 09/18/19 13:42 09/18/19 14:00 09/18/19 14:23 Temperature Temperature Source Pulse Rate 55 L 53 L Pulse Rate from SpO2 Sensor 54 L Respiratory Rate 14 13 Blood Pressure 140/62 Blood Pressure Mean 98 Pulse Oximetry 96 93 Oxygen Delivery Method Room Air Room Air Sepsis Recent Fever Within 48 Hours Sepsis New/Unexplained Change in Mental Status Sepsis Action Taken by Nursing 09/18/19 14:24 09/18/19 14:30 09/18/19 14:31 Temperature Temperature Source Pulse Rate 53 L 51 L 51 L Pulse Rate from SpO2 Sensor 53 L 50 L 51 L Respiratory Rate 16 14 13 Blood Pressure 114/78 Blood Pressure Mean 91 Pulse Oximetry 95 95 96 Oxygen Delivery Method Room Air Room Air Room Air Sepsis Recent Fever Within 48 Hours Sepsis New/Unexplained Change in Mental Status Sepsis Action Taken by Nursing 09/18/19 14:40 09/18/19 14:50 09/18/19 15:00 Temperature Temperature Source Pulse Rate 50 L 50 L 48 L Pulse Rate from SpO2 Sensor 49 L 49 L 48 L Respiratory Rate 14 16 15 Blood Pressure 126/75 Blood Pressure Mean 82 Pulse Oximetry 93 94 95 Oxygen Delivery Method Room Air Room Air Room Air Sepsis Recent Fever Within 48 Hours Sepsis New/Unexplained Change in Mental Status Sepsis Action Taken by Nursing 09/18/19 15:01 09/18/19 15:10 09/18/19 15:20 Temperature Temperature Source Pulse Rate 49 L 50 L 49 L Pulse Rate from SpO2 Sensor 49 L 51 L 50 L Respiratory Rate 16 18 13 Blood Pressure Blood Pressure Mean Pulse Oximetry 95 97 97 Oxygen Delivery Method Room Air Room Air Room Air Sepsis Recent Fever Within 48 Hours Sepsis New/Unexplained Change in Mental Status Sepsis Action Taken by Nursing 09/18/19 15:30 09/18/19 15:31 09/18/19 15:40 Temperature Temperature Source Pulse Rate 50 L 51 L 51 L Pulse Rate from SpO2 Sensor 51 L 51 L 51 L Respiratory Rate 17 10 L 14 Blood Pressure 122/67 Blood Pressure Mean 85 Pulse Oximetry 96 97 95 Oxygen Delivery Method Room Air Room Air Room Air Sepsis Recent Fever Within 48 Hours Sepsis New/Unexplained Change in Mental Status Sepsis Action Taken by Nursing 09/18/19 15:50 09/18/19 16:00 09/18/19 16:01 Temperature Temperature Source Pulse Rate 52 L 49 L 48 L Pulse Rate from SpO2 Sensor 52 L 49 L 49 L Respiratory Rate 14 12 10 L Blood Pressure 141/88 H Blood Pressure Mean 105 Pulse Oximetry 95 97 97 Oxygen Delivery Method Room Air Room Air Room Air Sepsis Recent Fever Within 48 Hours Sepsis New/Unexplained Change in Mental Status Sepsis Action Taken by Nursing 09/18/19 16:12 09/18/19 16:20 09/18/19 16:30 Temperature Temperature Source Pulse Rate 52 L 54 L 52 L Pulse Rate from SpO2 Sensor 53 L 55 L Respiratory Rate 14 20 12 Blood Pressure 167/97 H 156/111 H 167/94 H Blood Pressure Mean 113 127 127 Pulse Oximetry 97 96 Oxygen Delivery Method Sepsis Recent Fever Within 48 Hours Sepsis New/Unexplained Change in Mental Status Sepsis Action Taken by Nursing 09/18/19 16:33 09/18/19 16:40 09/18/19 16:50 Temperature Temperature Source Pulse Rate 55 L 54 L 50 L Pulse Rate from SpO2 Sensor 55 L 56 L 50 L Respiratory Rate 15 11 L 12 Blood Pressure 167/87 H 145/82 H 134/83 Blood Pressure Mean 112 93 93 Pulse Oximetry 98 98 95 Oxygen Delivery Method Sepsis Recent Fever Within 48 Hours Sepsis New/Unexplained Change in Mental Status Sepsis Action Taken by Nursing 09/18/19 18:16 09/18/19 18:18 09/18/19 18:20 Temperature Temperature Source Pulse Rate 49 L 51 L 47 L Pulse Rate from SpO2 Sensor 51 L 47 L Respiratory Rate 29 H 16 15 Blood Pressure 118/73 Blood Pressure Mean 86 Pulse Oximetry 95 98 Oxygen Delivery Method Sepsis Recent Fever Within 48 Hours Sepsis New/Unexplained Change in Mental Status Sepsis Action Taken by Nursing VITAL SIGNS - Vital signs and nursing notes were reviewed. Bradycardic, otherwise stable. GENERAL -43-year-old male appearing his stated age who is in no acute distress. Communicates well with provider and answers questions appropriately. SKIN - Without rashes. No meningeal or petechial rash. HEAD - NC/AT. EYES - PERRL with EOMI bilaterally. Sclera anicteric. EARS - No deformities of external structures noted on gross examination bilaterally. NOSE - Midline and without cyanosis. No epistaxis or purulent drainage noted. Septum midline without deviation or septal hematoma noted. MOUTH/OROPHARYNX - Without perioral cyanosis. NECK - Neck with FROM. LUNGS - Chest wall symmetric without accessory muscle use, intercostals retractions, or central cyanosis. Normal vesicular breath sounds CTA B/L. No wheezes, rales, or rhonchi appreciated. CARDIAC - RRR with S1/S2. No murmur, rubs, or gallops appreciated. EXTREMITIES - No clubbing or peripheral cyanosis. No pretibial edema present.+5/5 strength noted in UE/LE bilaterally. NEUROLOGIC - Cranial nerves II through XII grossly intact. PSYCH - A&O, and cooperates fully with examiner. Pt is very pleasant and interacts well with examiner. Course Administered Medications Atorvastatin Calcium (Lipitor) 40 mg PO PM [facility] Stop: 10/18/19 20:59 Last Admin: 09/18/19 20:12 Dose: 40 mg Documented by: [id number] Bupropion HCl (Wellbutrin-Xl) 150 mg PO BID ROB Stop: 10/18/19 20:59 Last Admin: 09/18/19 20:12 Dose: 150 mg Documented by: [id number] Carvedilol (Coreg) 25 mg PO BID [facility] Stop: 10/18/19 20:59 Last Admin: 09/18/19 20:13 Dose: Not Given Documented by: [id number] Cephalexin HCl (Keflex) 500 mg PO TID ROB Stop: 09/25/19 20:59 Last Admin: 09/18/19 20:12 Dose: 500 mg Documented by: [id number] Sodium Chloride (Nss 1000ml) 1,000 mls @ 100 mls/hr IV .Q10H ROB Stop: 09/19/19 01:59 Last Admin: 09/18/19 20:12 Dose: 100 mls/hr Documented by: [id number] Discontinued Medications Aspirin (Aspirin Chew) 243 mg PO NOW STA Stop: 09/18/19 13:39 Last Admin: 09/18/19 13:48 Dose: 243 mg Documented by: [id number] Fentanyl Citrate (Fentanyl Citrate) 50 mcg IV NOW STA Stop: 09/18/19 16:37 Last Admin: 09/18/19 16:39 Dose: 50 mcg Documented by: [id number] Fentanyl Citrate (Fentanyl Citrate) Confirm Administered Dose 100 mcg .ROUTE .STK-MED ONE Stop: 09/18/19 16:55 Last Admin: 09/18/19 17:53 Dose: 100 mcg Documented by: [id number] Heparin Sodium (Porcine) (Heparin Iv Bolus) 5,000 units IV ONE ONE Stop: 09/18/19 16:34 Last Admin: 09/18/19 16:37 Dose: 5,000 units Documented by: [id number] Cosigned by: [id number] Heparin Sodium (Porcine) (Heparin Iv Bolus (Radio Operator Use Only)) Confirm Administered Dose 10,000 units .ROUTE .STK-MED ONE Stop: 09/18/19 16:54 Last Admin: 09/18/19 17:53 Dose: 4,000 units Documented by: [id number] Heparin Sodium/Sodium Chloride (Heparin/Nss 1000 Unit/500ml Flush Bag) Confirm Administered Dose 3,000 units IV .STK-MED ONE Stop: 09/18/19 16:55 Last Admin: 09/18/19 17:53 Dose: 3,000 units Documented by: [id number] Midazolam HCl (Versed) Confirm Administered Dose 2 mg .ROUTE .STK-MED ONE Stop: 09/18/19 16:55 Last Admin: 09/18/19 17:53 Dose: 2 mg Documented by: [id number] Midazolam HCl (Versed) Confirm Administered Dose 2 mg .ROUTE .STK-MED ONE Stop: 09/18/19 17:26 Last Admin: 09/18/19 18:01 Dose: Not Given Documented by: [id number] Nicardipine HCl (Cardene) Confirm Administered Dose 25 mg .ROUTE .STK-MED ONE Stop: 09/18/19 16:54 Last Admin: 09/18/19 17:53 Dose: 25 mg Documented by: [id number] Nitroglycerin/Dextrose (Nitroglycerin/D5w 100 Mcg/Ml 20ml Syringe) Confirm Administered Dose 2,000 mcg .ROUTE .STK-MED ONE Stop: 09/18/19 16:55 Last Admin: 09/18/19 17:53 Dose: 2,000 mcg Documented by: [id number] Ticagrelor (Brilinta) Confirm Administered Dose 180 mg PO .[employer]-MED ONE Stop: 09/18/19 17:59 Last Admin: 09/18/19 18:01 Dose: 180 mg Documented by: [id number] Critical Care Time Total Critical Care Time: 45 I have personally spent about 45 minutes of critical care time in the direct management of this patient. This includes bedside care, interpretation of diagnostic studies, and testing, discussion with consultants, patient, and family members, and other required patient management activities. This 45 minutes is in excess of all separately billable procedures. Medical Decision Making Laboratory Data Result diagrams: 09/18/19 13:33 09/18/19 13:33 Lab Results 09/18/19 09/18/19 09/18/19 Range/Units 13:33 13:33 13:33 WBC 8.30 (4.8-10.8) K/uL RBC 4.78 (4.7-6.1) M/uL Hgb 15.2 (14.0-18.0) g/dL Hct 43.5 (42-52) % MCV 91.0 (80-100) fL MCH 31.8 (25-34) pg MCHC 34.9 (32-36) g/dL RDW Std Deviation 43.0 (36.4-46.3) fL RDW Coeff of Paddy 12.9 (11.5-14.5) % Plt Count 197 (130-400) K/uL MPV 10.0 (7.4-10.4) fL Immature Gran % (Auto) 0.1 % Neut % (Auto) 60.0 % Lymph % (Auto) 28.6 % Dooly % (Auto) 8.2 % Eos % (Auto) 3.0 % Baso % (Auto) 0.1 % Neut # (Auto) 4.98 (1.4-6.5) K/uL Lymph # (Auto) 2.37 (1.2-3.4) K/uL Dooly # (Auto) 0.68 H (0.11-0.59) K/uL Eos # (Auto) 0.25 (0-0.5) K/uL Baso # (Auto) 0.01 (0-0.2) K/uL Immature Gran # (Auto) 0.01 (0.00-0.02) K/uL PT 10.2 (9.0-12.0) Seconds INR 1.0 (0.9-1.1) APTT 29.1 (21.0-31.0) Seconds PTT Ratio 1.0 Activ Coag Time Kaolin (94-140) SECONDS Sodium 140 (136-145) mmol/L Potassium 4.1 (3.5-5.1) mmol/L Chloride 109 H (98-107) mmol/L Carbon Dioxide 26 (21-32) mmol/L Anion Gap 5.0 (3-11) BUN 14 (7-18) mg/dl Creatinine 1.41 H (0.6-1.4) mg/dl Est Cr Clr Drug Dosing 83.7 ml/min Est GFR ( Amer) 69.7 Est GFR (Non-Af Amer) 60.2 BUN/Creatinine Ratio 10.1 (10-20) Glucose 102 H (70-99) mg/dl Calcium 8.9 (8.5-10.1) mg/dl Magnesium 2.0 (1.8-2.4) mg/dl Total Bilirubin 0.4 (0.2-1) mg/dl AST 20 (15-37) U/L ALT 22 (12-78) U/L Alkaline Phosphatase 108 (45-117) U/L Troponin I < 0.015 (0-0.045) ng/ml Total Protein 7.8 (6.4-8.2) gm/dl Albumin 3.5 (3.4-5.0) gm/dl Globulin 4.3 H (2.5-4.0) gm/dl Albumin/Globulin Ratio 0.8 L (0.9-2) TSH 1.740 (0.300-4.500) uIu/ml Nasal Screen MRSA (PCR) (Negative) 09/18/19 09/18/19 09/18/19 Range/Units 16:18 17:37 18:20 WBC (4.8-10.8) K/uL RBC (4.7-6.1) M/uL Hgb (14.0-18.0) g/dL Hct (42-52) % MCV (80-100) fL MCH (25-34) pg MCHC (32-36) g/dL RDW Std Deviation (36.4-46.3) fL RDW Coeff of Paddy (11.5-14.5) % Plt Count (130-400) K/uL MPV (7.4-10.4) fL Immature Gran % (Auto) % Neut % (Auto) % Lymph % (Auto) % Dooly % (Auto) % Eos % (Auto) % Baso % (Auto) % Neut # (Auto) (1.4-6.5) K/uL Lymph # (Auto) (1.2-3.4) K/uL Dooly # (Auto) (0.11-0.59) K/uL Eos # (Auto) (0-0.5) K/uL Baso # (Auto) (0-0.2) K/uL Immature Gran # (Auto) (0.00-0.02) K/uL PT (9.0-12.0) Seconds INR (0.9-1.1) APTT (21.0-31.0) Seconds PTT Ratio Activ Coag Time Kaolin 274 H (94-140) SECONDS Sodium (136-145) mmol/L Potassium (3.5-5.1) mmol/L Chloride (98-107) mmol/L Carbon Dioxide (21-32) mmol/L Anion Gap (3-11) BUN (7-18) mg/dl Creatinine (0.6-1.4) mg/dl Est Cr Clr Drug Dosing ml/min Est GFR ( Amer) Est GFR (Non-Af Amer) BUN/Creatinine Ratio (10-20) Glucose (70-99) mg/dl Calcium (8.5-10.1) mg/dl Magnesium (1.8-2.4) mg/dl Total Bilirubin (0.2-1) mg/dl AST (15-37) U/L ALT (12-78) U/L Alkaline Phosphatase (45-117) U/L Troponin I < 0.015 (0-0.045) ng/ml Total Protein (6.4-8.2) gm/dl Albumin (3.4-5.0) gm/dl Globulin (2.5-4.0) gm/dl Albumin/Globulin Ratio (0.9-2) TSH (0.300-4.500) uIu/ml Nasal Screen MRSA (PCR) Negative (Negative) Imaging Data Radiologist's Impression: XR chest 1V portable CLINICAL HISTORY: chest pain pain COMPARISON STUDY: 04/17/2019 FINDINGS: Mild cardiomegaly. Lungs are clear. Diaphragms are smooth. Permanent cardiac pacemaker. IMPRESSION: No acute process. ACT 112: Negative or not required by law. The above report was generated using voice recognition software. It may contain grammatical, syntax or spelling errors. Electronically signed by: Joe Tillman M.D. 09/18/2019 4:40 PM ECG Data Additional Comments: EKG #1: 1323hrs. Sinus bradycardia rate of 56 bpm. QTc 401. QRS 110. Incomplete right bundle branch block noted. This was compared to EKG April 15, 2019 and no significant change was found. EKG #2: 1601 HRS. Sinus bradycardia rate of 50 bpm. QTc 393. QRS 100. Incomplete right bundle branch block noted. This is compared EKG performed earlier today at 1323 and no significant change was found. EKG #3: 1623 HRS. Acute STEMI noted. Sinus bradycardia with first-degree AV block rate of 57 bpm. QTC 383. QRS 100. There is marked ST elevation in the inferior leads. There is also ST depression noted in lead aVL, v2. This was compared to EKG performed at [address] elevation is now present in the inferior leads. EKG #4: 1625 HRS. Acute STEMI noted. Sinus bradycardia with first-degree AV block. QTc 388. QRS 124. There is marked ST elevation in leads II, III and aVF consistent with an inferior AR with associated ST depression in lead aVL, and V2 as well as lead I. This was compared EKG performed at [address] elevation is noted. MDM Narrative Patient was seen and evaluated as above in room C9. Review was performed of nursing notes and vital signs. I did review pertinent previous visits and patient history. After obtaining a thorough history and physical examination the above work up was performed. I did give him the remainder of the aspirin dose to equal a full 324 aspirin noting he had a baby aspirin prior to arrival. He presents to us today status post ICD defibrillation x1 at home around 1 PM today. This occurred when he was minimally exerting himself but was associated with chest pressure, diaphoresis and lightheadedness then the shock occurred. On arrival he notes only a minimal amount of pain at the ICD site, otherwise no chest pain or pressure. He feels much better compared to previous. Patient notes the ICD was placed in March of this past year secondary to cardiac arrest. There is no leukocytosis or anemia. No emergent metabolic disturbance. Initial troponin is negative. Chest x-ray reveals no acute process. EKG on arrival reveals sinus bradycardia at a rate of [address] elevation noted. I did discuss patient's presentation with the attending physician as well as the on-call weight and test bar clerk for the group which the patient previously has followed, Dr. Kya. We agreed upon evaluation here in the emergency department as well as pacemaker interrogation. I did have a [employer] loss control representative call me once this was interrogated and it appeared that the patient had an episode of V. tach/V. fib lasting around 30 seconds that resulted in shock x1 prehospital. This then converted into normal sinus rhythm. The patient does not appear to have any electrolyte disturbance as the cause of his imbalance. Magnesium is within normal limits. Potassium is within normal limits. I then reevaluated the patient and the female at bedside noted that a few minutes ago the patient had new onset chest pressure and during that his heart rate increased to around 80 bpm. I then went to the surveillance system monitor and asked if they could bring up the cardiac monitoring history for the patient. I then was able to correlate the patient's symptoms and time with rhythm strip which was concerning for ST elevation. The patient denied any current pain but notes he did have pain just a few minutes prior. I then felt it be reasonable to obtain another EKG. This revealed sinus bradycardia as well without any ST elevation. I will note that the patient's rhythm strip went back to normal limits as well. He continued to have intermittent chest pressure. I then had the patient hooked up to an EKG machine therefore when he felt the chest pressure and symptoms we could capture this. The EKG then at 1623 did show signs of acute ST VINICIO which was the concern based on his rhythm strip. Patient did have chest pressure at this time. I i mmediately discussed this finding with the on-call interventionalist, Dr. Ni. He recommended 5000 units of heparin and a code heart alert was called per recommendation. I also ordered him IV fentanyl for pain. Patient was then taken to the Radio Operator for further evaluation and management. Please refer to further documentation regarding his stay. Case was discussed with the attending physician. An order was placed for continuous cardiac monitoring. The monitor shows a rate of 60 with sinus rhythm. I attest that I have personally reviewed the patient medication list. GCS: 15 In the evaluation and treatment of this patient, the following differential diagnoses were considered: AR, ASC, Dysrhythmia, Angina, Mediastinitis, GERD, Esophagitis, PE, Pneumonia, Bronchitis, Costochondritis, Rib Fracture, Zoster. Impression & Plan Acute AR, Defibrillator discharge Discharge Plan Visit Data *Final* Discharge Date/Time: 09/18/19 17:02 Chief Complaint: Chest Pain Stated Complaint: DEFIBULATOR WENT OFF AT 1PM ED Provider: Eldon Iyer ED Midlevel Provider: Juan Diego Palmer Discharge Problem: Acute AR, Defibrillator discharge Patient Disposition: Admitted As Inpatient Condition: Good Discharge Instructions Interventions: ED Discharge Assessment Last Done: 09/18/19 16:59 ED Visit Note I reviewed the patient's past medical history, medications, and visit nursing notes. I discussed the case with the physician orthopedic assistant, examined the patient, and agree with the findings and plan as documented in PAC Spencer's note. .
[2019-09-18 13:52] LABS: Basophils # (auto) 0.01 K/uL (0-0.2); Basophils % (auto) 0.1 %; Eosinophils # (auto) 0.25 K/uL (0-0.5); Hematocrit (blood only) 43.5 % (42-52); Hemoglobin 15.2 g/dL (14.0-18.0); Immature Granulocytes # (auto) 0.01 K/uL (0.00-0.02); Immature Granulocytes % (auto) 0.1 %; Lymphocytes # (auto) 2.37 K/uL (1.2-3.4); Lymphocytes % (auto) 28.6 %; Mean Corpuscular Hemoglobin 31.8 pg (25-34); Mean Corpuscular Hgb Conc 34.9 g/dL (32-36); Monocytes # (auto) 0.68 K/uL (0.11-0.59); Monocytes % (auto) 8.2 %; Neutrophils # (auto) 4.98 K/uL (1.4-6.5); Platelet Count 197 K/uL (130-400); RDW Coefficient of Variation 12.9 % (11.5-14.5); Red Blood Count 4.78 M/uL (4.7-6.1)
[2019-09-18 14:04] LABS: Partial Thromboplastin Time 29.1 Seconds (21.0-31.0); Prothrombin Time 10.2 Seconds (9.0-12.0)
[2019-09-18 14:09] LABS: Alanine Aminotransferase 22 U/L (12-78); Albumin Level 3.5 gm/dl (3.4-5.0); Aspartate Aminotransferase 20 U/L (15-37); BUN Creatinine Ratio 10.1 (10-20); Blood Urea Nitrogen 14 mg/dl (7-18); Calcium 8.9 mg/dl (8.5-10.1); Carbon Dioxide 26 mmol/L (21-32); Chloride 109 mmol/L (98-107); Creatinine Clr Calc Pharmacy 83.7 ml/min; Est GFR (African American) 69.7; Est GFR (Non-African American) 60.2; Glucose 102 mg/dl (70-99); Potassium 4.1 mmol/L (3.5-5.1); Sodium 140 mmol/L (136-145)
[2019-09-18 14:20] LABS: Albumin Globulin Ratio 0.8 (0.9-2); Alkaline Phosphatase 108 U/L (45-117); Bilirubin,Total 0.4 mg/dl (0.2-1); Globulin 4.3 gm/dl (2.5-4.0); Total Protein 7.8 gm/dl (6.4-8.2); Troponin I < 0.015 ng/ml (0-0.045)
[2019-09-18] MEDS ORDERED: HEPARIN SOD (PORCINE) 1000 UNIT/ML 10 ML VIAL IV ONE (16:33)
[2019-09-18] MEDS ORDERED: fentaNYL citrate 100 MCG/2 ML VIAL IV STA (16:36)
--- NOTE | 2019-09-18 16:41 | XRay Report ---
XR chest 1V portable CLINICAL HISTORY: chest pain pain COMPARISON STUDY: 04/17/2019 FINDINGS: Mild cardiomegaly. Lungs are clear. Diaphragms are smooth. Permanent cardiac pacemaker. IMPRESSION: No acute process. ACT 112: Negative or not required by law. The above report was generated using voice recognition software. It may contain grammatical, syntax or spelling errors. Electronically signed by: Joe Tillman M.D. 09/18/2019 4:40 PM
[2019-09-18] MEDS ORDERED: NiCARDipine HCL INJ 2.5 MG/ML 10 ML AMP ONE (16:53)
[2019-09-18] MEDS ORDERED: HEPARIN (PORCINE) 1000 UNIT/ML 10 ML (CATH LAB USE ONLY) ONE (16:53)
[2019-09-18] MEDS ORDERED: MIDAZOLAM HCL 1 MG/ML 2ML VIAL ONE ×2 (16:54→17:25)
[2019-09-18] MEDS ORDERED: NITROGLYCERIN/D5W 100MCG/ML 20ML SYR ONE (16:54)
[2019-09-18] MEDS ORDERED: fentaNYL citrate 100 MCG/2 ML VIAL ONE (16:54)
--- NOTE | 2019-09-18 17:04 | Pre Anesthesia Assessment ---
Date of Service September 18, 2019 Pre Sedation Assessment Vital Signs Temp Pulse Resp BP Pulse Ox 09/18/19 16:50 50 L 12 134/83 95 09/18/19 16:40 54 L 11 L 145/82 H 98 09/18/19 16:33 55 L 15 167/87 H 98 09/18/19 16:30 52 L 12 167/94 H 09/18/19 16:20 54 L 20 156/111 H 96 09/18/19 16:12 52 L 14 167/97 H 97 09/18/19 16:01 48 L 10 L 97 09/18/19 16:00 49 L 12 141/88 H 97 09/18/19 15:50 52 L 14 95 09/18/19 15:40 51 L 14 95 09/18/19 15:31 51 L 10 L 97 09/18/19 15:30 50 L 17 122/67 96 09/18/19 15:20 49 L 13 97 09/18/19 15:10 50 L 18 97 09/18/19 15:01 49 L 16 95 09/18/19 15:00 48 L 15 126/75 95 09/18/19 14:50 50 L 16 94 09/18/19 14:40 50 L 14 93 09/18/19 14:31 51 L 13 96 09/18/19 14:30 51 L 14 114/78 95 09/18/19 14:24 53 L 16 95 09/18/19 14:23 53 L 13 140/62 93 09/18/19 14:00 55 L 14 09/18/19 13:42 96 09/18/19 13:30 56 L 13 09/18/19 13:29 59 L 20 09/18/19 13:16 98.1 F 60 22 158/95 H 97 Cardiovascular RRR, no murmur, no edema Respiratory normal respiratory effort, lungs clear to auscultation Pre-Sedation Airway Assessment Smoking Status: Current every day smoker Hx Sleep Apnea: No Hx Difficult Intubation: No Short, Thick Neck: No Thyromental Distance: > or= 3.5 Finger Breadths Oral Cavity: + WNL Mallampati Class: III ASA: ASA3 Procedure Planning Contraindications for Sedation: none Current Medications Reviewed: Yes Notes The planned sedation has been discussed with the patient. Informed Consent was obtained. I have identified the patient, determined the appropriateness of sedation and have assessed the patient immediately prior to the procedure. All medicine(s) and interventions are by my order.
--- NOTE | 2019-09-18 17:11 | Cardiology Consultation ---
Date of Consultation September 18, 2019 Assessment & Plan (1) Acute ND: Presentation concerning for acute coronary syndrome and likely ischemia induced ventricular arrhythmia requiring earlier ICD shock. Recommend proceeding with emergent cardiac catheterization and likely primary PCI. No apparent contraindications to procedure. Discussed risks, benefits, alternatives of procedure with patient and they are willing to proceed. Given IV heparin in the ED. Further recommendations pending findings of coronary angiography. History of Present Illness History of Present Illness 43-year-old man here with acute chest pain and ECG concerning for acute ND. Patient seen emergently in the ED after heart alert activated after serial ECGs. Past cardiac history remarkable for sudden cardiac arrest in March 2019. P atient went cardiac catheterization at that time which showed nonobstructive moderate CAD with 60% proximal RCA and 50 to 60% circumflex disease extending into OM1. Underwent single-chamber ICD placement at that time. Initially had severe LV dysfunction but LV function returned to normal 1 week later, Earlier this week was seen by cardiology due to concern for possible infection of AICD surgical site. Thought to have a retained suture and started on Keflex. At that time reported episode of chest pain while walking 4 days prior and interrogation revealed VT which degraded into V. fib lasting 35 seconds and then spontaneously converting. Carvedilol was increased to 25 mg twice daily. Today patient states he had an episode of chest pain this morning which resolved quickly after antacids. Later this afternoon was working on a car when developed recurrent chest pain which was followed by ICD shock. In the emergency department had intermittent chest pain with associated inferior ST elevations on telemetry and EKG. Patient remained hemodynamically stable and had no additional sustained arrhythmia. Allergies Allergy/AdvReac Type Severity Reaction Status Date / Time No Known Drug Allergies Allergy Verified 09/18/19 14:32 Home Medications Home Medications Medication Instructions Recorded Confirmed Type aspirin 81 mg PO QAM #30 tab 04/17/19 09/18/19 Rx diclofenac sodium [Voltaren] 4 g EXT QID PRN #100 gm 04/17/19 09/18/19 Rx pantoprazole 40 mg PO QAM #30 tab 04/17/19 09/18/19 Rx lisinopril 5 mg tablet 10 mg PO QAM tab 07/23/19 09/18/19 History bupropion HCl 150 mg 24 hr tablet, 150 mg PO BID tab 09/15/19 09/18/19 History extended release carvedilol 25 mg tablet 25 mg PO BID #180 tab 09/15/19 09/18/19 Rx cephalexin 500 mg capsule 500 mg PO TID #30 cap 09/15/19 09/18/19 Rx atorvastatin 40 mg PO PM 09/18/19 09/18/19 History Patient History Social History Smoking Status: Current every day smoker Hx Alcohol Use: No Hx Substance Use: No Preferred Language: Welsh Communication Ability: Unable Imcu Nurse Required: No Beliefs That Will Affect Care: None Current Living Situation: Family current occupational status: employed Feels Safe at Home: Yes Review of Systems Review of Systems: All systems reviewed & are unremarkable except as noted in HPI & below Physical Exam Physical Exam: General: Comfortable, no acute distress HEENT: Sclerae anicteric, mucous membranes moist Lungs: Clear to auscultation bilaterally, no rhonchi or wheezes Cardiac: Regular rate and rhythm, no murmurs. Abdomen: Soft, nontender, nondistended, positive bowel sounds. Extremities: Warm, well perfused, no edema. 2+ radial pulses Skin: No rashes or lesions. Neuro: Nonfocal Psych: Alert orient x3, normal affect and mood Results & Data ([facility]) Vital Signs (Past 12 Hours) Vital Signs Temp Pulse Resp BP Pulse Ox 09/18/19 16:50 50 L 12 134/83 95 09/18/19 16:40 54 L 11 L 145/82 H 98 09/18/19 16:33 55 L 15 167/87 H 98 09/18/19 16:30 52 L 12 167/94 H 09/18/19 16:20 54 L 20 156/111 H 96 09/18/19 16:12 52 L 14 167/97 H 97 09/18/19 16:01 48 L 10 L 97 09/18/19 16:00 49 L 12 141/88 H 97 09/18/19 15:50 52 L 14 95 09/18/19 15:40 51 L 14 95 09/18/19 15:31 51 L 10 L 97 09/18/19 15:30 50 L 17 122/67 96 09/18/19 15:20 49 L 13 97 09/18/19 15:10 50 L 18 97 09/18/19 15:01 49 L 16 95 09/18/19 15:00 48 L 15 126/75 95 09/18/19 14:50 50 L 16 94 09/18/19 14:40 50 L 14 93 09/18/19 14:31 51 L 13 96 09/18/19 14:30 51 L 14 114/78 95 09/18/19 14:24 53 L 16 95 09/18/19 14:23 53 L 13 140/62 93 09/18/19 14:00 55 L 14 09/18/19 13:42 96 09/18/19 13:30 56 L 13 09/18/19 13:29 59 L 20 09/18/19 13:16 98.1 F 60 22 158/95 H 97 PG Care Time/CCT Total # of Minutes Spent Total Time Spent with Patient: Total time spent is greater than 50% in coordination of care (as documented) at patient's floor/unit and/or counseling patient: Coding Level of Care Code 65892 Inpt Consult Level 5 Diagnoses Acute ND I21.9
[2019-09-18] MEDS ORDERED: TICAGRELOR 90 MG TAB PO ONE (17:58)
[2019-09-18] MEDS ORDERED: NITROGLYCERIN SL 0.4 MG/TAB TAB SL PRN (18:18)
[2019-09-18] MEDS ORDERED: ICU PROTOCOL FOR HYPERGLYCEMIA PRN (18:18)
[2019-09-18] MEDS ORDERED: ONDANSETRON INJ 2 MG/ML 2 ML VIAL IV PRN (18:18)
[2019-09-18] MEDS ORDERED: SODIUM CHLORIDE 0.9% 1000ML 1,000 ML IV SCH (18:30)
--- NOTE | 2019-09-18 18:30 | Post Anesthesia Assessment ---
Date of Service September 18, 2019 Post Sedation Assessment Vital Signs Temp Pulse Resp BP Pulse Ox 09/18/19 16:50 50 L 12 134/83 95 09/18/19 16:40 54 L 11 L 145/82 H 98 09/18/19 16:33 55 L 15 167/87 H 98 09/18/19 16:30 52 L 12 167/94 H 09/18/19 16:20 54 L 20 156/111 H 96 09/18/19 16:12 52 L 14 167/97 H 97 09/18/19 16:01 48 L 10 L 97 09/18/19 16:00 49 L 12 141/88 H 97 09/18/19 15:50 52 L 14 95 09/18/19 15:40 51 L 14 95 09/18/19 15:31 51 L 10 L 97 09/18/19 15:30 50 L 17 122/67 96 09/18/19 15:20 49 L 13 97 09/18/19 15:10 50 L 18 97 09/18/19 15:01 49 L 16 95 09/18/19 15:00 48 L 15 126/75 95 09/18/19 14:50 50 L 16 94 09/18/19 14:40 50 L 14 93 09/18/19 14:31 51 L 13 96 09/18/19 14:30 51 L 14 114/78 95 09/18/19 14:24 53 L 16 95 09/18/19 14:23 53 L 13 140/62 93 09/18/19 14:00 55 L 14 09/18/19 13:42 96 09/18/19 13:30 56 L 13 09/18/19 13:29 59 L 20 09/18/19 13:16 98.1 F 60 22 158/95 H 97 Recovery Score Activity: Moves 4 extremities Respiration: Deep Breath/Cough Circulation: +/-20% PreAnes Value Consciousness: Fully Awake Oxygen Saturation: O2 needed for >90% Discharge Sedation Level of Care: Fast Track Phase II Post Sedation Plan On clinical assessment, the patient appears to have tolerated the sedation without complications. Patient is recovering as anticipated. Patient will continue to be monitored by nursing and may be discharged when sedation discharge criteria are met per below protocol. Upon Completions of procedure up to 15 minutes continue every 5 minute vital signs and the P.A.R. score; then discharge to a Phase I or Fast Track to Phase II per the following guidelines: * Discharge Patient to appropriate Phase II area if PAR is 8 or greater or return to pre- procedure baseline. The post - procedure orders will be as directed. * If PAR score is less than 8 or not return to pre-procedure baseline then patient will follow Phase I monitoring till PAR is reached for Phase II. The Phase I may be done in procedure room or may call to secure a Phase I area. * If naloxone or flumazenil are used for reversal, hold in Phase I for continued monitoring from when last reversal dose was given for a minimum of 60 minutes or longer pending the nurse and/or physician discretion of patient condition before discharge to Phase II. Please call the Sedation Physician to re-evaluate and complete post-note for discharge to Phase II area. Do NOT discharge from procedure sedation or Phase 1 until post- sedation evaluation note is complete by procedure /sedation MD Sedation Discharge Instructions to be given to the patient at discharge to home.
--- NOTE | 2019-09-18 18:33 | Cardiac Catheterization ---
[facility] Data: Shuttle Fixer Cardiac Status Clinical evaluation leading to the procedure CAD Presenation: Non STEMI Anginal Classification: CCS IV Heart Failure: No Cardiogenic Shock within 24 Hours: No Cardiac Arrest within 24 Hours: Yes Imaging Studies Past 6 Months: No Stress Studies Past 6 Months: No Diagnostic Physicians Name: Niko Ni MD Status: Urgent Closure Device Percutaneous Entry Location: Radial Closure Device: Radial Band Recommendations: PCI without planned CABG PCI Indication: PCI for high risk Non-ANA LAURA Lesion Segment Name: Proximal RCA Culprit Artery: Yes Stenosis Prior to Rx (%): 90 Chronic Total Occlusion: No IVUS: Yes FFR: No Pre-Procedure LORY Flow: 3 Previously Treated Lesion: No Lesion Complexity: Non-High/Non-C Lesion Length (mm): 15 Thrombus Present: Yes Bifurcation Lesion: No Guidewire Across Lesion: Stenosis Post-Procedure (%): 0 Post-Procedure LORY Flow: 3 Devices(s) Deployed: Yes Yes Intraprocedure Events Significant Disection: No Perforation: No Cardiac Cath Procedure Full Procedure Date September 18, 2019 Pre-Procedure Diagnosis Pre-Procedure Diagnosis: Non STEMI AUC Score AUC Score: 9 Post-Procedure Diagnosis Post-Procedure Diagnosis: Severe CAD, Successful PCI, Normal LV Systolic Funct ion and Normal Intracardiac Pressures Procedure(s) Performed Procedure(s) Performed: Coronary Angiography, Left Heart Cath, Drug Eluting Stent, Ultrasound Guided Vascular Access and IVUS Women Specialist Niko Ni MD Wrecking Crane Engine Operator(s) Denny Estimated Blood Loss Estimated Blood Loss: 15 Medication(s) Medication(s): Fentanyl, Heparin, Lidocaine 1%, Nicardipine, Nitroglycerin and Versed Medication(s): Ticagrelor Summary of Findings Indication: ACS, transient inferior ST elevations, ICD shock Access: 6 Fr slender right radial artery under ultrasound guidance Catheters: [place], pigtail, JR4 guide Findings: LM -medium caliber, luminal irregularities LAD -medium caliber, 20% proximal to mid diffuse disease, distal luminal irregularities, tapers to apex. Medium caliber second diagonal with 30 to 40% proximal stenosis Circumflex -small caliber vessel, 50-60% ostial stenosis, 50% mid segment stenosis after takeoff of first OM. OM1 with 30% proximal disease. Small OM 2 with 50% ostial stenosis RCA -large caliber vessel, dominant, hazy 80 to 90% proximal to mid stenosis. Mid and distal luminal irregularities. LVEDP - 15 LVEF 55% -- PCI -- Antithrombotic therapy: Heparin, ticagrelor Procedure: RCA cannulated with JR4 guide BMW wire passed across lesion into distal vessel Proximal to mid RCA lesion predilated with 2.5 compliant balloon Following balloon inflation had significant vasospasm with LORY I flow and inferior ST elevations Predilated with 2.5 balloon and given vasodilators. IVUS used to assess extent of disease. Noted to have relatively focal severe, minimally calcified plaque extending from proximal to mid segment. Dilated lesion stented with 4.0 x 26 mm [place] drug-eluting stent Stent post-dilated with 4.0 noncompliant balloon IC vasodilators administered for spasm Post procedure LORY 3 flow, stent well expanded with minimal residual stenosis and no apparent cardiac complications. Arterial Closure: TR band Summary: 1. Severe single vessel coronary artery disease -80 to 90% proximal to mid RCA 2. Moderate nonobstructive coronary disease (unchanged from 03/2019). 50 to 60% ostial and mid circumflex. 30% proximal OM1 30 to 40% proximal second diagonal 3. Notable RCA coronary vasospasm 4. Normal intracardiac filling pressure 5. Successful PCI of proximal to mid RCA with single drug-eluting stent (4.0 x 26 mm [place]). Recommendations: To ICU for continued monitoring Loaded with ticagrelor 180 mg in Shuttle Fixer Continue dual-antiplatelet therapy for at least 1 year Trend troponin until peak, device interrogation, repeat echocardiogram Continue statin, and ASCVD risk factor modification Consult cardiac Rehab Long-term if recurrent anginal symptoms recommend vasodilators for likely coronary vasospasm. Hemodynamics Rest Ao:: 134/59/89 Final Ao: 124/65/88 LV: 116/15 Recommendations Recommendations: PCI without planned CABG Specimens Specimens: None Radiation Exposure (mGy) 2303 Contrast (mls) 125 Fluids (cc crystalloids) Fluids (cc crystalloids): 590 Drains Drains: None Anesthesia Moderate Procedural Complication(s) None Disposition ICU I attest to the content of the Intraoperative Record and any orders documented therein. Any exceptions are noted below. [facility] Card Cath Procedure Codes Cardiac Catheterization Procedure 1: Cardiovascular Cath Procedures: 93663 Coronaries and LHC (+/-LV) Therapeutic Services & Ancillary Proc Procedure 1: Cardiovascular Tx and Anc Procedures: 12849 Ultrasonic Guidance Vascular Access Procedure 2: Cardiovascular Tx and Anc Procedures: 16486 IV Ultrasound (Coronary or Graft) Moderate Sedation Procedure 1: Sedation/Anesthesia: 82654 Mod Sedation by the same physician;Init15 Min Child Age 5 & Up Procedure 2: Sedation/Anesthesia: 83242 Mod Sedation by the same physician; Ea [id number] Minutes Stenting Procedure 1: Cardiovascular Stent Procedures: 36058 Perc transluminal revascularization of acute sub/total occl, aMI PG Care Time/CCT Total # of Minutes Spent Total Time Spent with Patient: Total time spent is greater than 50% in coordination of care (as documented) at patient's floor/unit and/or counseling patient:
--- NOTE | 2019-09-18 19:17 | History & Physical Report ---
Date of Service September 18, 2019 Assessment & Plan (1) Acute OR: (2) S/P cardiac cath: Pt is 43 y/o M with PMH sudden cardiac arrest in 03/2019, LV dysfunction, s/p ICD, depression presented to ER with complaint of chest pain. Had Firing of ICD. Today In ER his EKGs with ST elevation and heart alert was called. Pt received Heparin in ER Was taken to [facility] and found to have 80 to 90% proximal to mid RCA stenosis and received OVIDIO to RCA. Post-cath patient states feels tired but otherwise denies any chest pain, shortness of breath, dizziness, palpitations. Monitor in ICU Cocoa Bean Cleaner on board Will trend troponin Echo A1c, lipid panel in am Was loaded with Brilinta Brilinta BID Continue aspirin, atorvastatin, carvedilol, lisinopril Cardiology consulted, Follows with [facility] Cardiology (3) Paroxysmal ventricular tachycardia: (4) Left ventricular dysfunction: (5) Status post implantation of automatic cardioverter/defibrillator (AICD): History of sudden cardiac arrest in 03/2019. History severe LV dysfunction in 03/2019 s/p ICD, LV function had normalized Pt with recent noted retained suture at ICD site which was removed and patient was started on Keflex. Recent outpatient pacer interrogation which showed VT/VF lasting 35 seconds and then spontaneously converting Interrogate pacemaker while inpatient Will continue Keflex (6) Hypertension: Continue carvedilol, lisinopril (7) GERD (gastroesophageal reflux disease): Continue PPI Follows with Dr Phillips for routine care Pt was seen and care coordinated with Dr Gallegos. See addendum Admission and Anticipated Discharge Date Admission Date: September 18, 2019 History of Present Illness Chief Complaint: CP Primary Care Provider: Jose De Jesus Phillips DO Pt is 43 y/o M with PMH sudden cardiac arrest in 03/2019, LV dysfunction, s/p ICD, depression presented to ER with complaint of chest pain. In 03/2019 patient had sudden cardiac arrest with return of ROSC. Had cardiac catheterization at that time which showed nonobstructive moderate CAD with 60% proximal RCA and 50 to 60% circumflex disease extending into OM1. Had ICD placed at that time. His initial severe LV dysfunction had returned to normal 1 week later. Patient saw cardiology last week and had noted retained suture ICD site which was removed and patient was started on Keflex. Patient had reported episode of chest pain with walking. At cardiology clinic had pacer interrogation which showed VT/VF lasting 35 seconds and then spontaneously converting. Patient's carvedilol was increased to 25 mg twice daily. Patient states today he was working on car and stood up and had chest pain. He tried taking antacids which she states usually relieves his chest pain however did not today. Today chest pain was followed by ICD shock. He presented to ER and in ER his EKGs were concerning for STEMI and heart alert was called. Patient was taken to [facility] and found to have 80 to 90% proximal to mid RCA s tenosis and received OVIDIO to RCA. Post-cath patient states feels tired but otherwise denies any chest pain, shortness of breath, dizziness, palpitations. Denies fever/chills, diaphoresis, N/V/D/C, DEE, syncope, vision changes, neck pain, orthopnea, cough, sore throat, choking, otalgia, rhinorrhea, abdominal pain, paresthesias, weakness, extremity weakness, extremity edema, rashes, urinary symptoms. Allergies Allergy/AdvReac Type Severity Reaction Status Date / Time No Known Drug Allergies Allergy Verified 09/18/19 14:32 Home Medications Home Medications Medication Instructions Recorded Confirmed Type aspirin 81 mg PO QAM #30 tab 04/17/19 09/18/19 Rx diclofenac sodium [Voltaren] 4 g EXT QID PRN #100 gm 04/17/19 09/18/19 Rx pantoprazole 40 mg PO QAM #30 tab 04/17/19 09/18/19 Rx lisinopril 5 mg tablet 10 mg PO QAM tab 07/23/19 09/18/19 History bupropion HCl 150 mg 24 hr tablet, 150 mg PO BID tab 09/15/19 09/18/19 History extended release carvedilol 25 mg tablet 25 mg PO BID #180 tab 09/15/19 09/18/19 Rx cephalexin 500 mg capsule 500 mg PO TID #30 cap 09/15/19 09/18/19 Rx atorvastatin 40 mg PO PM 09/18/19 09/18/19 History Past Med/Surg History Medical History CAD (coronary artery disease) GERD (gastroesophageal reflux disease) Hypertension ICD (implantable cardioverter-defibrillator), single, in situ Left ventricular dysfunction Paroxysmal ventricular tachycardia Sudden cardiac arrest Surgical History History of appendectomy Hx of cardiac cath 09/18/2019 at [facility]. By Dr Ni. OVIDIO to RCA Status post implantation of automatic cardioverter/defibrillator (AICD) Family History Other Cancer Coronary heart disease Diabetes Social History Smoking Status: Current every day smoker Tobacco Cessation Education Requested by Patient: No Hx Alcohol Use: Yes Hx Substance Use: No Preferred Language: Marshallese Communication Ability: Unable Director Information Required: No Beliefs That Will Affect Care: None Current Living Situation: Spouse current occupational status: employed Other Information That Helps Us Care for You: No Feels Safe at Home: Yes Safety Concerns: Feels Safe At This Time Review of Systems Review of Systems: All systems reviewed & are unremarkable except as noted in HPI & below Physical Exam Physical Exam: General: no distress, obese Head: normocephalic, atraumatic Eyes: conjunctiva non-injected, anicteric ENT: normal inspection external ears, nose, mucous , non-tender Lungs: clear, no respiratory distress, no wheezing/rhonchi/rales CV: bradycardia, rate 48, regular rhythm, no murmur, no pretibial edema; chest wall: left upper chest wall over ICD site with incision without significant erythema, no discharge Abd: normal BS, soft, non-tender Ext: no cyanosis, no calf tenderness Neuro: A&O x 3, no focal deficits noted, normal affect Skin: warm, dry Results & Data Results & Data ([facility]) Vital Signs (Past 12 Hours) Vital Signs Temp Pulse Pulse Resp BP BP Pulse Ox 09/18/19 18:49 49 L 16 132/81 96 09/18/19 18:45 50 L 09/18/19 18:40 50 L 10 L 94 09/18/19 18:33 45 L 8 L 130/82 96 09/18/19 18:30 48 L 11 L 09/18/19 18:27 36.4 C L 47 L 18 118/73 97 08/01/20 18:20 47 L 15 98 09/18/19 18:18 51 L 16 118/73 95 09/18/19 18:16 49 L 29 H 09/18/19 16:50 50 L 12 134/83 95 09/18/19 16:40 54 L 11 L 145/82 H 98 09/18/19 16:33 55 L 15 167/87 H 98 09/18/19 16:30 52 L 12 167/94 H 09/18/19 16:20 54 L 20 156/111 H 96 09/18/19 16:12 52 L 14 167/97 H 97 09/18/19 16:01 48 L 10 L 97 09/18/19 16:00 49 L 12 141/88 H 97 09/18/19 15:50 52 L 14 95 09/18/19 15:40 51 L 14 95 09/18/19 15:31 51 L 10 L 97 09/18/19 15:30 50 L 17 122/67 96 09/18/19 15:20 49 L 13 97 09/18/19 15:10 50 L 18 97 09/18/19 15:01 49 L 16 95 09/18/19 15:00 48 L 15 126/75 95 09/18/19 14:50 50 L 16 94 09/18/19 14:40 50 L 14 93 09/18/19 14:31 51 L 13 96 09/18/19 14:30 51 L 14 114/78 95 09/18/19 14:24 53 L 16 95 09/18/19 14:23 53 L 13 140/62 93 09/18/19 14:00 55 L 14 09/18/19 13:42 96 09/18/19 13:30 56 L 13 09/18/19 13:29 59 L 20 09/18/19 13:16 36.7 C 60 22 158/95 H 97 Laboratory Results Short CBC 09/18/19 Range/Units 13:33 WBC 8.30 (4.8-10.8) K/uL Hgb 15.2 (14.0-18.0) g/dL Hct 43.5 (42-52) % Plt Count 197 (130-400) K/uL BMP 09/18/19 13:33 Sodium 140 Potassium 4.1 Chloride 109 H Carbon Dioxide 26 BUN 14 Creatinine 1.41 H Glucose 102 H Calcium 8.9 Cardiac Enzymes 09/18/19 09/18/19 Range/Units 13:33 16:18 Troponin I < 0.015 < 0.015 (0-0.045) ng/ml Liver Function 09/18/19 Range/Units 13:33 Total Bilirubin 0.4 (0.2-1) mg/dl AST 20 (15-37) U/L ALT 22 (12-78) U/L Alkaline Phosphatase 108 (45-117) U/L Albumin 3.5 (3.4-5.0) gm/dl Diagnostic Findings CXR: IMPRESSION: No acute process. Code Status & VTE Plan VTE Prophylaxis Plan VTE Prophylaxis will be ordered: Yes Supervising Physician Co-Signing Physician Notes Patient was seen and examined by me, care coordinated with Yohana Valentin PA-C. Please see her note above for further details. Mr. Conway is a 43-year-old male with complex cardiac history,hx of cardiac arrest in March 2019, AICD placement, who now presents with chest pain and status post AICD firing earlier today. Patient was noted to have ST elevations in ED, he was taken to cardiac cath today by Dr. Ni, severe single-vessel CAD, proximal to mid RCA was noted, patient is now status post successful PCI of proximal to mid RCA with a single OVIDIO. Also notable for RCA vasospasm during the procedure. Currently patient is lying in bed, in no acute distress, denies any chest pain, shortness of breath, dizziness, lightheadedness, nausea. He states he just feels very weak. Patient appears older than stated age. He is alert and oriented and answering questions appropriately. He is moving all 4 extremities spontaneously without difficulty. Heart sounds are regular, bradycardic. Lung sounds are clear to auscultation bilaterally, no wheezing, rhonchi or crackles noted. AICD site at the left upper chest noted, without any significant erythema or edema or drainage. Abdomen is soft, nontender, nondistended, positive bowel sounds. Skin is warm, dry, well perfused. Patient is currently in ICU unit, cardiology will be following. Per current recommendations, patient was loaded with Brilinta, continue dual antiplatelet therapy, trend troponin, repeat echo, continue statin, plan for cardiac rehab. Joaquim Gallegos MD (1) Hypertension Hypertension type: essential hypertension Qualified Code(s): I10 - Essential (primary) hypertension
--- NOTE | 2019-09-18 19:31 | Critical Care Consultation ---
Date of Consultation September 18, 2019 Assessment & Plan (1) Acute ND: Reason Critically Ill: 43-year-old male with history of ventricular cardiac arrest in March where he received AICD, presented to the emergency department earlier today with chest pain and shocked x1 from AICD. Taken to [facility] and found to have 90% occlusion mid RCA and presents to the ICU status post successful PCI of proximal mid RCA with OVIDIO x1. Neuro - [facility] ICU: Negative Cardiac - STEMIpatient presented with chest pain and shock from AICD earlier today, and ST elevation in inferior leads; taken for Test Lab Technician and found to have severe single-vessel CAD with 80 to 90% occlusion proximal to mid RCA, moderate n onobstructive CAD, normal intracardiac filling pressures -Status post successful PCI of proximal to mid RCA with OVIDIO x1 -Loaded with ticagrelor 180 mg in Test Lab Technician -Patient undergo dual antiplatelet therapy for 1 year -Trend troponins for peak -Follow-up echo in a.m. -will need device interrogation -Continue ASA, Brilinta, statin, beta-eugenio -Continuous monitoring on telemetry Proximal V. tachhistory of ventricular cardiac arrest, now status post AICD and received 1 shock earlier today -We will maximize electrolytes for potassium greater than 4 and magnesium greater than 2 -Dysrhythmia from earlier today likely ischemic in origin, now status post stent to RCA -Continuous monitoring on telemetry Respiratory - Currently maintaining sats on room air, no history of pulmonary disease -Continue to monitor on pulse ox GI - Heart healthy diet LFTs within normal limits Continue PPI RENAL/LYTES - CKDcreatinine stable with prior studies at 1.4 -Continue maintenance IV fluids -Monitor with routine BMPs -Avoid nephrotoxins Monitor electrolytes and replete as indicated - Strict I's and O's ENDO - TSH within normal limits No history of diabetes, follow-up A1c -ICU hyperglycemic protocol HEME - H&H stable, monitor routine CBCs ID - No indication for infectious process at this time LINES/IV ACCESS - Peripheral IVs DVT PROPHYLAXIS - SCDs Thank you for allowing us to participate in the care of this patient. Please refer to my attending physician's documentation for any further recommendations. (2) Hypertension: (3) Paroxysmal ventricular tachycardia: (4) Status post implantation of automatic cardioverter/defibrillator (AICD): (5) Left ventricular dysfunction: (6) S/P cardiac cath: (7) CAD (coronary artery disease): (8) GERD (gastroesophageal reflux disease): (9) Defibrillator discharge: (10) STEMI (ST elevation myocardial infarction): History of Present Illness Attending Physician: Yohana Valentin PA-C History of Present Illness is a 43-year-old male with PMH significant for sudden cardiac arrest in March and now status post AICD. He had underwent a cardiac cath at that time which showed moderate CAD with 60% proximal RCA and 50 to 60% circumflex disease extending into OM1 at that time. Earlier in the week he was seen by cardiology due to concern for a possible infection to his AICD, and he reported episodes of chest pain while walking prior to that time. Interrogation of his AICD revealed an episode of V. tach which had degraded to V. fib and lasted 35 seconds before spontaneously converting. His carvedilol was increased to 25 mg twice daily. He presented to the emergency department earlier today with complaints of intermittent chest pain and single shock from his AICD. His EKG was concerning for acute ND as he had inferior ST elevation on EKG. And he was taken to the Test Lab Technician where he was found to have 90% occlusion proximal to the mid RCA and he received successful PCI with OVIDIO x1 to the mid RCA and was transferred to the ICU. On arrival to the ICU patient is alert and oriented and appears comfortable. He denies any further chest pain following PCI. He denies headache, dizziness or syncope, shortness of breath, palpitations, nausea or vomiting, abdominal pain, or swelling and feet or hands. He denies any recent illness or fevers. Patient to remain in ICU for overnight monitoring following STEMI with PCI. Allergies Allergy/AdvReac Type Severity Reaction Status Date / Time No Known Drug Allergies Allergy Verified 09/18/19 14:32 Home Medications Home Medications Medication Instructions Recorded Confirmed Type aspirin 81 mg PO QAM #30 tab 04/17/19 09/18/19 Rx diclofenac sodium [Voltaren] 4 g EXT QID PRN #100 gm 04/17/19 09/18/19 Rx pantoprazole 40 mg PO QAM #30 tab 04/17/19 09/18/19 Rx lisinopril 5 mg tablet 10 mg PO QAM tab 07/23/19 09/18/19 History bupropion HCl 150 mg 24 hr tablet, 150 mg PO BID tab 09/15/19 09/18/19 History extended release carvedilol 25 mg tablet 25 mg PO BID #180 tab 09/15/19 09/18/19 Rx cephalexin 500 mg capsule 500 mg PO TID #30 cap 09/15/19 09/18/19 Rx atorvastatin 40 mg PO PM 09/18/19 09/18/19 History Patient History Medical History CAD (coronary artery disease) GERD (gastroesophageal reflux disease) Hypertension ICD (implantable cardioverter-defibrillator), single, in situ Left ventricular dysfunction Paroxysmal ventricular tachycardia Sudden cardiac arrest Surgical History History of appendectomy Hx of cardiac cath 09/18/2019 at [facility]. By Dr Ni. OVIDIO to RCA Status post implantation of automatic cardioverter/defibrillator (AICD) Family History Other Cancer Coronary heart disease Diabetes Social History Smoking Status: Current every day smoker Tobacco Cessation Education Requested by Patient: No Hx Alcohol Use: Yes Hx Substance Use: No Preferred Language: Belarusian Communication Ability: Unable Wire Inspector Required: No Beliefs That Will Affect Care: None Current Living Situation: Spouse current occupational status: employed Other Information That Helps Us Care for You: No Feels Safe at Home: Yes Safety Concerns: Feels Safe At This Time Review of Systems Review of Systems: All systems reviewed & are unremarkable except as noted in HPI & below Physical Exam Constitutional: cooperative and comfortable Eyes: PERRL, conjunctivae normal, anicteric sclerae ENMT: external ear and nose normal, oropharynx normal Neck: trachea midline, no thyromegaly Respiratory: normal respiratory effort, lungs clear to auscultation Cardiovascular: RRR, no murmur, no edema Heart Sounds: normal S1 and normal S2 Vessels: no JVD Extremities: normal capillary refill; no edema Gastrointestinal (Abdomen): normal bowel sounds, soft, nontender, no hepatosplenomegaly Musculoskeletal: no cyanosis or clubbing, extremities motor strength 5/5 Skin: no rashes, warm and dry Neurologic: PERRL, EOMI, accommodation nl, no face palsy, no dysarthria Psychiatric: A+Ox3, euthymic affect Results & Data Results & Data ([facility]) Vital Signs (Past 12 Hours) Vital Signs Temp Pulse Pulse Resp BP BP Pulse Ox 09/18/19 18:49 49 L 16 132/81 96 09/18/19 18:45 50 L 09/18/19 18:40 50 L 10 L 94 09/18/19 18:33 45 L 8 L 130/82 96 09/18/19 18:30 48 L 11 L 09/18/19 18:27 36.4 C L 47 L 18 118/73 97 09/18/19 18:20 47 L 15 98 09/18/19 18:18 51 L 16 118/73 95 09/18/19 18:16 49 L 29 H 09/18/19 16:50 50 L 12 134/83 95 09/18/19 16:40 54 L 11 L 145/82 H 98 09/18/19 16:33 55 L 15 167/87 H 98 09/18/19 16:30 52 L 12 167/94 H 09/18/19 16:20 54 L 20 156/111 H 96 09/18/19 16:12 52 L 14 167/97 H 97 09/18/19 16:01 48 L 10 L 97 09/18/19 16:00 49 L 12 141/88 H 97 09/18/19 15:50 52 L 14 95 09/18/19 15:40 51 L 14 95 09/18/19 15:31 51 L 10 L 97 09/18/19 15:30 50 L 17 122/67 96 09/18/19 15:20 49 L 13 97 09/18/19 15:10 50 L 18 97 09/18/19 15:01 49 L 16 95 09/18/19 15:00 48 L 15 126/75 95 09/18/19 14:50 50 L 16 94 09/18/19 14:40 50 L 14 93 09/18/19 14:31 51 L 13 96 09/18/19 14:30 51 L 14 114/78 95 09/18/19 14:24 53 L 16 95 09/18/19 14:23 53 L 13 140/62 93 09/18/19 14:00 55 L 14 08/01/20 13:42 96 09/18/19 13:30 56 L 13 09/18/19 13:29 59 L 20 09/18/19 13:16 36.7 C 60 22 158/95 H 97 Coding Level of Care Code 54783 Office/OBS Consult Lvl 5 Diagnoses Acute ND I21.9 Hypertension I10 Hypertension type: essential hypertension Paroxysmal ventricular tachycardia I47.2 Status post implantation of automatic cardioverter/defibrillator (AICD) Z95.810 Left ventricular dysfunction I51.9 S/P cardiac cath Z98.890 CAD (coronary artery disease) I25.10 GERD (gastroesophageal reflux disease) K21.9 Defibrillator discharge Z45.02 STEMI (ST elevation myocardial infarction) I21.3 (1) Hypertension Hypertension type: essential hypertension Qualified Code(s): I10 - Essential (primary) hypertension
[2019-09-18] MEDS: cephALEXin 500 MG CAP PO SCH (20:12)
[2019-09-18] MEDS: BuPROPion XL 150 MG TABCR PO SCH (20:12)
[2019-09-18] MEDS: ATORVASTATIN 40 MG TAB PO SCH (20:12)
[2019-09-18] MEDS: carvediloL 25 MG TAB PO SCH (20:13)
[2019-09-19] MEDS: TICAGRELOR 90 MG TAB PO SCH ×2 (06:43→20:22)
[2019-09-19 07:14] LABS: Basophils # (auto) 0.01 K/uL (0-0.2); Basophils % (auto) 0.1 %; Eosinophils # (auto) 0.25 K/uL (0-0.5); Eosinophils % (auto) 2.4 %; Hematocrit (blood only) 46.2 % (42-52); Hemoglobin 16.1 g/dL (14.0-18.0); Immature Granulocytes # (auto) 0.03 K/uL (0.00-0.02); Immature Granulocytes % (auto) 0.3 %; Lymphocytes # (auto) 1.64 K/uL (1.2-3.4); Lymphocytes % (auto) 15.8 %; Mean Corpuscular Hemoglobin 32.3 pg (25-34); Mean Corpuscular Hgb Conc 34.8 g/dL (32-36); Mean Corpuscular Volume 92.8 fL (80-100); Monocytes % (auto) 7.7 %; Neutrophils # (auto) 7.63 K/uL (1.4-6.5); Neutrophils % (auto) 73.7 %; Platelet Count 183 K/uL (130-400); RDW Coefficient of Variation 13.2 % (11.5-14.5); RDW Standard Deviation 44.5 fL (36.4-46.3); Red Blood Count 4.98 M/uL (4.7-6.1); White Blood Count 10.36 K/uL (4.8-10.8)
[2019-09-19 07:28] LABS: BUN Creatinine Ratio 8.7 (10-20); Calcium 9.3 mg/dl (8.5-10.1); Creatinine Clr Calc Pharmacy 83.6 ml/min; Est GFR (African American) 71.6; Est GFR (Non-African American) 61.7; Magnesium 2.3 mg/dl (1.8-2.4); Potassium 4.3 mmol/L (3.5-5.1)
[2019-09-19 07:31] LABS: Phosphorus 2.6 mg/dl (2.5-4.9)
--- NOTE | 2019-09-19 08:03 | Critical Care Progress Note ---
Date of Service September 19, 2019 Assessment & Plan (1) STEMI (ST elevation myocardial infarction): Impression: 43-year-old male with history of coronary disease presents with acute myocardial infarction and AICD discharge. He is status post drug-eluting stent to the right coronary artery. Recommendations: 1. Acute MO: Status post OVIDIO to the RCA. He is currently on aspirin and Brilinta. Pain-free. Management per cardiology. Defer echo and serial troponins to cardiology. 2. AICD discharge: Suspect related to ischemia. If we should correct now that ischemia is no longer an issue follow clinically. 3. Hypertension: Patient is currently on Zestril 10 and twice a day. Blood pre ssure still on the high side. Will increase Zestril to 20 mg daily and follow serum creatinine and electrolytes. 4. Borderline hyperglycemia: Previous hemoglobin A1c was normal. Repeat is pending. Follow for now. Disposition per cardiology. Appears appropriate to certainly transfer out of the intensive care unit. We will sign off at this point time. Feel free to contact us with questions or concerns (2) Defibrillator discharge: (3) CAD (coronary artery disease): (4) Hypertension: Admission and Anticipated Discharge Date Admission Date: September 18, 2019 Subjective Patient seen and examined. EMR reviewed. Discussed with critical care nurse at bedside as well as critical care MORENITA. The patient is not experiencing any chest pain. No shortness of breath. No palpitations. No lower extremity edema. He does have some soreness in his right wrist but overall feels better. Hemodynamically stable. Review of Systems Review of Systems: All systems reviewed & are unremarkable except as noted in HPI & below Physical Exam Constitutional: WD/WN, vitals as above Neck: trachea midline, no thyromegaly Respiratory: normal respiratory effort, lungs clear to auscultation Cardiovascular: RRR, no murmur, no edema Gastrointestinal (Abdomen): normal bowel sounds, soft, nontender, no hepatosplenomegaly Musculoskeletal: Extremities: extremities normal to inspection Skin: no rashes, warm and dry Neurologic: Nonfocal exam Lymphatic: no cervical lymphadenopathy Results & Data Results & Data ([place]) Vital Signs (Past 12 Hours) Vital Signs Temp Pulse Pulse Resp BP BP Pulse Ox 09/19/19 06:00 49 L 10 L 94 09/19/19 05:30 48 L 19 116/79 96 09/19/19 05:00 47 L 17 97 09/19/19 04:30 51 L 13 139/78 98 09/19/19 04:00 36.5 C 45 L 16 94 09/19/19 03:30 48 L 20 135/68 97 09/19/19 03:00 46 L 18 97 09/19/19 02:30 49 L 13 113/84 96 09/19/19 02:00 49 L 15 97 09/19/19 01:30 47 L 12 144/74 H 96 09/19/19 01:00 48 L 19 96 09/19/19 00:30 46 L 13 130/81 96 09/19/19 00:04 36.6 C 50 L 16 142/82 H 96 09/18/19 23:58 51 L 09/18/19 23:04 56 L 14 144/98 H 97 09/18/19 22:04 54 L 22 144/98 H 98 09/18/19 21:04 51 L 17 147/84 H 98 09/18/19 20:04 36.4 C L 49 L 18 159/85 H 99 Laboratory Results 09/19/19 06:55 09/19/19 06:55 Diagnostic Findings No new imaging Coding Level of Care Code 65524 Subseq Hosp Care Lvl 3 Diagnoses STEMI (ST elevation myocardial infarction) I21.3 Defibrillator discharge Z45.02 CAD (coronary artery disease) I25.10 Hypertension I10 Hypertension type: essential hypertension (1) Hypertension Hypertension type: essential hypertension Qualified Code(s): I10 - Essential (primary) hypertension
[2019-09-19] MEDS: BuPROPion XL 150 MG TABCR PO SCH ×2 (08:06→20:24)
[2019-09-19] MEDS: cephALEXin 500 MG CAP PO SCH ×3 (08:07→20:21)
[2019-09-19] MEDS: PANTOprazole 40 MG TAB PO SCH (08:07)
[2019-09-19] MEDS: ASPIRIN 81 MG ECTAB PO SCH (08:07)
[2019-09-19] MEDS: carvediloL 25 MG TAB PO SCH ×2 (08:07→20:23)
[2019-09-19] MEDS ORDERED: lisinopriL 10 MG TAB PO SCH (09:00)
[2019-09-19] MEDS: lisinopriL 20 MG TAB PO SCH (10:19)
--- NOTE | 2019-09-19 12:09 | Cardiology Progress Note ---
Date of Service September 19, 2019 Assessment & Plan (1) Acute NE: -single OVIDIO placed in the proximal to mid RCA (4 x 26 mm [place]). -significant degree of vasospasm noted at time of intervention. -50-60% ostial and mid circumflex, 30% proximal OM1. -30-40% proximal D2. -troponin I level currently 0.594. -continue carvedilol, lisinopril, ticagrelor, aspirin, and atorvastatin. -echocardiogram pending. (2) Defibrillator discharge: -likely due to a malignant ventricular dysrhythmia at the time of his myocardial infarction. -device will be interrogated. (3) ICD (implantable cardioverter-defibrillator), single, in situ: -device implanted after cardiac arrest March 2019 (4) CAD (coronary artery disease): -known disease as described. (5) Left ventricular dysfunction: -LVEF 30-35% in March 2019. -LVEF up to 65-70% just 6 days later. -continue medical management. Admission and Anticipated Discharge Date Admission Date: September 18, 2019 Subjective The patient is resting comfortably in bed without complaints of chest pain or dyspnea. Physical Exam Physical Exam: In general is an obese white male in no acute distress. HEENT exam is negative. Neck is supple with full carotid upstrokes. No carotid bruits. Jugular venous pressure is flat at 90 degrees. There is no thyromegaly. Cardiovascular exam reveals a regular rhythm with a normal S1-S2. Heart sounds are distant. No obvious murmurs. Chest reveals a palpable device in the left subclavicular region. Lungs are clear without rales, rhonchi, or wheezes. Abdomen is soft and nontender without bruits. Extremities reveal no edema. Results & Data ([facility]) Vital Signs (Past 12 Hours) Vital Signs Temp Pulse Resp BP Pulse Ox 09/19/19 11:31 36.7 C 52 L 11 L 132/70 97 09/19/19 11:09 52 L 9 L 130/84 96 09/19/19 11:00 64 13 96 09/19/19 10:30 55 L 17 127/81 95 09/19/19 10:00 56 L 16 97 09/19/19 09:30 58 L 14 127/86 96 09/19/19 09:00 60 29 H 97 09/19/19 08:30 61 21 168/87 H 98 09/19/19 08:00 36.8 C 69 23 98 09/19/19 07:30 58 L 7 L 147/83 H 97 09/19/19 07:00 58 L 16 96 09/19/19 06:31 71 11 L 140/63 99 09/19/19 06:00 49 L 10 L 94 09/19/19 05:30 48 L 19 116/79 96 09/19/19 05:00 47 L 17 97 09/19/19 04:30 51 L 13 139/78 98 09/19/19 04:00 36.5 C 45 L 16 94 09/19/19 03:30 48 L 20 135/68 97 09/19/19 03:00 46 L 18 97 09/19/19 02:30 49 L 13 113/84 96 09/19/19 02:00 49 L 15 97 09/19/19 01:30 47 L 12 144/74 H 96 09/19/19 01:00 48 L 19 96 09/19/19 00:30 46 L 13 130/81 96 Diagnostic Findings engine monitor is benign. PG Care Time/CCT Total # of Minutes Spent Total Time Spent with Patient: Total time spent is greater than 50% in coordination of care (as documented) at patient's floor/unit and/or counseling patient: Coding Level of Care Code 25548 Subseq Hosp Care Lvl 3 Diagnoses Acute NE I21.9 Defibrillator discharge Z45.02 ICD (implantable cardioverter-defibrillator), single, in situ Z95.810 CAD (coronary artery disease) I25.10 Left ventricular dysfunction I51.9
--- NOTE | 2019-09-19 13:02 | XCELERA ---
[id number]
--- NOTE | 2019-09-19 13:08 | Electrocardiogram Report ---
Test Reason : Blood Pressure : / mmHG Vent. Rate : 056 BPM Atrial Rate : 056 BPM P-R Int : 196 ms QRS Dur : 110 ms QT Int : 416 ms P-R-T Axes : 000 -30 031 degrees QTc Int : 401 ms Sinus bradycardia Left axis deviation Abnormal ECG When compared with ECG of 15-APR-2019 14:45, No significant change Confirmed by Fran Kay ([id number]) on 09/19/2019 1:08:08 PM Referred By: REFERRED SELF Confirmed By:Fran Kay
--- NOTE | 2019-09-19 13:10 | Electrocardiogram Report ---
Test Reason : Blood Pressure : / mmHG Vent. Rate : 050 BPM Atrial Rate : 050 BPM P-R Int : 204 ms QRS Dur : 100 ms QT Int : 432 ms P-R-T Axes : 007 -24 032 degrees QTc Int : 393 ms Sinus bradycardia Leftward axis Borderline ECG When compared with ECG of 18-SEP-2019 13:23, (unconfirmed) No significant change was found Confirmed by Fran Kay ([id number]) on 09/19/2019 1:10:11 PM Referred By: REFERRED SELF Confirmed By:Fran Kay
--- NOTE | 2019-09-19 13:11 | Electrocardiogram Report ---
Test Reason : Blood Pressure : / mmHG Vent. Rate : 058 BPM Atrial Rate : 058 BPM P-R Int : 212 ms QRS Dur : 124 ms QT Int : 396 ms P-R-T Axes : 004 074 070 degrees QTc Int : 388 ms Sinus bradycardia with 1st degree A-V block Non-specific intra-ventricular conduction delay ST elevation consider inferolateral injury or acute infarct ACUTE SC / STEMI Consider right ventricular involvement in acute inferior infarct Abnormal ECG When compared with ECG of 18-SEP-2019 16:23, (unconfirmed) Questionable change in QRS duration Confirmed by Fran Kay ([id number]) on 09/19/2019 1:10:58 PM Referred By: REFERRED SELF Confirmed By:Fran Kay
--- NOTE | 2019-09-19 13:11 | Electrocardiogram Report ---
Test Reason : Blood Pressure : / mmHG Vent. Rate : 047 BPM Atrial Rate : 047 BPM P-R Int : 210 ms QRS Dur : 096 ms QT Int : 444 ms P-R-T Axes : 008 -26 028 degrees QTc Int : 392 ms Sinus bradycardia with 1st degree A-V block Otherwise normal ECG When compared with ECG of 18-SEP-2019 16:25, (unconfirmed) Questionable change in QRS duration Confirmed by Fran Kay ([id number]) on 09/19/2019 1:11:26 PM Referred By: REFERRED SELF Confirmed By:Fran Kay
--- NOTE | 2019-09-19 13:11 | Electrocardiogram Report ---
Test Reason : Blood Pressure : / mmHG Vent. Rate : 057 BPM Atrial Rate : 057 BPM P-R Int : 210 ms QRS Dur : 100 ms QT Int : 394 ms P-R-T Axes : 010 -08 067 degrees QTc Int : 383 ms Sinus bradycardia with 1st degree A-V block ST elevation consider inferolateral injury or acute infarct ACUTE SC / STEMI Abnormal ECG When compared with ECG of 18-SEP-2019 16:01, (unconfirmed) Significant changes have occurred Confirmed by Fran Kay ([id number]) on 09/19/2019 1:10:41 PM Referred By: REFERRED SELF Confirmed By:Fran Kay
--- NOTE | 2019-09-19 13:42 | Electrocardiogram Report ---
Test Reason : Blood Pressure : / mmHG Vent. Rate : 057 BPM Atrial Rate : 057 BPM P-R Int : 194 ms QRS Dur : 110 ms QT Int : 430 ms P-R-T Axes : 003 -40 021 degrees QTc Int : 418 ms Sinus bradycardia Left axis deviation Incomplete right bundle branch block Minimal voltage criteria for LVH, may be normal variant Abnormal ECG When compared with ECG of 18-SEP-2019 18:23, (unconfirmed) Incomplete right bundle branch block is now Present Confirmed by Fran Kay ([id number]) on 09/19/2019 1:42:38 PM Referred By: REFERRED SELF Confirmed By:Fran Kay
--- NOTE | 2019-09-19 13:53 | Hospitalist Progress Note ---
Date of Service September 19, 2019 Assessment & Plan (1) Acute PA: (2) S/P cardiac cath: Patient is a 43 yr male with H/O sudden cardiac arrest in 03/2019, LV dysfunction, s/p ICD, depression presented to ER with complaint of chest pain and ICD Firing. Acute PA S/P Cardiac Cath: Single drug-eluting stent placed in the proximal to mid RCA ECHO: Left ventricular systolic function is normal. No regional wall motion abnormalities noted. There is mild concentric left ventricular hypertrophy. Ejection fraction 60 to 65%. CXR:No acute process. Appreciate Anesthesia Tech/Cardiology Input Monitor on tele HbA1C:pending Needs ICD Interrogated Continue aspirin, Brilinta, statin, carvedilol, lisinopril Needs follow up with Cardiology upon discharge (3) Paroxysmal ventricular tachycardia: (4) Left ventricular dysfunction: (5) Status post implantation of automatic cardioverter/defibrillator (AICD): H/O Sudden cardiac arrest in 03/2019. H/O severe LV dysfunction in 03/2019 s/p ICD Current ECHO as above Retained suture at ICD site--Removed Outpatient pacer interrogation which showed VT/VF lasting 35 seconds and then spontaneously converting Continue Keflex (6) Hypertension: Continue carvedilol, lisinopril (7) GERD (gastroesophageal reflux disease): Continue PPI Tobacco use disorder Refused Nicotine Patch On Bupropion DVT Px: SCDs Admission and Anticipated Discharge Date Admission Date: September 18, 2019 Subjective Patient is seen and examined at bedside Complains of mild discomfort at the site of catheterization Denies any chest pain, shortness of breath, dizziness, nausea, abdominal pain Family at bedside Offers no other complaints Plan to be transferred out of ICU today Review of Systems Review of Systems: All systems reviewed & are unremarkable except as noted in HPI & below Physical Exam Physical Exam: Physical Exam: Vitals signs as noted above General Appearance:Obese, no apparent distress Head: normocephalic, Atraumatic Eyes: normal inspection, EOMI Neck: supple, Trachea midline Respiratory/Chest: Normal breath sounds, CTA, No accessory muscle use Cardiovascular: S1, S2, No murmur Abdomen/GI:Soft, Non tender, Bowel sounds present Extremities/Musculoskelatal:normal inspection, no edema Neurologic/Psych:AAOX3, grossly no focal neurological deficits Skin: normal color, warm Results & Data Results & Data ([facility]) Vital Signs (Past 12 Hours) Vital Signs Temp Pulse Resp BP Pulse Ox 09/19/19 11:31 36.7 C 52 L 11 L 132/70 97 09/19/19 11:09 52 L 9 L 130/84 96 09/19/19 11:00 64 13 96 09/19/19 10:30 55 L 17 127/81 95 09/19/19 10:00 56 L 16 97 09/19/19 09:30 58 L 14 127/86 96 09/19/19 09:00 60 29 H 97 09/19/19 08:30 61 21 168/87 H 98 09/19/19 08:00 36.8 C 69 23 98 09/19/19 07:30 58 L 7 L 147/83 H 97 09/19/19 07:00 58 L 16 96 09/19/19 06:31 71 11 L 140/63 99 09/19/19 06:00 49 L 10 L 94 09/19/19 05:30 48 L 19 116/79 96 09/19/19 05:00 47 L 17 97 09/19/19 04:30 51 L 13 139/78 98 09/19/19 04:00 36.5 C 45 L 16 94 09/19/19 03:30 48 L 20 135/68 97 09/19/19 03:00 46 L 18 97 09/19/19 02:30 49 L 13 113/84 96 09/19/19 02:00 49 L 15 97 Laboratory Results Short CBC 09/18/19 09/19/19 Range/Units 13:33 06:55 WBC 8.30 10.36 (4.8-10.8) K/uL Hgb 15.2 16.1 (14.0-18.0) g/dL Hct 43.5 46.2 (42-52) % Plt Count 197 183 (130-400) K/uL BMP 09/18/19 09/19/19 13:33 06:55 Sodium 140 140 Potassium 4.1 4.3 Chloride 109 H 109 H Carbon Dioxide 26 27 BUN 14 12 Creatinine 1.41 H 1.38 Glucose 102 H 94 Calcium 8.9 9.3 Cardiac Enzymes 09/18/19 09/18/19 09/19/19 Range/Units 13:33 16:18 00:21 Troponin I < 0.015 < 0.015 0.105 H* (0-0.045) ng/ml 09/19/19 Range/Units 06:55 Troponin I 0.594 H* (0-0.045) ng/ml Liver Function 09/18/19 Range/Units 13:33 Total Bilirubin 0.4 (0.2-1) mg/dl AST 20 (15-37) U/L ALT 22 (12-78) U/L Alkaline Phosphatase 108 (45-117) U/L Albumin 3.5 (3.4-5.0) gm/dl (1) Hypertension Hypertension type: essential hypertension Qualified Code(s): I10 - Essential (primary) hypertension
[2019-09-19] MEDS: ATORVASTATIN 40 MG TAB PO SCH (20:24)
[2019-09-19] MEDS: NICOTINE 21 MG/24 HR TDSY TD SCH (20:56)
[2019-09-20 05:53] LABS: Estimated Average Glucose 123 mg/dl; Hemoglobin A1C 5.9 % (4.5-5.6)
[2019-09-20 06:17] LABS: Hemoglobin 15.3 g/dL (14.0-18.0); Mean Corpuscular Hemoglobin 31.5 pg (25-34); Mean Corpuscular Volume 92.8 fL (80-100); Mean Platelet Volume 10.3 fL (7.4-10.4); Platelet Count 202 K/uL (130-400); RDW Coefficient of Variation 13.1 % (11.5-14.5); RDW Standard Deviation 44.6 fL (36.4-46.3); Red Blood Count 4.85 M/uL (4.7-6.1); White Blood Count 10.55 K/uL (4.8-10.8)
[2019-09-20 06:40] LABS: BUN Creatinine Ratio 8.6 (10-20); Calcium 9.2 mg/dl (8.5-10.1); Creatinine Clr Calc Pharmacy 83.3 ml/min; Est GFR (African American) 70.9; Est GFR (Non-African American) 61.2; Magnesium 2.2 mg/dl (1.8-2.4); Potassium 4.1 mmol/L (3.5-5.1)
[2019-09-20] MEDS: ACETAMINOPHEN 325 MG TAB PO PRN ×2 (07:44→14:39)
[2019-09-20] MEDS: NICOTINE 21 MG/24 HR TDSY TD SCH (08:11)
[2019-09-20] MEDS: BuPROPion XL 150 MG TABCR PO SCH ×2 (08:12→20:22)
[2019-09-20] MEDS: TICAGRELOR 90 MG TAB PO SCH ×2 (08:12→20:26)
[2019-09-20] MEDS: lisinopriL 20 MG TAB PO SCH (08:12)
[2019-09-20] MEDS: carvediloL 25 MG TAB PO SCH ×2 (08:12→20:23)
[2019-09-20] MEDS: PANTOprazole 40 MG TAB PO SCH (08:12)
[2019-09-20] MEDS: ASPIRIN 81 MG ECTAB PO SCH (08:12)
[2019-09-20] MEDS: cephALEXin 500 MG CAP PO SCH ×3 (08:12→20:22)
--- NOTE | 2019-09-20 13:55 | Cardiology Progress Note ---
Date of Service September 20, 2019 Assessment & Plan (1) Acute [place]: -single OVIDIO placed in the proximal to mid RCA (4 x 26 mm [place]). -significant degree of vasospasm noted at time of intervention. -50-60% ostial and mid circumflex, 30% proximal OM1. -30-40% proximal D2. Will continue current medications. In the absence of recurrent symptoms or objective findings of ischemia, he should be stable for discharge tomorrow. (2) Defibrillator discharge: -likely due to a malignant ventricular dysrhythmia at the time of his myocardial infarction. (3) ICD (implantable cardioverter-defibrillator), single, in situ: -device implanted after cardiac arrest March 2019. (4) CAD (coronary artery disease): -known disease as described. (5) Left ventricular dysfunction: Normalized at the time of his last discharge. Echocardiogram performed yesterday revealed normal LV systolic function without regional wall motion abnormalities. Admission and Anticipated Discharge Date Admission Date: September 18, 2019 Subjective This afternoon the patient claims to be feeling well but was somewhat frustrated regarding his current medical situation and the need to change his lifestyle. H e denied any recurrent symptoms of chest discomfort. No breathing difficulty. He has been ambulatory around his room without dizziness or lightheadedness. Review of Systems Review of Systems: Per HPI Physical Exam Physical Exam: In general is an obese white male in no acute distress. HEENT exam is negative. . Jugular venous pressure is flat at 90 degrees. Cardiovascular exam reveals a regular rhythm with a normal S1-S2. Heart sounds are distant. No obvious murmurs. Chest reveals a palpable device in the left subclavicular region. Very mild erythema at the medial edge of the incision without purulence or drainage. Lungs are clear without rales, rhonchi, or wheezes. Abdomen is soft and nontender without bruits. Extremities reveal no edema. Results & Data ([facility]) Vital Signs (Past 12 Hours) Vital Signs Temp Pulse Pulse Resp BP Pulse Ox 09/20/19 11:17 36.6 C 58 L 18 144/75 H 99 09/20/19 08:00 58 L 09/20/19 07:35 36.5 C 56 L 17 158/85 H 97 09/20/19 05:17 36.5 C 55 L 18 122/83 97 Laboratory Results Abnormal Lab Results 09/19/19 09/20/1909/19/20 06:55 05:28 05:28 WBC 10.55 RBC 4.85 Hgb 15.3 Hct 45.0 MCV 92.8 MCH 31.5 MCHC 34.0 RDW Std Deviation 44.6 RDW Coeff of Paddy 13.1 Plt Count 202 MPV 10.3 Sodium 142 Potassium 4.1 Chloride 108 H Carbon Dioxide 29 Anion Gap 5.0 BUN 12 Creatinine 1.39 Est Cr Clr Drug Dosing 83.3 Est GFR ( Amer) 70.9 Est GFR (Non-Af Amer) 61.2 BUN/Creatinine Ratio 8.6 L Glucose 90 Estimat Average Glucose 123 Hemoglobin A1c 5.9 H Calcium 9.2 Magnesium 2.2 PG Care Time/CCT Total # of Minutes Spent Total Time Spent with Patient: Total time spent is greater than 50% in coordination of care (as documented) at patient's floor/unit and/or counseling patient: Coding Level of Care Code 47951 Subseq Hosp Care Lvl 2 Diagnoses Acute [place] I21.9 Defibrillator discharge Z45.02 ICD (implantable cardioverter-defibrillator), single, in situ Z95.810 CAD (coronary artery disease) I25.10 Left ventricular dysfunction I51.9
--- NOTE | 2019-09-20 17:13 | Hospitalist Progress Note ---
Date of Service September 20, 2019 Assessment & Plan (1) Acute [place]: (2) S/P cardiac cath: Patient is a 43 yr male with H/O sudden cardiac arrest in 03/2019, LV dysfunction, s/p ICD, depression presented to ER with complaint of chest pain and ICD Firing. Acute [place] S/P Cardiac Cath: Single drug-eluting stent placed in the proximal to mid RCA ECHO: Left ventricular systolic function is normal. No regional wall motion abnormalities noted. There is mild concentric left ventricular hypertrophy. Ejection fraction 60 to 65%. CXR:No acute process. 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 Requests for Nicotine patch upon discharge DVT Px: SCDs Admission and Anticipated Discharge Date Admission Date: September 18, 2019 Subjective Patient is seen and examined at bedside Transient chest pressure this morning which patient attributes to her anxiety No other complaints Denies any shortness of breath, dizziness, nausea, abdominal pain Review of Systems Review of Systems: All systems reviewed & are unremarkable except as noted in HPI & below Physical Exam Physical Exam: Physical Exam: Vitals signs as noted above General Appearance:Obese, no apparent distress Head: normocephalic, Atraumatic Eyes: normal inspection, EOMI Neck: supple, Trachea midline Respiratory/Chest: Normal breath sounds, CTA, No accessory muscle use Cardiovascular: S1, S2, No murmur Abdomen/GI:Soft, Non tender, Bowel sounds present Extremities/Musculoskelatal:normal inspection, no edema Neurologic/Psych:AAOX3, grossly no focal neurological deficits Skin: normal color, warm Results & Data Results & Data ([facility]) Vital Signs (Past 12 Hours) Vital Signs Temp Pulse Pulse Resp BP Pulse Ox 09/20/19 15:01 36.7 C 60 18 146/89 H 97 09/20/19 11:17 36.6 C 58 L 18 144/75 H 99 09/20/19 08:00 58 L 09/20/19 07:35 36.5 C 56 L 17 158/85 H 97 09/20/19 05:17 36.5 C 55 L 18 122/83 97 Laboratory Results Short CBC 09/20/19 Range/Units 05:28 WBC 10.55 (4.8-10.8) K/uL Hgb 15.3 (14.0-18.0) g/dL Hct 45.0 (42-52) % Plt Count 202 (130-400) K/uL BMP 09/20/19 05:28 Sodium 142 Potassium 4.1 Chloride 108 H Carbon Dioxide 29 BUN 12 Creatinine 1.39 Glucose 90 Calcium 9.2 (1) Hypertension Hypertension type: essential hypertension Qualified Code(s): I10 - Essential (primary) hypertension
[2019-09-20] MEDS: ATORVASTATIN 40 MG TAB PO SCH (20:22)
[2019-09-21 07:06] LABS: BUN Creatinine Ratio 10.6 (10-20); Calcium 9.1 mg/dl (8.5-10.1); Est GFR (African American) 64.7; Est GFR (Non-African American) 55.8; Magnesium 2.1 mg/dl (1.8-2.4); Potassium 4.3 mmol/L (3.5-5.1)
[2019-09-21] MEDS: carvediloL 25 MG TAB PO SCH (08:02)
[2019-09-21] MEDS: lisinopriL 20 MG TAB PO SCH (08:02)
[2019-09-21] MEDS: BuPROPion XL 150 MG TABCR PO SCH (08:02)
[2019-09-21] MEDS: PANTOprazole 40 MG TAB PO SCH (08:02)
[2019-09-21] MEDS: ASPIRIN 81 MG ECTAB PO SCH (08:02)
[2019-09-21] MEDS: NICOTINE 21 MG/24 HR TDSY TD SCH (08:03)
[2019-09-21] MEDS: cephALEXin 500 MG CAP PO SCH (08:03)
[2019-09-21] MEDS: TICAGRELOR 90 MG TAB PO SCH (08:27)
--- NOTE | 2019-09-21 10:10 | Cardiology Progress Note ---
Date of Service September 21, 2019 Assessment & Plan (1) Acute [place]: -single OVIDIO placed in the proximal to mid RCA (4 x 26 mm [place]). -significant degree of vasospasm noted at time of intervention. -50-60% ostial and mid circumflex, 30% proximal OM1. -30-40% proximal D2. Will continue current medications. Patient appears stable for discharge. He should be discharged on dual anti- platelet therapy consisting of aspirin and ticagrelor. He should continue high- dose atorvastatin, carvedilol and lisinopril. Should refrain from vigorous use of the right wrist for another 5 days. Should follow up in our Cardiology Clinic within 2 weeks. (2) Defibrillator discharge: -likely due to a malignant ventricular dysrhythmia at the time of his myocardial infarction. (3) ICD (implantable cardioverter-defibrillator), single, in situ: -device implanted after cardiac arrest March 2019. (4) CAD (coronary artery disease): -known disease as described. (5) Left ventricular dysfunction: Normalized at the time of his last discharge. Echocardiogram performed yesterday revealed normal LV systolic function without regional wall motion abnormalities. Admission and Anticipated Discharge Date Admission Date: September 18, 2019 Subjective this morning patient claims to be feeling well. He is ambulatory around his room without any symptoms of chest discomfort or breathing difficulty. No dizziness or lightheadedness. No discomfort at the right radial access site or the right hand. Review of Systems Review of Systems: Per HPI Physical Exam Physical Exam: In general is an obese white male in no acute distress. HEENT exam is negative. . Jugular venous pressure is flat at 90 degrees. Cardiovascular exam reveals a regular rhythm with a normal S1-S2. Heart sounds are distant. No obvious murmurs. Chest reveals a palpable device in the left subclavicular region. Very mild erythema at the medial edge of the incision without purulence or drainage. Lungs are clear without rales, rhonchi, or wheezes. Abdomen is soft and nontender without bruits. Extremities reveal no edema. palpable radial pulse in the right wrist. Good perfusion of the right hand. Results & Data ([facility]) Vital Signs (Past 12 Hours) Vital Signs Temp Pulse Pulse Resp BP Pulse Ox 09/21/19 06:58 36.9 C 57 L 17 110/68 95 09/21/19 03:08 36.8 C 52 L 17 140/73 96 09/20/19 23:58 51 L 09/20/19 23:39 36.8 C 55 L 16 129/73 97 Laboratory Results Abnormal Lab Results 09/21/19 06:04 Sodium 138 Potassium 4.3 Chloride 107 Carbon Dioxide 25 Anion Gap 6.0 BUN 16 Creatinine 1.50 H Est Cr Clr Drug Dosing 77.0 Est GFR ( Amer) 64.7 Est GFR (Non-Af Amer) 55.8 BUN/Creatinine Ratio 10.6 Glucose 100 H Calcium 9.1 Magnesium 2.1 ECG Additional Comments: Overnight telemetry did significant arrhythmia. PG Care Time/CCT Total # of Minutes Spent Total Time Spent with Patient: Total time spent is greater than 50% in coordination of care (as documented) at patient's floor/unit and/or counseling patient: Coding Level of Care Code 08117 Subseq Hosp Care Lvl 2 Diagnoses Acute [place] I21.9 Defibrillator discharge Z45.02 ICD (implantable cardioverter-defibrillator), single, in situ Z95.810 CAD (coronary artery disease) I25.10 Left ventricular dysfunction I51.9
[2019-09-21 10:54] VITALS: TEMP 97.9; O2SAT 97
[2019-09-21] MEDS: ACETAMINOPHEN 325 MG TAB PO PRN (11:05)
--- NOTE | 2019-09-21 12:07 | Hospitalist Progress Note ---
Date of Service September 21, 2019 Assessment & Plan (1) Acute [place]: (2) S/P cardiac cath: Patient is a 43 yr male with H/O sudden cardiac arrest in 03/2019, LV dysfunction, s/p ICD, depression presented to ER with complaint of chest pain and ICD Firing. Acute [place] S/P Cardiac Cath: Single drug-eluting stent placed in the proximal to mid RCA ECHO: Left ventricular systolic function is normal. No regional wall motion abnormalities noted. There is mild concentric left ventricular hypertrophy. Ejection fraction 60 to 65%. CXR:No acute process. Appreciate Entry Level Finance/Cardiology Input Monitor on tele HbA1C:5.9 Needs ICD Interrogated Continue aspirin, Brilinta, statin, carvedilol, lisinopril Service Counselor lifestyle changes Advised to quit tobacco use Needs follow up with Cardiology upon discharge in 2 weeks (3) Paroxysmal ventricular tachycardia: (4) Left ventricular dysfunction: (5) Status post implantation of automatic cardioverter/defibrillator (AICD): H/O Sudden cardiac arrest in 03/2019. 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 Service Counselor to quit smoking Counseled not to smoke while on nicotine patch--Patient agrees DVT Px: SCDs Disposition Plan to discharge home today Admission and Anticipated Discharge Date Admission Date: September 18, 2019 Subjective Patient is seen and examined at bedside Sitting in chair comfortably this morning Offers no new complaints Denies any recurrence of chest pain Also denies shortness of breath, dizziness, nausea, abdominal pain Plan to discharge home today Review of Systems Review of Systems: All systems reviewed & are unremarkable except as noted in HPI & below Physical Exam Physical Exam: Physical Exam: Vitals signs as noted above General Appearance:Obese, no apparent distress Head: normocephalic, Atraumatic Eyes: normal inspection, EOMI Neck: supple, Trachea midline Respiratory/Chest: Normal breath sounds, CTA, No accessory muscle use Cardiovascular: S1, S2, No murmur Abdomen/GI:Soft, Non tender, Bowel sounds present Extremities/Musculoskelatal:normal inspection, no edema Neurologic/Psych:AAOX3, grossly no focal neurological deficits Skin: normal color, warm Results & Data Results & Data ([facility]) Vital Signs (Past 12 Hours) Vital Signs Temp Pulse Pulse Resp BP Pulse Ox 09/21/19 10:53 36.6 C 60 18 152/87 H 97 09/21/19 08:00 61 09/21/19 06:58 36.9 C 57 L 17 110/68 95 09/21/19 03:08 36.8 C 52 L 17 140/73 96 Laboratory Results BMP 09/21/19 06:04 Sodium 138 Potassium 4.3 Chloride 107 Carbon Dioxide 25 BUN 16 Creatinine 1.50 H Glucose 100 H Calcium 9.1 (1) Hypertension Hypertension type: essential hypertension Qualified Code(s): I10 - Essential (primary) hypertension
--- NOTE | 2019-09-21 12:20 | Discharge Summary ---
Date of Service September 21, 2019 Admission HPI Per Admitting Provider Pt is 43 y/o M with PMH sudden cardiac arrest in 03/2019, LV dysfunction, s/p ICD, depression presented to ER with complaint of chest pain. In 03/2019 patient had sudden cardiac arrest with return of ROSC. Had cardiac catheterization at that time which showed nonobstructive moderate CAD with 60% proximal RCA and 50 to 60% circumflex disease extending into OM1. Had ICD placed at that time. His initial severe LV dysfunction had returned to normal 1 week later. Patient saw cardiology last week and had noted retained suture ICD site which was removed and patient was started on Keflex. Patient had reported episode of chest pain with walking. At cardiology clinic had pacer interrogation which showed VT/VF lasting 35 seconds and then spontaneously converting. Patient's carvedilol was increased to 25 mg twice daily. Patient states today he was working on car and stood up and had chest pain. He tried taking antacids which she states usually relieves his chest pain however did not today. Today chest pain was followed by ICD shock. He presented to ER and in ER his EKGs were concerning for STEMI and heart alert was called. Patient was taken to [facility] and found to have 80 to 90% proximal to mid RCA stenosis and received OVIDIO to RCA. Post-cath patient states feels tired but otherwise denies any chest pain, shortness of breath, dizziness, palpitations. Denies fever/chills, diaphoresis, N/V/D/C, DEE, syncope, vision changes, neck pain, orthopnea, cough, sore throat, choking, otalgia, rhinorrhea, abdominal pain, paresthesias, weakness, extremity weakness, extremity edema, rashes, urinary symptoms. Admission Exam Per Admitting Provider Physical Exam Physical Exam: General: no distress, obese Head: normocephalic, atraumatic Eyes: conjunctiva non-injected, anicteric ENT: normal inspection external ears, nose, mucous , non-tender Lungs: clear, no respiratory distress, no wheezing/rhonchi/rales CV: bradycardia, rate 48, regular rhythm, no murmur, no pretibial edema; chest wall: left upper chest wall over ICD site with incision without significant erythema, no discharge Abd: normal BS, soft, non-tender Ext: no cyanosis, no calf tenderness Neuro: A&O x 3, no focal deficits noted, normal affect Skin: warm, dry Principal Diagnosis Acute myocardial infarction Defibrillator discharge Tobacco use disorder Discharge Data Allergies Allergy/AdvReac Type Severity Reaction Status Date / Time No Known Drug Allergies Allergy Verified 09/18/19 14:32 Consultations 09/18/19 18:21 Consult Case Management - Discharge Planning Routine Consult Staff Development Coordinator Rn Routine 09/18/19 18:46 Consult Cardiology Routine Procedures Performed Operation Date: 09/18/19 17:00 Actual Procedures s Cineradiography w/Routine Exam - Jones Ni MD p Aspiration/PCI w/OVIDIO for Stemi - Jones Ni MD s IVUS Coronary Single Vessel - Jones Ni MD s Cath, Left with Cors and Vent - Jones Ni MD s Ultrasound Vascular Access - Jones Ni MD Ordered Studies 09/18/19 10:50 CL IVUS Coronary Single Vessel Routine 09/18/19 16:51 CL Cath Imgs for PACS use only Stat --ECHO: Left ventricular systolic function is normal. No regional wall motion abnormalities noted. There is mild concentric left ventricular hypertrophy. Ejection fraction 60 to 65%. --CXR:No acute process. -- CARDIAC CATH: Summary: 1. Severe single vessel coronary artery disease -80 to 90% proximal to mid RCA 2. Moderate nonobstructive coronary disease (unchanged from 03/2019). 50 to 60% ostial and mid circumflex. 30% proximal OM1 30 to 40% proximal second diagonal 3. Notable RCA coronary vasospasm 4. Normal intracardiac filling pressure 5. Successful PCI of proximal to mid RCA with single drug-eluting stent (4.0 x 26 mm Bowen). Recommendations: To ICU for continued monitoring Loaded with ticagrelor 180 mg in [facility] Continue dual-antiplatelet therapy for at least 1 year Trend troponin until peak, device interrogation, repeat echocardiogram Continue statin, and ASCVD risk factor modification Consult cardiac Rehab Hospital Course (1) Acute AR: (2) S/P cardiac cath: Patient is a 43 yr male with H/O sudden cardiac arrest in 03/2019, LV dysfunction, s/p ICD, depression presented to ER with complaint of chest pain and ICD Firing. Acute AR S/P Cardiac Cath: Single drug-eluting stent placed in the proximal to mid RCA ECHO: Left ventricular systolic function is normal. No regional wall motion abnormalities noted. There is mild concentric left ventricular hypertrophy. Ejection fraction 60 to 65%. CXR:No acute process. 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 Counseled not to smoke while on nicotine patch--Patient agrees DVT Px: SCDs Disposition Plan to discharge home today Total Time Total Time Spent Total Time Spent (In Minutes): 43 minutes Total Time Includes: Examination of the Patient, Discharge Planning, Medication Reconciliation, Communication With Other Providers and Other Discharge Plan Discharge Items Patient Disposition: Home - Self-Care Reason For Visit: ACUTE AR Discharge Diagnosis: Acute myocardial infarction Defibrillator discharge Tobacco use disorder Condition on Discharge: Good Activity: Per Instructions section Exercise/Sports: Gradually increase as tolerated Non-emergency contact: Primary Care Provider and Manipulative Therapy Specialist Call non-emergency contact if: you have any medication questions, your symptoms worsen, your pain is not controlled, your pain is worsening, your pain is unusual for you, your pain is concerning for you and you have a fever Follow-up/Referrals: Jose De Jesus Phillips DO [Primary Care Provider] - 09/24/19 11:20 am (09/24/2019 11:20 AM Provider Jose De Jesus Phillips DO Department [facility] ) Diet: Heart Healthy Add Attending Provider Instructions: Follow-up with your primary care physician Dr. Phillips on September 24, 2019 at 11:20 AM as scheduled Follow-up with your tactical response group officer ([facility] cardiology) IN 2 WEEKS as advised Quit smoking tobacco as advised Take medications regularly as advised Home Care: * Take your medications exactly as directed. Don't skip doses. * Remember that recovery after a heart attack takes time. Plan to rest for at lease 4-8 weeks while you recover. Then return to normal activity when your doctor says it's okay. * Ask your doctor about joining a heart rehabilitation program. * Tell your doctor if you are feeling depressed. Feelings of sadness are common after a heart attack, but it is important that you speak to someone if you are feeling overwhelmed by these feelings. * If you are having chest pain, call 911 for an ambulance. Do NOT drive yourself to the hospital. * Ask your family members to learn CPR. * Learn to take your own blood pressure and pulse. Keep a record of your results. Ask your doctor when you should seek emergency medical attention. He or she will tell you which blood pressure reading is dangerous. Lifestyle Changes: * Maintain a healthy weight. Get help to lose any extra pounds. * Cut back on salt. * Limit canned, dried, packaged, and fast foods. * Don't add salt to your food. * Season foods with herbs instead of salt when you cook. * Break the smoking habit. Enroll in a stop-smoking program to improve your chances of success. * Limit fatty foods. * Ask your doctor about having your lipid levels checked regularly. * Build up your activity according to your doctor's recommendation. * Ask your doctor when it's okay to resume sexual activity. * Tell your doctor about any erectile dysfunction (ED) medication you are taking. Some ED medications are not safe if you take certain heart medications. * Try to manage stress. Follow Up: It is important for you to keep your follow up appointments with your medical provider. Addtl Dough Raiser Provider Instructions: ACTIVITY RECOMMENDATIONS: Excess manipulation of the wrist should be avoided for the next 24-48 hours. * No lifting over 2 pounds (approximately a 1/2 gallon of milk) with the utilized arm for 24 hours. * No strenuous activity such as bowling or tennis for 3 days. * Keep the site of the procedure covered with a bandage for 24 hours. *You may shower the day after the procedure. Do not take a tub bath or submerge the puncture site in water for the next 3 days. *Do not operate any motorized equipment for 3 days. SPECIAL CARE INSTRUCTIONS: The site may be slightly bruised and sore following your procedure. Should any of the following occur, contact the Dr. who performed your procedure. 1. Redness/inflammation, swelling, chills, or fever, or colored drainage at procedure site within 3-7 days after your procedure. 2. Coldness, discoloration, ongoing numbness, severe pain, or swelling. Expect mild tingling of hand and tenderness at the puncture site for up to three days. If this persists beyond three days, or other symptoms develop, notify the Dr. who performed your procedure. BLEEDING: If the procedure site on your wrist begins to bleed, do not panic 1. Place 1 or 2 fingers firmly just slightly above the insertion site to stop the bleeding. You may be able to feel your pulse as you hold pressure. 2. Lift your finger after 5 minutes to see if the bleeding has stopped. 3. Once the bleeding has stopped, gently wipe the wrist area clean with a bandage. * If the bleeding from your wrist does not stop after 10 minutes, or if there is a large amount of bleeding or spurting, call 911 (do not drive yourself to the hospital). SKIN IRRITATION: * You may experience some redness and/or swelling in the area where radiation was administered. If any skin irritation occurs, please contact your family physician. FOLLOW UP VISIT: Keep any scheduled doctor appointments. Pending Studies at Discharge: No Stand-Alone Forms: My [facility], Smoking Cessation Medications and DC Order Prescriptions: New lisinopril 20 mg Tablet 20 mg PO QAM Qty: 30 RF: 1 nicotine [Nicoderm CQ] 21 mg/24 hr Patch 24 Hour 21 mg transdermal QAM Qty: 30 RF: 0 nitroglycerin [Nitrostat] 0.4 mg Tablet, Sublingual 0.4 mg sublingual PRN PRN (Reason: chest pain) Qty: 30 RF: 0 Brilinta 90 mg Tablet 90 mg PO BID Qty: 60 RF: 1 Continued bupropion HCl 150 mg tablet extended release 24 hr 150 mg PO BID RF: 0 cephalexin [Keflex] 500 mg capsule 500 mg PO TID Qty: 30 RF: 0 carvedilol 25 mg tablet 25 mg PO BID Qty: 180 RF: 3 aspirin 81 mg Tablet,Delayed Release (Dr/Ec) 81 mg PO QAM Qty: 30 RF: 0 pantoprazole 40 mg Tablet,Delayed Release (Dr/Ec) 40 mg PO QAM Qty: 30 RF: 0 atorvastatin 40 mg tablet 40 mg PO PM RF: 0 Discontinued lisinopril [Zestril] 5 mg tablet 10 mg PO QAM RF: 0 diclofenac sodium [Voltaren] 1 % Gel 4 g EXT QID PRN (Reason: Rib pain) Qty: 100 RF: 0 Discharge Orders: Discharge Order (Routine); Ordered 09/21/19 Ordered By: Alexis Freedman Admission Data Admit Date/Time: 09/18/19 18:21 Attending Provider: Alexis Freedman Admit Provider: Jones Ni Primary Care Provider: Jose De Jesus Phillips Other Providers: Rich Mitchell ; Fran Kay Other Interventions: Discharge Summary Assessment (RN) Last Done: 09/21/19 12:25 DC Date/Time DO NOT enter until pt leaves facility: 09/21/19 13:27
[2019-09-21 12:26] VITALS: BP 144/79; PULSE 60
== END 2019-09-21 13:27 | disposition home or self-care (01) | DRG 247 ==
LOC: ED 13:13 → CC 17:02 → 1E 17:02 → SUATTDRO 18:21 → 2S 09-19 16:13

== ENCOUNTER 2019-10-07 10:10 | Observation (INO) ==
--- NOTE | 2019-10-07 10:45 | Emergency Department Note ---
Impression & Plan Atypical chest pain, CAD (coronary artery disease) ED Provider Note NAME: ZAINAB HOWE AGE: 43 SEX: M : 1975 ARRIVES VIA: Walk-In INFORMANT: Patient, ED PROVIDER(S): Chau Sanchez MD Chief Complaint: Chest pain HPI: Patient does present with concern for chest pain. The patient states it is centralized and pressure. Nonradiating. The patient has had some mild nausea without vomiting. Patient denies exertional symptoms, cough, fevers, chills, lower extremity swelling. The patient denies any history of DVT or PE. The patient does not have a recent stent placement in the right coronary on September 17. The patient states has been compliant with his medications taking his aspirin and Brilinta as well as his other medications. Patient states that he had 2 separate episodes of chest pain on Friday and yesterday. Yesterday he did take a nitroglycerin which did improve his discomfort. Patient denies any headache with the nitro use. ROS: See HPI for pertinent positives and negatives. A total of 10 systems were reviewed and otherwise negative. Past medical history: See below Surgical history: See below Social history: See below Physical Exam: GENERAL: Mildly uncomfortable in appearance. Wearing glasses and a mask. EYE EXAM: Normal conjunctiva. PERRL, no anisocoria and EOM's grossly intact w/o pain. Chest: Device in left chest. NECK: Supple, no nuchal rigidity, no adenopathy, non-tender. No signs of meningismus. LUNGS: Clear to auscultation. Normal chest wall mechanics. HEART: NSR, no MRG. ABDOMEN: Abdomen soft, non-tender, normo-active bowel sounds, no masses, no rebound or guarding. BACK: No CVA TTP. SKIN: No rashes and no bruising. UPPER EXTREMITIES: Upper extremities are grossly normal. LOWER EXTREMITIES: Grossly normal, no edema. Negative Homans sign bilaterally. NEURO EXAM: A&O x3, cranial nerves II-XII grossly intact, normal speech, moves all 4 extremities on command w/o issue. Differential diagnoses: Cardiac ischemia, aortic dissection, pulmonary embolism, pneumothorax, pneumonia, pericarditis, myocarditis, esophageal rupture, GERD, cholecystitis, pancreatitis, musculoskeletal, as well as other pathologies. Course: Patient was seen and evaluated the bedside. Full history physical exam was performed. EKG: Indication: Chest pain Sinus bradycardia, rate of 54, normal intervals, borderline left axis deviation, T WI in lead III. From comparison EKG September 19, 2019 incomplete right bundle no longer present. Imaging Studies: Radiology results as stated below per my review in the radiologist's interpretation: XR chest 1V portable CLINICAL HISTORY: Atypical chest pain COMPARISON STUDY: 09/18/2019 FINDINGS: The cardiac and mediastinal contours remain stable. There is a left subclavian implanted defibrillator. There is no failure. There is no focal pulmonary consolidation. No pleural effusions are visualized.[ IMPRESSION: No active disease in the chest. ACT 112: Negative or not required by law. Electronically signed by: Brian Coon M.D. 10/07/2019 11:47 AM Dictated: 10/07/19 114 Transcribed: 10/07/19 114 Cardiac monitoring: An order was placed for continuous cardiac monitoring. The monitor shows a rate of 56 with sinus bradycardia rhythm. MDM: Patient does present with concern for chest pains. Patient was given the rest of his normal baby aspirin as he had already taken his Brilinta this morning. Blood work was obtained along with an EKG and chest x-ray. The patient was ordered sublingual nitro to be given every 5 minutes as needed for chest pains. Patient did have very mild improvement with the patient's chest pains. EKG does not show any acute changes in the chest x-ray is clear. Pattern is undet ectable. I did speak with the on-call hospitalist and the patient was admitted under Dr. Gallegos for atypical chest pain. Past Med/Surg History Medical History CAD (coronary artery disease) GERD (gastroesophageal reflux disease) Hypertension ICD (implantable cardioverter-defibrillator), single, in situ Left ventricular dysfunction Paroxysmal ventricular tachycardia Retained suture Sudden cardiac arrest Surgical History History of appendectomy Hx of cardiac cath 09/18/2019 at [facility]. By Dr Ni. 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 Beliefs That Will Affect Care: None Current Living Situation: Significant Other current occupational status: employed Other Information That Helps Us Care for You: No Feels Safe at Home: Yes Safety Concerns: Feels Safe At This Time Allergies Allergies Allergy/AdvReac Type Severity Reaction Status Date / Time No Known Drug Allergies Allergy Verified 10/07/19 11:59 Home Meds Home Medications Medication Instructions Recorded Confirmed bupropion HCl 150 mg 24 hr tablet, 150 mg PO BID tab 09/15/19 10/07/19 extended release atorvastatin 40 mg PO PM 09/18/19 10/07/19 metoprolol succinate 200 mg PO QAM 10/07/19 10/07/19 Previous Rx's Medication Instructions Recorded aspirin 81 mg PO QAM #30 tab 04/17/19 pantoprazole 40 mg PO QAM #30 tab 04/17/19 lisinopril 20 mg PO QAM #30 tab 09/21/19 nitroglycerin [Nitrostat] 0.4 mg SUBLINGUAL PRN PRN #30 tab 09/21/19 ticagrelor [Brilinta] 90 mg PO BID #60 tab 09/21/19 Results & Data (ED) Vital Signs Vital Signs - 24 hr 10/07/19 10:19 10/07/19 11:06 10/07/19 11:30 Temperature 37.0 C Temperature Source Oral Pulse Rate 56 L 56 L 53 L Pulse Rate [Right Finger] Pulse Rhythm Regular Pulse Strength Normal Respiratory Rate 16 17 14 Respiratory Effort / Characteristics Non-Labored Respiratory Depth Normal Respiratory Pattern Regular Blood Pressure 129/77 137/74 108/75 Blood Pressure [Right Arm] Blood Pressure Mean 94 87 90 Blood Pressure Mean [Right Arm] Blood Pressure Position Sitting Blood Pressure Position [Right Arm] Pulse Oximetry 100 98 98 Oxygen Delivery Method Room Air Sepsis Recent Fever Within 48 Hours No Sepsis New/Unexplained Change in Mental Status N/A Sepsis Action Taken by Nursing No Action Required 10/07/19 12:00 10/07/19 12:11 10/07/19 12:30 Temperature Temperature Source Pulse Rate 53 L 52 L Pulse Rate [Right Finger] 51 L Pulse Rhythm Pulse Strength Respiratory Rate 15 18 18 Respiratory Effort / Characteristics Non-Labored Spontaneous Respiratory Depth Normal Respiratory Pattern Regular Blood Pressure 115/72 116/78 Blood Pressure [Right Arm] 116/78 Blood Pressure Mean 77 95 Blood Pressure Mean [Right Arm] 90 Blood Pressure Position Blood Pressure Position [Right Arm] Lying Pulse Oximetry 96 95 96 Oxygen Delivery Method Room Air Sepsis Recent Fever Within 48 Hours Sepsis New/Unexplained Change in Mental Status Sepsis Action Taken by [facility] Medications Current Medication List: was personally reviewed by me Laboratory Data Attestation: I reviewed the patient's lab results. Result diagrams: 10/07/19 10:51 10/07/19 10:51 Lab Results 10/07/19 10/07/19 10/07/19 Range/Units 10:51 10:51 10:51 WBC 10.93 H (4.8-10.8) K/uL RBC 4.77 (4.7-6.1) M/uL Hgb 15.4 (14.0-18.0) g/dL Hct 43.0 (42-52) % MCV 90.1 (80-100) fL MCH 32.3 (25-34) pg MCHC 35.8 (32-36) g/dL RDW Std Deviation 41.1 (36.4-46.3) fL RDW Coeff of Paddy 12.5 (11.5-14.5) % Plt Count 198 (130-400) K/uL MPV 9.7 (7.4-10.4) fL Immature Gran % (Auto) 0.5 % Neut % (Auto) 67.7 % Lymph % (Auto) 22.2 % Mills % (Auto) 5.2 % Eos % (Auto) 4.2 % Baso % (Auto) 0.2 % Neut # (Auto) 7.39 H (1.4-6.5) K/uL Lymph # (Auto) 2.43 (1.2-3.4) K/uL Mills # (Auto) 0.57 (0.11-0.59) K/uL Eos # (Auto) 0.46 (0-0.5) K/uL Baso # (Auto) 0.02 (0-0.2) K/uL Immature Gran # (Auto) 0.06 H (0.00-0.02) K/uL RBC Morphology Unremarkable PT 10.3 (9.0-12.0) Seconds INR 1.0 (0.9-1.1) APTT 26.2 (21.0-31.0) Seconds PTT Ratio 0.9 Sodium 136 (136-145) mmol/L Potassium 4.6 (3.5-5.1) mmol/L Chloride 107 (98-107) mmol/L Carbon Dioxide 25 (21-32) mmol/L Anion Gap 4.0 (3-11) BUN 17 (7-18) mg/dl Creatinine 1.68 H (0.6-1.4) mg/dl Est Cr Clr Drug Dosing 70.8 ml/min Est GFR ( Amer) 56.4 Est GFR (Non-Af Amer) 48.7 BUN/Creatinine Ratio 10.2 (10-20) Glucose 122 H (70-99) mg/dl Calcium 9.3 (8.5-10.1) mg/dl Phosphorus 2.7 (2.5-4.9) mg/dl Magnesium 2.0 (1.8-2.4) mg/dl Total Bilirubin 0.4 (0.2-1) mg/dl AST 33 (15-37) U/L ALT 36 (12-78) U/L Alkaline Phosphatase 124 H (45-117) U/L Troponin I < 0.015 (0-0.045) ng/ml Total Protein 7.7 (6.4-8.2) gm/dl Albumin 3.4 (3.4-5.0) gm/dl Globulin 4.3 H (2.5-4.0) gm/dl Albumin/Globulin Ratio 0.8 L (0.9-2) Lipase 89 (73-393) U/L Specimen Hemolysis Administered Medications Nitroglycerin (Nitroglycerin Sl 0.4 Mg/Tab Tab) 0.4 mg SL UD PRN PRN Reason: Chest Pain Stop: 11/06/19 10:52 Last Admin: 10/07/19 11:03 Dose: 0.4 mg Documented by: [id number] Discontinued Medications Aspirin (Aspirin Chew 324 Mg) 81 mg PO NOW STA Stop: 10/07/19 10:54 Last Admin: 10/07/19 11:03 Dose: 81 mg Documented by: [id number] Discharge Plan Visit Data Chief Complaint: Chest Pain Stated Complaint: CHEST PAIN - HX OF HEART ATTACH ED Provider: Chau Sanchez Discharge Problem: Atypical chest pain, CAD (coronary artery disease) Patient Disposition: Admitted As Inpatient Discharge Instructions Interventions: ED Discharge Assessment Last Done: 10/07/19 13:39
[2019-10-07] MEDS ORDERED: NITROGLYCERIN SL 0.4 MG/TAB TAB SL PRN (10:53)
[2019-10-07] MEDS ORDERED: ASPIRIN CHEW 324 MG PO STA (10:53)
[2019-10-07 11:16] LABS: Partial Thromboplastin Ratio 0.9; Partial Thromboplastin Time 26.2 Seconds (21.0-31.0); Prothrombin Time 10.3 Seconds (9.0-12.0)
[2019-10-07 11:26] LABS: Basophils # (auto) 0.02 K/uL (0-0.2); Basophils % (auto) 0.2 %; Eosinophils # (auto) 0.46 K/uL (0-0.5); Eosinophils % (auto) 4.2 %; Hemoglobin 15.4 g/dL (14.0-18.0); Immature Granulocytes # (auto) 0.06 K/uL (0.00-0.02); Immature Granulocytes % (auto) 0.5 %; Lymphocytes # (auto) 2.43 K/uL (1.2-3.4); Lymphocytes % (auto) 22.2 %; Mean Corpuscular Hemoglobin 32.3 pg (25-34); Mean Corpuscular Hgb Conc 35.8 g/dL (32-36); Mean Corpuscular Volume 90.1 fL (80-100); Mean Platelet Volume 9.7 fL (7.4-10.4); Monocytes # (auto) 0.57 K/uL (0.11-0.59); Monocytes % (auto) 5.2 %; Neutrophils # (auto) 7.39 K/uL (1.4-6.5); Neutrophils % (auto) 67.7 %; Platelet Count 198 K/uL (130-400); RDW Coefficient of Variation 12.5 % (11.5-14.5); RDW Standard Deviation 41.1 fL (36.4-46.3); Red Blood Count 4.77 M/uL (4.7-6.1); White Blood Count 10.93 K/uL (4.8-10.8)
[2019-10-07 11:31] LABS: RBC Morphology Unremarkable
[2019-10-07 11:32] LABS: Alanine Aminotransferase 36 U/L (12-78); Albumin Globulin Ratio 0.8 (0.9-2); Albumin Level 3.4 gm/dl (3.4-5.0); Alkaline Phosphatase 124 U/L (45-117); Aspartate Aminotransferase 33 U/L (15-37); BUN Creatinine Ratio 10.2 (10-20); Bilirubin,Total 0.4 mg/dl (0.2-1); Blood Urea Nitrogen 17 mg/dl (7-18); Calcium 9.3 mg/dl (8.5-10.1); Carbon Dioxide 25 mmol/L (21-32); Chloride 107 mmol/L (98-107); Creatinine Clr Calc Pharmacy 70.8 ml/min; Est GFR (African American) 56.4; Est GFR (Non-African American) 48.7; Globulin 4.3 gm/dl (2.5-4.0); Glucose 122 mg/dl (70-99); Lipase 89 U/L (73-393); Phosphorus 2.7 mg/dl (2.5-4.9); Potassium 4.6 mmol/L (3.5-5.1); Sodium 136 mmol/L (136-145); Total Protein 7.7 gm/dl (6.4-8.2); Troponin I < 0.015 ng/ml (0-0.045)
--- NOTE | 2019-10-07 11:49 | XRay Report ---
XR chest 1V portable CLINICAL HISTORY: Atypical chest pain COMPARISON STUDY: 09/18/2019 FINDINGS: The cardiac and mediastinal contours remain stable. There is a left subclavian implanted de fibrillator. There is no failure. There is no focal pulmonary consolidation. No pleural effusions are visualized.[ IMPRESSION: No active disease in the chest. ACT 112: Negative or not required by law. Electronically signed by: Brian Coon M.D. 10/07/2019 11:47 AM
--- NOTE | 2019-10-07 12:52 | History & Physical Report ---
Date of Service October 07, 2019 Assessment & Plan (1) Coronary artery spasm: (2) Paroxysmal ventricular tachycardia: (3) ICD (implantable cardioverter-defibrillator), single, in situ: This is a 43yo M with a PMH of cardiac arrest on 04/08/19 s/p AICD placement, STEMI on 09/18/19 s/p OVIDIO to prox-mid RCA complicated by ischemic v tach with ICD shock who presents with intermittent CP x 1 week. -Intermittent CP with crescendo pattern presenting after 4 episodes of CP this morning that resolved with ntg -Significant cardiac history - [place] [facility] [place]. Most recent TTE from 09/20/19 with preserved EF and normal wall motion -Had AICD recently interrogated with evidence of Vtach. Discussed with Dr. Rm who feels pain is from paroxysmal Vtach vs coronary artery spasm -Observing in PCU, trending troponins, considering repeat device interrogation and repeat catheterization -Discussed case with Dr. Rm, who will evaluate the patient on the floor -Continue aspirin, Brilinta, statin, rosmery and beta eugenio as well as PPI - cardiology to decide whether or not IV heparin is needed at this time -Keep NPO for now Code status: FULL PCP: Martin Dispo: Observation PCU. Plan to return home once medically stable. Patient seen in collaboration with Dr. Gallegos. Please see addendum. History of Present Illness Chief Complaint: chest pain Primary Care Provider: Jose De Jesus Phillips DO This is a 43yo M with a PMH of cardiac arrest on 04/08/19 s/p AICD placement, STEMI on 09/18/19 s/p OVIDIO to prox-mid RCA complicated by ischemic v tach with ICD shock who presents with intermittent CP x 1 week. Has felt well since following up with cardiology clinic and [place] in [place]. Last Friday, patient was kneeling down working on car when he developed CP that resolved with ntg and rest. CP persisted again yesterday multiple times at rest but resolved with ntg. Pain is described as centrally located and non-radiating with associated nausea, SOB and near-syncope. Pain feels similar to when he was shocked at the beginning of September. Patient had 3 episodes this morning that became progressively more painful prior to 9am. Took ntg with complete resolution of pain. Since arrival to ED, chest pain has not recurred. Has quit smoking and is no longer using nicotine patch. Has not been walking since yesterday due to fear of repeat cardiac arrest. Currently feels well, denying lightheadedness, visual changes, presyncope, chest pain, palpitations, shortness of breath, abdominal pain, nausea or vomiting. Denies dysuria, diarrhea or constipation. Most recent echocardiogram from 09/19/2019 with preserved EF of 60-65% and normal wall motion. States he has been taking all medications as prescribed. Allergies Allergy/AdvReac Type Severity Reaction Status Date / Time No Known Drug Allergies Allergy Verified 10/07/19 11:59 Home Medications Home Medications Medication Instructions Recorded Confirmed Type aspirin 81 mg PO QAM #30 tab 04/17/19 10/07/19 Rx pantoprazole 40 mg PO QAM #30 tab 04/17/19 10/07/19 Rx bupropion HCl 150 mg 24 hr tablet, 150 mg PO BID tab 09/15/19 10/07/19 History extended release atorvastatin 40 mg PO PM 09/18/19 10/07/19 History lisinopril 20 mg PO QAM #30 tab 09/21/19 10/07/19 Rx nitroglycerin [Nitrostat] 0.4 mg SUBLINGUAL PRN PRN #30 tab 09/21/19 10/07/19 Rx ticagrelor [Brilinta] 90 mg PO BID #60 tab 09/21/19 10/07/19 Rx metoprolol succinate 200 mg PO QAM 10/07/19 10/07/19 History Past Med/Surg History Medical History CAD (coronary artery disease) GERD (gastroesophageal reflux disease) Hypertension ICD (implantable cardioverter-defibrillator), single, in situ Left ventricular dysfunction Paroxysmal ventricular tachycardia Retained suture Sudden cardiac arrest Surgical History History of appendectomy Hx of cardiac cath 09/18/2019 at [facility] By Dr Ni. OVIDIO to RCA S/P coronary artery stent placement Status post implantation of automatic cardioverter/defibrillator (AICD) Family History Other Cancer Coronary heart disease Diabetes Social History Smoking Status: Former smoker Tobacco Type: Cigarettes Hx Alcohol Use: No Hx Substance Use: No Preferred Language: Icelandic Communication Ability: Effective Radiology Equipment Servicer Required: No Beliefs That Will Affect Care: None Current Living Situation: Significant Other current occupational status: employed Other Information That Helps Us Care for You: No Feels Safe at Home: Yes Safety Concerns: Feels Safe At This Time Review of Systems Review of Systems: At least ten systems reviewed and negative except as noted in the HPI. Physical Exam Physical Exam: Please see Dr. Gallegos's addendum for physical exam details. Results & Data Results & Data ([facility]) Vital Signs (Past 12 Hours) Vital Signs Temp Pulse Pulse Resp BP BP Pulse Ox 10/07/19 12:11 51 L 18 116/78 95 10/07/19 11:30 53 L 14 108/75 98 10/07/19 11:06 56 L 17 137/74 98 10/07/19 10:19 37.0 C 56 L 16 129/77 100 Laboratory Results Short CBC 10/07/19 Range/Units 10:51 WBC 10.93 H (4.8-10.8) K/uL Hgb 15.4 (14.0-18.0) g/dL Hct 43.0 (42-52) % Plt Count 198 (130-400) K/uL BMP 10/07/19 10:51 Sodium 136 Potassium 4.6 Chloride 107 Carbon Dioxide 25 BUN 17 Creatinine 1.68 H Glucose 122 H Calcium 9.3 Cardiac Enzymes 10/07/19 Range/Units 10:51 Troponin I < 0.015 (0-0.045) ng/ml Liver Function 10/07/19 Range/Units 10:51 Total Bilirubin 0.4 (0.2-1) mg/dl AST 33 (15-37) U/L ALT 36 (12-78) U/L Alkaline Phosphatase 124 H (45-117) U/L Albumin 3.4 (3.4-5.0) gm/dl Diagnostic Findings CXR: IMPRESSION: No active disease in the chest. ECG Rhythm: sinus bradycardia Change: no significant change Supervising Physician Co-Signing Physician Notes Patient seen and examined by me, care coordinated with Beverley Jose, PA-C, please refer to her note above for further detail. Mr. Conway is a 43 y/o male with a complex cardiac hx, significant for VFib cardiac arrest 04/08/2019, ICD (04/16/2019), CAD s/p RCA PCI 09/18/2019), cardiomyopathy with recovered LV systolic function, and hypertension. He was hospitalized on 04/08/2019 with witnessed cardiac arrest out of hospital. Ventricular fibrillation was reported during his arrest. He underwent ICD implantation on 04/16/2019 at [facility] by Dr. Jaime. Left ventricular systolic function was initially moderately to severely reduced but normalized prior to discharge. Near the end of August, there was concern for ICD infection. He apparently had an episode of chest discomfort and interrogation revealed ventricular tachycardia, de grading to ventricular fibrillation, lasting 35 seconds, before spontaneously converting. On 09/18/2019, he presented with chest discomfort, followed by ICD shock and was noted to have inferior ST elevation. He underwent PCI of his RCA. He was discharged on Brilinta and aspirin,Coreg. At his outpatient cardiology visit Coreg was changed to metoprolol. Currently presents in ED due to chest pain for several days. First on Friday he took nitro, and his pain went away however he experienced chest pain, that felt like pressure and not radiating anywhere else on several more occasions. He was working on the car, kneeling down, and when he stood up he felt a little of chest pressure, feeling dizzy and short of breath. He quit smoking since last admission. Prior to his outpatient cardiology follow-up, [place] and says that he was quite active, feeling well. In the ED EKG showed sinus pericardia, creatinine slightly elevated at 1.68, creatinine was 1.5 September 20. He is currently lying in bed, in no acute distress. His girlfriend is at the bedside. Patient is alert and oriented and answering questions appropriately. Currently denies any chest pain. Lungs are clear to auscultation bilaterally, without any wheezing rhonchi or crackles. Heart sounds are somewhat distant but regular. Abdomen soft, obese, normal bowel sounds, nontender to palpation. Patient moves all 4 extremities spontaneously without difficulty. Skin is warm dry, well-perfused. Patient received 1 nitro in the ED today, was also started on IV heparin. Patient states he did not miss any of his medications, and states that he has been taking his Brilinta and aspirin as prescribed. Will discuss further with [facility] physician group cardiology. For now we will keep patient n.p.o. Joaquim Gallegos MD Update: Dr. Rm, interrogated patient's ICD, does not seem as of any episodes of V. tach. He will place patient on amlodipine and isosorbide mononitrate for possible spasm, and likely will do cardiac cath tomorrow keep patient n.p.o. for now.
[2019-10-07] MEDS ORDERED: ACETAMINOPHEN 325 MG TAB PO PRN (13:58)
[2019-10-07] MEDS ORDERED: AMLODIPINE BESYLATE 5 MG TAB PO ONE (15:41)
--- NOTE | 2019-10-07 16:07 | Cardiology Consultation ---
Date of Consultation October 07, 2019 Assessment & Plan (1) CAD (coronary artery disease): (2) S/P coronary artery stent placement: (3) Paroxysmal ventricular tachycardia: (4) Chest pain: (5) Status post implantation of automatic cardioverter/defibrillator (AICD): (6) Coronary artery spasm: ASSESSMENT/PLAN: 1. Chest pain: Etiology uncertain however he states it is somewhat different than prior angina but the same symptoms he experienced leading up to ICD shock in the past. Possible etiologies include ventricular arrhythmia, coronary spasm, CAD. Troponin unremarkable. Have requested interrogation of ICD by Dr. Jaime. No urgent indication for cardiac catheterization at this time as he is currently asymptomatic. 2. Paroxysmal ventricular tachycardia: It was noted as an outpatient recently that he was having ventricular tachycardia, occasionally polymorphic. Carvedilo l was discontinued in favor of metoprolol succinate. Requesting interrogation of ICD now to help delineate if recent symptoms could be related to ventricular arrhythmia. Currently on metoprolol succinate 200 mg daily at home. Would continue for now unless otherwise directed by electrophysiology. Appreciate assistance by Dr. Jaime. 3. CAD s/p RCA PCI (in setting of STEMI): No angina currently. Continue aspirin 81 mg daily indefinitely. Continue Brilinta for at least 1 year. Continue high-intensity statin therapy. Continue ASTRID-inhibitor. Continue beta- eugenio. 4. ICD: Interrogation pending with electrophysiology. 5. Coronary artery spasm: There is concern for spasm given spasm during PCI, however manipulation of the coronary vessel itself could cause spasm. It is not completely clear at this time if ventricular arrhythmia is causing his symptoms, coronary spasm, or if he is becoming ischemic from coronary spasm or other etiology leading to ventricular tachycardia. For now, will start isosorbide mononitrate 30 mg daily as well as amlodipine 5 mg daily to help with spasm, if it is occurring. 6. Disposition: Cardiology will continue to follow. Patient care discussed with admitting provider, Beverley Garcia, as well as slot shift supervisor, Dr. Jaime. Highly complex medical issues. History of Present Illness Reason for Consultation: Chest pain recent RCA PCI Requesting Physician: Beverley Garcia Attending Physician: Clarence Gallegos MD History of Present Illness Mr. Conway is a 43-year-old gentleman with a history significant for VFib cardiac arrest 04/08/2019, ICD (04/16/2019), CAD s/p RCA PCI 09/18/2019), cardiomyopathy with recovered LV systolic function, and hypertension. He was hospitalized on 04/08/2019 with witnessed cardiac arrest out of hospital. Ventricular fibrillation was reported during his arrest. He underwent ICD implantation on 04/16/2019 at [facility] by Dr. Jaime. Left ventricular systolic function was initially moderately to severely reduced but normalized prior to discharge. Near the end of August, there was concern for ICD infection. He apparently had an episode of chest discomfort and interrogation revealed ventric ular tachycardia, de grading to ventricular fibrillation, lasting 35 seconds, before spontaneously converting. On 09/18/2019, he presented with chest discomfort, followed by ICD shock and was noted to have inferior ST elevation. He underwent PCI of his RCA. He has had the following studies/procedures: 1. Cardiac cath 04/08/19: Moderate nonobstructive coronary artery disease. LORY- 3 flow throughout left and right coronary systems. (60% proximal RCA. 50 to 60% ostial and mid circumflex. 40% proximal OM1. 30 to 40% proximal D2) 2. Echo 04/08/19: Normal LV size, moderately to severely reduced systolic function. EF 30-35%. Global hypo to akinesis of mid to distal segments, sparing of the basal segments. Moderate concentric LVH. 3. Echo 04/14/19: Normal LV size and function. EF 65-70%. No regional wall motion abnormalities. Severe LVH. 4. Single chamber ICD implantation 04/16/19. 5. Cardiac catheterization 09/18/2019: Proximal to mid RCA 80-90%. Underwent 4 x 26 mm Riddle OVIDIO. Notable RCA coronary vasospasm reported. Proximal to mid LAD diffuse 20%. Ostial circumflex 50-60%. Mid circumflex 50%. Circumflex small caliber vessel. Proximal OM1 30%. Ostial OM2 (small) 50%. LVEDP 15. EF 55%. 6. Echo 09/19/2019: Normal LV size, wall motion, systolic function. EF 60 65%. Mild left atrial dilation. No significant valvular abnormalities. Last Friday, he had an episode of chest discomfort described as a pressure. At some point thereafter, he had a remote interrogation and demonstrated ventricular tachycardia, at times appearing polymorphic. Carvedilol was discontinued in favor of metoprolol succinate [address] Tabares of electrophysiology. Up until that point, he had been feeling great since his PCI. Then yesterday, he had several episodes throughout the day of substernal chest discomfort described as a severe pressure. There was associated shortness of breath but no radiation of the pain and no diaphoresis. He would take nitroglycerin for the pain which would resolve the pain quickly. Symptoms lasted approximately 1 minute. At times he was dizzy or lightheaded. His heart rate near these episodes was 108 beats per minute when he checked it with a blood pressure cuff. He felt his heart pounding. This morning, he had 3 episodes, prior to 9:00 a.m.. They were not as severe and he did not take nitroglycerin but he came to be evaluated. He believes that if symptoms are different than prior angina with his IL. He states that his IL pain felt like worms crawling over his chest. He believes that his current symptoms are more consistent with the pain that he felt leading up to his ICD shock. He denies syncope, edema, melena, hematochezia, hematuria, orthopnea, shortness of breath at rest, fever, chill, nausea, vomiting, abdominal pain. He is currently chest pain-free. He had been walking for exercise up until approximately 10 days ago. Review of systems: As above. Review of systems otherwise negative/unremarkable. Had smoked Family history: Father with atrial fibrillation and cardiomyopathy thought to be tachycardia versus alcohol induced. Social history: Had smoked up to 1.5 packs per day but quit on 09/17/2019. No alcohol. No drugs. Lives at home with his girlfriend, Larisa Denise and 2 sons. He has 3 sons total (Octavio). He has 1 brother, Caleb. 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 Larisa was present at the bedside. He states that if incapacitated, he would like Larisa or his mother to make medical decisions for him. Allergies Allergy/AdvReac Type Severity Reaction Status Date / Time No Known Drug Allergies Allergy Verified 10/07/19 11:59 Home Medications Home Medications Medication Instructions Recorded Confirmed Type aspirin 81 mg PO QAM #30 tab 04/17/19 10/07/19 Rx pantoprazole 40 mg PO QAM #30 tab 02/29/20 08/20/20 Rx bupropion HCl 150 mg 24 hr tablet, 150 mg PO BID tab 09/15/19 10/07/19 History extended release atorvastatin 40 mg PO PM 09/18/19 10/07/19 History lisinopril 20 mg PO QAM #30 tab 09/21/19 10/07/19 Rx nitroglycerin [Nitrostat] 0.4 mg SUBLINGUAL PRN PRN #30 tab 09/21/19 10/07/19 Rx ticagrelor [Brilinta] 90 mg PO BID #60 tab 09/21/19 10/07/19 Rx metoprolol succinate 200 mg PO QAM 10/07/19 10/07/19 History Patient History Medical History CAD (coronary artery disease) GERD (gastroesophageal reflux disease) Hypertension ICD (implantable cardioverter-defibrillator), single, in situ Left ventricular dysfunction Paroxysmal ventricular tachycardia Retained suture Sudden cardiac arrest Surgical History History of appendectomy Hx of cardiac cath 09/18/2019 at [facility]. By Dr Ni. OVIDIO to RCA S/P coronary artery stent placement Status post implantation of automatic cardioverter/defibrillator (AICD) Family History Other Cancer Coronary heart disease Diabetes Social History Smoking Status: Former smoker Tobacco Type: Cigarettes Hx Alcohol Use: No Hx Substance Use: No Preferred Language: Ukrainian Communication Ability: Effective Communications Engineer Required: No Beliefs That Will Affect Care: None Current Living Situation: Significant Other current occupational status: employed Other Information That Helps Us Care for You: No Feels Safe at Home: Yes Safety Concerns: Feels Safe At This Time Physical Exam Physical Exam: Gen.: No acute distress. Alert and oriented. HEENT: Anicteric sclera. Neck: No JVD. No bruits. Normal carotid upstrokes bilaterally. Cardiac: PMI was nonpalpable. No ventricular heave. Regular. Normal S1-S2. No murmurs, rubs, or gallops. Pulmonary: Clear to auscultation bilaterally without wheezes, rales, or rhonchi. Abdomen: Soft, nontender, nondistended, with normoactive bowel sounds. No bruits noted. Extremities: 2+ radial pulses bilaterally. 2+ posterior tibialis pulses bilaterally. No edema or cyanosis. Psychiatric: Affect appears appropriate. Chest: Nontender to palpation. Results & Data ([facility] [place]) Vital Signs (Past 12 Hours) Vital Signs Temp Pulse Pulse Resp BP BP Pulse Ox 10/07/19 15:08 36.7 C 53 L 19 131/72 97 10/07/19 14:03 36.6 C 52 L 51 L 22 141/85 H 99 10/07/19 13:30 53 L 19 150/102 H 95 10/07/19 13:00 51 L 18 125/76 96 10/07/19 12:30 52 L 18 116/78 96 10/07/19 12:11 51 L 18 116/78 95 10/07/19 12:00 53 L 15 115/72 96 10/07/19 11:30 53 L 14 108/75 98 10/07/19 11:06 56 L 17 137/74 98 10/07/19 10:19 37.0 C 56 L 16 129/77 100 Laboratory Results Laboratory Results - last 24 hr 10/07/19 10/07/19 10/07/19 10:51 10:51 10:51 WBC 10.93 H RBC 4.77 Hgb 15.4 Hct 43.0 MCV 90.1 MCH 32.3 MCHC 35.8 RDW Std Deviation 41.1 RDW Coeff of Paddy 12.5 Plt Count 198 MPV 9.7 Immature Gran % (Auto) 0.5 Neut % (Auto) 67.7 Lymph % (Auto) 22.2 Gage % (Auto) 5.2 Eos % (Auto) 4.2 Baso % (Auto) 0.2 Neut # (Auto) 7.39 H Lymph # (Auto) 2.43 Gage # (Auto) 0.57 Eos # (Auto) 0.46 Baso # (Auto) 0.02 Immature Gran # (Auto) 0.06 H RBC Morphology Unremarkable PT 10.3 INR 1.0 APTT 26.2 PTT Ratio 0.9 Sodium 136 Potassium 4.6 Chloride 107 Carbon Dioxide 25 Anion Gap 4.0 BUN 17 Creatinine 1.68 H Est Cr Clr Drug Dosing 70.8 Est GFR ( Amer) 56.4 Est GFR (Non-Af Amer) 48.7 BUN/Creatinine Ratio 10.2 Glucose 122 H Calcium 9.3 Phosphorus 2.7 Magnesium 2.0 Total Bilirubin 0.4 AST 33 ALT 36 Alkaline Phosphatase 124 H Troponin I < 0.015 Total Protein 7.7 Albumin 3.4 Globulin 4.3 H Albumin/Globulin Ratio 0.8 L Lipase 89 Specimen Hemolysis Diagnostic Findings Personally reviewed: No arrhythmia. ECG personally reviewed: ECG 10/07/2019 at 10:25 a.m.: Sinus bradycardia 54 beats per minute. Cardiac catheterization 09/18/2019 reviewed. Images personally reviewed. Findings as noted above. Echocardiogram 09/19/2019 report reviewed as noted above. Chest x-ray 10/07/2019: No active disease per Radiology. Medications Administered Current Inpatient Medications Acetaminophen (Acetaminophen 325 Mg Tab) 650 mg PO Q4H PRN PRN Reason: Pain or Fever Stop: 11/06/19 13:57 Amlodipine Besylate (Amlodipine Besylate 5 Mg Tab) 5 mg PO QAM [facility] Stop: 11/06/19 16:29 Isosorbide Mononitrate (Isosorbide Gage Extended Rel 30 Mg Tabcr) 30 mg PO QAM [facility] Stop: 11/06/19 15:44 Last Admin: 10/07/19 16:21 Dose: 30 mg Documented by: Nitroglycerin (Nitroglycerin Sl 0.4 Mg/Tab Tab) 0.4 mg SL UD PRN PRN Reason: Chest Pain Stop: 11/06/19 10:52 Last Admin: 10/07/19 11:03 Dose: 0.4 mg Documented by: PG Care Time/CCT Total # of Minutes Spent Total Time Spent with Patient: Total time spent is greater than 50% in coordination of care (as documented) at patient's floor/unit and/or counseling patient: Coding Level of Care Code 67514 Office/OBS Consult Lvl 5 Diagnoses CAD (coronary artery disease) I25.10 S/P coronary artery stent placement Z95.5 Paroxysmal ventricular tachycardia I47.2 Chest pain R07.9 Status post implantation of automatic cardioverter/defibrillator (AICD) Z95.810 Coronary artery spasm I20.1
[2019-10-07] MEDS: ISOSORBIDE MONO EXTENDED REL 30 MG TABCR PO SCH (16:21)
[2019-10-07] MEDS: AMLODIPINE BESYLATE 5 MG TAB PO SCH (17:53)
[2019-10-07] MEDS: TICAGRELOR 90 MG TAB PO SCH (19:48)
[2019-10-07] MEDS: BuPROPion XL 150 MG TABCR PO SCH (20:22)
[2019-10-07] MEDS: ATORVASTATIN 40 MG TAB PO SCH (20:22)
--- NOTE | 2019-10-08 05:34 | Electrocardiogram Report ---
Test Reason : Blood Pressure : / mmHG Vent. Rate : 054 BPM Atrial Rate : 054 BPM P-R Int : 190 ms QRS Dur : 106 ms QT Int : 406 ms P-R-T Axes : 010 -28 026 degrees QTc Int : 385 ms Sinus bradycardia Otherwise normal ECG When compared with ECG of 19-SEP-2019 07:27, Incomplete right bundle branch block is no longer Present Confirmed by Norbert Rm ([id number]) on 10/08/2019 5:34:48 AM Referred By: Confirmed By:Norbert Rm
[2019-10-08] MEDS ORDERED: NiCARDipine HCL INJ 2.5 MG/ML 10 ML AMP ONE (06:49)
[2019-10-08] MEDS ORDERED: HEPARIN (PORCINE) 1000 UNIT/ML 10 ML (CATH LAB USE ONLY) ONE (06:49)
[2019-10-08] MEDS ORDERED: NITROGLYCERIN/D5W 100MCG/ML 20ML SYR ONE (06:49)
[2019-10-08] MEDS ORDERED: fentaNYL citrate 100 MCG/2 ML VIAL ONE (06:49)
[2019-10-08] MEDS ORDERED: MIDAZOLAM HCL 1 MG/ML 2ML VIAL ONE (06:49)
--- NOTE | 2019-10-08 07:06 | Pre Anesthesia Assessment ---
Date of Service October 08, 2019 Pre Sedation Assessment Vital Signs Temp Pulse Pulse Resp BP BP Pulse Ox 10/08/19 04:19 36.8 C 55 L 18 107/68 98 10/08/19 00:00 36.7 C 52 L 52 L 17 95/57 L 95 10/07/19 19:31 36.7 C 56 L 18 101/55 L 95 10/07/19 16:00 52 L 10/07/19 15:08 36.7 C 53 L 19 131/72 97 10/07/19 14:03 36.6 C 52 L 51 L 22 141/85 H 99 10/07/19 13:30 53 L 19 150/102 H 95 10/07/19 13:00 51 L 18 125/76 96 10/07/19 12:30 52 L 18 116/78 96 10/07/19 12:11 51 L 18 116/78 95 10/07/19 12:00 53 L 15 115/72 96 10/07/19 11:30 53 L 14 108/75 98 10/07/19 11:06 56 L 17 137/74 98 10/07/19 10:19 37.0 C 56 L 16 129/77 100 Cardiovascular + bradycardic Respiratory normal respiratory effort, lungs clear to auscultation Pre-Sedation Airway Assessment Smoking Status: Former smoker Hx Sleep Apnea: No Hx Difficult Intubation: No Mallampati Class: II ASA: ASA3 NPO Status Date of Last Intake of Fluids: 10/07/19 Time of Last Intake of Fluids: 18:00 Date of Last Intake of Solid Food: 10/07/19 Time of Last Intake of Solid Foods: 18:00 Procedure Planning Contraindications for Sedation: none Current Medications Reviewed: Yes Notes The planned sedation has been discussed with the patient. Informed Consent was obtained. I have identified the patient, determined the appropriateness of sedation and have assessed the patient immediately prior to the procedure. All medicine(s) and interventions are by my order.
--- NOTE | 2019-10-08 07:47 | Cardiac Catheterization ---
[facility] Data: Heat Treater Cardiac Status Clinical evaluation leading to the procedure CAD Presenation: Unstable angina Anginal Classification: CCS IV Heart Failure: No Cardiogenic Shock within 24 Hours: No Cardiac Arrest within 24 Hours: No Imaging Studies Past 6 Months: Yes Stress Studies Past 6 Months: No Standard Exercise Test: No Stress Echocardiogram: No Stress Testing w/SPECT MPI: No Cardiac CTA: No Coronary Anatomy Dominant: Right Left Ventricular Angiography EF (%): n/a Diagnostic Physicians Name: Norbert Rm MD Status: Elective Closure Device Percutaneous Entry Location: Radial Closure Device: Radial Band Recommendations: Medical Therapy and/or Counseling Cardiac Cath Procedure Full Procedure Date October 08, 2019 Pre-Procedure Diagnosis Pre-Procedure Diagnosis: Angina (Was experiencing chest pressure at rest, relieved with NTG. Increased symptoms the prior 2 days with recent RCA STEMI s/p PCI.) and CAD AUC Score AUC Score: 7 Post-Procedure Diagnosis Post-Procedure Diagnosis: Mild CAD and Normal Intracardiac Pressures Procedure(s) Performed Procedure(s) Performed: Coronary Angiography and Left Heart Cath Turntable Man Norbert Rm MD Nodulizer(s) Joaquim Delcid Estimated Blood Loss Estimated Blood Loss: < 25 ml Medication(s) Medication(s): Fentanyl, Heparin, Lidocaine 1%, Nicardipine and Versed Summary of Findings Procedure: 1. Coronary angiography 2. Left heart catheterization 3. Moderate sedation Coronary angiography: 1. Left main coronary artery: LMCA is without significant CAD. 2. Left anterior descending: LAD is a large caliber vessel proximally and tapers distally. Distal LAD 20%. D1 without significant CAD. D2 with proximal 30% stenosis. 3. Circumflex: Ostial circumflex 30%. Mid circumflex 40%, just distal to OM1 takeoff. Large OM1 without significant CAD. OM 2 without significant CAD. 4. Right coronary artery: RCA is large and dominant. Proximal RCA stent patent. Distal RCA 10%. PDA and PL without significant CAD. Left heart catheterization: 1. Left ventriculography was not performed. 2. LVEDP normal; 9 mmHg. 3. No significant aortic stenosis. Moderate sedation: 1. Sedation start time: 7:14 AM 2. Sedation end time: 7:32 AM Impression: 1. Patent proximal RCA stent. 2. Mild to moderate nonobstructive CAD. 3. Normal left-sided filling pressure. 4. No aortic stenosis. Plan: 1. Continue medical therapy for established CAD and prior PCI. 2. Continue risk factor modification. Hemodynamics Rest Ao:: 99/51 Final Ao: 117/63 LV: 105/1/9 Recommendations Recommendations: Medical Therapy and/or Counseling Specimens Specimens: None Radiation Exposure (mGy) 956 mGy. Fluoro time 3.7 min. Contrast (mls) 35 ml Procedural Complication(s) None Disposition Heat Treater Holding/Recovery I attest to the content of the Intraoperative Record and any orders documented therein. Any exceptions are noted below. [facility] Card Cath Procedure Codes Cardiac Catheterization Procedure 1: Cardiovascular Cath Procedures: 12553 Coronaries and LHC (+/-LV) Moderate Sedation Procedure 1: Sedation/Anesthesia: 28415 Mod Sedation by the same physician;Init15 Min Child Age 5 & Up PG Care Time/CCT Total # of Minutes Spent Total Time Spent with Patient: Total time spent is greater than 50% in coordination of care (as documented) at patient's floor/unit and/or counseling patient:
[2019-10-08] MEDS ORDERED: SODIUM CHLORIDE 0.9% 1000ML 1,000 ML IV SCH (08:00)
[2019-10-08] MEDS: AMLODIPINE BESYLATE 5 MG TAB PO SCH (08:28)
[2019-10-08] MEDS: TICAGRELOR 90 MG TAB PO SCH ×2 (08:28→21:02)
[2019-10-08] MEDS: ASPIRIN 81 MG ECTAB PO SCH (08:28)
[2019-10-08] MEDS: BuPROPion XL 150 MG TABCR PO SCH ×2 (08:28→21:02)
[2019-10-08] MEDS: PANTOprazole 40 MG TAB PO SCH (08:29)
[2019-10-08] MEDS: lisinopriL 20 MG TAB PO SCH (08:29)
[2019-10-08] MEDS: METOPROLOL SUCC 50MG EXT REL TAB PO SCH (08:29)
[2019-10-08] MEDS: ISOSORBIDE MONO EXTENDED REL 30 MG TABCR PO SCH (08:30)
--- NOTE | 2019-10-08 09:26 | Post Anesthesia Assessment ---
Date of Service October 08, 2019 Post Sedation Assessment Vital Signs Temp Pulse Pulse Resp BP BP Pulse Ox 10/08/19 07:54 56 L 17 97/69 L 95 10/08/19 07:39 60 17 129/57 L 93 10/08/19 04:19 36.8 C 55 L 18 107/68 98 10/08/19 00:00 36.7 C 52 L 52 L 17 95/57 L 95 10/07/19 19:31 36.7 C 56 L 18 101/55 L 95 10/07/19 16:00 52 L 10/07/19 15:08 36.7 C 53 L 19 131/72 97 10/07/19 14:03 36.6 C 52 L 51 L 22 141/85 H 99 10/07/19 13:30 53 L 19 150/102 H 95 10/07/19 13:00 51 L 18 125/76 96 10/07/19 12:30 52 L 18 116/78 96 10/07/19 12:11 51 L 18 116/78 95 10/07/19 12:00 53 L 15 115/72 96 10/07/19 11:30 53 L 14 108/75 98 10/07/19 11:06 56 L 17 137/74 98 10/07/19 10:19 37.0 C 56 L 16 129/77 100 Recovery Score Activity: Moves 4 extremities Respiration: Deep Breath/Cough Circulation: +/-20% PreAnes Value Consciousness: Fully Awake Oxygen Saturation: > 92% On Room Air Post Anesthesia Score: 10 Discharge Sedation Level of Care: Fast Track Phase II Post Sedation Plan On clinical assessment, the patient appears to have tolerated the sedation without complications. Patient is recovering as anticipated. Patient will continue to be monitored by nursing and may be discharged when sedation discharge criteria are met per below protocol. Upon Completions of procedure up to 15 minutes continue every 5 minute vital signs and the P.A.R. score; then discharge to a Phase I or Fast Track to Phase II per the following guidelines: * Discharge Patient to appropriate Phase II area if PAR is 8 or greater or return to pre- procedure baseline. The post - procedure orders will be as directed. * If PAR score is less than 8 or not return to pre-procedure baseline then patient will follow Phase I monitoring till PAR is reached for Phase II. The Phase I may be done in procedure room or may call to secure a Phase I area. * If naloxone or flumazenil are used for reversal, hold in Phase I for continued monitoring from when last reversal dose was given for a minimum of 60 minutes or longer pending the nurse and/or physician discretion of patient condition before discharge to Phase II. Please call the Sedation Physician to re-evaluate and complete post-note for discharge to Phase II area. Do NOT discharge from procedure sedation or Phase 1 until post- sedation evaluation note is complete by procedure /sedation MD Sedation Discharge Instructions to be given to the patient at discharge to home.
--- NOTE | 2019-10-08 09:26 | Cardiology Progress Note ---
Date of Service October 08, 2019 Assessment & Plan (1) CAD (coronary artery disease): (2) S/P coronary artery stent placement: (3) Paroxysmal ventricular tachycardia: (4) Chest pain: (5) Status post implantation of automatic cardioverter/defibrillator (AICD): (6) Coronary artery spasm: ASSESSMENT/PLAN: 1. Chest pain: Etiology uncertain. RCA stent is patent. It is not likely that CAD is driving his chest discomfort. He and his girlfriend were very leave. Cannot rule out vasospasm. Amlodipine and isosorbide mononitrate have been initiated. No further chest pain. Would continue these medications as an outpatient. If continues to have these episodes of pain, would consider noncardiac etiology. 2. Paroxysmal ventricular tachycardia: It was noted as an outpatient recently that he was having ventricular tachycardia, occasionally polymorphic. Carvedilol was discontinued in favor of metoprolol succinate. Dr. Jaime interrogated his device yesterday and he did not have ventricular tachycardia yesterday or the day prior to account for his symptoms. He is considering other treatment options in the future if he has significant recurrence while on metoprolol succinate and place of carvedilol. Could consider cardiac MRI as an outpatient to evaluate for other structural abnormalities which could cause ventricular arrhythmia. 3. CAD s/p RCA PCI (in setting of STEMI): No angina currently. Continue aspirin 81 mg daily indefinitely. Continue Brilinta for at least 1 year. Continue high-intensity statin therapy. Continue ASTRID-inhibitor. Continue beta- eugenio. 4. ICD: Followed by electrophysiology. Appreciate Dr. Jaime's assistance. 5. Coronary artery spasm: There is concern for spasm given spasm during PCI, however manipulation of the coronary vessel itself could cause spasm. Continue calcium channel eugenio and nitrate therapy on discharge to see if he has clinical benefit. 6. Disposition: He can be discharged later today from a cardiology standpoint once he is fully recovered from his cardiac catheterization, if there are no other acute events. Arranging follow-up in the outpatient setting to be done in the next 1-3 weeks. Cardiology office will make this appointment for him. Please call with any other questions or concerns. I will be away from the hospital for the next 2 days and thus if he remains hospitalized, please contact the on-call silica mixer operator. Admission and Anticipated Discharge Date Admission Date: October 07, 2019 Subjective He denies any further chest pain. He denies shortness of breath, syncope, near- syncope, edema, or bleeding. He underwent cardiac catheterization earlier this morning demonstrating patent RCA stent. Review of systems: As above. Physical Exam Physical Exam: Gen.: No acute distress. Alert and oriented. HEENT: Anicteric sclera. Neck: No JVD. Cardiac: Regular and bradycardic in the 50s. Normal S1-S2. No murmurs, rubs, or gallops. Pulmonary: Clear to auscultation bilaterally without wheezes, rales, or rhonchi. Abdomen: Soft, nontender, nondistended, with normoactive bowel sounds. No bruits noted. Extremities: 2+ radial pulses bilaterally. 2+ posterior tibialis pulses bilaterally. No edema or cyanosis. Psychiatric: Affect appears appropriate. Results & Data ([facility]) Vital Signs (Past 12 Hours) Vital Signs Temp Pulse Pulse Resp BP Pulse Ox 10/08/19 07:54 56 L 17 97/69 L 95 10/08/19 07:39 60 17 129/57 L 93 10/08/19 04:19 36.8 C 55 L 18 107/68 98 10/08/19 00:00 36.7 C 52 L 52 L 17 95/57 L 95 Laboratory Results Laboratory Results - last 24 hr 10/07/19 10/07/19 10/07/19 10:51 10:51 10:51 WBC 10.93 H RBC 4.77 Hgb 15.4 Hct 43.0 MCV 90.1 MCH 32.3 MCHC 35.8 RDW Std Deviation 41.1 RDW Coeff of Paddy 12.5 Plt Count 198 MPV 9.7 Immature Gran % (Auto) 0.5 Neut % (Auto) 67.7 Lymph % (Auto) 22.2 Latimer % (Auto) 5.2 Eos % (Auto) 4.2 Baso % (Auto) 0.2 Neut # (Auto) 7.39 H Lymph # (Auto) 2.43 Latimer # (Auto) 0.57 Eos # (Auto) 0.46 Baso # (Auto) 0.02 Immature Gran # (Auto) 0.06 H RBC Morphology Unremarkable PT 10.3 INR 1.0 APTT 26.2 PTT Ratio 0.9 Sodium 136 Potassium 4.6 Chloride 107 Carbon Dioxide 25 Anion Gap 4.0 BUN 17 Creatinine 1.68 H Est Cr Clr Drug Dosing 70.8 Est GFR ( Amer) 56.4 Est GFR (Non-Af Amer) 48.7 BUN/Creatinine Ratio 10.2 Glucose 122 H Calcium 9.3 Phosphorus 2.7 Magnesium 2.0 Total Bilirubin 0.4 AST 33 ALT 36 Alkaline Phosphatase 124 H Troponin I < 0.015 Total Protein 7.7 Albumin 3.4 Globulin 4.3 H Albumin/Globulin Ratio 0.8 L Lipase 89 Specimen Hemolysis 10/07/19 10/07/19 16:43 22:37 WBC RBC Hgb Hct MCV MCH MCHC RDW Std Deviation RDW Coeff of Paddy Plt Count MPV Immature Gran % (Auto) Neut % (Auto) Lymph % (Auto) Latimer % (Auto) Eos % (Auto) Baso % (Auto) Neut # (Auto) Lymph # (Auto) Latimer # (Auto) Eos # (Auto) Baso # (Auto) Immature Gran # (Auto) RBC Morphology PT INR APTT PTT Ratio Sodium Potassium Chloride Carbon Dioxide Anion Gap BUN Creatinine Est Cr Clr Drug Dosing Est GFR ( Amer) Est GFR (Non-Af Amer) BUN/Creatinine Ratio Glucose Calcium Phosphorus Magnesium Total Bilirubin AST ALT Alkaline Phosphatase Troponin I < 0.015 < 0.015 Total Protein Albumin Globulin Albumin/Globulin Ratio Lipase Specimen Hemolysis Diagnostic Findings Telemetry personally reviewed: No arrhythmia. Cardiac catheterization 10/08/2019: Coronary angiography: 1. Left main coronary artery: LMCA is without significant CAD. 2. Left anterior descending: LAD is a large caliber vessel proximally and tapers distally. Distal LAD 20%. D1 without significant CAD. D2 with proximal 30% stenosis. 3. Circumflex: Ostial circumflex 30%. Mid circumflex 40%, just distal to OM1 takeoff. Large OM1 without significant CAD. OM 2 without significant CAD. 4. Right coronary artery: RCA is large and dominant. Proximal RCA stent patent. Distal RCA 10%. PDA and PL without significant CAD. Left heart catheterization: 1. Left ventriculography was not performed. 2. LVEDP normal; 9 mmHg. 3. No significant aortic stenosis. Medications Administered Current Inpatient Medications Acetaminophen (Acetaminophen 325 Mg Tab) 650 mg PO Q4H PRN PRN Reason: Pain or Fever Stop: 11/06/19 13:57 Amlodipine Besylate (Amlodipine Besylate 5 Mg Tab) 5 mg PO [facility] Stop: 11/06/19 16:29 Last Admin: 10/08/19 08:28 Dose: 5 mg Documented by: Aspirin (Aspirin 81 Mg Ectab) 81 mg PO QAM [facility] Stop: 11/07/19 08:59 Last Admin: 10/08/19 08:28 Dose: 81 mg Documented by: Atorvastatin Calcium (Atorvastatin 40 Mg Tab) 40 mg PO PM [facility] Stop: 11/06/19 20:59 Last Admin: 10/07/19 20:22 Dose: 40 mg Documented by: Bupropion HCl (Bupropion Xl 150 Mg Tabcr) 150 mg PO BID [facility] Stop: 11/06/19 20:59 Last Admin: 10/08/19 08:28 Dose: 150 mg Documented by: Sodium Chloride (Nss 1000ml) 1,000 mls @ 125 mls/hr IV .Q8H [facility] Stop: 10/08/19 12:00 Isosorbide Mononitrate (Isosorbide Latimer Extended Rel 30 Mg Tabcr) 30 mg PO [facility] Stop: 11/06/19 15:44 Last Admin: 10/08/19 08:30 Dose: 30 mg Documented by: Lisinopril (Lisinopril 20 Mg Tab) 20 mg PO [facility] Stop: 11/07/19 08:59 Last Admin: 10/08/19 08:29 Dose: 20 mg Documented by: Metoprolol Succinate (Metoprolol Succ 50mg Ext Rel Tab) 200 mg PO [facility] Stop: 11/07/19 08:59 Last Admin: 10/08/19 08:29 Dose: 200 mg Documented by: Nitroglycerin (Nitroglycerin Sl 0.4 Mg/Tab Tab) 0.4 mg SL UD PRN PRN Reason: Chest Pain Stop: 11/06/19 10:52 Last Admin: 10/07/19 11:03 Dose: 0.4 mg Documented by: Pantoprazole Sodium (Pantoprazole 40 Mg Tab) 40 mg PO [facility] Stop: 11/07/19 08:59 Last Admin: 10/08/19 08:29 Dose: 40 mg Documented by: Ticagrelor (Ticagrelor 90 Mg Tab) 90 mg PO BID [facility] Stop: 11/06/19 20:59 Last Admin: 10/08/19 08:28 Dose: 90 mg Documented by: PG Care Time/CCT Total # of Minutes Spent Total Time Spent with Patient: Total time spent is greater than 50% in coordination of care (as documented) at patient's floor/unit and/or counseling patient: Coding Level of Care Code 43672 Subseq Hosp Care Lvl 3 Diagnoses CAD (coronary artery disease) I25.10 S/P coronary artery stent placement Z95.5 Paroxysmal ventricular tachycardia I47.2 Chest pain R07.9 Status post implantation of automatic cardioverter/defibrillator (AICD) Z95.810 Coronary artery spasm I20.1
[2019-10-08 09:41] LABS: Hematocrit (blood only) 39.9 % (42-52); Hemoglobin 13.8 g/dL (14.0-18.0); Mean Corpuscular Hemoglobin 31.4 pg (25-34); Mean Corpuscular Hgb Conc 34.6 g/dL (32-36); Mean Corpuscular Volume 90.7 fL (80-100); Mean Platelet Volume 9.9 fL (7.4-10.4); Platelet Count 180 K/uL (130-400); RDW Coefficient of Variation 12.7 % (11.5-14.5); RDW Standard Deviation 42.2 fL (36.4-46.3); White Blood Count 11.16 K/uL (4.8-10.8)
[2019-10-08 10:05] LABS: BUN Creatinine Ratio 11.6 (10-20); Calcium 8.8 mg/dl (8.5-10.1); Creatinine Clr Calc Pharmacy 68.4 ml/min; Est GFR (African American) 54.1; Est GFR (Non-African American) 46.7; Potassium 4.2 mmol/L (3.5-5.1)
--- NOTE | 2019-10-08 13:19 | Hospitalist Progress Note ---
Date of Service October 08, 2019 Assessment & Plan (1) Chest pain: Coronary Artery Disease -This is a 43yo M with a PMH of cardiac arrest on 04/08/19 s/p AICD placement, STEMI on 09/18/19 s/p OVIDIO to prox-mid RCA complicated by ischemic v tach with ICD shock who presents with intermittent CP x 1 week which was described as Intermittent CP with crescendo pattern presenting after 4 episodes of CP this morning that resolved with ntg -Patient s/p cardiac cath on 10/08/2019 but no coronary artery stenosis that required stenting. He was returned to the the telemetry and doing well. No acute chest discomforts. No palpitations. breathing on room. no shortness. Patient agrees to overnight cardiac monitoring in case of any new chest discomforts after cardiac cath as per cardiology note after cardiac cath on 10/08/2019 "RCA stent is patent. It is not likely that CAD is driving his chest discomf ort. He and his girlfriend were very leave. Cannot rule out vasospasm. Amlodipine and isosorbide mononitrate have been initiated. No further chest pain. Would continue these medications as an outpatient. If continues to have these episodes of pain, would consider noncardiac etiology." - Continue aspirin 81 mg daily indefinitely. Continue Brilinta for at least 1 year. Continue high-intensity statin therapy. Continue ASTRID-inhibitor. Continue beta-eugenio. (2) Coronary artery spasm: -as per cardiology consult note "There is concern for spasm given spasm during PCI, however manipulation of the coronary vessel itself could cause spasm. Continue calcium channel eugenio and nitrate therapy on discharge to see if he has clinical benefit." (3) Paroxysmal ventricular tachycardia: as per cardiology note after cardiac cath on 10/08/2019 "It was noted as an outpatient recently that he was having ventricular tachycardia, occasionally polymorphic. Carvedilol was discontinued in favor of metoprolol succinate. Dr. Jaime interrogated his device yesterday and he did not have ventricular tachycardia yesterday or the day prior to account for his symptoms. He is considering other treatment options in the future if he has significant recurrence while on metoprolol succinate and place of carvedilol. C ould consider cardiac MRI as an outpatient to evaluate for other structural abnormalities which could cause ventricular arrhythmia." (4) ICD (implantable cardioverter-defibrillator), single, in situ: - Followed by electrophysiology, [facility], Dr. Jaime Full Code Admission and Anticipated Discharge Date Admission Date: October 07, 2019 Subjective Patient s/p cardiac cath but no coronary artery stenosis that required stenting. He was returned to the the telemetry and doing well. No acute chest discomforts. No palpitations. breathing on room. no shortness. Patient agrees to overnight cardiac monitoring in case of any new chest discomforts after cardiac cath Review of Systems Review of Systems: All systems reviewed & are unremarkable except as noted in Subjective Physical Exam Constitutional: comfortable Eyes: PERRL, conjunctivae normal, anicteric sclerae EOM intact bilaterally ENMT: external ear and nose normal, oropharynx normal Neck: trachea midline, no thyromegaly normal visual inspection Respiratory: normal respiratory effort, lungs clear to auscultation Cardiovascular: Rate/Rhythm: regular rhythm and + bradycardic Gastrointestinal (Abdomen): normal bowel sounds, soft, nontender, no hepatosplenomegaly Musculoskeletal: Head/Neck/Chest: normocephalic and head atraumatic Neurologic: PERRL, EOMI, accommodation nl, no face palsy, no dysarthria CN's II-XI intact bilaterally Psychiatric: A+Ox3, euthymic affect Results & Data Results & Data ([facility]) Vital Signs (Past 12 Hours) Vital Signs Temp Pulse Resp BP BP Pulse Ox 10/08/19 11:52 36.8 C 51 L 20 111/64 99 10/08/19 08:32 58 L 16 118/66 96 10/08/19 08:02 36.7 C 56 L 18 114/87 97 10/08/19 07:54 56 L 17 97/69 L 95 10/08/19 07:39 60 17 129/57 L 93 10/08/19 04:19 36.8 C 55 L 18 107/68 98
--- NOTE | 2019-10-08 15:04 | Electrocardiogram Report ---
Test Reason : Blood Pressure : / mmHG Vent. Rate : 051 BPM Atrial Rate : 051 BPM P-R Int : 204 ms QRS Dur : 106 ms QT Int : 444 ms P-R-T Axes : 007 -30 011 degrees QTc Int : 409 ms Sinus bradycardia Left axis deviation Minimal voltage criteria for LVH, may be normal variant ( R in aVL ) Abnormal ECG When compared with ECG of 07-OCT-2019 10:25, No significant change was found Confirmed by Fran Kay ([id number]) on 10/08/2019 3:04:05 PM Referred By: REFERRED SELF Confirmed By:Fran Kay
[2019-10-08] MEDS: ATORVASTATIN 40 MG TAB PO SCH (21:02)
[2019-10-09] MEDS: BuPROPion XL 150 MG TABCR PO SCH (08:37)
[2019-10-09] MEDS: METOPROLOL SUCC 50MG EXT REL TAB PO SCH (08:37)
[2019-10-09] MEDS: TICAGRELOR 90 MG TAB PO SCH (08:37)
[2019-10-09] MEDS: ASPIRIN 81 MG ECTAB PO SCH (08:38)
[2019-10-09] MEDS: lisinopriL 20 MG TAB PO SCH (08:39)
[2019-10-09] MEDS: PANTOprazole 40 MG TAB PO SCH (08:39)
[2019-10-09] MEDS: AMLODIPINE BESYLATE 5 MG TAB PO SCH (08:39)
[2019-10-09] MEDS: ISOSORBIDE MONO EXTENDED REL 30 MG TABCR PO SCH (08:40)
[2019-10-09 08:54] LABS: Basophils # (auto) 0.02 K/uL (0-0.2); Basophils % (auto) 0.2 %; Eosinophils # (auto) 0.34 K/uL (0-0.5); Eosinophils % (auto) 3.3 %; Hematocrit (blood only) 41.5 % (42-52); Hemoglobin 14.7 g/dL (14.0-18.0); Immature Granulocytes # (auto) 0.05 K/uL (0.00-0.02); Immature Granulocytes % (auto) 0.5 %; Lymphocytes % (auto) 18.6 %; Mean Corpuscular Volume 90.2 fL (80-100); Mean Platelet Volume 9.9 fL (7.4-10.4); Monocytes # (auto) 0.63 K/uL (0.11-0.59); Monocytes % (auto) 6.2 %; Neutrophils # (auto) 7.27 K/uL (1.4-6.5); Neutrophils % (auto) 71.2 %; Platelet Count 163 K/uL (130-400); RDW Coefficient of Variation 12.6 % (11.5-14.5); RDW Standard Deviation 41.5 fL (36.4-46.3); White Blood Count 10.21 K/uL (4.8-10.8)
[2019-10-09 09:10] LABS: BUN Creatinine Ratio 10.7 (10-20); Calcium 9.3 mg/dl (8.5-10.1); Creatinine Clr Calc Pharmacy 74.9 ml/min; Est GFR (African American) 60.3; Potassium 4.3 mmol/L (3.5-5.1)
[2019-10-09 09:12] LABS: Mean Corpuscular Hgb Conc 35.4 g/dL (32-36)
--- NOTE | 2019-10-09 09:59 | Hospitalist Progress Note ---
Date of Service October 09, 2019 Assessment & Plan (1) Chest pain: Coronary Artery Disease -This is a 43yo M with a PMH of cardiac arrest on 04/08/19 s/p AICD placement, STEMI on 09/18/19 s/p OVIDIO to prox-mid RCA complicated by ischemic v tach with ICD shock who presents with intermittent CP x 1 week which was described as Intermittent CP with crescendo pattern presenting after 4 episodes of CP this morning that resolved with ntg -Patient s/p cardiac cath on 10/08/2019 but no coronary artery stenosis that required stenting. He was returned to the the telemetry and doing well. No acute chest discomforts. No palpitations. breathing on room. no shortness. Patient agrees to overnight cardiac monitoring in case of any new chest discomforts after cardiac cath as per cardiology note after cardiac cath on 10/08/2019 "RCA stent is patent. It is not likely that CAD is driving his chest discomf ort. He and his girlfriend were very leave. Cannot rule out vasospasm. Amlodipine and isosorbide mononitrate have been initiated. No further chest pain. Would continue these medications as an outpatient. If continues to have these episodes of pain, would consider noncardiac etiology." - Continue aspirin 81 mg daily indefinitely. Continue Brilinta for at least 1 year. Continue high-intensity statin therapy. Continue ASTRID-inhibitor. Continue beta-eugenio. -10/09/2019: Patient denies acute pain. no shortness of breath. no abdomen pain. no dizziness. no headache. sinus bradycardia. Discharge plans and instructions discussed -discharge medications [facility] [place] [id number] [address] [place] [address] as amlodipine 5 mg daily and isosorbide mononitrate 30 mg daily scheduled appointments 10/13/2019 11:20 AM Provider Jose De Jesus [facility] 10/20/2019 4:40 PM Provider Jose De Jesus [facility] (2) Coronary artery spasm: -as per cardiology consult note "There is concern for spasm given spasm during PCI, however manipulation of the coronary vessel itself could cause spasm. Continue calcium channel eugenio and nitrate therapy on discharge to see if he has clinical benefit." (3) Paroxysmal ventricular tachycardia: as per cardiology note after cardiac cath on 10/08/2019 "It was noted as an outpatient recently that he was having ventricular tachycardia, occasionally polymorphic. Carvedilol was discontinued in favor of metoprolol succinate. Dr. Jaime interrogated his device yesterday and he did not have ventricular tachycardia yesterday or the day prior to account for his symptoms. He is considering other treatment options in the future if he has significant recurrence while on metoprolol succinate and place of carvedilol. Could consider cardiac MRI as an outpatient to evaluate for other structural abnormalities which could cause ventricular arrhythmia." (4) ICD (implantable cardioverter-defibrillator), single, in situ: - Followed by electrophysiology, [facility], Dr. Jaime Full Code (5) CKD (chronic kidney disease): -creatinine 1.68 on 10/08/2019 and 1.74 on 10/08/2019 and 1.59 on 10/09/2019. labs reviewed from previous [facility] labs in the past and are in line with previous renal functions -outpatient follow up Admission and Anticipated Discharge Date Admission Date: October 07, 2019 Subjective Patient denies acute pain. no shortness of breath. no abdomen pain. no dizziness. no headache. Discharge plans and instructions discussed Review of Systems Review of Systems: All systems reviewed & are unremarkable except as noted in Subjective Physical Exam Constitutional: comfortable Eyes: PERRL, conjunctivae normal, anicteric sclerae EOM intact bilaterally ENMT: external ear and nose normal, oropharynx normal Neck: trachea midline, no thyromegaly normal visual inspection Respiratory: normal respiratory effort, lungs clear to auscultation Cardiovascular: Rate/Rhythm: regular rhythm and + bradycardic Gastrointestinal (Abdomen): normal bowel sounds, soft, nontender, no hepatosplenomegaly Musculoskeletal: Head/Neck/Chest: normocephalic and head atraumatic Neurologic: PERRL, EOMI, accommodation nl, no face palsy, no dysarthria CN's II-XI intact bilaterally Psychiatric: A+Ox3, euthymic affect Results & Data Results & Data ([facility]) Vital Signs (Past 12 Hours) Vital Signs Temp Pulse Resp BP Pulse Ox 10/09/19 07:15 36.5 C 51 L 13 129/83 97 10/09/19 04:38 36.8 C 50 L 18 124/75 94 10/08/19 23:08 36.6 C 51 L 13 145/74 H 97
--- NOTE | 2019-10-09 10:03 | Discharge Summary ---
Date of Service October 09, 2019 Admission HPI Per Admitting Provider This is a 43yo M with a PMH of cardiac arrest on 04/08/19 s/p AICD placement, STEMI on 09/18/19 s/p OVIDIO to prox-mid RCA complicated by ischemic v tach with ICD shock who presents with intermittent CP x 1 week. Has felt well since following up with cardiology clinic and has been walking in the [facility] for exercise. Last Friday, patient was kneeling down working on car when he developed CP that resolved with ntg and rest. CP persisted again yesterday multiple times at rest but resolved with ntg. Pain is described as centrally located and non-radiating with associated nausea, SOB and near-syncope. Pain feels similar to when he was shocked at the beginning of September. Patient had 3 episodes this morning that became progressively more painful prior to 9am. Took ntg with complete resolution of pain. Since arrival to ED, chest pain has not recurred. Has quit smoking and is no longer using nicotine patch. Has not been walking since yesterday due to fear of repeat cardiac arrest. Currently feels well, denying lightheadedness, visual changes, presyncope, chest pain, palpitations, shortness of breath, abdominal pain, nausea or vomiting. Denies dysuria, diarrhea or constipation. Most recent echocardiogram from 09/19/2019 with preserved EF of 60-65% and normal wall motion. States he has been taking all medications as prescribed. Principal Diagnosis Chest pain Coronary artery spasm Coronary Artery Disease Paroxysmal ventricular tachycardia ICD (implantable cardioverter-defibrillator), single, in situ Chronic Kidney Disease Discharge Exam Constitutional comfortable Eyes PERRL, conjunctivae normal, anicteric sclerae EOM intact bilaterally ENMT external ear and nose normal, oropharynx normal Neck trachea midline, no thyromegaly normal visual inspection Respiratory normal respiratory effort, lungs clear to auscultation Cardiovascular Rate/Rhythm: regular rhythm and + bradycardic Gastrointestinal (Abdomen) normal bowel sounds, soft, nontender, no hepatosplenomegaly Musculoskeletal Head/Neck/Chest: normocephalic and head atraumatic Neurologic PERRL, EOMI, accommodation nl, no face palsy, no dysarthria CN's II-XI intact bilaterally Psychiatric A+Ox3, euthymic affect Discharge Data Allergies Allergy/AdvReac Type Severity Reaction Status Date / Time No Known Drug Allergies Allergy Verified 10/07/19 11:59 Consultations 10/07/19 12:26 ED Decision to Admit Stat 10/07/19 13:58 Consult Cardiology Routine Procedures Performed Operation Date: 10/08/19 06:35 Actual Procedures p Cath, Left with Cors and Vent - Norbert Rm MD s Cineradiography w/Routine Exam - Norbert Rm MD Ordered Studies 10/08/19 06:38 CL Cath Imgs for PACS use only Routine Hospital Course (1) Chest pain: Coronary Artery Disease -This is a 43yo M with a PMH of cardiac arrest on 04/08/19 s/p AICD placement, STEMI on 09/18/19 s/p OVIDIO to prox-mid RCA complicated by ischemic v tach with ICD shock who presents with intermittent CP x 1 week which was described as Intermittent CP with crescendo pattern presenting after 4 episodes of CP this morning that resolved with ntg -Patient s/p cardiac cath on 10/08/2019 but no coronary artery stenosis that required stenting. He was returned to the the telemetry and doing well. No acute chest discomforts. No palpitations. breathing on room. no shortness. Patient agrees to overnight cardiac monitoring in case of any new chest discomforts after cardiac cath as per cardiology note after cardiac cath on 10/08/2019 "RCA stent is patent. It is not likely that CAD is driving his chest discomfort. He and his girlfriend were very leave. Cannot rule out vasospasm. Amlodipine and isosorbide mononitrate have been initiated. No further chest pain. Would continue these medications as an outpatient. If continues to have these episodes of pain, would consider noncardiac etiology." - Continue aspirin 81 mg daily indefinitely. Continue Brilinta for at least 1 year. Continue high-intensity statin therapy. Continue ASTRID-inhibitor. Continue beta-eugenio. -10/09/2019: Patient denies acute pain. no shortness of breath. no abdomen pain. no dizziness. no headache. sinus bradycardia. Discharge plans and instructions discussed -discharge medications sent electronically to [facility] [address], [place] [address] as amlodipine 5 mg daily and isosorbide mononitrate 30 mg daily scheduled appointments 10/13/2019 11:20 AM Provider Jose De Jesus Phillips [facility] 10/20/2019 4:40 PM Provider Jose De Jesus Phillips DO [facility] (2) Coronary artery spasm: -as per cardiology consult note "There is concern for spasm given spasm during PCI, however manipulation of the coronary vessel itself could cause spasm. Continue calcium channel eugenio and nitrate therapy on discharge to see if he has clinical benefit." (3) Paroxysmal ventricular tachycardia: as per cardiology note after cardiac cath on 10/08/2019 "It was noted as an outpatient recently that he was having ventricular tachycardia, occasionally polymorphic. Carvedilol was discontinued in favor of metoprolol succinate. Dr. Jaime interrogated his device yesterday and he did not have ventricular tachycardia yesterday or the day prior to account for his symptoms. He is considering other treatment options in the future if he has significant recurrence while on metoprolol succinate and place of carvedilol. Could consider cardiac MRI as an outpatient to evaluate for other structural abnormalities which could cause ventricular arrhythmia." (4) ICD (implantable cardioverter-defibrillator), single, in situ: - Followed by electrophysiology, [facility], Dr. Jaime Full Code (5) CKD (chronic kidney disease): -creatinine 1.68 on 10/08/2019 and 1.74 on 10/08/2019 and 1.59 on 10/09/2019. labs reviewed from previous [facility] labs in the past and are in line with previous renal functions -outpatient follow up Total Time Total Time Spent Total Time Spent (In Minutes): 40 minutes Total Time Includes: Examination of the Patient, Discharge Planning, Medication Reconciliation and Communication With Other Providers Discharge Plan Discharge Items Patient Disposition: Home - Self-Care Reason For Visit: CHEST PAIN,RECENT STENT PLACEMENT 09/18/2019 Discharge Diagnosis: Chest pain Coronary artery spasm Coronary Artery Disease Paroxysmal ventricular tachycardia ICD (implantable cardioverter-defibrillator), single, in situ Chronic Kidney Disease Condition on Discharge: Good Activity: Resume your previous activity Non-emergency contact: Primary Care Provider and Medical Management Trainer Call non-emergency contact if: you have any medication questions Follow-up/Referrals: Jose De Jesus Phillips DO [Primary Care Provider] - Diet: Heart Healthy Addtl Attending Provider Instructions: ACTIVITY RECOMMENDATIONS: Excess manipulation of the wrist should be avoided for the next 24-48 hours. * No lifting over 2 pounds (approximately a 1/2 gallon of milk) with the utilized arm for 24 hours. * No strenuous activity such as bowling or tennis for 3 days. * Keep the site of the procedure covered with a bandage for 24 hours. *You may shower the day after the procedure. Do not take a tub bath or submerge the puncture site in water for the next 3 days. *Do not operate any motorized equipment for 3 days. SPECIAL CARE INSTRUCTIONS: The site may be slightly bruised and sore following your procedure. Should any of the following occur, contact the Dr. who performed your procedure. 1. Redness/inflammation, swelling, chills, or fever, or colored drainage at procedure site within 3-7 days after your procedure. 2. Coldness, discoloration, ongoing numbness, severe pain, or swelling. Expect mild tingling of hand and tenderness at the puncture site for up to three days. If this persists beyond three days, or other symptoms develop, notify the Dr. who performed your procedure. BLEEDING: If the procedure site on your wrist begins to bleed, do not panic 1. Place 1 or 2 fingers firmly just slightly above the insertion site to stop the bleeding. You may be able to feel your pulse as you hold pressure. 2. Lift your finger after 5 minutes to see if the bleeding has stopped. 3. Once the bleeding has stopped, gently wipe the wrist area clean with a bandage. * If the bleeding from your wrist does not stop after 10 minutes, or if there is a large amount of bleeding or spurting, call 911 ([address] drive yourself to the hospital). SKIN IRRITATION: * You may experience some redness and/or swelling in the area where radiation was administered. If any skin irritation occurs, please contact your family physician. FOLLOW UP VISIT: Keep any scheduled doctor appointments. Addtl Chicken Cleaner Provider Instructions: as per [facility] Dr. Norbert Rm: "Arranging follow-up in the outpatient setting to be done in the next 1-3 weeks. Cardiology office will make this appointment for him" discharge medications sent electronically to [address], [place] [address] as amlodipine 5 mg daily and isosorbide mononitrate 30 mg daily creatinine 1.68 on 10/08/2019 and 1.74 on 10/08/2019 and 1.59 on 10/09/2019 scheduled appointments 10/13/2019 11:20 AM Provider Jose De Jesus Phillips [facility] 10/20/2019 4:40 PM Provider Jose De Jesus Phillips DO [facility] Pending Studies at Discharge: No Stand-Alone Forms: My [facility], Smoking Cessation Medications and DC Order Prescriptions: New isosorbide mononitrate 30 mg Tablet Extended Release 24 Hr 30 mg PO QAM 30 Days Qty: 30 RF: 0 amlodipine [Norvasc] 5 mg Tablet 5 mg PO QAM 30 Days Qty: 30 RF: 0 Continued bupropion HCl 150 mg tablet extended release 24 hr 150 mg PO BID RF: 0 metoprolol succinate 200 mg tablet extended release 24 hr 200 mg PO QAM RF: 0 aspirin 81 mg Tablet,Delayed Release (Dr/Ec) 81 mg PO QAM Qty: 30 RF: 0 pantoprazole 40 mg Tablet,Delayed Release (Dr/Ec) 40 mg PO QAM Qty: 30 RF: 0 atorvastatin 40 mg tablet 40 mg PO PM RF: 0 lisinopril 20 mg Tablet 20 mg PO QAM Qty: 30 RF: 1 nitroglycerin [Nitrostat] 0.4 mg Tablet, Sublingual 0.4 mg sublingual PRN PRN (Reason: chest pain) Qty: 30 RF: 0 Brilinta 90 mg Tablet 90 mg PO BID Qty: 60 RF: 1 Discharge Orders: Discharge Order (Routine); Ordered 10/09/19 Ordered By: Da Wright Admission Data Admit Date/Time: 10/07/19 12:50 Attending Provider: Da Wright Admit Provider: Clarence Gallegos Primary Care Provider: Jose De Jesus Phillips Other Providers: Clarence Gallegos ; Norbert Rm
== END 2019-10-09 11:08 | disposition home or self-care (01) ==
LOC: ED 10:10 → 2E 10:10 → SUATTDRO 12:50 → 2E 13:39

== ENCOUNTER 2020-07-18 10:54 | Observation (INO) ==
[2020-07-18 11:43] LABS: Basophils # (auto) 0.02 K/uL (0-0.2); Basophils % (auto) 0.2 %; Eosinophils # (auto) 0.17 K/uL (0-0.5); Hematocrit (blood only) 44.2 % (42-52); Hemoglobin 15.3 g/dL (14.0-18.0); Immature Granulocytes # (auto) 0.02 K/uL (0.00-0.02); Immature Granulocytes % (auto) 0.2 %; Lymphocytes # (auto) 1.77 K/uL (1.2-3.4); Lymphocytes % (auto) 20.4 %; Mean Corpuscular Hemoglobin 32.1 pg (25-34); Mean Corpuscular Hgb Conc 34.6 g/dL (32-36); Mean Corpuscular Volume 92.7 fL (80-100); Mean Platelet Volume 9.7 fL (7.4-10.4); Monocytes # (auto) 0.61 K/uL (0.11-0.59); Neutrophils % (auto) 70.2 %; Platelet Count 224 K/uL (130-400); RDW Coefficient of Variation 12.6 % (11.5-14.5); RDW Standard Deviation 43.2 fL (36.4-46.3); Red Blood Count 4.77 M/uL (4.7-6.1); White Blood Count 8.69 K/uL (4.8-10.8)
[2020-07-18 11:55] LABS: Partial Thromboplastin Time 26.8 Seconds (21.0-31.0); Prothrombin Time 9.8 Seconds (9.0-12.0)
[2020-07-18 12:00] LABS: Alanine Aminotransferase 19 U/L (12-78); Albumin Level 3.8 gm/dl (3.4-5.0); Aspartate Aminotransferase 22 U/L (15-37); BUN Creatinine Ratio 7.7 (10-20); Blood Urea Nitrogen 11 mg/dl (7-18); Calcium 9.7 mg/dl (8.5-10.1); Carbon Dioxide 26 mmol/L (21-32); Chloride 106 mmol/L (98-107); Creatinine Clr Calc Pharmacy 88.9 ml/min; Est GFR (African American) 70.4 ml/min; Est GFR (Non-African American) 60.8 ml/min; Glucose 151 mg/dl (70-99); Potassium 4.2 mmol/L (3.5-5.1); Sodium 136 mmol/L (136-145)
[2020-07-18 12:05] LABS: Alkaline Phosphatase 87 U/L (45-117); Bilirubin,Total 0.3 mg/dl (0.2-1); Globulin 3.9 gm/dl (2.5-4.0); Total Protein 7.7 gm/dl (6.4-8.2); Troponin I < 0.015 ng/ml (0-0.045)
[2020-07-18] MEDS ORDERED: NITROGLYCERIN SL 0.4 MG/TAB TAB SL PRN ×2 (12:08→16:49)
[2020-07-18] MEDS ORDERED: ASPIRIN CHEW 324 MG PO STA (12:08)
--- NOTE | 2020-07-18 12:08 | Emergency Department Note ---
Impression & Plan Chest pain, Hypertension, CAD (coronary artery disease) ED Provider Note NAME: ZAINAB HOWE AGE: 44 SEX: M : 1975 ARRIVES VIA: Walk-In INFORMANT: Patient ED PROVIDER(S): Guero Noriega DO CHIEF COMPLAINT: Chest pain HPI: Patient is a 44-year-old male with a past medical history of CKD, ICD, [place] with a stent performed last September who presents to the ER with chest pain. He describes it as a pressure in the middle to the right of his chest. Feels like his previous [place]. He notes he had some of the symptoms on Friday and then resolved and then recurred this morning. His pain has nearly completely gone away and is about a 1 out of 10. He is on aspirin daily. No other exacerbating or remitting factors. No arm or jaw pain. ROS: See above HPI for pertinent positives & negatives. A total of 10 systems reviewed and were otherwise negative. PAST MEDICAL HISTORY:See Below PAST SURGICAL HISTORY:See Below FAMILY HISTORY:See Below SOCIAL HISTORY:See Below HOME MEDICATIONS:See Below ALLERGIES:See Below VITALS:See Below PHYSICAL EXAMINATION: GENERAL: Sitting up in bed, alert, well appearing, well nourished, no distress, non-toxic EYE EXAM: normal conjunctiva. OROPHARYNX: no exudate, no erythema, lips, buccal mucosa, and tongue normal and mucous membranes are moist NECK: supple, no nuchal rigidity, no adenopathy, non-tender LUNGS: Clear to auscultation. Normal chest wall mechanics HEART: no murmurs, S1 normal and S2 normal ABDOMEN: abdomen soft, non-tender, normo-active bowel sounds, no masses, no rebound or guarding. UPPER EXTREMITIES: upper extremities are grossly normal. LOWER EXTREMITIES: No pitting edema. Calves are equal bilateral NEURO EXAM: Normal sensorium, cranial nerves II-XII grossly intact, normal speech, no gross weakness of arms, no gross weakness of legs. MEDICAL DECISION MAKING: Patient is a 44-year-old male with a past medical history of an ICD and previous [place] the presents ER for chest pain which feels like his previous [place]. IV was established blood was obtained. Labs show no significant leukocytosis or anemia. INR unremarkable. BMP with LFTs bilirubin was unremarkable. Troponin was negative. His pain resolved with nitro. EKG was nondiagnostic. He was updated bedside discussed with the hospitalist due to his high risk. Triage Nursing notes reviewed. Limited review of prior medical records performed Vital Signs: reviewed and remarkable for no significant abnormalities Differential diagnosis: Differential diagnoses includes but is not limited to acute coronary syndrome, myocardial infarction, pericarditis, pulmonary embolus, aortic dissection, pneumonia, pneumothorax, musculoskeletal, shingles, esophageal. ER treatment provided: See below Diagnostics interpreted by me: ECG: Sinus rhythm rate of 57 Left axis No PVCs QTC 408 Cardiac Monitoring: An order was placed for continuous cardiac monitoring. The monitor shows a rate of 55 with sinus rhythm. Laboratory studies: As stated above and show below. Imaging studies: See below Consultation(s): Portable AP upright 1 view of the chest shows no focal infiltrate Procedures: none Critical Care: None Past Med/Surg History Medical History Atypical chest pain CAD (coronary artery disease) Cardiomyopathy GERD (gastroesophageal reflux disease) Hypertension ICD (implantable cardioverter-defibrillator) in place Left ventricular dysfunction Paroxysmal ventricular tachycardia Retained suture Sudden cardiac arrest Surgical History History of appendectomy Hx of cardiac cath 09/18/2019 at [facility]. By Dr Ni. 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 Beliefs That Will Affect Care: None marital status: Single Current Living Situation: Significant Other current occupational status: employed How many Children do You have: 2 Feels Safe at Home: Yes Assistive Devices: Glasses Allergies Allergies Allergy/AdvReac Type Severity Reaction Status Date / Time No Known Drug Allergies Allergy Unknown Verified 06/19/20 09:15 Home Meds Home Medications Medication Instructions Recorded Confirmed melatonin 10 mg capsule 10 mg PO DAILY PRN cap 11/29/19 07/18/20 lisinopril 20 mg tablet 10 mg PO QAM tab 01/03/20 07/18/20 metoprolol succinate 200 mg PO QAM 07/18/20 07/18/20 Previous Rx's Medication Instructions Recorded aspirin 81 mg PO QAM #30 tab 04/17/19 pantoprazole 40 mg PO QAM #30 tab 04/17/19 nitroglycerin [Nitrostat] 0.4 mg SUBLINGUAL PRN PRN #30 tab 09/21/19 isosorbide mononitrate 60 mg 60 mg PO QAM 30 Days #90 tab 10/29/19 tablet,extended release 24 hr ticagrelor 90 mg tablet 90 mg PO BID #180 tab 10/30/19 amlodipine 5 mg tablet 5 mg PO DAILY #90 tab 11/09/19 metoprolol succinate 50 mg 50 mg PO DAILY #90 tab 01/06/20 tablet,extended release 24 hr rosuvastatin 20 mg tablet 20 mg PO DAILY #90 tab 03/03/20 CPAP Machine See Rx Instructions .ROUTE 03/09/20 .COMPLEX #1 ea Results & Data (ED) Vital Signs Vital Signs - 24 hr 07/18/20 11:09 07/18/20 11:17 07/18/20 13:20 Temperature 36.4 C L Temperature Source Temporal Artery Scan Pulse Rate 67 57 L 52 L Pulse Rate from SpO2 Sensor 57 L 53 L Respiratory Rate 18 15 14 Respiratory Effort / Characteristics Non-Labored Respiratory Depth Normal Blood Pressure 139/83 139/73 119/75 Blood Pressure Mean 101 95 89 Pulse Oximetry 97 97 97 Sepsis Recent Fever Within 48 Hours No Sepsis New/Unexplained Change in Mental Status No Sepsis Action Taken by Nursing No Action Required 07/18/20 13:30 07/18/20 14:00 07/18/20 14:30 Temperature Temperature Source Pulse Rate 51 L 50 L 49 L Pulse Rate from SpO2 Sensor 52 L 50 L 49 L Respiratory Rate 17 17 12 Respiratory Effort / Characteristics Respiratory Depth Blood Pressure 122/71 127/72 116/72 Blood Pressure Mean 88 90 86 Pulse Oximetry 96 97 98 Sepsis Recent Fever Within 48 Hours Sepsis New/Unexplained Change in Mental Status Sepsis Action Taken by Nursing 07/18/20 14:40 07/18/20 14:50 07/18/20 15:00 Temperature Temperature Source Pulse Rate 57 L 52 L 52 L Pulse Rate from SpO2 Sensor 56 L 52 L 52 L Respiratory Rate 19 18 17 Respiratory Effort / Characteristics Respiratory Depth Blood Pressure 124/72 Blood Pressure Mean 89 Pulse Oximetry 99 100 99 Sepsis Recent Fever Within 48 Hours Sepsis New/Unexplained Change in Mental Status Sepsis Action Taken by Nursing 07/18/20 15:01 07/18/20 15:10 07/18/20 15:20 Temperature Temperature Source Pulse Rate 53 L 57 L 56 L Pulse Rate from SpO2 Sensor 53 L 56 L 55 L Respiratory Rate 16 21 20 Respiratory Effort / Characteristics Respiratory Depth Blood Pressure Blood Pressure Mean Pulse Oximetry 98 97 98 Sepsis Recent Fever Within 48 Hours Sepsis New/Unexplained Change in Mental Status Sepsis Action Taken by Nursing 07/18/20 15:30 07/18/20 15:31 07/18/20 15:40 Temperature Temperature Source Pulse Rate 50 L 51 L 49 L Pulse Rate from SpO2 Sensor 52 L 50 L 50 L Respiratory Rate 18 19 18 Respiratory Effort / Characteristics Respiratory Depth Blood Pressure 112/70 Blood Pressure Mean 84 Pulse Oximetry 96 96 97 Sepsis Recent Fever Within 48 Hours Sepsis New/Unexplained Change in Mental Status Sepsis Action Taken by Nursing 07/18/20 15:50 07/18/20 16:00 07/18/20 16:01 Temperature Temperature Source Pulse Rate 54 L 50 L 56 L Pulse Rate from SpO2 Sensor 48 L 52 L 56 L Respiratory Rate 18 14 20 Respiratory Effort / Characteristics Respiratory Depth Blood Pressure 113/70 Blood Pressure Mean 84 Pulse Oximetry 95 98 97 Sepsis Recent Fever Within 48 Hours Sepsis New/Unexplained Change in Mental Status Sepsis Action Taken by Nursing 07/18/20 16:10 Temperature Temperature Source Pulse Rate 54 L Pulse Rate from SpO2 Sensor 54 L Respiratory Rate 20 Respiratory Effort / Characteristics Respiratory Depth Blood Pressure Blood Pressure Mean Pulse Oximetry 98 Sepsis Recent Fever Within 48 Hours Sepsis New/Unexplained Change in Mental Status Sepsis Action Taken by Nursing Laboratory Data Result diagrams: 07/18/20 11:15 07/18/20 11:15 Lab Results 07/18/20 07/18/20 07/18/20 Range/Units 11:15 11:15 11:15 WBC 8.69 (4.8-10.8) K/uL RBC 4.77 (4.7-6.1) M/uL Hgb 15.3 (14.0-18.0) g/dL Hct 44.2 (42-52) % MCV 92.7 (80-100) fL MCH 32.1 (25-34) pg MCHC 34.6 (32-36) g/dL RDW Std Deviation 43.2 (36.4-46.3) fL RDW Coeff of Paddy 12.6 (11.5-14.5) % Plt Count 224 (130-400) K/uL MPV 9.7 (7.4-10.4) fL Immature Gran % (Auto) 0.2 % Neut % (Auto) 70.2 % Lymph % (Auto) 20.4 % Floyd % (Auto) 7.0 % Eos % (Auto) 2.0 % Baso % (Auto) 0.2 % Neut # (Auto) 6.10 (1.4-6.5) K/uL Lymph # (Auto) 1.77 (1.2-3.4) K/uL Floyd # (Auto) 0.61 H (0.11-0.59) K/uL Eos # (Auto) 0.17 (0-0.5) K/uL Baso # (Auto) 0.02 (0-0.2) K/uL Immature Gran # (Auto) 0.02 (0.00-0.02) K/uL PT 9.8 (9.0-12.0) Seconds INR 1.0 (0.9-1.1) APTT 26.8 (21.0-31.0) Seconds PTT Ratio 1.0 Sodium 136 (136-145) mmol/L Potassium 4.2 (3.5-5.1) mmol/L Chloride 106 (98-107) mmol/L Carbon Dioxide 26 (21-32) mmol/L Anion Gap 5.0 (3-11) BUN 11 (7-18) mg/dl Creatinine 1.39 (0.6-1.4) mg/dl Est Cr Clr Drug Dosing 88.9 ml/min Est GFR ( Amer) 70.4 ml/min Est GFR (Non-Af Amer) 60.8 ml/min BUN/Creatinine Ratio 7.7 L (10-20) Glucose 151 H (70-99) mg/dl Calcium 9.7 (8.5-10.1) mg/dl Total Bilirubin 0.3 (0.2-1) mg/dl AST 22 (15-37) U/L ALT 19 (12-78) U/L Alkaline Phosphatase 87 (45-117) U/L Troponin I < 0.015 (0-0.045) ng/ml Total Protein 7.7 (6.4-8.2) gm/dl Albumin 3.8 (3.4-5.0) gm/dl Globulin 3.9 (2.5-4.0) gm/dl Albumin/Globulin Ratio 1.0 (0.9-2) COVID-19 Eval Order SARS-CoV-2 (PCR) (Negative) 07/18/20 07/18/20 Range/Units 12:20 12:20 WBC (4.8-10.8) K/uL RBC (4.7-6.1) M/uL Hgb (14.0-18.0) g/dL Hct (42-52) % MCV (80-100) fL MCH (25-34) pg MCHC (32-36) g/dL RDW Std Deviation (36.4-46.3) fL RDW Coeff of Paddy (11.5-14.5) % Plt Count (130-400) K/uL MPV (7.4-10.4) fL Immature Gran % (Auto) % Neut % (Auto) % Lymph % (Auto) % Floyd % (Auto) % Eos % (Auto) % Baso % (Auto) % Neut # (Auto) (1.4-6.5) K/uL Lymph # (Auto) (1.2-3.4) K/uL Floyd # (Auto) (0.11-0.59) K/uL Eos # (Auto) (0-0.5) K/uL Baso # (Auto) (0-0.2) K/uL Immature Gran # (Auto) (0.00-0.02) K/uL PT (9.0-12.0) Seconds INR (0.9-1.1) APTT (21.0-31.0) Seconds PTT Ratio Sodium (136-145) mmol/L Potassium (3.5-5.1) mmol/L Chloride (98-107) mmol/L Carbon Dioxide (21-32) mmol/L Anion Gap (3-11) BUN (7-18) mg/dl Creatinine (0.6-1.4) mg/dl Est Cr Clr Drug Dosing ml/min Est GFR ( Amer) ml/min Est GFR (Non-Af Amer) ml/min BUN/Creatinine Ratio (10-20) Glucose (70-99) mg/dl Calcium (8.5-10.1) mg/dl Total Bilirubin (0.2-1) mg/dl AST (15-37) U/L ALT (12-78) U/L Alkaline Phosphatase (45-117) U/L Troponin I (0-0.045) ng/ml Total Protein (6.4-8.2) gm/dl Albumin (3.4-5.0) gm/dl Globulin (2.5-4.0) gm/dl Albumin/Globulin Ratio (0.9-2) COVID-19 Eval Order Covid19 at [facility] SARS-CoV-2 (PCR) NEGATIVE (Negative) Administered Medications Nitroglycerin (Nitroglycerin Sl 0.4 Mg/Tab Tab) 0.4 mg SL PRN PRN PRN Reason: Chest Pain Stop: 08/17/20 12:07 Last Admin: 07/18/20 12:20 Dose: 0.4 mg Documented by: [id number] Discontinued Medications Aspirin (Aspirin Chew 324 Mg) 324 mg PO NOW STA Stop: 07/18/20 12:09 Last Admin: 07/18/20 12:19 Dose: 324 mg Documented by: [id number] Imaging Data Radiologist's Impression: Chest X-Ray 07/18/20 11:18 XR chest 1V portable CLINICAL HISTORY: Chest Pain COMPARISON STUDY: Chest radiograph October 07, 2019. FINDINGS: Lung volumes are normal. Lungs are clear. There is no pneumothorax or pleural effusion. Cardiac size is normal. Mediastinal contours are normal. There is no evidence for pulmonary edema. A left subclavian pacer/AICD is in place. IMPRESSION: No acute cardiopulmonary findings. ACT 112: Negative or not required by law. Electronically signed by: Ernie Toussaint M.D. 07/18/2020 12:35 PM Discharge Plan Visit Data Chief Complaint: Chest Pain Stated Complaint: CHEST PAIN ED Provider: Guero Noriega Discharge Problem: Chest pain, Hypertension, CAD (coronary artery disease) Discharge Instructions Interventions: ED Discharge Assessment Last Done: 07/18/20 16:08 Forms Stand Alone Forms: [email or web address] Prescriptions Prescriptions: No Action amlodipine 5 mg tablet 5 mg PO DAILY Qty: 90 RF: 3 rosuvastatin [Crestor] 20 mg tablet 20 mg PO DAILY Qty: 90 RF: 3 melatonin 10 mg capsule 10 mg PO DAILY PRN (Reason: Sleep) RF: 0 isosorbide mononitrate 60 mg tablet extended release 24 hr 60 mg PO QAM 30 Days Qty: 90 RF: 3 Brilinta 90 mg tablet 90 mg PO BID Qty: 180 RF: 3 metoprolol succinate 50 mg tablet extended release 24 hr 50 mg PO DAILY Qty: 90 RF: 3 Auto Titrating CPAP Misc See Rx Instructions .ROUTE .COMPLEX Qty: 1 RF: 0 lisinopril 20 mg tablet 10 mg PO QAM RF: 0 aspirin 81 mg Tablet,Delayed Release (Dr/Ec) 81 mg PO QAM Qty: 30 RF: 0 pantoprazole 40 mg Tablet,Delayed Release (Dr/Ec) 40 mg PO QAM Qty: 30 RF: 0 nitroglycerin [Nitrostat] 0.4 mg Tablet, Sublingual 0.4 mg sublingual PRN PRN (Reason: chest pain) Qty: 30 RF: 0 metoprolol succinate 200 mg tablet extended release 24 hr 200 mg PO QAM RF: 0 Referrals Referrals: Norbert Rm MD [Primary Care Provider] - Discharge Problem: Chest pain Qualifiers: Chest pain type: unspecified Qualified Code(s): R07.9 - Chest pain, unspecified Hypertension Qualifiers: Hypertension type: unspecified Qualified Code(s): I10 - Essential (primary) hypertension CAD (coronary artery disease) Qualifiers: Coronary Disease-Associated Artery/Lesion type: [place] artery [place] vs. transplanted heart: unspecified whether [place] or transplanted heart Associated angina: unspecified whether angina present Qualified Code(s): I25.10 - Athero sclerotic heart disease of [place] coronary artery without angina pectoris
--- NOTE | 2020-07-18 12:37 | XRay Report ---
XR chest 1V portable CLINICAL HISTORY: Chest Pain COMPARISON STUDY: Chest radiograph October 07, 2019. FINDINGS: Lung volumes are normal. Lungs are clear. There is no pneumothorax or pleural effusion. Car diac size is normal. Mediastinal contours are normal. There is no evidence for pulmonary edema. A lef t subclavian pacer/AICD is in place. IMPRESSION: No acute cardiopulmonary findings. ACT 112: Negative or not required by law. Electronically signed by: Ernie Toussaint M.D. 07/18/2020 12:35 PM
--- NOTE | 2020-07-18 12:49 | Electrocardiogram Report ---
Test Reason : Blood Pressure : / mmHG Vent. Rate : 057 BPM Atrial Rate : 057 BPM P-R Int : 198 ms QRS Dur : 106 ms QT Int : 420 ms P-R-T Axes : 005 -35 043 degrees QTc Int : 408 ms Sinus bradycardia Left anterior fascicular block Pulmonary disease pattern Incomplete right bundle branch block Abnormal ECG When compared with ECG of 08-OCT-2019 14:13, T wave inversion no longer evident in Inferior leads Confirmed by Lawrence Ku ([id number]) on 07/18/2020 12:48:38 PM Referred By: Confirmed By:Lawrence Ku
--- NOTE | 2020-07-18 14:22 | History & Physical Report ---
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 Underwent 4 x 26 mm Bowen OVIDIO. Notable RCA coronary vasospasm reported. Proximal to mid LAD diffuse 20%. Ostial circumflex 50-60%. Mid circumflex 50%. Circumflex small caliber vessel. Proximal OM1 30%. Ostial OM2 (small) 50%. LVEDP 15. EF 55%. 6. Echo 09/19/2019: Normal LV size, wall motion, systolic function. EF 60 65%. Mild left atrial dilation. No significant valvular abnormalities. 7. Cardiac catheterization 10/08/2019: Distal LAD 20%. Proximal D2 30%. Ostial circumflex 30%. Mid circumflex 40%. Proximal RCA stent patent. Distal RCA 10%. LVEDP 9. (3) ICD (implantable cardioverter-defibrillator) in place: Mode: VVI lower rate 40- - as above, observe on telemetry - EF improved to normal (4) CKD (chronic kidney disease) stage 3, GFR 30-59 ml/min: As above control BP (5) Hypertension: As above (6) Obesity: Continue with support- when dyspnea and muscle weakness improves, may improve with exercise tolerance (7) MARY (obstructive sleep apnea): on AutoPAP at home- is compliant per last report - PFTs performed 07/07 - No outpatient therapy - Will bring CPAP from home, if not CPAP at 10CM H20 overnight History of Present Illness Primary Care Provider: Norbert Rm MD Mr. Conway is a 44-year-old gentleman with a history significant for VFib cardiac arrest 04/08/2019, ICD (04/16/2019), CAD s/p RCA stent (09/18/2019) with noted vasospasm during cath, cardiomyopathy with recovered LV systolic function, hypertension, obesity, MARY, muscle weakness and dyspnea, current smoker of 1/2 ppd. Patient comes to the emergency department for "pressure" or " david horse" in the center of his chest that woke him up out of sleep this morning and it went away. It also occurred this morning at 0900 while he was at work. He had just finished putting in a light fixture and was standing filling out the paperwork when it occurred. He went to the pharmacy and got some antacids, took them and since it did not go away, he came to the ER. That was around 1100, he still had some mild discomfort so was given a SL NTG tab, in which he did not notice a difference. The pain is now gone. The patient also had this pain on Friday morning getting woken up from sleep, and following antacid in the morning it went away, he went fishing all day on Friday walking up and down the bank as well as over rocks, without any return of symptoms. Friday and Friday he did not have any episodes. This pain is not associated with any other symptoms of dyspnea, nausea, vomiting, radiation, dizziness. He has not had his defibrillator discharge, or have any palpitations. Of note, the patient has just recently followed up with his [facility] 19 June, for the same discomfort and complaints. He was to have a stress ECHO done tomorrow, if his troponin and ECG's remain stable with no dynamic changes, an EST will be ordered for tomorrow morning. He will be observed overnight for trending of his symptoms and troponin as well as telemetry monitoring. He has also been experiencing dyspnea and myalgias which has led to a trial off his Crestor and then placed back on as no change occurred, and thought might be related to his Brilinta, as he believes this started after this was initiated after his CA in September 2019. In September of 2019 remote interrogation of his ICD demonstrated ventricular tachycardia, at times appearing polymorphic, but otherwise monomorphic. Carvedilol was discontinued in favor of metoprolol succinate [address] Tabares of electrophysiology. He was then hospitalized on 10/07/2019 with chest discomfort. He had negative troponin levels and ICD demonstrated no new ventricular tachycardia. Repeat cardiac catheterization demonstrated patent RCA stent and otherwise nonobstructive CAD. He was placed on amlodipine and nitrate therapy for potential of coronary vasospasm as the cause of his chest discomfort. He had a cardiac MRI in with EF 66% mild LVH and not arrythmogenic focci, Allergies Allergy/AdvReac Type Severity Reaction Status Date / Time No Known Drug Allergies Allergy Unknown Verified 06/19/20 09:15 Home Medications Medication Instructions Recorded Confirmed Type aspirin 81 mg PO QAM #30 tab 04/17/19 07/18/20 Rx pantoprazole 40 mg PO QAM #30 tab 04/17/19 07/18/20 Rx nitroglycerin [Nitrostat] 0.4 mg SUBLINGUAL PRN PRN #30 tab 09/21/19 07/18/20 Rx isosorbide mononitrate 60 mg 60 mg PO QAM 30 Days #90 tab 10/29/19 07/18/20 Rx tablet,extended release 24 hr ticagrelor 90 mg tablet 90 mg PO BID #180 tab 10/30/19 07/18/20 Rx amlodipine 5 mg tablet 5 mg PO DAILY #90 tab 11/09/19 07/18/20 Rx melatonin 10 mg capsule 10 mg PO DAILY PRN cap 11/29/19 07/18/20 History lisinopril 20 mg tablet 10 mg PO QAM tab 01/03/20 07/18/20 History metoprolol succinate 50 mg 50 mg PO DAILY #90 tab 01/06/20 07/18/20 Rx tablet,extended release 24 hr rosuvastatin 20 mg tablet 20 mg PO DAILY #90 tab 03/03/20 07/18/20 Rx CPAP Machine See Rx Instructions .ROUTE 03/09/20 07/18/20 Rx .COMPLEX #1 ea bupropion HCl 150 mg PO BID 07/18/20 07/18/20 History metoprolol succinate 200 mg PO QAM 07/18/20 07/18/20 History Past Med/Surg History Medical History (Updated 07/20/20 @ 00:06 by Background Daemon) Atypical chest pain CAD (coronary artery disease) Cardiomyopathy Current smoker GERD (gastroesophageal reflux disease) Hypertension ICD (implantable cardioverter-defibrillator) in place Left ventricular dysfunction Paroxysmal ventricular tachycardia Retained suture Sudden cardiac arrest Surgical History History of appendectomy Hx of cardiac cath 09/18/2019 at [facility]. By Dr Jones. NOLAN to RCA Stented coronary artery Family History Father Colorectal cancer Grandfather (Maternal) Myocardial infarction Grandmother (Paternal) Myocardial infarction Other Cancer Coronary heart disease Diabetes Denies family history of Ovarian cancer Prostate cancer Breast cancer Social History Smoking Status: Current every day smoker Tobacco Type: Cigarettes Cigarettes Per Day: 1/2 ppd; Second Hand Exposure: No; Hx Alcohol Use: Yes Hx Substance Use: No Preferred Language: Thai Communication Ability: Effective Artificial Stone Applicator Required: No Beliefs That Will Affect Care: None marital status: Single Current Living Situation: Spouse current occupational status: employed How many Children do You have: 3 Feels Safe at Home: Yes Assistive Devices: None Review of Systems Review of Systems: REVIEW OF SYSTEMS: Constitutional: No fever, sweats or chills Eyes: No diplopia, no worsening or blurred vision ENT: normal hearing, no trouble swallowing Respiratory: (+) dyspnea on exertion No cough, sputum, dyspnea at rest Cardiovascular: (+) chest pain, (-) tightness or palpitations Abdomen: No pain, nausea, vomiting, diarrhea or constipation Musculoskeletal: No joint pain, calf pain, swelling Neurologic: (+) muscle weakness, (-) numbness/tingling, or balance problems Psychiatric: No anxiety or depression Skin: No rash or itch Physical Exam Physical Exam: PHYSICAL EXAM: General: awake, alert, no apparent distress Head: Normocephalic, atraumatic ENT: PERRL, EOMI, no pharyngeal exudate, mucous membranes moist Neuro: AAO x 3, speech clear and appropriate, strength intact bilaterally 5/5, sensation intact and equal all extremities and dermatomes, no pronator drift Chest: equal rise and fall of the chest, no accessory muscle use, no heaves or thrills, Clear to auscultation, on room air, Cardiac: Regular rate and rhythm, telemetry reviewed- sinus [place] to NSR no ectopy, skin warm dry, cap refill <3 seconds, peripheral pulses +2 no JVD, no murmur,no edema GI: NABS x 4 quadrants, softly obese, nontender to palpation, no rebound, guarding or tenderness : Spontaneously voiding, no pain, no CVA tenderness, Extremities: Normal inspection, or erythema, calfs nontender to palpation Psych: Normal mood and affect Skin: no rash or erythema Results & Data Results & Data ([facility]) Vital Signs (Past 12 Hours) Vital Signs Temp Pulse Resp BP Pulse Ox 07/18/20 13:20 52 L 14 119/75 97 07/18/20 11:17 57 L 15 139/73 97 07/18/20 11:09 36.4 C L 67 18 139/83 97 Code Status & VTE Plan Code Status CODE: FULL VTE: SCD's, ASA, Brilinta, ambulation Supervising Physician Co-Signing Physician Notes During my face to face encounter with the patient, I obtained a history and physical examination. I reviewed and agree with above note and discussed case with JADIEL Zamora. I answered all of the patient's question. will admit for Chest pain. trend troponins PG Care Time/CCT Total # of Minutes Spent Total Time Spent with Patient: Total time spent is greater than 50% in coordination of care (as documented) at patient's floor/unit and/or counseling patient: Coding Level of Care Code 68680 OBS Care - Level 3 Diagnoses Chest pain R07.9 Chest pain type: unspecified CAD (coronary artery disease) I25.119 Associated angina: with unspecified form of angina Coronary Disease-Associated Artery/Lesion type: [place] artery [place] vs. transplanted heart: [place] heart ICD (implantable cardioverter-defibrillator) in place Z95.810 CKD (chronic kidney disease) stage 3, GFR 30-59 ml/min N18.31 Chronic kidney disease stage 3 subtype: stage 3a (GFR 45-59) Hypertension I10 Hypertension type: essential hypertension Obesity E66.01; Z68.41 Body mass index: BMI 40.0-44.9 Obesity classification: adult class 3 (BMI >= 40) Obesity type: unspecified obesity type Serious obesity comorbidity presence: unspecified whether serious comorbidity present MARY (obstructive sleep apnea) G47.33 (1) CKD (chronic kidney disease) stage 3, GFR 30-59 ml/min Chronic kidney disease stage 3 subtype: stage 3a (GFR 45-59) Qualified Code(s): N18.31 - Chronic kidney disease, stage 3a (2) CAD (coronary artery disease) Associated angina: with unspecified form of angina Coronary Disease- Associated Artery/Lesion type: [place] artery [place] vs. transplanted heart: [place] heart Qualified Code(s): I25.119 - Atherosclerotic heart disease of [place] coronary artery with unspecified angina pectoris (3) Chest pain Chest pain type: unspecified Qualified Code(s): R07.9 - Chest pain, unspecified (4) Hypertension Hypertension type: essential hypertension Qualified Code(s): I10 - Essential (primary) hypertension (5) Obesity Body mass index: BMI 40.0-44.9 Obesity classification: adult class 3 (BMI >= 40) Obesity type: unspecified obesity type Serious obesity comorbidity presence: unspecified whether serious comorbidity present Qualified Code(s): E66.01 - Morbid (severe) obesity due to excess calories; Z68.41 - Body mass index [BMI]40.0-44.9, adult
[2020-07-18] MEDS ORDERED: POLYETHYLENE (MIRALAX) 17 GM PACK PO PRN (16:49)
[2020-07-18] MEDS ORDERED: ACETAMINOPHEN 325 MG TAB PO PRN (16:49)
[2020-07-18] MEDS ORDERED: MELATONIN 3 MG TAB PO PRN (16:49)
[2020-07-18] MEDS: NICOTINE 14 MG/24 HR PATCH TD SCH (17:45)
[2020-07-18] MEDS: buPROPion XL 150 MG TABCR PO SCH (21:59)
[2020-07-18] MEDS: TICAGRELOR 90 MG TAB PO SCH (21:59)
[2020-07-19 05:38] LABS: Basophils # (auto) 0.02 K/uL (0-0.2); Basophils % (auto) 0.2 %; Eosinophils # (auto) 0.28 K/uL (0-0.5); Eosinophils % (auto) 2.8 %; Hematocrit (blood only) 42.6 % (42-52); Hemoglobin 14.7 g/dL (14.0-18.0); Immature Granulocytes # (auto) 0.02 K/uL (0.00-0.02); Immature Granulocytes % (auto) 0.2 %; Lymphocytes # (auto) 2.36 K/uL (1.2-3.4); Lymphocytes % (auto) 23.9 %; Mean Corpuscular Hemoglobin 31.6 pg (25-34); Mean Corpuscular Hgb Conc 34.5 g/dL (32-36); Mean Corpuscular Volume 91.6 fL (80-100); Mean Platelet Volume 9.5 fL (7.4-10.4); Monocytes # (auto) 0.98 K/uL (0.11-0.59); Monocytes % (auto) 9.9 %; Platelet Count 182 K/uL (130-400); RDW Coefficient of Variation 12.8 % (11.5-14.5); RDW Standard Deviation 42.6 fL (36.4-46.3); Red Blood Count 4.65 M/uL (4.7-6.1); White Blood Count 9.86 K/uL (4.8-10.8)
[2020-07-19 06:07] LABS: BUN Creatinine Ratio 9.6 (10-20); Est GFR (African American) 75.7 ml/min; Est GFR (Non-African American) 65.3 ml/min; Magnesium 1.9 mg/dl (1.8-2.4); Potassium 4.3 mmol/L (3.5-5.1)
[2020-07-19] MEDS: buPROPion XL 150 MG TABCR PO SCH (08:23)
[2020-07-19] MEDS: NICOTINE 14 MG/24 HR PATCH TD SCH (08:24)
[2020-07-19] MEDS: TICAGRELOR 90 MG TAB PO SCH (08:25)
--- NOTE | 2020-07-19 08:58 | Electrocardiogram Report ---
Test Reason : Blood Pressure : / mmHG Vent. Rate : 054 BPM Atrial Rate : 054 BPM P-R Int : 204 ms QRS Dur : 104 ms QT Int : 446 ms P-R-T Axes : 005 -29 028 degrees QTc Int : 422 ms Poor data quality, interpretation may be adversely affected Sinus bradycardia Left anterior fascicular block Otherwise normal ECG When compared with ECG of 18-JUL-2020 11:13, Incomplete right bundle branch block no longer present Confirmed by Lawrence Ku ([id number]) on 07/19/2020 8:58:06 AM Referred By: REFERRED SELF Confirmed By:Lawrence Ku
[2020-07-19] MEDS ORDERED: ISOSORBIDE MONO EXTENDED REL 60 MG TABCR PO SCH (09:00)
[2020-07-19] MEDS ORDERED: PANTOprazole 40 MG TAB PO SCH (09:00)
[2020-07-19] MEDS ORDERED: lisinopril 10 MG TAB PO SCH (09:00)
[2020-07-19] MEDS ORDERED: amLODIPine BESYLATE 5 MG TAB PO SCH (09:00)
[2020-07-19] MEDS ORDERED: ASPIRIN 81 MG ECTAB PO SCH (09:00)
[2020-07-19] MEDS ORDERED: ROSUVASTATIN CALCIUM 20 MG TAB PO SCH (09:00)
[2020-07-19] MEDS ORDERED: METOPROLOL SUCC 50MG EXT REL TAB PO SCH ×2 (09:00)
--- NOTE | 2020-07-19 10:30 | Cardiology Consultation ---
Date of Consultation July 19, 2020 Assessment & Plan (1) Chest pain: Mr. Conway is a 44-year-old male with a history of Hypertension, Resolved Cardiomyopathy s/p Medtronic Visia AF XT MRI Single Chamber AICD, V-Fib Cardiac Arrest 04/08/2019, Mild Concentric LVH, Dyslipidemia, GERD, and CAD s/p STEMI 09/18/2019 s/p Proximal to Mid RCA Drug Eluting Stent (80% to 90% proximal to midvessel RCA stenosis with pronounced RCA Vasospasm) complicated by Ischemic V- Tach with ICD Shock -- who was admitted to [facility] yesterday after presenting with a somewhat Atypical and Intermittent Chest Discomfort -- which is not related to exertion, does not radiate, and it is without any associated symptoms. He specifically denies any associated nausea, vomiting, diaphoresis, dyspnea, palpitations, or any shocks from his AICD. His ischemic evaluation so far is unremarkable. His Troponin I is undetectable x 4. EKG's show no acute or dynamic changes. Telemetry shows sinus bradycardia to normal sinus rhythm. Recommend the followin. Stress Echocardiogram was performed today showing No Evidence of Myocardial Ischemia. 2. Continue Metoprolol Succinate 200 mg daily. 3. Continue Amlodipine 5 mg daily. 4. Continue Aspirin 81 mg daily. 5. Continue Rosuvastatin 20 mg daily. 6. Continue Imdur ER 60 mg daily. 7. Continue Lisinopril 20 mg daily. 8. Continue Brilinta 90 mg b.i.d. through at least 09/17/20, will likely benefit by being on DAPT after that, could keep on Brilinta or switch to Plavix. Patient may be discharged from a cardiac standpoint. [place] [facility] [place] R[place]. (2) CAD (coronary artery disease): -- Manage as outlined above. (3) Paroxysmal ventricular tachycardia: -- s/p Single Chamber AICD. -- Followed in Dr. Jaime's device clinic. (4) Cardiomyopathy: -- Transiently reduced LV systolic function. -- Last Echocardiogram 09/19/19 showed an LVEF of 60% to 65%. -- Will re-evaluate with his Stress Echocardiogram today. (5) ICD (implantable cardioverter-defibrillator) in place: -- Followed in Dr. Jaime's device clinic. Supervising Physician Co-Signing Physician Notes ADDENDUM (Dr. Ku): Patient seen and examined. Agree with plan as outlined above by Mr. Dooley JERROD. No evidence of myocardial ischemia on stress echocardiogram performed today. Patient did complain of leg fatigue, given blunted chronotropic response and lack of ischemia, if clinically appropriate could consider reducing beta-eugenio dose. History of Present Illness Reason for Consultation: -- Atypical Chest Discomfort. -- CAD s/p Proximal to Mid RCA Stent 09/18/19. -- s/p AICD. Requesting Physician: Monica Drummond MD Attending Physician: Lawrence Ku MD History of Present Illness Mr. Conway is a 44-year-old male with a history of Hypertension, Resolved Cardiomyopathy s/p Medtronic Visia AF XT MRI Single Chamber AICD, V-Fib Cardiac Arrest 04/08/2019, Mild Concentric LVH, Dyslipidemia, GERD, and CAD s/p STEMI 09/18/2019 s/p Proximal to Mid RCA Drug Eluting Stent (80% to 90% proximal to midvessel RCA stenosis with pronounced RCA Vasospasm) complicated by Ischemic V- Tach with ICD Shock -- who was admitted to [facility] yesterday after presenting with Intermittent Chest Discomfort that started 4 days ago. Patient states that he was awakened by a "pressure" or a "cramp" in the center of his chest that woke him up out of sleep on Friday morning. He took an antacid that morning and his discomfort resolved immediately. He subsequently went fishing all day on Friday -- this included walking up and down the [place] and climbing up and over rocks -- and he did not have any recurrent symptoms. Friday and Friday he did not have any episodes of chest discomfort. Yesterday morning he had mild chest discomfort that resolved spontaneously. Patient then went to work yesterday morning and at approximately 9:00 a.m. after he finished installing a light fixture and he was standing at his truck filling out the work-order when he had recurrent chest discomfort. He went to the pharmacy and bought some antacids which he took right away. His chest discomfort did not resolve, so he presented to [facility] ER. Patient still had some mild discomfort when he presented -- so was given SL Nitroglycerin 0.4 mg which did not have any effect on his chest discomfort. This chest discomfort is not exertional. Patient denies any radiation of his chest discomfort and he denies any associated symptoms. He specifically denies any associated nausea, vomiting, diaphoresis, dyspnea, palpitations, or any shocks from his AICD. Patient offers no other complaints. He denies any exertional chest pain or exertional angina pectoris. He specifically denies any exertional neck, jaw, back, or arm pain. He denies any exertional chest heaviness, tightness, pressure, or discomfort. His breathing is at baseline, and his exertional tolerance is stable. He denies any orthopnea or PND. He denies any syncopal episodes. Patient met with Dr. Rm in early June 2020 and complained of burning chest discomfort. He was actually scheduled for a Stress Echocardiogram today [place] [facility] [place]. Thus far, his Troponin I is undetectable x 4. EKG's show no acute or dynamic changes. Telemetry shows sinus bradycardia to normal sinus rhythm. Stress Echocardiogram is scheduled today in the [facility]. HISTORICAL BACKGROUND: Patient had witnessed cardiac arrest while at work on 04/08/19. He reports earlier that morning he was experiencing heart burn. CPR was initiated at his work place and pulse was regained. Again became pulseless requiring CPR in the ER at [facility]. He was transferred to [facility] to undergo hypothermia protocol and urgent Cardiac Catheterization. He underwent Cardiac Catheterization showed Non-obstructive CAD (not felt to be the cause of his arrest). Telemetry did not show any arrhythmia. Eventually AED strips obtained and showed evidence of ventricular fibrillation. He underwent AICD placement. Initial Echocardiogram with moderate to severely reduced function (LVEF 30%- 35%). Repeat Echo prior to discharge showed normal LV function, wall motion, and severe LVH. He was discharged on 04/17/19. At the time of his AICD interrogation in May 2019 he was noted to have cellulitis of his AICD site and was treated with a course of Keflex. Erythema resolved. Patient presented to [facility] ER on 09/18/2019 while he was working on a car and stood up and then developed chest pain. He tried taking an antacid which did not relieve his chest pain. After having chest pain, an ICD shock was delivered. His EKGs in the ER were concerning for STEMI and Heart Alert was called. Patient was taken emergently to the [facility]. He was felt to have ischemic V-Tach as was documented on a device interrogation. CARDIAC CATHETERIZATION 09/18/2019: -- LMCA -- Medium caliber vessel with luminal irregularities -- LAD -- Medium caliber, 20% proximal to midvessel diffuse disease, distal luminal irregularities, tapers to apex. -- D2 -- Medium caliber vessel with 30% to 40% proximal stenosis. -- LCx -- Small caliber vessel, 50%-60% ostial stenosis, 50% mid segment stenosis after takeoff of first OM. -- OM1 -- 30% Proximal disease. -- OM2 -- Small vessel with 50% ostial stenosis. -- RCA -- Large caliber vessel, dominant, with hazy 80% to 90% proximal to midvessel stenosis. Mid and distal luminal irregularities. -- Notable RCA vasospasm. -- LVEDP -- 15 -- LVEF 55% PCI 09/18/2019: -- Bowen 4.0 x 26 mm OVIDIO was deployed in Proximal to Mid RCA. Patient then presented in later September 2019 with chest pain. He underwent CARDIAC CATHETERIZATION 10/08/2019 showing: -- LMCA is without significant CAD. -- LAD is a large caliber vessel proximally and tapers distally. Distal LAD 20%. D1 without significant CAD. D2 with proximal 30% stenosis. -- LCx with ostial 30% stenosis. Mid circumflex 40%, just distal to OM1 takeoff. Large OM1 without significant CAD. OM 2 without significant CAD. -- RCA is large and dominant. Proximal RCA stent patent. Distal RCA 10%. PDA and PL without significant CAD. CARDIAC CATHETERIZATION 04/08/2019: -- Moderate nonobstructive coronary artery disease. -- LORY-3 flow throughout left and right coronary systems. -- 30% to 40% proximal D2 stenosis. -- 50%-60% Ostial and mid LCx stenosis. -- 40% Proximal OM1 stenosis. -- 60% Proximal RCA stenosis. -- Elevated intracardiac filling pressure. ECHOCARDIOGRAM 04/08/2019: -- Normal LV size, moderately to severely reduced systolic function. -- LVEF 30%-35%. -- Global hypokinesis to akinesis of mid to distal segments, sparing of the basal segments. -- Moderate concentric LVH. ECHOCARDIOGRAM 04/14/2019: -- Normal LV size and function. -- LVEF 65%-70%. -- No regional wall motion abnormalities. -- Severe LVH. SINGLE-CHAMBER AICD IMPLANTATION 04/16/2019. Allergies Allergy/AdvReac Type Severity Reaction Status Date / Time No Known Drug Allergies Allergy Unknown Verified 06/19/20 09:15 Home Medications Medication Instructions Recorded Confirmed Type aspirin 81 mg PO QAM #30 tab 04/17/19 07/18/20 Rx pantoprazole 40 mg PO QAM #30 tab 04/17/19 07/18/20 Rx nitroglycerin [Nitrostat] 0.4 mg SUBLINGUAL PRN PRN #30 tab 09/21/19 07/18/20 Rx isosorbide mononitrate 60 mg 60 mg PO QAM 30 Days #90 tab 10/29/19 07/18/20 Rx tablet,extended release 24 hr ticagrelor 90 mg tablet 90 mg PO BID #180 tab 10/30/19 07/18/20 Rx amlodipine 5 mg tablet 5 mg PO DAILY #90 tab 11/09/19 07/18/20 Rx melatonin 10 mg capsule 10 mg PO DAILY PRN cap 11/29/19 07/18/20 History lisinopril 20 mg tablet 10 mg PO QAM tab 01/03/20 07/18/20 History metoprolol succinate 50 mg 50 mg PO DAILY #90 tab 01/06/20 07/18/20 Rx tablet,extended release 24 hr rosuvastatin 20 mg tablet 20 mg PO DAILY #90 tab 03/03/20 07/18/20 Rx CPAP Machine See Rx Instructions .ROUTE 03/09/20 07/18/20 Rx .COMPLEX #1 ea bupropion HCl 150 mg PO BID 07/18/20 07/18/20 History metoprolol succinate 200 mg PO QAM 07/18/20 07/18/20 History Patient History Medical History Atypical chest pain CAD (coronary artery disease) Cardiomyopathy GERD (gastroesophageal reflux disease) Hypertension ICD (implantable cardioverter-defibrillator) in place Left ventricular dysfunction Paroxysmal ventricular tachycardia Retained suture Sudden cardiac arrest Surgical History History of appendectomy Hx of cardiac cath 09/18/2019 at [facility]. By Dr Ni. OVIDIO to RCA Stented coronary artery Family History Father Colorectal cancer Grandfather (Maternal) Myocardial infarction Grandmother (Paternal) Myocardial infarction Other Cancer Coronary heart disease Diabetes Denies family history of Ovarian cancer Prostate cancer Breast cancer Social History Smoking Status: Current every day smoker Tobacco Type: Cigarettes Cigarettes Per Day: 1/2 ppd; Second Hand Exposure: No; Do You Dip or Chew Tobacco: No; Tobacco Cessation Education Requested by Patient: No Hx Alcohol Use: Yes Hx Substance Use: No Preferred Language: Greek Communication Ability: Effective [employer] Saw Operator Required: No Beliefs That Will Affect Care: None marital status: Single Current Living Situation: Spouse current occupational status: employed How many Children do You have: 3 Other Information That Helps Us Care for You: No Feels Safe at Home: Yes Safety Concerns: Feels Safe At This Time Assistive Devices: None Assistive Devices Comment: brought in the patient own cpap Review of Systems Review of Systems: All systems reviewed & are unremarkable except as noted in Subjective Physical Exam Physical Exam: GENERAL: Patient in no acute distress. HEENT: Head is atraumatic, normocephalic. EOM's intact. Facies symmetric. No perioral cyanosis. NECK: No JVD. JVP is at the level of the clavicle sitting upright. Carotid upstrokes are + 2 bilaterally. No bruits are noted. CHEST/LUNGS: Clear to auscultation throughout all lung huston. No wheezes, rales, or crackles. CVS: S1 and S2 are regular without murmurs, gallops, or rubs. No ectopy noted. PMI is nondisplaced. No lifts, heaves, or thrills. No abdominal aortic or renal bruits. Palpable AICD generator in the left subclavian fossa. No reproducible chest wall tenderness. ABDOMINAL EXAM: Bowel sounds are present. No masses, organomegaly, or tenderness. EXTREMITIES: No clubbing or cyanosis. No edema. Intact posterior tibial and radial pulses bilaterally. NEUROLOGIC EXAM: Patient is awake, alert, and oriented. Pleasant and cooperative. Answers questions appropriately. Speech is clear. Normal movement in all 4 extremities. Gait pattern was not assessed. EKG 07/18/20: -- Sinus bradycardia with LAFB and an incomplete RBBB. EKG 07/19/20: -- Sinus bradycardia with a LAFB, otherwise normal tracing. STRESS ECHOCARDIOGRAM 07/19/20: -- Patient exercised for 5 minutes on a standard Panfilo protocol. -- Test ended due to fatigue and dyspnea. -- Blunted HR response to exercise. -- No exercise induced chest discomfort. -- No EKG evidence of myocardial ischemia. -- No Echocardiographic evidence of myocardial ischemia at approximately 75% MPHR. -- Baseline Echo shows normal LV systolic function. Results & Data ([facility]) Vital Signs (Past 12 Hours) Vital Signs Temp Pulse Pulse Resp BP BP Pulse Ox 07/19/20 07:27 36.6 C 55 L 16 123/76 95 07/19/20 07:08 49 L 07/19/20 04:04 52 L 20 112/68 94 07/19/20 00:12 48 L 07/18/20 22:48 46 L 18 116/70 96 Laboratory Results Laboratory Results - last 24 hr 07/18/20 07/18/20 07/18/20 11:15 11:15 11:15 WBC 8.69 RBC 4.77 Hgb 15.3 Hct 44.2 MCV 92.7 MCH 32.1 MCHC 34.6 RDW Std Deviation 43.2 RDW Coeff of Paddy 12.6 Plt Count 224 MPV 9.7 Immature Gran % (Auto) 0.2 Neut % (Auto) 70.2 Lymph % (Auto) 20.4 [place] % (Auto) 7.0 Eos % (Auto) 2.0 Baso % (Auto) 0.2 Neut # (Auto) 6.10 Lymph # (Auto) 1.77 [place] # (Auto) 0.61 H Eos # (Auto) 0.17 Baso # (Auto) 0.02 Immature Gran # (Auto) 0.02 PT 9.8 INR 1.0 APTT 26.8 PTT Ratio 1.0 Sodium 136 Potassium 4.2 Chloride 106 Carbon Dioxide 26 Anion Gap 5.0 BUN 11 Creatinine 1.39 Est Cr Clr Drug Dosing 88.9 Est GFR ( Amer) 70.4 Est GFR (Non-Af Amer) 60.8 BUN/Creatinine Ratio 7.7 L Glucose 151 H Calcium 9.7 Magnesium Total Bilirubin 0.3 AST 22 ALT 19 Alkaline Phosphatase 87 Troponin I < 0.015 Total Protein 7.7 Albumin 3.8 Globulin 3.9 Albumin/Globulin Ratio 1.0 COVID-19 Eval Order SARS-CoV-2 (PCR) 07/18/20 07/18/20 07/18/20 12:20 12:20 17:04 WBC RBC Hgb Hct MCV MCH MCHC RDW Std Deviation RDW Coeff of Paddy Plt Count MPV Immature Gran % (Auto) Neut % (Auto) Lymph % (Auto) [place] % (Auto) Eos % (Auto) Baso % (Auto) Neut # (Auto) Lymph # (Auto) [place] # (Auto) Eos # (Auto) Baso # (Auto) Immature Gran # (Auto) PT INR APTT PTT Ratio Sodium Potassium Chloride Carbon Dioxide Anion Gap BUN Creatinine Est Cr Clr Drug Dosing Est GFR ( Amer) Est GFR (Non-Af Amer) BUN/Creatinine Ratio Glucose Calcium Magnesium Total Bilirubin AST ALT Alkaline Phosphatase Troponin I < 0.015 Total Protein Albumin Globulin Albumin/Globulin Ratio COVID-19 Eval Order Covid19 at [facility] SARS-CoV-2 (PCR) NEGATIVE 07/18/20 07/19/20 07/19/20 23:07 05:25 05:25 WBC 9.86 RBC 4.65 L Hgb 14.7 Hct 42.6 MCV 91.6 MCH 31.6 MCHC 34.5 RDW Std Deviation 42.6 RDW Coeff of Paddy 12.8 Plt Count 182 MPV 9.5 Immature Gran % (Auto) 0.2 Neut % (Auto) 63.0 Lymph % (Auto) 23.9 [place] % (Auto) 9.9 Eos % (Auto) 2.8 Baso % (Auto) 0.2 Neut # (Auto) 6.20 Lymph # (Auto) 2.36 [place] # (Auto) 0.98 H Eos # (Auto) 0.28 Baso # (Auto) 0.02 Immature Gran # (Auto) 0.02 PT INR APTT PTT Ratio Sodium 139 Potassium 4.3 Chloride 107 Carbon Dioxide 28 Anion Gap 4.0 BUN 13 Creatinine 1.31 Est Cr Clr Drug Dosing 94.0 Est GFR ( Amer) 75.7 Est GFR (Non-Af Amer) 65.3 BUN/Creatinine Ratio 9.6 L Glucose 90 Calcium 9.0 Magnesium 1.9 Total Bilirubin AST ALT Alkaline Phosphatase Troponin I < 0.015 Total Protein Albumin Globulin Albumin/Globulin Ratio COVID-19 Eval Order SARS-CoV-2 (PCR) 07/19/20 05:25 WBC RBC Hgb Hct MCV MCH MCHC RDW Std Deviation RDW Coeff of Paddy Plt Count MPV Immature Gran % (Auto) Neut % (Auto) Lymph % (Auto) [place] % (Auto) Eos % (Auto) Baso % (Auto) Neut # (Auto) Lymph # (Auto) [place] # (Auto) Eos # (Auto) Baso # (Auto) Immature Gran # (Auto) PT INR APTT PTT Ratio Sodium Potassium Chloride Carbon Dioxide Anion Gap BUN Creatinine Est Cr Clr Drug Dosing Est GFR ( Amer) Est GFR (Non-Af Amer) BUN/Creatinine Ratio Glucose Calcium Magnesium Total Bilirubin AST ALT Alkaline Phosphatase Troponin I < 0.015 Total Protein Albumin Globulin Albumin/Globulin Ratio COVID-19 Eval Order SARS-CoV-2 (PCR) Diagnostic Findings CXR 07/18/20: Lung volumes are normal. Lungs are clear. There is no pneumothorax or pleural effusion. Cardiac size is normal. Mediastinal contours are normal. There is no evidence for pulmonary edema. A left subclavian pacer/AICD is in place. IMPRESSION: -- No acute cardiopulmonary findings. Medications Administered Medications aspirin 81 mg PO QAM #30 tab 04/17/19 [Rx Confirmed 07/18/20] pantoprazole 40 mg PO QAM #30 tab 04/17/19 [Rx Confirmed 07/18/20] nitroglycerin [Nitrostat] 0.4 mg SUBLINGUAL PRN PRN #30 tab 09/21/19 [Rx Confirmed 07/18/20] isosorbide mononitrate 60 mg tablet,extended release 24 hr 60 mg PO QAM 30 Days #90 tab 10/29/19 [Rx Confirmed 07/18/20] ticagrelor 90 mg tablet 90 mg PO BID #180 tab 10/30/19 [Rx Confirmed 07/18/20] amlodipine 5 mg tablet 5 mg PO DAILY #90 tab 11/09/19 [Rx Confirmed 07/18/20] melatonin 10 mg capsule 10 mg PO DAILY PRN cap 11/29/19 [History Confirmed 07/18/20] lisinopril 20 mg tablet 10 mg PO QAM tab 01/03/20 [History Confirmed 07/18/20] metoprolol succinate 50 mg tablet,extended release 24 hr 50 mg PO DAILY #90 tab 01/06/20 [Rx Confirmed 07/18/20] rosuvastatin 20 mg tablet 20 mg PO DAILY #90 tab 03/03/20 [Rx Confirmed 07/18/20] CPAP Machine See Rx Instructions .ROUTE .COMPLEX #1 ea 03/09/20 [Rx Confirmed 07/18/20] bupropion HCl 150 mg PO BID 07/18/20 [History Confirmed 07/18/20] metoprolol succinate 200 mg PO QAM 07/18/20 [History Confirmed 07/18/20] Home Medications Acetaminophen (Acetaminophen 325 Mg Tab) 650 mg PO Q4H PRN PRN Reason: Pain or Fever Stop: 08/17/20 16:48 Amlodipine Besylate (Amlodipine Besylate 5 Mg Tab) 5 mg PO DAILY [facility] Stop: 08/18/20 08:59 Last Admin: 07/19/20 08:24 Dose: 5 mg Documented by: Aspirin (Aspirin 81 Mg Ectab) [facility] Stop: 08/18/20 08:59 Last Admin: 07/19/20 08:23 Dose: 81 mg Documented by: Bupropion HCl (Bupropion Xl 150 Mg Tabcr) 150 mg PO BID [facility] Stop: 08/17/20 20:59 Last Admin: 07/19/20 08:23 Dose: 150 mg Documented by: Isosorbide Mononitrate (Isosorbide [place] Extended Rel 60 Mg Tabcr) 60 [facility] [place] Stop: 08/18/20 08:59 Last Admin: 07/19/20 08:24 Dose: 60 mg Documented by: Lisinopril (Lisinopril 10 Mg Tab) 10 mg PO QAM [facility] Stop: 08/18/20 08:59 Last Admin: 07/19/20 08:24 Dose: 10 mg Documented by: Melatonin (Melatonin 3 Mg Tab) 9 mg PO DAILY PRN PRN Reason: Sleep Stop: 08/17/20 16:48 Metoprolol Succinate (Metoprolol Succ 50mg Ext Rel Tab) 50 mg PO DAILY [facility] Stop: 08/18/20 08:59 Last Admin: 07/19/20 08:23 Dose: Not Given Documented by: Metoprolol Succinate (Metoprolol Succ 50mg Ext Rel Tab) 200 mg PO QAM [facility] Stop: 08/18/20 08:59 Last Admin: 07/19/20 08:24 Dose: Not Given Documented by: Miscellaneous (Remove Nicoderm Patch) 1 ea N/A DAILY@0859 [facility] Stop: 08/18/20 08:58 Last Admin: 07/19/20 08:22 Dose: Not Given Documented by: Nicotine (Nicotine 14 Mg/24 Hr Patch) 14 mg TD [facility] [place] Stop: 08/17/20 16:48 Last Admin: 07/19/20 08:24 Dose: Not Given Documented by: Nitroglycerin (Nitroglycerin Sl 0.4 Mg/Tab Tab) 0.4 mg SL PRN PRN PRN Reason: chest pain Stop: 08/17/20 16:48 Pantoprazole Sodium (Pantoprazole 40 Mg Tab) 40 mg PO QAM [facility] Stop: 08/18/20 08:59 Last Admin: 07/19/20 08:24 Dose: 40 mg Documented by: Polyethylene Glycol (Polyethylene (Miralax) 17 Gm Pack) 17 gm PO DAILY PRN PRN Reason: Constipation Stop: 08/17/20 16:48 Rosuvastatin Calcium (Rosuvastatin Calcium 20 Mg Tab) 20 mg PO DAILY [facility] Stop: 08/18/20 08:59 Last Admin: 07/19/20 08:24 Dose: 20 mg Documented by: Ticagrelor (Ticagrelor 90 Mg Tab) 90 mg PO BID [facility] Stop: 08/17/20 20:59 Last Admin: 07/19/20 08:25 Dose: 90 mg Documented by: PG Care Time/CCT Total # of Minutes Spent Total Time Spent with Patient: Total time spent is greater than 50% in coordination of care (as documented) at patient's floor/unit and/or counseling patient:45 Coding Level of Care Code 58081 Inpt Consult Level 4 Diagnoses Chest pain R07.9 Chest pain type: unspecified CAD (coronary artery disease) I25.10 Associated angina: unspecified whether angina present Coronary Disease-Associated Artery/Lesion type: resighini artery [place] vs. transplanted heart: unspecified whether resighini or transplanted heart Paroxysmal ventricular tachycardia I47.2 Cardiomyopathy I42.9 ICD (implantable cardioverter-defibrillator) in place Z95.810 Time Spent (min) 55 (1) CAD (coronary artery disease) Associated angina: unspecified whether angina present Coronary Disease- Associated Artery/Lesion type: resighini artery [place] vs. transplanted heart: unspecified whether resighini or transplanted heart Qualified Code(s): I25.10 - Atherosclerotic heart disease of resighini coronary artery without angina pectoris (2) Chest pain Chest pain type: unspecified Qualified Code(s): R07.9 - Chest pain, unspecified
[2020-07-19] MEDS ORDERED: PERFLUTREN LIPID MICROSPHERE (DEFINITY) IV ONE (11:43)
--- NOTE | 2020-07-19 12:25 | XCELERA ---
[id number]
--- NOTE | 2020-07-19 13:59 | Discharge Summary ---
Date of Service July 19, 2020 Admission HPI Per Admitting Provider Mr. Conway is a 44-year-old gentleman with a history significant for VFib cardiac arrest 04/08/2019, ICD (04/16/2019), CAD s/p RCA stent (09/18/2019) with noted vasospasm during cath, cardiomyopathy with recovered LV systolic function, hypertension, obesity, MARY, muscle weakness and dyspnea, current smoker of 1/2 ppd. Patient comes to the emergency department for "pressure" or " david horse" in the center of his chest that woke him up out of sleep this morning and it went away. It also occurred this morning at 0900 while he was at work. He had just finished putting in a light fixture and was standing filling out the paperwork when it occurred. He went to the pharmacy and got some antacids, took them and since it did not go away, he came to the ER. That was around 1100, he still had some mild discomfort so was given a SL NTG tab, in which he did not notice a difference. The pain is now gone. The patient also had this pain on Friday morning getting woken up from sleep, and following antacid in the m orning it went away, he went fishing all day on Friday walking up and down the bank as well as over rocks, without any return of symptoms. Friday and Friday he did not have any episodes. This pain is not associated with any other symptoms of dyspnea, nausea, vomiting, radiation, dizziness. He has not had his defibrillator discharge, or have any palpitations. Of note, the patient has just recently followed up with his Motor Tester 19 June, for the same discomfort and complaints. He was to have a stress ECHO done tomorrow, if his troponin and ECG's remain stable with no dynamic changes, an EST will be ordered for tomorrow morning. He will be observed overnight for trending of his symptoms and troponin as well as telemetry monitoring. He has also been experiencing dyspnea and myalgias which has led to a trial off his Crestor and then placed back on as no change occurred, and thought might be related to his Brilinta, as he believes this started after this was initiated after his OR in September 2019. In September of 2019 remote interrogation of his ICD demonstrated ventricular tachycardia, at times appearing polymorphic, but otherwise monomorphic. Carvedilol was discontinued in favor of metoprolol succinate [address] Tabares of electrophysiology. He was then hospitalized on 10/07/2019 with chest discomfort. He had negative troponin levels and ICD demonstrated no new ventricular tachycardia. Repeat cardiac catheterization demonstrated patent RCA stent and otherwise nonobstructive CAD. He was placed on amlodipine and nitrate therapy for potential of coronary vasospasm as the cause of his chest discomfort. He had a cardiac MRI in with EF 66% mild LVH and not arrythmogenic focci, Principal Diagnosis Chest pain, noncardiac Discharge Exam Constitutional WD/WN, vitals as above Eyes + anicteric sclerae Neck trachea midline, no thyromegaly Respiratory normal respiratory effort Auscultation: + wheezes (scattered mild exp wheezes); no crackles and no rhonchi Cardiovascular RRR, no murmur, no edema Chest (Breasts) Chest: normal inspection of chest Gastrointestinal (Abdomen) normal bowel sounds, soft, nontender, no hepatosplenomegaly Musculoskeletal Extremities: extremities normal to inspection; no cyanosis and no clubbing Skin no rashes, warm and dry Neurologic moves all extremities and awake; no focal motor deficits Psychiatric A+Ox3, euthymic affect Lymphatic no lymphedema Discharge Data Allergies Allergy/AdvReac Type Severity Reaction Status Date / Time No Known Drug Allergies Allergy Unknown Verified 06/19/20 09:15 Consultations 07/18/20 13:26 ED Decision to Admit Stat 07/19/20 09:28 Consult Cardiology Routine Procedures Performed Stress ECHO-no inducible ischemia but target HR not achieved Ordered Studies Chest X-Ray 07/18/20 11:18 XR chest 1V portable CLINICAL HISTORY: Chest Pain COMPARISON STUDY: Chest radiograph October 07, 2019. FINDINGS: Lung volumes are normal. Lungs are clear. There is no pneumothorax or pleural effusion. Cardiac size is normal. Mediastinal contours are normal. There is no evidence for pulmonary edema. A left subclavian pacer/AICD is in place. IMPRESSION: No acute cardiopulmonary findings. ACT 112: Negative or not required by law. Electronically signed by: Ernie Toussaint M.D. 07/18/2020 12:35 PM Hospital Course (1) Chest pain: Atypical chest pain, waxes and wanes and is not associated with activity consistently Serial trop neg Sterss ECHO submax but neg for ischemia Had fatigue and hypertensive reponse to exercise-Cardiology suggests decreasing Toprol dose but pt will f/u with primary Motor Tester to discuss ECG without acute ischemic changes continue all usual home cardiac meds Stable for dc to home Could be GI related-advised to add pepcid bid x 1-2 weeks (2) CAD (coronary artery disease): With h/o VT arrest and AICD placement, then later STEMI with RCA stent placed 09/2019 Cardiac catheterization 09/18/2019: Proximal to mid RCA 80-90%. Underwent 4 x 26 mm [place] OVIDIO. Notable RCA coronary vasospasm reported. Proximal to mid LAD diffuse 20%. Ostial circumflex 50-60%. Mid circumflex 50%. Circumflex small caliber vessel. Proximal OM1 30%. Ostial OM2 (small) 50%. LVEDP 15. EF 55%. 6. Echo 09/19/2019: Normal LV size, wall motion, systolic function. EF 60 65%. Mild left atrial dilation. No significant valvular abnormalities. 7. Cardiac catheterization 10/08/2019: Distal LAD 20%. Proximal D2 30%. Ostial circumflex 30%. Mid circumflex 40%. Proximal RCA stent patent. Distal RCA 10%. LVEDP 9. continue home meds and after 1 year on Brilinta and ASA, can switch to Plavix and ASA if desired to see if improves symptoms off Brilinta (3) ICD (implantable cardioverter-defibrillator) in place: Mode: VVI lower rate 40- - as above - EF improved to normal (4) CKD (chronic kidney disease) stage 3, GFR 30-59 ml/min: stable renal function continue usual meds (5) Hypertension: BPs controlled at rest continue home meds. f/u with PCP and Cardio (6) Obesity: Continue with support- when dyspnea and muscle weakness improves, may improve with exercise tolerance BMI 40.7 (7) MARY (obstructive sleep apnea): on AutoPAP at home- is compliant per last report continue CPAP (8) GERD (gastroesophageal reflux disease): continue PPI and add Pepcid as above (9) Current smoker: encouraged cessation after dsicharge Dispo-stable for dc to home Total Time Total Time Spent Total Time Spent (In Minutes): 35 min Total Time Includes: Examination of the Patient, Discharge Planning and Medication Reconciliation Discharge Plan Discharge Items Patient Disposition: Home - Self-Care Reason For Visit: RULE OUT OR Discharge Diagnosis: Chest pain Condition on Discharge: Good Activity: Resume your previous activity Non-emergency contact: Primary Care Provider and Motor Tester Call non-emergency contact if: you have any medication questions and your symptoms worsen Follow-up/Referrals: Norbert Rm MD [Primary Care Provider] - (Follow up within 1-2 weeks. Patient will call and make his own appointment.) Ishan Sanders DO [Physician] - (Please follow up with Dr. Sanders's office for a new patient hospital follow up appointment within 1-2 weeks. Patient will call and make his own appointment.) Diet: Heart Healthy Addtl Attending Provider Instructions: You were admitted with chest pain that was determined to not be from your heart. This may be from acid reflux and you could consider taking an extra antacid like Pepcid twice a day for the next 1-2 weeks to see if this helps prevent recurrence in addition to your usual daily Protonix. Your stress test was normal although your heart rate did not go as high as we needed to fully assess your heart. The Motor Tester suggested decreasing the dose of your metoprolol to help with your muscle fatigue, but please discuss this with Dr. Rm at your follow up appointment. It is very important that you quit smoking as we discussed. Pending Studies at Discharge: No Stand-Alone Forms: [facility], Smoking Cessation Medications and DC Order Prescriptions: Continued amlodipine 5 mg tablet 5 mg PO DAILY Qty: 90 RF: 3 rosuvastatin [Crestor] 20 mg tablet 20 mg PO DAILY Qty: 90 RF: 3 melatonin 10 mg capsule 10 mg PO DAILY PRN (Reason: Sleep) RF: 0 isosorbide mononitrate 60 mg tablet extended release 24 hr 60 mg PO QAM 30 Days Qty: 90 RF: 3 Brilinta 90 mg tablet 90 mg PO BID Qty: 180 RF: 3 metoprolol succinate 50 mg tablet extended release 24 hr 50 mg PO DAILY Qty: 90 RF: 3 Auto Titrating CPAP Misc See Rx Instructions .ROUTE .COMPLEX Qty: 1 RF: 0 lisinopril 20 mg tablet 10 mg PO QAM RF: 0 aspirin 81 mg Tablet,Delayed Release (Dr/Ec) 81 mg PO QAM Qty: 30 RF: 0 pantoprazole 40 mg Tablet,Delayed Release (Dr/Ec) 40 mg PO QAM Qty: 30 RF: 0 nitroglycerin [Nitrostat] 0.4 mg Tablet, Sublingual 0.4 mg sublingual PRN PRN (Reason: chest pain) Qty: 30 RF: 0 metoprolol succinate 200 mg tablet extended release 24 hr 200 mg PO QAM RF: 0 bupropion HCl 150 mg tablet sustained-release 12 hr 150 mg PO BID RF: 0 Discharge Orders: Discharge Order (Routine); Ordered 07/19/20 Ordered By: Monica Drummond Admission Data Admit Date/Time: 07/18/20 15:30 Attending Provider: Monica Drummond Admit Provider: Marcello Zamora Primary Care Provider: Norbert Rm Other Providers: Maximiliano Barker ; Norbert Rm Other Interventions: Discharge Summary Assessment (RN) Last Done: 07/19/20 12:19 Coding Level of Care Code 58038 OBS Care - Discharge Diagnoses Chest pain R07.9 Chest pain type: unspecified CAD (coronary artery disease) I25.10 Associated angina: unspecified whether angina present Coronary Disease-Associated Artery/Lesion type: [place] artery [place] vs. transplanted heart: unspecified whether [place] or transplanted heart ICD (implantable cardioverter-defibrillator) in place Z95.810 CKD (chronic kidney disease) stage 3, GFR 30-59 ml/min N18.31 Chronic kidney disease stage 3 subtype: stage 3a (GFR 45-59) Hypertension I10 Hypertension type: unspecified Obesity E66.01; Z68.41 Obesity type: unspecified obesity type Obesity classification: adult class 3 (BMI >= 40) Serious obesity comorbidity presence: unspecified whether serious comorbidity present Body mass index: BMI 40.0-44.9 MARY (obstructive sleep apnea) G47.33 GERD (gastroesophageal reflux disease) K21.9 Current smoker F17.200
== END 2020-07-19 14:04 | disposition home or self-care (01) ==
LOC: ED 10:54 → 2N 10:54 → SUATTDRO 15:30 → 2N 16:08
DX: Z95.810 Presence of automatic (implantable) cardiac defibrillator; K21.9 Gastro-esophageal reflux disease without esophagitis; G47.33 Obstructive sleep apnea (adult) (pediatric); Z79.899 Other long term (current) drug therapy; I25.10 Atherosclerotic heart disease of native coronary artery without angina pectoris; Z79.82 Long term (current) use of aspirin; I47.2 Ventricular tachycardia; Z68.41 Body mass index [BMI] 40.0-44.9, adult; I10 Essential (primary) hypertension; Z86.74 Personal history of sudden cardiac arrest; Z20.822 Contact with and (suspected) exposure to COVID-19; R07.89 Other chest pain; I42.9 Cardiomyopathy, unspecified; E66.9 Obesity, unspecified

== ENCOUNTER 2022-01-17 07:10 | Observation (INO) ==
--- NOTE | 2022-01-17 07:22 | Emergency Department Note ---
History of Present Illness General Chief complaint: Chest Pain Stated complaint: CHEST PAIN,DIZZY,VOMITING Time Seen by Provider: 01/17/22 07:21 History of Present Illness Maximum Pain Intensity: 7 This 46-year-old male patient presents to the emergency department with his for evaluation of chest pain, dizziness, cold sweats, and vomiting that started at 6:45 AM this morning. He took 1 nitro and the sharp pain went away, but he continues with mild tightness in his chest. He also took his aspirin this morning and he is on Plavix and took that this morning as well. He also took antacids without much improvement. He vomited once this morning, but feels a little less nauseous now. He rated his pain initially as a sharp pressure and 7/10, but currently only has a dull pressure rated as 1/10. He denies any pain in his stomach. No symptoms prior to 6:45 am this morning. Denies any urinary symptoms or diarrhea. Has had nasal congestion and mild dry cough for the past 3 weeks, but no fevers. He had a cardiac arrest in Apr 08, 2019 from an unknown cause and had a de fibrillator placed on Apr 16, 2019. He then had an IL on Sep 18, 2019 and 1 stent was placed. 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 He states that this does not feel like his coronary artery spasms, but feels more like his heart attack. His heart rate typically runs in the 60's per patient. No known history of heart block, but it looks like his EKG might have shown a block in 2020. He recently had his defibrillator checked and it was normal. Does not feel like his defibrillator went off with his chest pain. He had a stress ECHO in November without significant abnormalities and last saw Dr. Kwon of cardiology in Oct. Home Medications Medication Instructions Recorded Confirmed Type aspirin 81 mg tablet,delayed 81 mg PO QAM #30 tabs 04/17/19 12/26/21 Rx release melatonin 10 mg capsule 10 mg PO HS PRN Sleep 11/29/19 12/26/21 History Auto Titrating CPAP See Rx Instructions .Route 03/09/20 12/26/21 Rx .COMPLEX #1 ea nitroglycerin 0.4 mg sublingual 0.4 mg sublingual PRN PRN chest 11/20/20 12/26/21 Rx tablet (Nitrostat) pain #30 tabs rosuvastatin 20 mg tablet (Crestor) 20 mg PO DAILY #90 tabs 03/21/21 12/26/21 Rx isosorbide mononitrate 60 mg 60 mg PO QAM 30 days #90 tabs 09/06/21 12/26/21 Rx tablet,extended release 24 hr metoprolol succinate 50 mg 50 mg PO DAILY #90 tabs 09/07/21 12/26/21 Rx tablet,extended release 24 hr bupropion HCl 150 mg tablet,12 hr 150 mg PO BID #60 ea 11/02/21 12/26/21 Rx sustained-release clopidogrel 75 mg tablet (Plavix) 75 mg PO DAILY #90 tabs 11/02/21 12/26/21 Rx doxycycline hyclate 100 mg tablet 100 mg PO DAILY #20 tabs 11/20/21 12/26/21 Rx topiramate 25 mg tablet 50 mg PO HS #60 tabs 12/26/21 12/26/21 Rx Allergies Allergy/AdvReac Type Severity Reaction Status Date / Time No Known Drug Allergies Allergy Unknown Verified 12/26/21 15:38 Past Med/Surg History Medical History CAD (coronary artery disease) Cardiomyopathy CKD (chronic kidney disease) stage 3, GFR 30-59 ml/min GERD (gastroesophageal reflux disease) History of COVID-19 12/2020 runny nose, cough, fever, no hospitalization, no current issues History of ST elevation myocardial infarction (STEMI) (~2019) follows w/ [facility]-last visit 08/2021 Hypertension ICD (implantable cardioverter-defibrillator) in place On anticoagulant therapy clopidogrel daily MARY (obstructive sleep apnea) cpap Surgical History History of appendectomy Hx of cardiac cath x 3 total~ -03/2019 & 09/18/2019 at [facility]. By Dr Ni. OVIDIO to RCA Stented coronary artery (~09/2019) Family History Father Colorectal cancer Grandfather (Maternal) Myocardial infarction Grandmother (Paternal) Myocardial infarction Other Cancer Coronary heart disease Diabetes Denies family history of Ovarian cancer Prostate cancer Breast cancer Social History Smoking Status: Former smoker Tobacco Type: Cigarettes Second Hand Exposure: Yes; Hx Alcohol Use: No Hx Substance Use: No Preferred Language: Brazilian Communication Ability: Effective Visual Impairment: No Limitations Hazardous Waste Technician Required: Video and No Beliefs That Will Affect Care: None marital status: Current Living Situation: Family current occupational status: employed How many Children do You have: 3 Feels Safe at Home: Yes Childhood Exposure to Second-Hand Smoke: Yes caffeine: Yes Dental Care, Regularly: No Seatbelt Use: always Sunscreen Use: No Assistive Devices: None Review of Systems See HPI for pertinent positives & negatives. and A total of 10 systems reviewed and were otherwise negative Physical Exam Vital Signs Vital Signs - 24 hr 01/17/22 07:13 01/17/22 07:29 01/17/22 07:31 Temperature 36.8 C Temperature Source Temporal Artery Scan Pulse Rate 59 L Pulse Rate [Apical] 46 L Pulse Rhythm [Apical] Pulse Strength [Apical] Respiratory Rate 18 18 Respiratory Effort / Characteristics Non-Labored Non-Labored Respiratory Depth Normal Normal Respiratory Pattern Regular Blood Pressure 115/66 Blood Pressure [Right Arm] 103/62 Blood Pressure Mean 82 Blood Pressure Mean [Right Arm] 75 Pulse Oximetry 98 98 Oxygen Delivery Method Room Air Room Air Room Air Sepsis Recent Fever Within 48 Hours No Sepsis New/Unexplained Change in Mental Status No Sepsis Action Taken by Nursing No Action Required 01/17/22 07:46 01/17/22 09:07 01/17/22 10:20 Temperature Temperature Source Pulse Rate Pulse Rate [Apical] 45 L 45 L Pulse Rhythm [Apical] Regular Regular Pulse Strength [Apical] Normal Normal Respiratory Rate 18 18 Respiratory Effort / Characteristics Non-Labored Spontaneous Non-Labored Respiratory Depth Normal Normal Respiratory Pattern Regular Blood Pressure Blood Pressure [Right Arm] 104/64 106/64 Blood Pressure Mean Blood Pressure Mean [Right Arm] 77 78 Pulse Oximetry 98 100 99 Oxygen Delivery Method Room Air Room Air Sepsis Recent Fever Within 48 Hours Sepsis New/Unexplained Change in Mental Status Sepsis Action Taken by Nursing VITALS: Vitals are noted on the nurse's note and reviewed by myself. GENERAL: 46-year-old male, in no acute distress, non-diaphoretic, well-developed well-nourished. SKIN: Capillary refill <2 sec. No tenting of the skin. HEAD: Normocephalic, atraumatic. EYES: PERRLA. EOMI. Conjunctivae without injection, sclerae without icterus. NOSE: Patent without discharge. MOUTH: Mucous membranes moist. Uvula midline. Airway patent. NECK: Supple without nuchal rigidity. HEART: Bradycardic without murmurs gallops or rubs. LUNGS: Clear to auscultation bilaterally without wheezes, rales or rhonchi. No retractions or accessory muscle use. ABDOMEN: Positive bowel sounds x 4. Normal tympanic percussion. Soft, nontender, without masses or organomegaly. Em sign negative. No guarding or rebound tenderness. No focal RLQ or LLQ tenderness. MUSCULOSKELETAL: No gross musculoskeletal defects. NEURO: Patient was alert and oriented to person place and time. No focal neurological deficits. Course Administered Medications Heparin Sodium (Porcine) (Heparin Sod 5,000 Unit/0.5 Ml Vial) 5,000 units SQ Q8 ROB Stop: 02/16/22 14:35 Last Admin: 01/17/22 16:19 Dose: 5,000 units Documented By: [facility] Discontinued Medications Sodium Chloride (Nss) 500 mls @ 125 mls/hr IV .Q4H STA Stop: 01/17/22 11:39 Last Infusion: 01/17/22 12:06 Dose: 0 mls/hr Documented By: Admin: 01/17/22 07:52 Dose: 125 mls/hr Documented By: JOSEPH Medical Decision Making Differential Diagnosis Differential diagnosis includes angina, IL, pericarditis, myocarditis, aortic dissection, pleurisy, pneumothorax, PE, pneumonia, pneumomediastinum, esophagitis, esophageal spasm, GERD, perforated esophagus, perforated duodenal/gastric ulcer, pancreatitis, cholecystitis, costochondritis, musculoskeletal, bronchitis, URI, or others. Laboratory Data Attestation: I reviewed the patient's lab results. Result diagrams: 01/17/22 07:30 01/17/22 07:30 Lab Results 01/17/22 01/17/22 01/17/22 Range/Units 07:30 07:30 07:30 WBC 7.69 (4.8-10.8) K/ul RBC 4.65 (4.63-6.08) M/uL Hgb 15.3 (14.0-18.0) g/dl Hct 44.2 (40.1-51.0) % MCV 95.1 (80.0-100.0) fL MCH 32.9 (25.0-34.0) pg MCHC 34.6 (32.0-36.0) g/dL RDW Std Deviation 45.5 (36.4-46.3) fL RDW Coeff of Paddy 13.0 (11.5-14.5) % Plt Count 162 (130-400) K/uL MPV 10.2 (9.4-12.4) fL Immature Gran % (Auto) 0.3 % Neut % (Auto) 51.9 % Lymph % (Auto) 35.6 % Terrell % (Auto) 7.3 % Eos % (Auto) 4.4 % Baso % (Auto) 0.5 % Neut # (Auto) 3.99 (1.4-6.5) K/uL Lymph # (Auto) 2.74 (1.2-3.4) K/uL Terrell # (Auto) 0.56 (0.24-0.82) K/uL Eos # (Auto) 0.34 (0-0.50) K/uL Baso # (Auto) 0.04 (0-0.2) K/uL Immature Gran # (Auto) 0.02 (0.00-0.02) K/uL PT 10.5 (9.0-12.0) Seconds INR 1.0 (0.9-1.1) APTT 24.5 (21.0-31.0) Seconds PTT Ratio 0.9 Sodium 140 (136-145) mmol/L Potassium 4.2 (3.5-5.1) mmol/L Chloride 109 H (98-107) mmol/L Carbon Dioxide 27 (21-32) mmol/L Anion Gap 4 (3-11) BUN 24 H (6-23) mg/dl Creatinine 1.58 H (0.6-1.4) mg/dl Est Cr Clr Drug Dosing 66.1 ml/min Est GFR ( Amer) 59.5 ml/min Est GFR (Non-Af Amer) 51.3 ml/min BUN/Creatinine Ratio 15.2 (10-20) Glucose 137 H (70-99(Fasting)) mg/dl Calcium 9.4 (8.5-10.1) mg/dl Total Bilirubin 0.4 (0.2-1.0) mg/dl AST 22 (13-39) U/L ALT 10 (7-52) U/L Alkaline Phosphatase 77 (34-104) U/L Troponin I High Sens 10.8 (0-20) pg/ml Total Protein 7.2 (6.0-8.3) gm/dl Albumin 4.2 (3.4-5.0) gm/dl Globulin 3.0 (2.5-4.0) gm/dl Albumin/Globulin Ratio 1.4 (0.9-2) Lipase 13 (11-82) U/L Urine Color Urine Appearance (Clear) Urine pH (4.5-7.5) Ur Specific [place] (1.000-1.030) Urine Protein (Negative) Urine Glucose (UA) (Negative) Urine Ketones (Negative) Urine Blood (Negative) Urine Nitrite (Negative) Urine Bilirubin (Negative) Urine Urobilinogen (Negative) Ur Leukocyte Esterase (Negative) Lyme Disease IgG Ab (Negative) Lyme Disease IgM Ab (Negative) SARS-CoV-2, RNA, NAAT (NEGATIVE) 01/17/22 01/17/22 01/17/22 Range/Units 07:30 07:47 09:29 WBC (4.8-10.8) K/ul RBC (4.63-6.08) M/uL Hgb (14.0-18.0) g/dl Hct (40.1-51.0) % MCV (80.0-100.0) fL MCH (25.0-34.0) pg MCHC (32.0-36.0) g/dL RDW Std Deviation (36.4-46.3) fL RDW Coeff of Paddy (11.5-14.5) % Plt Count (130-400) K/uL MPV (9.4-12.4) fL Immature Gran % (Auto) % Neut % (Auto) % Lymph % (Auto) % Terrell % (Auto) % Eos % (Auto) % Baso % (Auto) % Neut # (Auto) (1.4-6.5) K/uL Lymph # (Auto) (1.2-3.4) K/uL Terrell # (Auto) (0.24-0.82) K/uL Eos # (Auto) (0-0.50) K/uL Baso # (Auto) (0-0.2) K/uL Immature Gran # (Auto) (0.00-0.02) K/uL PT (9.0-12.0) Seconds INR (0.9-1.1) APTT (21.0-31.0) Seconds PTT Ratio Sodium (136-145) mmol/L Potassium (3.5-5.1) mmol/L Chloride (98-107) mmol/L Carbon Dioxide (21-32) mmol/L Anion Gap (3-11) BUN (6-23) mg/dl Creatinine (0.6-1.4) mg/dl Est Cr Clr Drug Dosing ml/min Est GFR ( Amer) ml/min Est GFR (Non-Af Amer) ml/min BUN/Creatinine Ratio (10-20) Glucose (70-99(Fasting)) mg/dl Calcium (8.5-10.1) mg/dl Total Bilirubin (0.2-1.0) mg/dl AST (13-39) U/L ALT (7-52) U/L Alkaline Phosphatase (34-104) U/L Troponin I High Sens 28.5 H D (0-20) pg/ml Total Protein (6.0-8.3) gm/dl Albumin (3.4-5.0) gm/dl Globulin (2.5-4.0) gm/dl Albumin/Globulin Ratio (0.9-2) Lipase (11-82) U/L Urine Color Urine Appearance (Clear) Urine pH (4.5-7.5) Ur Specific [place] (1.000-1.030) Urine Protein (Negative) Urine Glucose (UA) (Negative) Urine Ketones (Negative) Urine Blood (Negative) Urine Nitrite (Negative) Urine Bilirubin (Negative) Urine Urobilinogen (Negative) Ur Leukocyte Esterase (Negative) Lyme Disease IgG Ab Negative (Negative) Lyme Disease IgM Ab Negative (Negative) SARS-CoV-2, RNA, NAAT NEGATIVE (NEGATIVE) 01/17/22 Range/Units 11:16 WBC (4.8-10.8) K/ul RBC (4.63-6.08) M/uL Hgb (14.0-18.0) g/dl Hct (40.1-51.0) % MCV (80.0-100.0) fL MCH (25.0-34.0) pg MCHC (32.0-36.0) g/dL RDW Std Deviation (36.4-46.3) fL RDW Coeff of Paddy (11.5-14.5) % Plt Count (130-400) K/uL MPV (9.4-12.4) fL Immature Gran % (Auto) % Neut % (Auto) % Lymph % (Auto) % Terrell % (Auto) % Eos % (Auto) % Baso % (Auto) % Neut # (Auto) (1.4-6.5) K/uL Lymph # (Auto) (1.2-3.4) K/uL Terrell # (Auto) (0.24-0.82) K/uL Eos # (Auto) (0-0.50) K/uL Baso # (Auto) (0-0.2) K/uL Immature Gran # (Auto) (0.00-0.02) K/uL PT (9.0-12.0) Seconds INR (0.9-1.1) APTT (21.0-31.0) Seconds PTT Ratio Sodium (136-145) mmol/L Potassium (3.5-5.1) mmol/L Chloride (98-107) mmol/L Carbon Dioxide (21-32) mmol/L Anion Gap (3-11) BUN (6-23) mg/dl Creatinine (0.6-1.4) mg/dl Est Cr Clr Drug Dosing ml/min Est GFR ( Amer) ml/min Est GFR (Non-Af Amer) ml/min BUN/Creatinine Ratio (10-20) Glucose (70-99(Fasting)) mg/dl Calcium (8.5-10.1) mg/dl Total Bilirubin (0.2-1.0) mg/dl AST (13-39) U/L ALT (7-52) U/L Alkaline Phosphatase (34-104) U/L Troponin I High Sens (0-20) pg/ml Total Protein (6.0-8.3) gm/dl Albumin (3.4-5.0) gm/dl Globulin (2.5-4.0) gm/dl Albumin/Globulin Ratio (0.9-2) Lipase (11-82) U/L Urine Color Yellow Urine Appearance Clear (Clear) Urine pH 6.5 (4.5-7.5) Ur Specific [place] 1.016 (1.000-1.030) Urine Protein Negative (Negative) Urine Glucose (UA) Negative (Negative) Urine Ketones Negative (Negative) Urine Blood Negative (Negative) Urine Nitrite Negative (Negative) Urine Bilirubin Negative (Negative) Urine Urobilinogen Negative (Negative) Ur Leukocyte Esterase Negative (Negative) Lyme Disease IgG Ab (Negative) Lyme Disease IgM Ab (Negative) SARS-CoV-2, RNA, NAAT (NEGATIVE) Imaging Data Radiologist's Impression: Chest X-Ray 01/17/22 07:40 XR chest 1V portable HISTORY: Atypical Chest Pain COMPARISON: Chest 07/18/2020. FINDINGS: No pneumothorax. No pleural effusions. The lungs are clear. The heart is normal in size. There is left-sided pacemaker/defibrillator again noted. IMPRESSION: No acute process. ACT 112: Negative or not required by law. Electronically signed by: Alonso Sarkar M.D. 01/17/2022 8:22 AM MDM Narrative I examined the patient. An IV lock was placed and labs were drawn. EKG was interpreted by myself and Dr. Kim and showed marked sinus bradycardia with first-degree AV block at 44 bpm. It appears that he had a similar EKG in July 2020. Continuous monitoring engineer: Order was placed for continuous monitoring engineer. Patient was placed on the monitoring engineer. Patient was noted to be in a bradycardic rhythm at an initial rate of 48 bpm. The patient had already taken aspirin and a dose of nitroglycerin prior to arrival and he is on Plavix. His symptoms had almost fully resolved by presentation to the emergency department. The patient declined any additional nitroglycerin or pain medication while in the emergency department. Chest x-ray was reviewed by myself and read by radiology and showed no acute car diopulmonary etiology. Defibrillator in place. CBC was normal. Coags were normal. BUN and creatinine as well as glucose were elevated, but CMP otherwise without significant abnormalities. Lipase was normal. Urinalysis negative for UTI. COVID was negative. High-sensitivity troponin was initially normal at 10.8, but 2-hour repeat became slightly elevated at 28.5. I had a meaningful discussion about this patient with Dr. Kim who agrees with my assessment and the treatment plan. His EKG does not show evidence of acute ST or T wave changes, but his 2-hour high-sensitivity troponin did become slightly elevated and was higher than his initial troponin. Due to his cardiac history and the elevated troponin he will be admitted for further cardiac evaluation. I spoke with the on-call spitalist who agreed to admit the patient. Please refer to their dictation for further details. The patient's care was transferred to the hospitalist in stable condition. Impression & Plan Chest pain, Elevated troponin Discharge Plan Visit Data Chief Complaint: Chest Pain Stated Complaint: CHEST PAIN,DIZZY,VOMITING ED Provider: Gaye Kim ED Midlevel Provider: Alpa Hwang Discharge Problem: Chest pain, Elevated troponin Patient Disposition: Admitted As Inpatient Condition: Good Discharge Instructions Interventions: ED Discharge Assessment Last Done: 01/17/22 12:55
[2022-01-17] MEDS ORDERED: SODIUM CHLORIDE 0.9% 500 ML IV STA (07:40)
[2022-01-17 08:09] LABS: Basophils # (auto) 0.04 K/uL (0-0.2); Basophils % (auto) 0.5 %; Eosinophils # (auto) 0.34 K/uL (0-0.50); Eosinophils % (auto) 4.4 %; Hematocrit (blood only) 44.2 % (40.1-51.0); Hemoglobin 15.3 g/dl (14.0-18.0); Immature Granulocytes # (auto) 0.02 K/uL (0.00-0.02); Immature Granulocytes % (auto) 0.3 %; Lymphocytes # (auto) 2.74 K/uL (1.2-3.4); Lymphocytes % (auto) 35.6 %; Mean Corpuscular Hemoglobin 32.9 pg (25.0-34.0); Mean Corpuscular Hgb Conc 34.6 g/dL (32.0-36.0); Mean Corpuscular Volume 95.1 fL (80.0-100.0); Mean Platelet Volume 10.2 fL (9.4-12.4); Monocytes # (auto) 0.56 K/uL (0.24-0.82); Monocytes % (auto) 7.3 %; Neutrophils # (auto) 3.99 K/uL (1.4-6.5); Neutrophils % (auto) 51.9 %; Platelet Count 162 K/uL (130-400); RDW Standard Deviation 45.5 fL (36.4-46.3); Red Blood Count 4.65 M/uL (4.63-6.08); White Blood Count 7.69 K/ul (4.8-10.8)
[2022-01-17 08:20] LABS: Partial Thromboplastin Ratio 0.9; Partial Thromboplastin Time 24.5 Seconds (21.0-31.0); Prothrombin Time 10.5 Seconds (9.0-12.0)
--- NOTE | 2022-01-17 08:23 | XRay Report ---
XR chest 1V portable HISTORY: Atypical Chest Pain COMPARISON: Chest 07/18/2020. FINDINGS: No pneumothorax. No pleural effusions. The lungs are clear. The heart is normal in size. Th ere is left-sided pacemaker/defibrillator again noted. IMPRESSION: No acute process. ACT 112: Negative or not required by law. Electronically signed by: Alonso Sarkar M.D. 01/17/2022 8:22 AM
[2022-01-17 08:28] LABS: Troponin I High Sensitivity 10.8 pg/ml (0-20)
[2022-01-17 08:35] LABS: Albumin Globulin Ratio 1.4 (0.9-2); Albumin Level 4.2 gm/dl (3.4-5.0); BUN Creatinine Ratio 15.2 (10-20); Bilirubin,Total 0.4 mg/dl (0.2-1.0); Calcium 9.4 mg/dl (8.5-10.1); Creatinine Clr Calc Pharmacy 66.1 ml/min; Est GFR (African American) 59.5 ml/min; Est GFR (Non-African American) 51.3 ml/min; Potassium 4.2 mmol/L (3.5-5.1); Total Protein 7.2 gm/dl (6.0-8.3)
--- NOTE | 2022-01-17 11:53 | History & Physical Report ---
Date of Service January 17, 2022 Assessment & Plan (1) Chest pain: Plan: Patient presents with chest pain in the morning with minimal activity remittent reminisces and previous IN, minor escalation of high-sensitivity troponin on second check no acute changes on EKG Continue aspirin Plavix beta-eugenio statin oxygen therapy serial troponins. Patient typically sees Dr. Rm we will keep the patient n.p.o. in case the third troponin is higher or he becomes unstable throughout the day and would require cardiac catheterization. The patient has had a stress test in November which was unremarkable at that time Patient remains on his isosorbide and rosuvastatin as additional treatments of his coronary disease (2) CKD (chronic kidney disease) stage 3, GFR 30-59 ml/min: Plan: Renal function is stable appropriate dosing of medications will be undertaken (3) MARY (obstructive sleep apnea): Plan: Patient be offered his continued sleep apnea CPAP machine use here (4) Hypertension: Plan: Blood pressure control is achieved with metoprolol and likely assisted with his isosorbide (5) ICD (implantable cardioverter-defibrillator) in place: Plan: Of the device interrogated in case his troponin rises from a defibrillator discharge which may have occurred when sleeping on the patient be unaware of it Plan With the patient's bradycardia we will check a Lyme titer, he did have a tic bite and was on doxycycline in october Patient continue bupropion for depression History of Present Illness Primary Care Provider: Ishan Sanders, 46-year-old male with history of known coronary disease cardiomyopathy implantable defibrillator with an IN in 2020 who presents with chest pain with associated symptoms and has a change of second high-sensitivity troponin to small degree. Patient did not have acute coronary syndrome on his EKG. Patient did recently have a outpatient stress test on November 27, 2021 which was unremarkable at 83% maximum predicted heart rate swelling preserved ejection fraction good exercise tolerance and no regional wall motion abnormalities. Patient awoke on the morning of presentation with chest discomfort dizziness cold sweats nausea and vomiting approximately 6:45 AM he took 1 nitro with diminishing pain however his pain persisted until he arrived to the ER. Patient took aspirin and Plavix on the morning of admission, patient's feels this reminds him of his previous IN. High-sensitivity troponins were 10.8 and then they kirit to 28.5 next check will be 1400 hrs. Allergies Allergy/AdvReac Type Severity Reaction Status Date / Time No Known Drug Allergies Allergy Unknown Verified 12/26/21 15:38 Home Medications Medication Instructions Recorded Confirmed Type aspirin 81 mg tablet,delayed 81 mg PO QAM #30 tabs 04/17/19 12/26/21 Rx release melatonin 10 mg capsule 10 mg PO HS PRN Sleep 11/29/19 12/26/21 History Auto Titrating CPAP See Rx Instructions .Route 03/09/20 12/26/21 Rx .COMPLEX #1 ea nitroglycerin 0.4 mg sublingual 0.4 mg sublingual PRN PRN chest 11/20/20 12/26/21 Rx tablet (Nitrostat) pain #30 tabs rosuvastatin 20 mg tablet (Crestor) 20 mg PO DAILY #90 tabs 03/21/21 12/26/21 Rx isosorbide mononitrate 60 mg 60 mg PO QAM 30 days #90 tabs 09/06/21 12/26/21 Rx tablet,extended release 24 hr metoprolol succinate 50 mg 50 mg PO DAILY #90 tabs 09/07/21 12/26/21 Rx tablet,extended release 24 hr bupropion HCl 150 mg tablet,12 hr 150 mg PO BID #60 ea 11/02/21 12/26/21 Rx sustained-release clopidogrel 75 mg tablet (Plavix) 75 mg PO DAILY #90 tabs 11/02/21 12/26/21 Rx doxycycline hyclate 100 mg tablet 100 mg PO DAILY #20 tabs 11/20/21 12/26/21 Rx topiramate 25 mg tablet 50 mg PO HS #60 tabs 12/26/21 12/26/21 Rx Past Med/Surg History Medical History CAD (coronary artery disease) Cardiomyopathy CKD (chronic kidney disease) stage 3, GFR 30-59 ml/min GERD (gastroesophageal reflux disease) History of COVID-19 12/2020 runny nose, cough, fever, no hospitalization, no current issues History of ST elevation myocardial infarction (STEMI) (~2019) follows w/ [facility]-last visit 08/2021 Hypertension ICD (implantable cardioverter-defibrillator) in place On anticoagulant therapy clopidogrel daily MARY (obstructive sleep apnea) cpap Surgical History History of appendectomy Hx of cardiac cath x 3 total~ & 09/18/2019 at [facility]. By Dr Ni. OVIDIO to RCA Stented coronary artery (~09/2019) Family History Father Colorectal cancer Grandfather (Maternal) Myocardial infarction Grandmother (Paternal) Myocardial infarction Other Cancer Coronary heart disease Diabetes Denies family history of Ovarian cancer Prostate cancer Breast cancer Social History Smoking Status: Never smoker Tobacco Type: Cigarettes Second Hand Exposure: No; Hx Alcohol Use: No Hx Substance Use: No Preferred Language: Nigerien Communication Ability: Effective Visual Impairment: No Limitations Barrel Marker Required: No Beliefs That Will Affect Care: None marital status: Current Living Situation: Spouse current occupational status: employed How many Children do You have: 3 Feels Safe at Home: Yes Childhood Exposure to Second-Hand Smoke: Yes caffeine: Yes Dental Care, Regularly: No Seatbelt Use: always Sunscreen Use: No Assistive Devices: Contacts, CPAP and Glasses Review of Systems Review of Systems: Mild distress and fatigue no headache, no visual changes no speech or swallowing issues chest pain and pressure, sweaty and vomiting no shortness of breath, cough or wheezes no abdominal pain, no diarrhea or constipation no dysuria, hematuria or frequency no focal joint pain or swelling no back pain, CVA tenderness or radicular pain no bruising, bleeding or rashes no focal signs of weakness or numbness or altered sensation no complaints of anxiety or depression.. Physical Exam Physical Exam: The patient appeared well nourished and normally developed. Vital signs as documented. Head exam is normocephalic atraumatic Neck is without JVD, thyromegaly, or carotid bruits. Lungs are clear to auscultation, no focal loss of breath sounds Cardiac exam, Rhythm is regular but bradycardic.. No murmurs, rubs or gallops. Abdominal exam reveals normal bowel sounds, soft non tender, no masses Extremities are nonedematous and both pedal pulses are present Neurologic exam is alert and oriented, no focal loss of strength or sensation Skin is without bruises or rashes Psychologically is without concerns for anxiety or depression.. Results & Data Results & Data ([facility]) Vital Signs (Past 12 Hours) Vital Signs Temp Pulse Pulse Resp BP BP Pulse Ox 01/17/22 10:20 45 L 18 106/64 99 01/17/22 09:07 45 L 18 104/64 100 01/17/22 07:46 98 01/17/22 07:31 46 L 18 103/62 98 01/17/22 07:29 01/17/22 07:13 98.2 F 59 L 18 115/66 98 O2 Del Method 01/17/22 10:20 01/17/22 09:07 Room Air 01/17/22 07:46 Room Air 01/17/22 07:31 Room Air 01/17/22 07:29 Room Air 01/17/22 07:13 Room Air Diagnostic Findings Chest X-Ray 01/17/22 07:40 XR chest 1V portable HISTORY: Atypical Chest Pain COMPARISON: Chest 07/18/2020. FINDINGS: No pneumothorax. No pleural effusions. The lungs are clear. The heart is normal in size. There is left-sided pacemaker/defibrillator again noted. IMPRESSION: No acute process. Electronically signed by: Alonso Sarkar M.D. 01/17/2022 8:22 AM ECG Additional Comments: EKGs with shows sinus bradycardia no acute changes Code Status & VTE Plan VTE Prophylaxis Plan VTE Prophylaxis will be ordered: Yes PG Care Time/CCT Total # of Minutes Spent Total Time Spent with Patient: Total time spent is greater than 50% in coordination of care (as documented) at patient's floor/unit and/or counseling patient: Coding Level of Care Code INT OBSERVATION CARE 70M LVL 3 Diagnoses Chest pain R07.9 CKD (chronic kidney disease) stage 3, GFR 30-59 ml/min N18.31 Chronic kidney disease stage 3 subtype: stage 3a (GFR 45-59) MARY (obstructive sleep apnea) G47.33 Hypertension I10 Hypertension type: unspecified ICD (implantable cardioverter-defibrillator) in place Z95.810 (1) CKD (chronic kidney disease) stage 3, GFR 30-59 ml/min Chronic kidney disease stage 3 subtype: stage 3a (GFR 45-59) Qualified Code(s): N18.31 - Chronic kidney disease, stage 3a (2) Hypertension Hypertension type: unspecified Qualified Code(s): I10 - Essential (primary) hypertension
[2022-01-17 12:26] LABS: Appearance Urine Clear (Clear); Bilirubin Urine Negative (Negative); Blood Urine Negative (Negative); Color Urine Yellow; Glucose Urine UA Negative (Negative); Ketones Urine Negative (Negative); Leukocyte Esterase Urine Negative (Negative); Nitrite Urine Negative (Negative); Protein Urine Negative (Negative); Specific Gravity Urine 1.016 (1.000-1.030); Urobilinogen Urine Negative (Negative); pH Urine 6.5 (4.5-7.5)
[2022-01-17] MEDS ORDERED: ALUMINUM/MAGNESIUM SUSP 30 ML UDC PO PRN (14:36)
[2022-01-17] MEDS ORDERED: NON-FORMULARY MEDICATION (Auto Titrating Cpap misc) SCH (14:36)
[2022-01-17] MEDS ORDERED: MoRPHine SULFATE 2 MG/ML CARP IV PRN (14:36)
[2022-01-17] MEDS ORDERED: NITROGLYCERIN SL 0.4 MG/TAB TAB SL PRN (14:36)
[2022-01-17] MEDS ORDERED: ACETAMINOPHEN 325 MG TAB PO PRN (14:36)
[2022-01-17] MEDS ORDERED: ONDANSETRON INJ 2 MG/ML 2 ML VIAL IV PRN (14:36)
[2022-01-17] MEDS ORDERED: MELATONIN 3 MG TAB PO PRN (14:59)
--- NOTE | 2022-01-17 15:45 | Cardiology Consultation ---
Date of Consultation January 17, 2022 Assessment & Plan (1) Chest pain: (2) Paroxysmal ventricular tachycardia: (3) CAD (coronary artery disease): (4) ICD (implantable cardioverter-defibrillator) in place: Plan 1. Chest pain: Certainly concerning for unstable angina. The episode itself was fairly brief in duration which may compromise her ability to detect injury. However, a second troponin change significantly from the initial value. We will obtain a third troponin. If this is significantly elevated he would likely benefit from repeat coronary angiography. If this is again in the normal range we could consider noninvasive testing. He did have a normal exercise echo cardiogram approximately 2 months ago. We will continue his outpatient medical regimen which includes aspirin, clopidogrel, isosorbide, metoprolol and rosuvastatin. If the cardiac biomarkers are significantly elevated will start a heparin infusion as well. 2. Ventricular tachycardia: He has a history of cardiac arrest. Normally functioning single-chamber ICD. No recent arrhythmias. Continue metoprolol. 3. Coronary artery disease: He had a STEMI involving the right coronary artery. Patent stent in 2019. Nonobstructive disease in the remaining vessels. Continue aggressive secondary prevention with a daily aspirin and high-dose rosuvastatin. 4. Aortic insufficiency: Mild on the most recent echocardiogram in November of this year. 5. Normally functioning single-chamber ICD without recent therapies or events. History of Present Illness Reason for Consultation: Chest pain Requesting Physician: Jose G Attending Physician: Savage Araiza MD History of Present Illness The patient is a 46-year-old gentleman with a history of VF arrest, prior implantation of a single-chamber ICD and coronary artery disease status postmyocardial infarction who presented to the emergency room after an episode of chest discomfort this morning. The patient states that he was essentially at rest when he began to experience symptoms of substernal chest discomfort. This involves a sense of breathing difficulty and also gastrointestinal complaints. He became significantly nauseated and vomiting. According to his who was present he was also quite pale. The patient took some antacids without relief. He took a nitroglycerin without relief. He then presented to the hospital for an evaluation. His symptoms seemed to resolve after 15 to 20 minutes. He has not had any recurrence. Recently has been feeling quite well. He performs heavy exertion on most days without symptoms of chest discomfort or breathing difficulty. He has not had significant dizziness or lightheadedness lately. He has not noticed significant palpitations lately. In the past he has had occasional "double beats". However, these have been less common recently Allergies Allergy/AdvReac Type Severity Reaction Status Date / Time No Known Drug Allergies Allergy Unknown Verified 12/26/21 15:38 Home Medications Medication Instructions Recorded Confirmed Type aspirin 81 mg tablet,delayed 81 mg PO QAM #30 tabs 04/17/19 12/26/21 Rx release melatonin 10 mg capsule 10 mg PO HS PRN Sleep 11/29/19 12/26/21 History Auto Titrating CPAP See Rx Instructions .Route 03/09/20 12/26/21 Rx .COMPLEX #1 ea nitroglycerin 0.4 mg sublingual 0.4 mg sublingual PRN PRN chest 11/20/20 12/26/21 Rx tablet (Nitrostat) pain #30 tabs rosuvastatin 20 mg tablet (Crestor) 20 mg PO DAILY #90 tabs 03/21/21 12/26/21 Rx isosorbide mononitrate 60 mg 60 mg PO QAM 30 days #90 tabs 09/06/21 12/26/21 Rx tablet,extended release 24 hr metoprolol succinate 50 mg 50 mg PO DAILY #90 tabs 09/07/21 12/26/21 Rx tablet,extended release 24 hr bupropion HCl 150 mg tablet,12 hr 150 mg PO BID #60 ea 11/02/21 12/26/21 Rx sustained-release clopidogrel 75 mg tablet (Plavix) 75 mg PO DAILY #90 tabs 11/02/21 12/26/21 Rx doxycycline hyclate 100 mg tablet 100 mg PO DAILY #20 tabs 11/20/21 12/26/21 Rx topiramate 25 mg tablet 50 mg PO HS #60 tabs 12/26/21 12/26/21 Rx Patient History Medical History CAD (coronary artery disease) Cardiomyopathy CKD (chronic kidney disease) stage 3, GFR 30-59 ml/min GERD (gastroesophageal reflux disease) History of COVID-19 12/2020 runny nose, cough, fever, no hospitalization, no current issues History of ST elevation myocardial infarction (STEMI) (~2019) follows w/ [facility]-last visit 08/2021 Hypertension ICD (implantable cardioverter-defibrillator) in place On anticoagulant therapy clopidogrel daily MARY (obstructive sleep apnea) cpap Surgical History History of appendectomy Hx of cardiac cath x 3 total~ & 09/18/2019 at [facility]. By Dr Ni. OVIDIO to RCA Stented coronary artery (~09/2019) Family History Father Colorectal cancer Grandfather (Maternal) Myocardial infarction Grandmother (Paternal) Myocardial infarction Other Cancer Coronary heart disease Diabetes Denies family history of Ovarian cancer Prostate cancer Breast cancer Social History Smoking Status: Never smoker Tobacco Type: Cigarettes Second Hand Exposure: No; Hx Alcohol Use: No Hx Substance Use: No Preferred Language: Setswana Communication Ability: Effective Visual Impairment: No Limitations Pick Up Operator Required: No Beliefs That Will Affect Care: None marital status: Current Living Situation: Spouse current occupational status: employed How many Children do You have: 3 Feels Safe at Home: Yes Childhood Exposure to Second-Hand Smoke: Yes caffeine: Yes Dental Care, Regularly: No Seatbelt Use: always Sunscreen Use: No Assistive Devices: Contacts, CPAP and Glasses Review of Systems Review of Systems: Per HPI Physical Exam Physical Exam: The patient is alert and oriented. Mood and affect appeared normal. He answered all questions appropriately. HEENT: Pupils are equal and reactive to light and accommodation. Extraocular movements are intact. The sclerae are anicteric. Neuro: Cranial nerves intact Neck: Patient's neck is supple. He has palpable carotid pulses bilaterally without bruits on auscultation. There is no evidence of jugular venous distention. The thyroid is not enlarged. Lungs: Clear to auscultation bilaterally. He has good air movement without use of accessory muscles. No rales wheezes or rhonchi. Cardiac: Heart demonstrates a regular rate and rhythm. Normal S1 and S2. No murmurs on examination. Pulses: The patient has palpable radial pulses bilaterally that are equal in intensity Extremities: There was no evidence of hypoperfusion. There is no cyanosis or clubbing. There is no edema. Skin: I did not appreciate any rashes on examination today. Atrial fibrillation Results & Data ([facility]) Vital Signs (Past 12 Hours) Vital Signs Temp Pulse Pulse Resp BP BP Pulse Ox 01/17/22 14:00 54 L 13 01/17/22 13:38 136/74 01/17/22 13:38 99 01/17/22 13:00 45 L 14 100 01/17/22 13:00 116/67 01/17/22 12:55 36.9 C 51 L 18 131/80 97 01/17/22 12:00 48 L 18 128/78 100 01/17/22 10:20 45 L 18 106/64 99 01/17/22 09:07 45 L 18 104/64 100 01/17/22 07:46 98 01/17/22 07:31 46 L 18 103/62 98 01/17/22 07:29 01/17/22 07:13 36.8 C 59 L 18 115/66 98 O2 Del Method 01/17/22 14:00 01/17/22 13:38 01/17/22 13:38 01/17/22 13:00 01/17/22 13:00 01/17/22 12:55 Room Air 01/17/22 12:00 Room Air 01/17/22 10:20 01/17/22 09:07 Room Air 01/17/22 07:46 Room Air 01/17/22 07:31 Room Air 01/17/22 07:29 Room Air 01/17/22 07:13 Room Air Laboratory Results Abnormal Lab Results 01/17/22 01/17/22 01/17/22 07:30 07:30 07:30 WBC 7.69 RBC 4.65 Hgb 15.3 Hct 44.2 MCV 95.1 MCH 32.9 MCHC 34.6 RDW Std Deviation 45.5 RDW Coeff of Paddy 13.0 Plt Count 162 MPV 10.2 Immature Gran % (Auto) 0.3 Neut % (Auto) 51.9 Lymph % (Auto) 35.6 [place] % (Auto) 7.3 Eos % (Auto) 4.4 Baso % (Auto) 0.5 Neut # (Auto) 3.99 Lymph # (Auto) 2.74 [place] # (Auto) 0.56 Eos # (Auto) 0.34 Baso # (Auto) 0.04 Immature Gran # (Auto) 0.02 PT 10.5 INR 1.0 APTT 24.5 PTT Ratio 0.9 Sodium 140 Potassium 4.2 Chloride 109 H Carbon Dioxide 27 Anion Gap 4 BUN 24 H Creatinine 1.58 H Est Cr Clr Drug Dosing 66.1 Est GFR ( Amer) 59.5 Est GFR (Non-Af Amer) 51.3 BUN/Creatinine Ratio 15.2 Glucose 137 H POC Glucose Calcium 9.4 Total Bilirubin 0.4 AST 22 ALT 10 Alkaline Phosphatase 77 Troponin I High Sens 10.8 Total Protein 7.2 Albumin 4.2 Globulin 3.0 Albumin/Globulin Ratio 1.4 Lipase 13 Urine Color Urine Appearance Urine pH Ur Specific [place] Urine Protein Urine Glucose (UA) Urine Ketones Urine Blood Urine Nitrite Urine Bilirubin Urine Urobilinogen Ur Leukocyte Esterase SARS-CoV-2, RNA, NAAT 01/17/22 01/17/22 01/17/22 07:47 09:29 11:16 WBC RBC Hgb Hct MCV MCH MCHC RDW Std Deviation RDW Coeff of Paddy Plt Count MPV Immature Gran % (Auto) Neut % (Auto) Lymph % (Auto) [place] % (Auto) Eos % (Auto) Baso % (Auto) Neut # (Auto) Lymph # (Auto) [place] # (Auto) Eos # (Auto) Baso # (Auto) Immature Gran # (Auto) PT INR APTT PTT Ratio Sodium Potassium Chloride Carbon Dioxide Anion Gap BUN Creatinine Est Cr Clr Drug Dosing Est GFR ( Amer) Est GFR (Non-Af Amer) BUN/Creatinine Ratio Glucose POC Glucose Calcium Total Bilirubin AST ALT Alkaline Phosphatase Troponin I High Sens 28.5 H D Total Protein Albumin Globulin Albumin/Globulin Ratio Lipase Urine Color Yellow Urine Appearance Clear Urine pH 6.5 Ur Specific [place] 1.016 Urine Protein Negative Urine Glucose (UA) Negative Urine Ketones Negative Urine Blood Negative Urine Nitrite Negative Urine Bilirubin Negative Urine Urobilinogen Negative Ur Leukocyte Esterase Negative SARS-CoV-2, RNA, NAAT NEGATIVE 01/17/22 15:34 WBC RBC Hgb Hct MCV MCH MCHC RDW Std Deviation RDW Coeff of Paddy Plt Count MPV Immature Gran % (Auto) Neut % (Auto) Lymph % (Auto) [place] % (Auto) Eos % (Auto) Baso % (Auto) Neut # (Auto) Lymph # (Auto) [place] # (Auto) Eos # (Auto) Baso # (Auto) Immature Gran # (Auto) PT INR APTT PTT Ratio Sodium Potassium Chloride Carbon Dioxide Anion Gap BUN Creatinine Est Cr Clr Drug Dosing Est GFR ( Amer) Est GFR (Non-Af Amer) BUN/Creatinine Ratio Glucose POC Glucose 63 L* Calcium Total Bilirubin AST ALT Alkaline Phosphatase Troponin I High Sens Total Protein Albumin Globulin Albumin/Globulin Ratio Lipase Urine Color Urine Appearance Urine pH Ur Specific [place] Urine Protein Urine Glucose (UA) Urine Ketones Urine Blood Urine Nitrite Urine Bilirubin Urine Urobilinogen Ur Leukocyte Esterase SARS-CoV-2, RNA, NAAT Diagnostic Findings I performed a complete device interrogation today of a single-chamber ICD. No recent arrhythmias. No recent therapies. No significant ventricular pacing. Rate histograms appear normal. Normal threshold and sensing on the ventricular lead. Stress echocardiogram performed 11/27/2021: Patient achieved 83% maximum predicted heart rate. No evidence of inducible ischemia. Normal baseline left ventricular systolic function. Ejection fraction 60 to 65%. Moderate LVH. Mild aortic regurgitation. Cardiac catheterization performed 10/08/2019: Normal left main, distal 20% LAD lesion with 30% proximal D2 lesion. Circumflex ostial 30%, mid 40%. Right coronary artery with a proximal stent that is patent. Distal 10% stenosis. ECG Additional Comments: EKG obtained at time admission revealed sinus bradycardia without significant ST or T wave changes. PG Care Time/CCT Total # of Minutes Spent Total Time Spent with Patient: Total time spent is greater than 50% in coordination of care (as documented) at patient's floor/unit and/or counseling patient: Coding Level of Care Code 75129 Office/OBS Consult Lvl 4 Diagnoses Chest pain R07.9 Paroxysmal ventricular tachycardia I47.2 CAD (coronary artery disease) I25.10 Associated angina: unspecified whether angina present Coronary Disease-Associated Artery/Lesion type: [place] artery [place] vs. transplanted heart: unspecified whether [place] or transplanted heart ICD (implantable cardioverter-defibrillator) in place Z95.810 CPT Codes Implantable Defib Single Lead Programming - 57090 ([id number]) 26 - PROFESSIONAL COMPONENT (1) CAD (coronary artery disease) Associated angina: unspecified whether angina present Coronary Disease- Associated Artery/Lesion type: [place] artery [place] vs. transplanted heart: unspecified whether [place] or transplanted heart Qualified Code(s): I25.10 - Atherosclerotic heart disease of [place] coronary artery without angina pectoris
[2022-01-17] MEDS ORDERED: FLUARIX QUADRIVALENT 0.5 ML SYR IM ONE (15:52)
[2022-01-17 16:00] LABS: Lyme Ab IgG w/WB Rflx Negative (Negative); Lyme Ab IgM w/WB Rflx Negative (Negative)
[2022-01-17] MEDS: HEPARIN SOD 5,000 UNIT/0.5 ML VIAL SQ SCH ×2 (16:19→21:11)
--- NOTE | 2022-01-17 20:51 | Electrocardiogram Report ---
Test Reason : Blood Pressure : / mmHG Vent. Rate : 044 BPM Atrial Rate : 044 BPM P-R Int : 212 ms QRS Dur : 108 ms QT Int : 440 ms P-R-T Axes : 028 -17 043 degrees QTc Int : 376 ms Marked sinus bradycardia with 1st degree A-V block Abnormal ECG When compared with ECG of 19-JUL-2020 07:52, No significant change was found Confirmed by Niko Jaime ([id number]) on 01/17/2022 8:50:34 PM Referred By: Confirmed By:Ze Jaime
[2022-01-17] MEDS: TOPIRAMATE 50 MG TAB PO SCH (21:10)
[2022-01-17] MEDS: buPROPion SR 150 MG TABCR PO SCH (21:11)
[2022-01-18 05:43] LABS: BUN Creatinine Ratio 14.5 (10-20); Calcium 9.2 mg/dl (8.5-10.1); Est GFR (African American) 70.1 ml/min; Est GFR (Non-African American) 60.5 ml/min; Magnesium 2.1 mg/dl (1.7-2.4); Potassium 4.1 mmol/L (3.5-5.1)
[2022-01-18 05:51] LABS: Troponin I High Sensitivity 11.8 pg/ml (0-20)
[2022-01-18] MEDS: HEPARIN SOD 5,000 UNIT/0.5 ML VIAL SQ SCH ×3 (06:59→21:50)
[2022-01-18] MEDS: ASPIRIN 81 MG ECTAB PO SCH (08:53)
[2022-01-18] MEDS: CLOPIDOGREL BISULFATE 75 MG TAB PO SCH (08:54)
[2022-01-18] MEDS: ISOSORBIDE MONO EXTENDED REL 60 MG TABCR PO SCH (08:54)
[2022-01-18] MEDS: buPROPion SR 150 MG TABCR PO SCH ×2 (08:54→20:11)
[2022-01-18] MEDS: METOPROLOL SUCC 50MG EXT REL TAB PO SCH (08:55)
[2022-01-18] MEDS: ROSUVASTATIN CALCIUM 20 MG TAB PO SCH (08:55)
--- NOTE | 2022-01-18 11:39 | Electrocardiogram Report ---
Test Reason : Blood Pressure : / mmHG Vent. Rate : 050 BPM Atrial Rate : 050 BPM P-R Int : 188 ms QRS Dur : 106 ms QT Int : 416 ms P-R-T Axes : 013 -25 040 degrees QTc Int : 379 ms Sinus bradycardia Incomplete right bundle branch block Borderline ECG When compared with ECG of 17-JAN-2022 07:19, Incomplete right bundle branch block is now Present Confirmed by Niko Jaime ([id number]) on 01/18/2022 11:39:48 AM Referred By: REFERRED SELF Confirmed By:Ze Jaime
--- NOTE | 2022-01-18 11:47 | Pre Anesthesia Assessment ---
Date of Service January 18, 2022 Pre Sedation Assessment Vital Signs Temp Pulse Pulse Resp BP BP Pulse Ox 01/18/22 04:00 44 L 14 96 01/18/22 04:00 102/55 L 01/18/22 03:00 49 L 13 01/18/22 03:00 107/57 L 01/18/22 02:00 50 L 14 01/18/22 02:00 99/56 L 01/18/22 01:00 46 L 13 01/18/22 01:00 105/57 L 96 01/18/22 01:00 45 L 01/18/22 00:00 45 L 13 01/18/22 00:00 99/52 L 01/17/22 23:00 100/49 L 01/17/22 23:00 45 L 12 01/17/22 22:00 47 L 12 01/17/22 22:00 108/52 L 01/17/22 21:00 44 L 14 01/17/22 21:00 106/51 L 01/17/22 20:00 55 L 19 01/17/22 20:00 136/67 01/17/22 19:00 127/70 01/17/22 19:00 55 L 17 01/17/22 18:00 54 L 11 L 01/17/22 18:00 108/61 01/17/22 17:00 58 L 17 01/17/22 17:00 114/66 01/17/22 15:00 01/17/22 14:36 01/17/22 16:01 133/82 01/17/22 16:01 46 L 15 01/17/22 16:00 58 L 15 01/17/22 15:08 43 L 10 L 01/17/22 15:08 135/68 01/17/22 15:00 48 L 11 L 01/17/22 16:00 53 L 01/17/22 15:53 36.6 C 44 L 14 135/68 96 01/17/22 14:00 54 L 13 01/17/22 13:38 136/74 01/17/22 13:38 99 01/17/22 13:00 45 L 14 100 01/17/22 13:00 116/67 01/17/22 12:55 36.9 C 51 L 18 131/80 97 01/17/22 12:00 48 L 18 128/78 100 Pulse Ox O2 Del Method O2 Del Method 01/18/22 04:00 Room Air 01/18/22 04:00 01/18/22 03:00 01/18/22 03:00 01/18/22 02:00 01/18/22 02:00 01/18/22 01:00 01/18/22 01:00 Room Air 01/18/22 01:00 01/18/22 00:00 01/18/22 00:00 01/17/22 23:00 01/17/22 23:00 01/17/22 22:00 01/17/22 22:00 01/17/22 21:00 01/17/22 21:00 01/17/22 20:00 01/17/22 20:00 01/17/22 19:00 01/17/22 19:00 01/17/22 18:00 01/17/22 18:00 01/17/22 17:00 01/17/22 17:00 01/17/22 15:00 Room Air 01/17/22 14:36 96 Room Air 01/17/22 16:01 01/17/22 16:01 01/17/22 16:00 01/17/22 15:08 01/17/22 15:08 01/17/22 15:00 01/17/22 16:00 01/17/22 15:53 Room Air 01/17/22 14:00 01/17/22 13:38 01/17/22 13:38 01/17/22 13:00 01/17/22 13:00 01/17/22 12:55 Room Air 01/17/22 12:00 Room Air Cardiovascular + regular rhythm and + bradycardic Respiratory + respiratory effort normal Pre-Sedation Airway Assessment Smoking Status: Former smoker Hx Sleep Apnea: No Hx Difficult Intubation: No Short, Thick Neck: No Thyromental Distance: > or= 3.5 Finger Breadths Oral Cavity: + WNL Mallampati Class: III ASA: ASA3 Procedure Planning Contraindications for Sedation: none Current Medications Reviewed: Yes Notes The planned sedation has been discussed with the patient. Informed Consent was obtained. I have identified the patient, determined the appropriateness of sedation and have assessed the patient immediately prior to the procedure. All medicine(s) and interventions are by my order.
[2022-01-18] MEDS ORDERED: niCARdipine HCL INJ 2.5 MG/ML 10 ML AMP ONE (11:51)
[2022-01-18] MEDS ORDERED: HEPARIN (PORCINE) 1000 UNIT/ML 10 ML (CATH LAB USE ONLY) ONE (11:51)
[2022-01-18] MEDS ORDERED: MIDAZOLAM HCL 1 MG/ML 2ML VIAL ONE ×2 (11:52→13:09)
[2022-01-18] MEDS ORDERED: fentaNYL citrate 100 MCG/2 ML VIAL ONE (11:52)
[2022-01-18] MEDS ORDERED: ADENOSINE IV SOLN 3 MG/ML 20 ML VIAL IV ONE (13:04)
--- NOTE | 2022-01-18 13:30 | Post Anesthesia Assessment ---
Date of Service January 18, 2022 Post Sedation Assessment Vital Signs Temp Pulse Pulse Resp BP BP BP 01/18/22 11:30 36.9 C 56 L 20 120/69 01/18/22 04:00 44 L 14 01/18/22 04:00 102/55 L 01/18/22 03:00 49 L 13 01/18/22 03:00 107/57 L 01/18/22 02:00 50 L 14 01/18/22 02:00 99/56 L 01/18/22 01:00 46 L 13 01/18/22 01:00 105/57 L 01/18/22 01:00 45 L 01/18/22 00:00 45 L 13 01/18/22 00:00 99/52 L 01/17/22 23:00 100/49 L 01/17/22 23:00 45 L 12 01/17/22 22:00 47 L 12 01/17/22 22:00 108/52 L 01/17/22 21:00 44 L 14 01/17/22 21:00 106/51 L 01/17/22 20:00 55 L 19 01/17/22 20:00 136/67 01/17/22 19:00 127/70 01/17/22 19:00 55 L 17 01/17/22 18:00 54 L 11 L 01/17/22 18:00 108/61 01/17/22 17:00 58 L 17 01/17/22 17:00 114/66 01/17/22 15:00 01/17/22 14:36 01/17/22 16:01 133/82 01/17/22 16:01 46 L 15 01/17/22 16:00 58 L 15 01/17/22 15:08 43 L 10 L 01/17/22 15:08 135/68 01/17/22 15:00 48 L 11 L 01/17/22 16:00 53 L 01/17/22 15:53 36.6 C 44 L 14 135/68 01/17/22 14:00 54 L 13 01/17/22 13:38 136/74 01/17/22 13:38 Pulse Ox Pulse Ox O2 Del Method O2 Del Method 01/18/22 11:30 97 Room Air 01/18/22 04:00 96 Room Air 01/18/22 04:00 01/18/22 03:00 01/18/22 03:00 01/18/22 02:00 01/18/22 02:00 01/18/22 01:00 01/18/22 01:00 96 Room Air 01/18/22 01:00 01/18/22 00:00 01/18/22 00:00 01/17/22 23:00 01/17/22 23:00 01/17/22 22:00 01/17/22 22:00 01/17/22 21:00 01/17/22 21:00 01/17/22 20:00 01/17/22 20:00 01/17/22 19:00 01/17/22 19:00 01/17/22 18:00 01/17/22 18:00 01/17/22 17:00 01/17/22 17:00 01/17/22 15:00 Room Air 01/17/22 14:36 96 Room Air 01/17/22 16:01 01/17/22 16:01 01/17/22 16:00 01/17/22 15:08 01/17/22 15:08 01/17/22 15:00 01/17/22 16:00 01/17/22 15:53 96 Room Air 01/17/22 14:00 01/17/22 13:38 01/17/22 13:38 99 Recovery Score Activity: Moves 4 extremities Respiration: Deep Breath/Cough Circulation: +/-20% PreAnes Value Consciousness: Fully Awake Oxygen Saturation: > 92% On Room Air Discharge Sedation Level of Care: Fast Track Phase II Post Sedation Plan On clinical assessment, the patient appears to have tolerated the sedation without complications. Patient is recovering as anticipated. Patient will continue to be monitored by nursing and may be discharged when sedation discharge criteria are met per below protocol. Upon Completions of procedure up to 15 minutes continue every 5 minute vital signs and the P.A.R. score; then discharge to a Phase I or Fast Track to Phase II per the following guidelines: * Discharge Patient to appropriate Phase II area if PAR is 8 or greater or return to pre- procedure baseline. The post - procedure orders will be as directed. * If PAR score is less than 8 or not return to pre-procedure baseline then patient will follow Phase I monitoring till PAR is reached for Phase II. The Phase I may be done in procedure room or may call to secure a Phase I area. * If naloxone or flumazenil are used for reversal, hold in Phase I for continued monitoring from when last reversal dose was given for a minimum of 60 minutes or longer pending the nurse and/or physician discretion of patient condition before discharge to Phase II. Please call the Sedation Physician to re-evaluate and complete post-note for discharge to Phase II area. Do NOT discharge from procedure sedation or Phase 1 until post- sedation evaluation note is complete by procedure /sedation MD Sedation Discharge Instructions to be given to the patient at discharge to home.
--- NOTE | 2022-01-18 13:30 | Cardiac Catheterization ---
[facility] Data: [facility] Cardiac Status Clinical evaluation leading to the procedure CAD Presenation: Unstable angina Diagnostic Physicians Name: Niko Jaime MD Closure Device Recommendations: Medical Therapy and/or Counseling Cardiac Cath Procedure Full Procedure Date January 18, 2022 Pre-Procedure Diagnosis Pre-Procedure Diagnosis: Non STEMI AUC Score AUC Score: 7 Post-Procedure Diagnosis Post-Procedure Diagnosis: Mild CAD and Normal Intracardiac Pressures Procedure(s) Performed Procedure(s) Performed: Coronary Angiography and Left Heart Cath Transport Rn Niko Jaime MD Panel Builder(s) none Estimated Blood Loss Estimated Blood Loss: 5cc Medication(s) Medication(s): Fentanyl, Heparin, Lidocaine 1%, Nicardipine, Nitroglycerin and Versed Summary of Findings Procedure performed: Left heart catheterization, selective coronary angiography Staff human resources executive assistant: Niko Jaime MD Indication: The patient is a 46-year-old gentleman with a history of coronary disease having previously undergone percutaneous intervention to the right coronary artery. He presented to the hospital symptoms of chest discomfort and mildly elevated cardiac biomarkers. Procedure in detail: The patient was informed of the risks benefits and alternatives to the intended procedure, he understood such and wished to proceed. He was taken to the cardiac catheterization suite in a fasting state. Conscious sedation was administered per protocol and the patient was monitored electrocardiographically throughout today's procedure. The right wrist area was prepped and draped in usual sterile fashion. This area was anesthetized using subcutaneous administration of a lidocaine solution. The right radial artery was then accessed using Seldinger technique, and a arterial sheath was placed at this site over a guidewire. The sheath was used to facilitate passage of the cardiac catheter for coronary angiography and left heart catheterization. Coronary angiogram was then obtained in multiple orthogonal views prior to removal of the catheter. At the conclusion of the procedure the sheath was removed and hemostasis was achieved at the access site using manual pressure. The patient tolerated procedure well, there were no immediate complications. Equipment used: 4 [place] JR4, 4 [place] JL4 Findings: Coronary angiography Left main: Left main coronary was normal in size and caliber and bifurcated normally into the left anterior descending left circumflex arteries. There were luminal irregularities in this vessel but no discrete stenosis. Left anterior descending: Left anterior descending was a large vessel which reached the apex. It produced a medium-sized 1st diagonal followed closely by a large 2nd diagonal system. There was another diminutive diagonal towards the apex. There were no discrete stenosis in the LAD. There was proximal disease in the 2nd diagonal estimated at 50%. There was a branch of the 2nd diagonal which appeared subtotally occluded. Left circumflex: Left circumflex produced a large 1st OM with 30% stenosis in its proximal portion. This is followed by a smaller OM2 with 50% stenosis in its proximal portion. There was a diminutive OM 3. Right coronary: The right coronary had a patent stent in its proximal portion. There did not appear to be any significant InStent restenoses. There is a large posterolateral branch and a smaller posterior descending artery. There were no significant obstructive lesions in these vessels. Impression: Branch vessel disease involving 2nd diagonal Patent stent in the proximal right coronary Normal left ventricular filling pressures No evidence of aortic stenosis Hemodynamics Rest Ao:: 97/54 mm of mercury Final Ao: 110/57 mm of mercury LV: 107/2 mm of mercury Left ventricular end-diastolic pressure 13 mm of mercury Recommendations Recommendations: Medical Therapy and/or Counseling Specimens Specimens: None Radiation Exposure (mGy) 1355 Contrast (mls) 45 Procedural Complication(s) None Disposition PCU I attest to the content of the Intraoperative Record and any orders documented therein. Any exceptions are noted below. [facility] Card Cath Procedure Codes Cardiac Catheterization Procedure 1: Cardiovascular Cath Procedures: 80003 Coronaries and LHC (+/-LV) Moderate Sedation Procedure 1: Sedation/Anesthesia: 73862 Mod Sedation by the same physician;Init15 Min Child Age 5 & Up Procedure 2: Sedation/Anesthesia: 22752 Mod Sedation by the same physician; Ea [id number] Minutes PG Care Time/CCT Total # of Minutes Spent Total Time Spent with Patient: Total time spent is greater than 50% in coordination of care (as documented) at patient's floor/unit and/or counseling patient:
--- NOTE | 2022-01-18 17:00 | Cardiology Progress Note ---
Date of Service January 18, 2022 Assessment & Plan (1) Chest pain: (2) Paroxysmal ventricular tachycardia: (3) CAD (coronary artery disease): (4) ICD (implantable cardioverter-defibrillator) in place: Plan 1. Chest pain: Possibly related to a subtotally occluded branch of the 2nd diagonal. This represents a very small territory of myocardium. No evidence for recent acute coronary syndrome or more significant coronary disease. At this point will intensify his antianginal regimen. 2. Ventricular tachycardia: No arrhythmias. 3. Coronary artery disease: New development of some small branch vessel disease. Continue aggressive secondary prevention. 4. Aortic insufficiency: Mild on the most recent echocardiogram in November of this year. 5. Normally functioning single-chamber ICD without recent therapies or events. Recommendations: Patient stable for discharge. No vigorous use of the right wrist or lifting more than 5 lb with the right hand for 7 days. Continue current outpatient medical regimen which includes dual anti-platelet therapy, isosorbide mononitrate, metoprolol succinate 50 mg daily and high-dose rosuvastatin. start Ranexa 500 mg twice daily follow-up with his primary edge sander Dr. Rm in the next 2-4 weeks. Admission and Anticipated Discharge Date Admission Date: January 17, 2022 Subjective Patient reported some additional episodes of chest discomfort since admission. Some these are exertional some at rest. There were brief in duration but similar in character to his presenting symptoms. Review of Systems Review of Systems: Per HPI Physical Exam Physical Exam: The patient is alert and oriented. Mood and affect appeared normal. He answered all questions appropriately. HEENT: Pupils are equal and reactive to light and accommodation. Extraocular movements are intact. The sclerae are anicteric. Neuro: Cranial nerves intact Neck: Patient's neck is supple. He has palpable carotid pulses bilaterally without bruits on auscultation. There is no evidence of jugular venous distention. The thyroid is not enlarged. Lungs: Clear to auscultation bilaterally. He has good air movement without use of accessory muscles. No rales wheezes or rhonchi. Cardiac: Heart demonstrates a regular rate and rhythm. Normal S1 and S2. No murmurs on examination. Pulses: The patient has palpable radial pulses bilaterally that are equal in intensity Extremities: right hand appear to be well perfused. Good motion. No pain. Skin: I did not appreciate any rashes on examination today. Atrial fibrillation ENMT: Mallampati Class: III Respiratory: normal respiratory effort Cardiovascular: Rate/Rhythm: regular rhythm and + bradycardic Results & Data ([facility]) Vital Signs (Past 12 Hours) Vital Signs Temp Pulse Pulse Resp BP BP Pulse Ox 01/18/22 16:30 36.7 C 51 L 18 139/73 97 01/18/22 16:15 49 L 18 97 01/18/22 16:15 117/65 01/18/22 16:00 52 L 14 98 01/18/22 16:00 125/66 01/18/22 15:45 49 L 11 L 96 01/18/22 15:45 112/73 01/18/22 15:30 50 L 13 98 01/18/22 15:30 121/69 01/18/22 15:15 55 L 18 99 01/18/22 15:15 126/69 01/18/22 15:00 46 L 9 L 99 01/18/22 15:00 113/64 01/18/22 14:45 52 L 10 L 98 01/18/22 14:30 45 L 12 97 01/18/22 14:30 111/64 01/18/22 14:15 46 L 18 96 01/18/22 14:15 111/60 01/18/22 14:00 53 L 18 01/18/22 13:57 54 L 10 L 01/18/22 13:57 114/62 01/18/22 11:00 49 L 17 98 01/18/22 11:00 102/60 01/18/22 10:45 52 L 14 97 01/18/22 10:30 48 L 16 97 01/18/22 10:15 47 L 12 98 01/18/22 10:00 46 L 10 L 97 01/18/22 10:00 107/56 L 01/18/22 09:45 49 L 13 97 01/18/22 09:30 48 L 15 97 01/18/22 09:15 48 L 13 99 01/18/22 09:00 48 L 13 97 01/18/22 09:00 123/60 01/18/22 08:45 46 L 12 99 01/18/22 08:30 47 L 18 98 01/18/22 08:15 55 L 10 L 97 01/18/22 08:00 46 L 9 L 96 01/18/22 08:00 114/56 L 01/18/22 07:45 45 L 10 L 98 01/18/22 07:30 46 L 10 L 98 01/18/22 07:15 46 L 11 L 97 01/18/22 07:00 48 L 9 L 98 01/18/22 07:00 117/54 L 01/18/22 13:40 45 L 16 106/64 95 01/18/22 13:27 62 16 132/95 95 01/18/22 11:30 36.9 C 56 L 20 120/69 97 O2 Del Method 01/18/22 16:30 Room Air 01/18/22 16:15 01/18/22 16:15 01/18/22 16:00 01/18/22 16:00 01/18/22 15:45 01/18/22 15:45 01/18/22 15:30 01/18/22 15:30 01/18/22 15:15 01/18/22 15:15 01/18/22 15:00 01/18/22 15:00 01/18/22 14:45 01/18/22 14:30 01/18/22 14:30 01/18/22 14:15 01/18/22 14:15 01/18/22 14:00 01/18/22 13:57 01/18/22 13:57 01/18/22 11:00 01/18/22 11:00 01/18/22 10:45 01/18/22 10:30 01/18/22 10:15 01/18/22 10:00 01/18/22 10:00 01/18/22 09:45 01/18/22 09:30 01/18/22 09:15 01/18/22 09:00 01/18/22 09:00 01/18/22 08:45 01/18/22 08:30 01/18/22 08:15 01/18/22 08:00 01/18/22 08:00 01/18/22 07:45 01/18/22 07:30 01/18/22 07:15 01/18/22 07:00 01/18/22 07:00 01/18/22 13:40 Room Air 01/18/22 13:27 Room Air 01/18/22 11:30 Room Air Laboratory Results Abnormal Lab Results 01/17/22 01/17/22 01/18/22 15:00 20:43 04:32 Activ Coag Time Kaolin Sodium 140 Potassium 4.1 Chloride 111 H Carbon Dioxide 25 Anion Gap 4 BUN 20 Creatinine 1.38 Est Cr Clr Drug Dosing 75.0 Est GFR ( Amer) 70.1 Est GFR (Non-Af Amer) 60.5 BUN/Creatinine Ratio 14.5 Glucose 93 Calcium 9.2 Magnesium 2.1 Troponin I High Sens 20.1 H D 11.8 D Nasal Screen MRSA (PCR) Negative 01/18/22 01/18/22 13:11 14:48 Activ Coag Time Kaolin 197 H Sodium Potassium Chloride Carbon Dioxide Anion Gap BUN Creatinine Est Cr Clr Drug Dosing Est GFR ( Amer) Est GFR (Non-Af Amer) BUN/Creatinine Ratio Glucose Calcium Magnesium Troponin I High Sens 12.4 Nasal Screen MRSA (PCR) Diagnostic Findings Cardiac catheterization performed today revealed patent stent in right coronary artery. Some nonobstructive disease in right coronary artery. The nonobstructive disease involving the left circumflex and LAD. There was some branch vessel disease involving the proximal 2nd diagonal with a very small branch with a 2nd diagonal that was subtotally occluded. PG Care Time/CCT Total # of Minutes Spent Total Time Spent with Patient: Total time spent is greater than 50% in coordination of care (as documented) at patient's floor/unit and/or counseling patient: Coding Level of Care Code 62051 Subseq Hosp Care Lvl 2 Diagnoses Chest pain R07.9 Paroxysmal ventricular tachycardia I47.2 CAD (coronary artery disease) I25.10 Associated angina: unspecified whether angina present Coronary Disease-Associated Artery/Lesion type: [place] artery [place] vs. transplanted heart: unspecified whether [place] or transplanted heart ICD (implantable cardioverter-defibrillator) in place Z95.810 (1) CAD (coronary artery disease) Associated angina: unspecified whether angina present Coronary Disease- Associated Artery/Lesion type: [place] artery [place] vs. transplanted heart: unspecified whether [place] or transplanted heart Qualified Code(s): I25.10 - Atherosclerotic heart disease of [place] coronary artery without angina pectoris
--- NOTE | 2022-01-18 20:05 | Electrocardiogram Report ---
Test Reason : Blood Pressure : / mmHG Vent. Rate : 048 BPM Atrial Rate : 048 BPM P-R Int : 192 ms QRS Dur : 106 ms QT Int : 448 ms P-R-T Axes : 001 -21 025 degrees QTc Int : 400 ms Poor data quality, interpretation may be adversely affected Sinus bradycardia Incomplete right bundle branch block Borderline ECG When compared with ECG of 17-JAN-2022 19:54, (unconfirmed) No significant change was found Confirmed by Niko Jaime ([id number]) on 01/18/2022 8:04:57 PM Referred By: REFERRED SELF Confirmed By:Ze Jaime
[2022-01-18] MEDS: TOPIRAMATE 50 MG TAB PO SCH (20:12)
--- NOTE | 2022-01-18 21:26 | Hospitalist Progress Note ---
Date of Service January 18, 2022 Assessment & Plan (1) Chest pain: Plan: Patient presents with chest pain in the morning with minimal activity remittent reminisces and previous [place], minor escalation of high-sensitivity troponin on second check no acute changes on EKG Continue aspirin Plavix beta-eugenio statin Patient had cardiac cath: which only showed a subtotaly ocluded branch of the 2nd diagonal. Patient remains on his isosorbide and rosuvastatin as additional treatments of his coronary disease WIll start ranexa as an outpatient and discharge in the AM. (2) CKD (chronic kidney disease) stage 3, GFR 30-59 ml/min: Plan: Renal function is stable appropriate dosing of medications will be undertaken (3) MARY (obstructive sleep apnea): Plan: Patient be offered his continued sleep apnea CPAP machine use here (4) Hypertension: Plan: Blood pressure control is achieved with metoprolol and likely assisted with his isosorbide (5) ICD (implantable cardioverter-defibrillator) in place: Plan: Of the device interrogated in case his troponin rises from a defibrillator discharge which may have occurred when sleeping on the patient be unaware of it Plan With the patient's bradycardia we will check a Lyme titer, he did have a tic bite and was on doxycycline in october Patient continue bupropion for depression Admission and Anticipated Discharge Date Admission Date: January 17, 2022 Subjective 46 yo male reports feeling well. He tolerated his cath and has no new complaints. Review of Systems Review of Systems: All systems reviewed & are unremarkable except as noted in HPI & below Physical Exam Physical Exam: The patient appeared well nourished and normally developed. Vital signs as documented. Head exam is normocephalic atraumatic Neck is without JVD, thyromegaly, or carotid bruits. Lungs are clear to auscultation, no focal loss of breath sounds Cardiac exam, Rhythm is regular but bradycardic.. No murmurs, rubs or gallops. Abdominal exam reveals normal bowel sounds, soft non tender, no masses Extremities are nonedematous and both pedal pulses are present Neurologic exam is alert and oriented, no focal loss of strength or sensation Skin is without bruises or rashes Psychologically is without concerns for anxiety or depression. Results & Data Results & Data ([facility]) Vital Signs (Past 12 Hours) Vital Signs Temp Pulse Pulse Resp BP BP Pulse Ox 01/18/22 19:48 36.3 C L 59 L 17 124/66 97 01/18/22 16:30 36.7 C 51 L 18 139/73 97 01/18/22 16:15 49 L 18 97 01/18/22 16:15 117/65 01/18/22 16:00 52 L 14 98 01/18/22 16:00 125/66 01/18/22 15:45 49 L 11 L 96 01/18/22 15:45 112/73 01/18/22 15:30 50 L 13 98 01/18/22 15:30 121/69 01/18/22 15:15 55 L 18 99 01/18/22 15:15 126/69 01/18/22 15:00 46 L 9 L 99 01/18/22 15:00 113/64 01/18/22 14:45 52 L 10 L 98 01/18/22 14:30 45 L 12 97 01/18/22 14:30 111/64 01/18/22 14:15 46 L 18 96 01/18/22 14:15 111/60 01/18/22 14:00 53 L 18 01/18/22 13:57 54 L 10 L 01/18/22 13:57 114/62 01/18/22 11:00 49 L 17 98 01/18/22 11:00 102/60 01/18/22 10:45 52 L 14 97 01/18/22 10:30 48 L 16 97 01/18/22 10:15 47 L 12 98 01/18/22 10:00 46 L 10 L 97 01/18/22 10:00 107/56 L 01/18/22 09:45 49 L 13 97 01/18/22 09:30 48 L 15 97 01/18/22 13:40 45 L 16 106/64 95 01/18/22 13:27 62 16 132/95 95 01/18/22 11:30 36.9 C 56 L 20 120/69 97 O2 Del Method 01/18/22 19:48 Room Air 01/18/22 16:30 Room Air 01/18/22 16:15 01/18/22 16:15 01/18/22 16:00 01/18/22 16:00 01/18/22 15:45 01/18/22 15:45 01/18/22 15:30 01/18/22 15:30 01/18/22 15:15 01/18/22 15:15 01/18/22 15:00 01/18/22 15:00 01/18/22 14:45 01/18/22 14:30 01/18/22 14:30 01/18/22 14:15 01/18/22 14:15 01/18/22 14:00 01/18/22 13:57 01/18/22 13:57 01/18/22 11:00 01/18/22 11:00 01/18/22 10:45 01/18/22 10:30 01/18/22 10:15 01/18/22 10:00 01/18/22 10:00 01/18/22 09:45 01/18/22 09:30 01/18/22 13:40 Room Air 01/18/22 13:27 Room Air 01/18/22 11:30 Room Air PG Care Time/CCT Total # of Minutes Spent Total Time Spent with Patient: Total time spent is greater than 50% in coordination of care (as documented) at patient's floor/unit and/or counseling patient: Coding Level of Care Code 82426 Subseq Obs Care Lvl 2 Diagnoses Chest pain R07.9 CKD (chronic kidney disease) stage 3, GFR 30-59 ml/min N18.31 Chronic kidney disease stage 3 subtype: stage 3a (GFR 45-59) MARY (obstructive sleep apnea) G47.33 Hypertension I10 Hypertension type: unspecified ICD (implantable cardioverter-defibrillator) in place Z95.810 (1) CKD (chronic kidney disease) stage 3, GFR 30-59 ml/min Chronic kidney disease stage 3 subtype: stage 3a (GFR 45-59) Qualified Cod e(s): N18.31 - Chronic kidney disease, stage 3a (2) Hypertension Hypertension type: unspecified Qualified Code(s): I10 - Essential (primary) hypertension
[2022-01-19] MEDS: HEPARIN SOD 5,000 UNIT/0.5 ML VIAL SQ SCH (04:30)
[2022-01-19 06:34] LABS: BUN Creatinine Ratio 12.7 (10-20); Calcium 9.1 mg/dl (8.5-10.1); Creatinine Clr Calc Pharmacy 68.2 ml/min; Est GFR (African American) 63.3 ml/min; Est GFR (Non-African American) 54.7 ml/min; Magnesium 2.1 mg/dl (1.7-2.4); Potassium 3.8 mmol/L (3.5-5.1)
[2022-01-19] MEDS: ISOSORBIDE MONO EXTENDED REL 60 MG TABCR PO SCH (08:04)
[2022-01-19] MEDS: ASPIRIN 81 MG ECTAB PO SCH (08:04)
[2022-01-19] MEDS: buPROPion SR 150 MG TABCR PO SCH (08:04)
[2022-01-19] MEDS: ROSUVASTATIN CALCIUM 20 MG TAB PO SCH (08:04)
[2022-01-19] MEDS: METOPROLOL SUCC 50MG EXT REL TAB PO SCH (08:04)
[2022-01-19] MEDS: CLOPIDOGREL BISULFATE 75 MG TAB PO SCH (08:04)
[2022-01-19] MEDS ORDERED: RANOLAZINE 500 MG ER TAB PO STA (10:15)
[2022-01-19] MEDS ORDERED: Nursing to Pharmacy Communication SCH (11:30)
[2022-01-19] MEDS ORDERED: RANOLAZINE 500 MG ER TAB PO SCH (11:45)
--- NOTE | 2022-01-19 14:43 | Electrocardiogram Report ---
Test Reason : Blood Pressure : / mmHG Vent. Rate : 049 BPM Atrial Rate : 049 BPM P-R Int : 192 ms QRS Dur : 104 ms QT Int : 452 ms P-R-T Axes : -02 - 026 degrees QTc Int : 408 ms Poor data quality, interpretation may be adversely affected Sinus bradycardia Poor R wave progression, consider anterior HI vs. lead placement vs. LVH Abnormal ECG When compared with ECG of 18-JAN-2022 04:50, Incomplete right bundle branch block is no longer Present Confirmed by Fran Kay ([id number]) on 01/19/2022 2:43:29 PM Referred By: REFERRED SELF Confirmed By:Fran Kay
[2022-01-19] MEDS ORDERED: RANOLAZINE 500 MG ER TAB PO ONE (21:00)
== END 2022-01-19 11:59 | disposition home or self-care (01) ==
LOC: ED 07:10 → 1E 07:10 → SUATTDRO 11:48 → 1E 12:55 → 2E 01-18 16:39